=== PATIENT | female | born 1955 | race Caucasian/White ===

== ENCOUNTER → 2023-09-18 14:40 | Outpatient (REF) | payer MEDICARE, OTHER, SELFPAY | LOC: HWWDC 14:40 | PROVIDERS: ATTENDING PHYSICIAN Family Medicine | DX: Z12.31 Encounter for screening mammogram for malignant neoplasm of breast (principal) | CPT/HCPCS: 77063; 77067 ==

== ENCOUNTER → 2023-09-26 09:30 | Outpatient (REF) | payer MEDICARE, OTHER, SELFPAY | LOC: WDC 09:30 | PROVIDERS: ATTENDING PHYSICIAN Family Medicine | DX: R92.8 Other abnormal and inconclusive findings on diagnostic imaging of breast (principal) | CPT/HCPCS: 76642 ==

== ENCOUNTER → 2023-10-01 12:14 | Outpatient (REF) | payer MEDICARE, OTHER, SELFPAY ==
--- NOTE | 2023-10-01 15:13 | OID.BR.INTR ---
SOLD Breast Navigator - Initial
- -
Date of Contact: 10/01/23
Met with patient. Patient given written information on navigator services and support services available at [facility]. Will follow up as needed per protocol.
== END ==
LOC: WDC 12:14
PROVIDERS: ATTENDING PHYSICIAN Family Medicine
DX: N63.22 Unspecified lump in the left breast, upper inner quadrant (principal)
CPT/HCPCS: 88305; 19083; 77065; 88341; 88342; 88360; A4648

== ENCOUNTER → 2023-10-06 07:50 | Outpatient (REF) | payer MEDICARE, OTHER, SELFPAY | LOC: DHSLP 07:50 | PROVIDERS: ATTENDING PHYSICIAN Internal Medicine Critical Care Medicine; FAMILY PHYSICIAN Family Medicine | DX: G47.30 Sleep apnea, unspecified (principal); R06.83 Snoring | CPT/HCPCS: 95800 ==

== ENCOUNTER → 2023-10-09 08:16 | Outpatient (REF) | payer MEDICARE, OTHER, SELFPAY ==
[2023-10-09 09:55] LABS: Hematocrit 40.2 % (37.0-47.0); Hemoglobin 13.2 g/dL (12.0-16.0); Mean Corp Hgb Conc. 32.8 g/dL (33.0-37.0); Mean Corpuscular Hgb 28.8 pg (27.0-31.0); Mean Corpuscular Volume 87.6 fL (81.0-99.0); Mean Platelet Volume 11.1 fL (7.4-10.4); Platelet Count 293 10^3/uL (130-400); Red Blood Cell Count 4.59 10^6/uL (4.20-5.40); Red Cell Dist. Width 13.3 % (11.5-14.5); White Blood Cell Count 8.4 10^3/uL (4.8-10.8)
[2023-10-09 10:39] LABS: ALT (SGPT) 16 U/L (0-35); AST (SGOT) 21 U/L (14-36); Albumin 3.7 g/dl (3.5-5.0); Alkaline Phosphatase 118 U/L (38-126); Blood Urea Nitrogen 35 mg/dl (7-17); Calcium 9.3 mg/dl (8.4-10.2); Carbon Dioxide 28 mmol/L (22-30); Chloride 100 mmol/L (98-107); Glucose 217 mg/dl (70-99); Potassium 4.2 mmol/L (3.5-5.1); Sodium 135 mmol/L (135-145); Total Bilirubin 0.5 mg/dl (0.2-1.3); Total Protein 6.2 g/dl (6.3-8.2); eGFR 37.49
[2023-10-09 11:12] LABS: Vitamin D, 25-OH*** 12.9 ng/mL (30-80)
== END ==
LOC: SDSPAT 08:16
PROVIDERS: ATTENDING PHYSICIAN Surgery; FAMILY PHYSICIAN Family Medicine
DX: C50.412 Malignant neoplasm of upper-outer quadrant of left female breast (principal); E55.9 Vitamin D deficiency, unspecified; Z01.818 Encounter for other preprocedural examination
CPT/HCPCS: 36415; 80053; 82306; 84134; 85027; 93005

== ENCOUNTER → 2023-10-22 09:02 | Outpatient (REF) | payer MEDICARE, OTHER, SELFPAY | LOC: WDC 09:02 | PROVIDERS: ATTENDING PHYSICIAN Surgery | DX: C50.412 Malignant neoplasm of upper-outer quadrant of left female breast (principal) | CPT/HCPCS: 19285; 38792; 76942; 77065; A4648; A9541 ==

== ENCOUNTER 2023-10-23 06:11 | Day surgery (SDC) | payer MEDICARE, OTHER, SELFPAY ==
[2023-10-09 12:45] VITALS: BMI 42.0
[2023-10-17 13:20] VITALS: BMI 40.3
[2023-10-17 14:20] LABS: Vitamin D, 25-OH*** < 12.8 ng/mL (30-80)
[2023-10-23] VITALS (9 sets, daily range): BP systolic 104–147; BP diastolic 60–77; BMI 40.3
[2023-10-23 14:39] LABS: Glucose - Point of Care 131 mg/dl (70-99)
[2023-10-23] MEDS: LOVENOX 40 MG SC (14:39)
[2023-10-23] MEDS: NORMOSOL-R 1000 IV (14:40)
[2023-10-23] MEDS: TYLENOL 1000 MG PO (14:40)
--- NOTE | 2023-10-23 16:51 | W.IMMPOSTOP ---
Surgical Immed Post Op Note
-
Primary Surgeon: Korina
Assisting Surgeon: None
Pre-op Diagnosis: Left breast ca
Post-op Diagnosis: Same
Procedure Performed: Left localized lumpectomy and sentinel lymph node mapping and biopsy
Anesthesia Type: General LMA
Specimen / Cultures: Left lumpectomy, margins, sentinel node
Estimated Blood Loss: 10cc
Complications: None
Operative Findings: Neg node
[place] Node Bx Breast Cancer
[place] Node Bx Breast Cancer
Operation performed with curative intent: Yes
Tracer(s) to ID [place] Nodes in Non-Neoadjuvant setting: Radioactive Tracer
Tracer(s) to ID [place] Nodes in the Neoadjuvant Setting: N/A
All nodes at end of dye-filled Lymphatic Channel removed: N/A
All Significantly Radioactive Nodes were removed: Yes
All Palpably Suspicious Nodes were Removed: Yes
Bx [place] Nodes Marked Prior to Chemo ID'd & Removed: N/A
[2023-10-23 17:06] LABS: Glucose - Point of Care 103 mg/dl (70-99)
== END 2023-10-23 18:46 | disposition home or self-care (01) ==
LOC: SDS 06:11
PROVIDERS: ATTENDING PHYSICIAN Surgery; FAMILY PHYSICIAN Family Medicine
DX: C50.912 Malignant neoplasm of unspecified site of left female breast (principal)
CPT/HCPCS: 38525; 19301; 38900; 88305; 88307; 88332; 36415; 76098; 82306; 82962; 88331; 88342; A4648; C1729

== ENCOUNTER → 2024-04-01 13:54 | Outpatient (REF) | payer MEDICARE, OTHER, SELFPAY | LOC: HWRAD 13:54 | PROVIDERS: ATTENDING PHYSICIAN Internal Medicine Hematology & Oncology; FAMILY PHYSICIAN Family Medicine | DX: C50.412 Malignant neoplasm of upper-outer quadrant of left female breast (principal); Z78.0 Asymptomatic menopausal state | CPT/HCPCS: 77080 ==

== ENCOUNTER 2024-06-25 16:08 | Inpatient (IN) | payer MEDICARE, OTHER, SELFPAY ==
[2024-06-25] VITALS (13 sets, daily range): BP systolic 102–130; BP diastolic 65–93; BMI 43.4
[2024-06-25 11:16] LABS: % Basophils 0.5 % (0-2); % Eosinophils 0.7 % (0-6); % Immature Granulocytes 0.6 % (0-0.5); % Monocytes 9.9 % (1.7-9.3); % Neutrophils 79.3 % (42.2-75.2); Absolute Basophils 0.1 10^3/uL (0-0.2); Absolute Eosinophils 0.1 10^3/uL (0-0.7); Absolute Immature Granulocytes 0.1 10^3/uL (0-0.05); Absolute Neutrophils 8.3 10^3/uL (1.4-6.5); Hematocrit 45.4 % (37.0-47.0); Hemoglobin 14.4 g/dL (12.0-16.0); Mean Corp Hgb Conc. 31.7 g/dL (33.0-37.0); Mean Corpuscular Hgb 28.9 pg (27.0-31.0); Mean Corpuscular Volume 91.2 fL (81.0-99.0); Mean Platelet Volume 10.6 fL (7.4-10.4); Nucleated Red Blood Cells % 0 %; Platelet Count 343 10^3/uL (130-400); Red Blood Cell Count 4.98 10^6/uL (4.20-5.40); Red Cell Dist. Width 13.1 % (11.5-14.5); White Blood Cell Count 10.5 10^3/uL (4.8-10.8)
--- NOTE | 2024-06-25 11:21 | ED.GENMED ---
Addendum entered and electronically signed by Carlos Mccracken MD 06/25/24 16:27:
I was asked to administer adenosine per cardiology. They reviewed the EKG which was suspicious for SVT. I reviewed her chart EKGs labs. Discussed with the patient. She is asymptomatic. She is anticoagulated. Patient was given 6 mg of
adenosine. She did slow up significantly possibly atrial flutter versus just severely bradycardic. However she rebounded quickly to a's tachycardic rhythm at 130. More suspicious of a flutter versus sinus tach. Cardiology updated.
Original Note:
History of Present Illness
General
Chief Complaint: Abdominal Symptoms
Source: patient and records
Exam Limitations: none
Time Seen by Provider: 06/25/24 10:44
Nursing documentation reviewed up to this point in time: agreed with
History of Present Illness
History of Present Illness:
68-year-old female with a past medical history of asthma, hypertension, hyperlipidemia, CHF, atrial fibrillation, diabetes, hypothyroidism, breast cancer who presents to the emergency department for evaluation of multiple complaints including
lethargy, GI symptoms. Patient reports that she has been dealing with diplopia, vertigo/dizziness, nausea/vomiting/diarrhea intermittently over the past few months (she says since November). She has been seen by specialist including ophthalmology and
thus far no clear etiology identified; she is scheduled for MRI brain in July as part of this workup. She had been on chemotherapy for breast cancer over the summer but this was discontinued and symptoms did not go away. Over the past 48 hours
patient has developed increased nausea, was up all night vomiting. She says she has had a 'splitting headache' consistently since yesterday. She has some paresthesias in the right temporal region. She says that she has generalized malaise. She
feels increased shortness of breath. Denies any cough or chest pain. Denies any abdominal pain. While she has had some vomiting she denies diarrhea. She has not had any urinary symptoms. She denies any fevers or chills. She denies any other
complaints.
Past History
Past History
ED Past Medical History: Arrthythmia (Atrial fibrillation), Asthma, HTN and IDDM
ED Past Surgical History: Cardiac (Ablation), Cholecystectomy and Orthopedic
Social History
Tobacco: Former smoker
Alcohol: Occasional
Drug: None
Personal: Single
Living: with family
Employment: Employed
Family History
Family History: Diabetes
Review of Systems
Review of Systems
All Other Systems: ROS reviewed and negative except as documented in HPI and ROS
Constitutional: Reports fatigue; Denies fever or chills
EENT: Denies sore throat or runny nose
Respiratory: Reports trouble breathing; Denies cough
Cardiac: Denies chest pain or palpitations
ABD/GI: Reports nausea and vomiting; Denies abdominal pain or diarrhea
: Denies dysuria, frequency or flank pain
Musculoskeletal: Denies edema, neck pain or back pain
Neurological: Reports dizzy, headache and other (Paresthesias); Denies weakness or numbness
Phy Exam
Physical Exam
Physical Exam:
General: Awake, alert, oriented x3; no acute distress
Head: Normocephalic, atraumatic
Eyes: Conjunctiva normal, EOMI
Throat: Airway intact, handling secretions
Neck: Trachea midline, no JVD noted
Lungs: Clear to auscultation bilaterally, no wheezing, rales, rhonchi; mild tachypnea
Heart: Tachycardia with regular rhythm, no murmurs, gallops, or rubs appreciated
Abd: Soft, non distended, nontender
Neuro: Cranial nerves intact, speech fluid, no motor or sensory deficits
Skin: no rash
Extremities: No edema in extremities, equal pulses in all extremities
Scores
Heart Failure Risk
Heart Failure Risk Score: Not Applicable
Heart Score for Chest Pain Patients
STEMI patient?: Not applicable
Withdrawal Assessment of Alcohol
Withdrawal Assessment Completed?: Not applicable
Course
Orders/Labs/Results
Orders:
Orders
11/22/24 10:42
Electrocardiogram (*1) Urgent
Reason for Study: Tachycardia
EKG- Treatment ONCE
06/25/24 10:46
Electrocardiogram (*1) Urgent
Reason for Study: Fatigue / Weakness
EKG- Treatment ONCE
06/25/24 10:55
CT Head W/o Iv Contrast Urgent
Comment:
Reason For Exam: headache, N/V, h/o breast ca
CR Chest - 2 Views Urgent
Comment:
Reason For Exam: sob, fatigue
06/25/24 11:06
COVID-19 Antigen Urgent
Source: Nasal Swab
Complete Blood Count/With Diff Urgent
Comprehensive Metabolic Panel Urgent
Lipase Urgent
Magnesium Urgent
TSH Reflex To Free T4 Urgent
Influenza A+B Rapid Molecular Urgent
KUSUM Source: Nasal Swab
Specimen Description:
06/25/24 11:21
0.9% Sodium Chloride 500 ml [Nss] 500 ml IV BOLUS
06/25/24 11:37
Electrocardiogram (*1) Urgent
Reason for Study: Tachycardia
EKG- Treatment ONCE
06/25/24 12:15
NT-proBNP Urgent
Troponin I Urgent
Urinalysis Reflex To Culture Urgent
Date Specimen was Collected: 06/25/24
Time Specimen was Collected: 12:11
Urine Microscopic Reflex Cult Urgent
Urine Culture Urgent
KUSUM Source: U
Specimen Description:
Date Specimen was Collected: 06/25/24
Time Specimen was Collected: 12:11
06/25/24 12:24
0.9% Sodium Chloride 250 ml [Nss] 250 ml IV BOLUS
06/25/24 12:53
CT Chest Pe Study Urgent
Comment:
Reason For Exam: sob, tachycardic; h/o breast ca
06/25/24 13:58
Metoprolol [Lopressor] 5 mg IV NOW STA
06/25/24 15:30
Troponin I Urgent
Abnormal Lab Results
06/25/24 06/25/24
11: 12:15
MCHC 31.7 L g/dL
(33.0-37.0)
MPV 10.6 H fL
(7.4-10.4)
Abs Immat Gran (auto) 0.1 H 10^3/uL
(0-0.05)
Absolute Neuts (auto) 8.3 H 10^3/uL
(1.4-6.5)
Absolute Lymphs (auto) 1.0 L 10^3/uL
(1.2-3.4)
Absolute Monos (auto) 1.0 H 10^3/uL
(0.1-0.6)
Immature Gran % 0.6 H %
(0-0.5)
Neutrophils % 79.3 H %
(42.2-75.2)
Lymphocytes % 9.0 L %
(20.5-51.1)
Monocytes % 9.9 H %
(1.7-9.3)
BUN 30 H mg/dl
(7-17)
Creatinine 1.8 H mg/dL
(0.6-1.0)
Glucose 327 H mg/dl
(70-99)
Urine Bilirubin 1+ A
(Negative)
Leukocyte Esterase Rfl 1+ A
(Negative)
Urine WBC (Reflex) 16-20 A /HPF
(0-5)
Urine Bacteria (Reflex) Moderate A
(Negative)
Urine Glucose Trace A
(Negative)
Urine Albumin (Reflex) 1+ A
(Neg - Trace)
06/25/24 11:06
06/25/24 11:06
Vital Signs
Initial and Last Documented VS:
Initial Vital Signs
Temp Pulse Resp BP Pulse Ox
36.7 C 140 19 113/74 99
06/25/24 10:39 06/25/24 10:39 06/25/24 10:39 06/25/24 10:39 06/25/24 10:39
Last Documented Vital Signs
Temp Pulse Resp BP Pulse Ox
36.7 C 133 13 122/92 95
06/25/24 10:39 06/25/24 13:30 06/25/24 13:30 06/25/24 13:29 06/25/24 12:45
MDM/Problems Addressed
Differential Diagnosis Includes:
Anginal equivalent/ACS, CHF, dysrhythmia, gastritis, pancreatitis, enteritis, brain mass/brain bleed
MDM/Problems Addressed:
68-year-old female presents for multiple complaints�has had intermittent dizziness since GI issues, diplopia for months but over the past 48 hours developing worsening nausea and vomiting, lethargy, headache. Tachycardic otherwise normal vitals.
Physical exam as above. Check labs including a CBC and a CMP, lipase. Will check COVID and flu swabs. Check EKG. Will check a chest x-ray. Check troponin and proBNP. Will send for CT head. Treat nausea. Monitor closely reassess after the
above.
Labs reviewed: CBC unremarkable, CMP shows chronic kidney disease stable. Hyperglycemia but no DKA. Troponin negative, proBNP slightly elevated but chest x-ray shows no edema. Thyroid studies normal. Urinalysis no infection. COVID and flu
negative. CT head negative. Clinical reassessment patient remains very tachycardic�EKG shows sinus tachycardia. IV fluids in progress. At this point without clear etiology to her dyspnea and continued tachycardia will check CTA to rule out PE
especially given malignancy history. Will continue fluids as tachycardia could be related to dehydration although with CHF history and present dyspnea with elevated proBNP will slow rate with frequent reassessments.
CTA negative for PE or any other acute pathology. Clinical reassessment after fluids patient still tachycardic heart rate 140. P waves are present could be sinus tachycardia but suspect more likely that this is an atrial tachycardia. Will treat
with some IV Lopressor to better control heart rate. Some of her symptoms may be primarily related to her tachycardia�certainly this could account for some lethargy and dyspnea. Would not necessarily account for her GI symptoms but it sounds like
this is an acute on chronic issue; could be related to chemotherapy drugs or perhaps viral illness. She still feels very poorly on reassessment remains markedly tachycardia we will plan to admit for monitoring of heart rate and heart rate control,
IV fluids and control of nausea/vomiting. Discussed with hospitalist.
Chronic conditions affecting care:
A-fib, CHF, breast cancer
*Radiology
Radiology exam reviewed: preliminary read by ED provider and radiology read reviewed
*Pulse Oximetry
Patient hypoxic: no
*EKG
Interpreted by ED Provider?: Yes
Heart Rate: 135
Rate: tachycardiac
Rhythm: sinus and sinus tachycardia
[place]: left axis deviation
Interval: normal interval
QRS Pattern: normal QRS
Ischemia: non-specific ST changes
*Critical Care Note
Total Time (30-74mins, 75-104mins- exclusive of procedures): Not Applicable
Data Reviewed
Review of Other/Old Records Reveals: Labs and Records
Source: patient and records
Patient Management
Discussion with other providers: Hospitalist (Discussed with hospitalist)
Escalation/DeEscalation of care consider admission/obs:
Admission indicated
ED Attending Note
-
Portions of this chart may have been created with voice recognition software.� Occasional wrong word or��sound alike� substitutions may have occurred due to the inherent limitations of voice recognition software.
Discharge Plan
Departure
Patient Disposition: Admit
Date of Disposition: 06/25/24
Time of Disposition: 14:02
Admit to doctor: Sal
Presentation/result/management discussed w/ accepting MD/DO: Hospitalist
Discharge Problem:
Nausea & vomiting, Dehydration, Atrial tachycardia, Dyspnea
Prescriptions:
No Action
multivitamin 1 EACH tablet
1 ea PO DAILY@1200
fluoxetine 40 MG capsule
40 mg PO HS
Patient Comments:
12/17/22- increase on 12/12/22
nitroglycerin 0.4 MG tablet, sublingual
0.4 mg sublingual [id number] PRN (Reason: chest pain)
vitamin B complex 1 TAB tablet
1 tab PO DAILY@1200
atorvastatin 20 MG tablet
20 mg PO HS
cyanocobalamin (vitamin B-12) 1,000 MCG tablet
1,000 mcg PO DAILY@1200
ferrous sulfate [iron] 325 MG tablet
325 mg PO DAILY@1200
aspirin 81 MG tablet,chewable
81 mg PO DAILY
albuterol sulfate 90 mcg/actuation Hfa Aerosol Inhaler
2 puff INHALATION R Q4HPRN PRN (Reason: sob)
insulin aspart U-100 [Novolog FlexPen U-100 Insulin] 100 unit/mL (3 mL) insulin pen
13 unit SC AC
diltiazem HCl 240 mg Capsule,Extended Release 24hr
240 mg PO DAILY Qty: 1 0RF
albuterol sulfate 2.5 mg /3 mL (0.083 %) Solution For Nebulization
2.5 mg INHALATION R Q4HPRN PRN (Reason: sob)
fluticasone propionate [Flovent HFA] 110 mcg/actuation HFA aerosol inhaler
2 puff INHALATION R BID
Eliquis 5 mg tablet
5 mg PO BID
levothyroxine 112 mcg Tablet
112 mcg PO DAILY
Vitamin D2 25,000 unit Capsule
50,000 unit PO DAILY
insulin glargine [Basaglar KwikPen U-100 Insulin] 100 unit/mL (3 mL) Insulin Pen
6 unit SC HS
Trulicity 1.5 mg/0.5 mL Pen Injector
1.5 mg SC QWEEK
furosemide [Lasix] 40 mg tablet
40 mg PO DAILY
Referrals:
Kailyn Petty MD [Family Provider] -
Interventions
Interventions:
ED- Fall Risk Assessment Last Done: 06/25/24 12:22
*ED COVID-19 Vaccine History Last Done: 06/25/24 10:51
JU-Ibrgco-Sgpsfqukaj Assessment Last Done: 06/25/24 12:23
Discharge Date and Time
Print Language: LATVIAN
[2024-06-25 11:28] LABS: ALT (SGPT) 17 U/L (0-35); AST (SGOT) 19 U/L (14-36); Albumin 3.9 g/dl (3.5-5.0); Alkaline Phosphatase 115 U/L (38-126); Blood Urea Nitrogen 30 mg/dl (7-17); Calcium 9.3 mg/dl (8.4-10.2); Carbon Dioxide 26 mmol/L (22-30); Chloride 98 mmol/L (98-107); Estimated Creatinine Clearance 35 ml/min; Glucose 327 mg/dl (70-99); Lipase 66 U/L (23-300); Magnesium 1.6 mg/dl (1.6-2.3); Potassium 4.7 mmol/L (3.5-5.1); Sodium 138 mmol/L (135-145); Total Bilirubin 0.6 mg/dl (0.2-1.3); Total Protein 6.3 g/dl (6.3-8.2); eGFR 30.12
[2024-06-25 11:35] LABS: COVID-19 Antigen Negative (Negative)
[2024-06-25 12:19] LABS: TSH Reflex To Free T4 0.88 uIU/ml (0.47-4.68)
[2024-06-25 12:31] LABS: Urine Albumin 1+ (Neg - Trace); Urine Bilirubin 1+ (Negative); Urine Character Clear (Clear); Urine Color Yellow; Urine Glucose Trace (Negative); Urine Ketone Negative (Negative); Urine Leukocyte 1+ (Negative); Urine Nitrite Negative (Negative); Urine Occult Blood Negative (Negative); Urine Specific Gravity 1.025 (<1.030); Urine Urobilinogen Negative (Neg - 1+)
[2024-06-25] MEDS: NSS 250 IV (12:31)
[2024-06-25 12:46] LABS: NT-proBNP 2960 pg/ml
[2024-06-25 12:55] LABS: Urine Hyaline Cast >15 /LPF (0-2); Urine Red Blood Cell 0-2 /HPF (0-2)
[2024-06-25 12:56] LABS: Urine Bacteria Moderate (Negative); Urine White Cell 16-20 /HPF (0-5)
[2024-06-25] MEDS: LOPRESSOR 5 MG IV (14:07)
[2024-06-25] MEDS: NSS 500 IV (14:11)
--- NOTE | 2024-06-25 14:18 | HPS.HSE ---
Family Physician
-
Family Physician: Kailyn Petty
Chief Complaint
-
General malaise with nausea and vomiting
History of Present Illness
Patient is a 68-year-old female with past medical history significant for breast cancer, atrial fibrillation, HTN, HLD, HFpEF, type 2 diabetes, depression, and ADHD. Patient presented to [place] ED for evaluation of general malaise associated
with diplopia, nausea and vomiting. Patient stated that in end of October 2023 she had lumpectomy, completed radiation and started oral hormone medication for breast cancer. Shortly after start of treatment she began having episodes of dizziness
(where room spins), general malaise, intermittent shortness of breath, with headaches, diplopia, nausea and vomiting. She claims that some days are worse than others but this has been chronically going on since approximately November 2023. Her roommate
brought her for evaluation after waking this morning as she has had no relief in symptoms recently and today she had complaint of severe headache, nausea, vomiting and episode of diarrhea overnight. Patient states she has been seeing multiple
doctors for symptoms with all negative workup to this point, she is scheduled to have MRI of brain July 22. Patient denies any fever, chills, cough, chest pain, constipation, or urinary symptoms. Adenosine 6mg given in ED and ineffective.
Medical History
Past Medical History
Past Medical History: Reports Other
Additional Past Medical History:
Invasive Ductal Carcinoma of Left Breast
Atrial fibrillation
HTN
HLD
HFpEF
Type 2 Diabetes
Depression
ADHD
Past Surgical History: Reports Other
Additional Past Surgical History:
Bilateral knee replacements
cholecystectomy
Social History
Tobacco: Former Smoker
Alcohol: Occasional
Personal: Single
Living: With Roomate
Family History
Family History: Not pertinent
Allergies / Home Medications
Allergies reflects when Allergies were last updated in [facility].
Home Medications with original date entered in [facility]
Allergy/Medication List:
Allergies
Allergy/AdvReac Type Severity Reaction Status Date / Time
theophylline Allergy tongue Verified 06/25/24 10:41
swelling,
rash
Home Medications
fluoxetine 40 mg capsule 80 mg PO DAILY Gastrointestinal issue 04/05/20
multivitamin 1 ea PO NOON Supplement 04/05/20
nitroglycerin 0.4 mg sublingual tablet 0.4 mg sublingual [id number] PRN chest pain 04/05/20
atorvastatin 20 mg tablet 20 mg PO HS High cholesterol 09/19/21
cyanocobalamin (vitamin B-12) 1,000 mcg tablet 1,000 mcg PO NOON Supplement 09/19/21
ferrous sulfate 325 mg (65 mg iron) tablet (iron) 325 mg PO NOON Supplement 09/19/21
vitamin B complex 1 tab PO NOON Supplement 09/19/21
albuterol sulfate 90 mcg/actuation aerosol inhaler 2 puff inhalation R Q4HPRN PRN sob 06/16/22
insulin aspart U-100 100 unit/mL (3 mL) subcutaneous pen (Novolog FlexPen U-100 Insulin aspart) 13 unit SC AC Diabetes 08/13/22
albuterol sulfate 2.5 mg/3 mL (0.083 %) solution for nebulization 2.5 mg inhalation R Q4HPRN PRN sob 12/17/22
apixaban 5 mg tablet (Eliquis) 5 mg PO BID Blood clot prevention/tx 12/17/22
fluticasone propionate 110 mcg/actuation HFA aerosol inhaler (Flovent HFA) 2 puff inhalation R BID Allergies 12/17/22
furosemide 40 mg tablet (Lasix) 80 mg PO DAILY Fluid retention/Swelling 10/21/23
insulin glargine 100 unit/mL (3 mL) subcutaneous pen (Basaglar KwikPen U-100 Insulin) 6 unit SC HS 10/21/23
dextroamphetamine-amphetamine 10 mg tablet (Adderall) 10 mg PO TID 06/25/24
diltiazem HCl 240 mg capsule,extended release 24 hr 240 mg PO BID 06/25/24
dulaglutide 4.5 mg/0.5 mL subcutaneous pen injector (Trulicity) 4.5 mg SC HUTCHISON 06/25/24
ergocalciferol (vitamin D2) 1,250 mcg (50,000 unit) capsule 1,250 mcg PO HUTCHISON 06/25/24
letrozole 2.5 mg tablet 2.5 mg PO DAILY 06/25/24
levothyroxine 150 mcg tablet (Synthroid) 150 mcg PO DAILY 06/25/24
ondansetron HCl 8 mg tablet 8 mg PO Q8HPRN PRN nausea 06/25/24
turmeric 400 mg capsule 400 mg PO DAILY 06/25/24
Review of Systems
-
History Source: Patient
Constitutional: Reports Fatigue and Sleep Disturbance
EENT: Reports No Symptoms
Respiratory: Reports Other (intermittent shortness of breath, comes with exertion and rest)
Cardiac: Reports No Symptoms
Abdomen/GI: Reports Nausea, Vomiting and Diarrhea
: Reports No Symptoms
Musculoskeletal: Reports No Symptoms
Skin: Reports No Symptoms
Neurological: Reports Dizzy, Headache and Weakness
Endocrine: Reports No Symptoms
Hematologic/Lymphatic: Reports No Symptoms
Psych: Reports No Symptoms
Physical Exam
Vital Signs
Vital Signs
Temp Pulse Resp BP Pulse Ox
98.0 F 132 13 129/87 95
06/25/24 10:39 06/25/24 14:07 06/25/24 13:30 06/25/24 14:07 06/25/24 12:45
Physical Exam
General: Well Developed, Well Nourished, No Apparent Distress, Comfortable and Conversant
HEENT: NormoCephalic, Moist mucous membranes, Atraumatic, PERRLA, [place] Conjunctivae, Nose Appears Normal and Ears Appear Normal
Respiratory: Clear and Non Labored Respirations
Cardiac: S1/S2 and Tachycardia; No Murmur, Rub, Gallop or Peripheral Edema
Breast: Deferred by me
GI: Soft, Non Tender, Non Distended and Normal Bowel Sounds; No Organomegaly
Rectal: Deferred by Provider
Genito-urinary: Deferred by me
Musculoskeletal: No Clubbing, No Cyanosis, No Edema and Normal Gait & Station
Skin: Warm, Dry and IV/Catheter Site; No Rash
Neuro: Awake, Alert, AO x 3, Nonfocal/grossly intact and Cranial Nerves Intact
Hematologic/Lymphatic: No Lymphadenopathy
Psych: Calm and Intact Judgment/Insight
Laboratory Results
-
06/25/24 11:06
06/25/24 11:06
Laboratory Results
Total Bilirubin 0.6 mg/dl (0.2-1.3) 06/25/24 11:06
AST 19 U/L (14-36) 06/25/24 11:06
ALT 17 U/L (0-35) 06/25/24 11:06
Alkaline Phosphatase 115 U/L (38-126) 06/25/24 11:06
Troponin I 0.030 ng/ml 06/25/24 12:15
Lipase 66 U/L (23-300) 06/25/24 11:06
Data Reviewed
-
Diagnostic Radiology: Report Reviewed by me (CXR: There is mild cardiomegaly but no evidence of decompensation. Hyperaeration suggests a component of COPD.)
CT Scan: Report Reviewed by me (Head: There are mild changes of cortical atrophy and chronic ischemic disease; Chest: There is no CT evidence of pulmonary embolism Patchy airspace disease in the right upper lobe is unchanged over two-year interval.
There are no new pulmonary masses)
Medical Tests (Nuc Med, Echo, EKG etc): Report Reviewed by me (EKG: SINUS TACHYCARDIA LEFT AXIS DEVIATION)
Lab Data: Labs Reviewed by me (BUN 30, Creat 1.8, BNP 2960, )
Impression/Plan
-
IMPRESSION/PLAN:
#Atrial fibrillation vs SVT vs Atrial Flutter
- EKG: SUPRAVENTRICULAR TACHYCARDIA
POSSIBLE ATRIAL FLUTTER WITH 2:1 A-V CONDUCTION
- HR 130-140s
- Metoprol 5mg IV ineffective in rate control
- continue diltiazem
- continue Eliquis
- Consult Cardiology
#Acute on Chronic Kidney disease
#Viral infection vs cancer treatment side effects
- nausea, vomiting, dizziness, and double vision for months
- BUN 30, Creat 1.8
- Admit to tele for observation
- Antiemetics
- IVF for hydration
- Consult Neurology
#HTN
- controlled without medication
- monitor
#HLD
- continue atorvastatin
#HFpEF
- BNP 2960
- continue furosemide
- continue ferrous sulfate
#Invasive Ductal Carcinoma of Left Breast
- continue letrozole
#Type 2 Diabetes
- continue Trulicity
- continue insulin regimen
- Accuchecks AC & HS
- SSI
#Depression
- continue fluoxetine
#ADHD
- hold adderall
Full Code
DVT Px: Eliquis
[2024-06-25] MEDS: TYLENOL 650 MG PO (14:45)
[2024-06-25] MEDS: ADENOCARD 6 MG IV (16:03)
--- NOTE | 2024-06-25 19:43 | W.PN.UPDATE ---
Update Note
Progress Note Update
This note serves as an addendum to the H&P by family medicine physician assistant REUBEN Maryanne Gupta
HPI
68F HX breast cancer, atrial fibrillation, HTN, HLD, HFpEF, type 2 diabetes, depression, and ADHD pw general malaise nausea and vomiting. HX s/p lumpectomy in October 2023 completed XRT and started oral hormone medication Shortly after start of
treatment she began having episodes of dizziness (where room spins), general malaise, intermittent shortness of breath, with headaches, diplopia, nausea and vomiting.
PHX as above
Vital Signs
Temp Pulse Resp BP Pulse Ox
98.0 F 132 19 129/87 95
06/25/24 10:39 06/25/24 15:15 06/25/24 15:15 06/25/24 14:07 06/25/24 12:45
PE :
Class III Obesity with BMI 43
Gen: NAD, not toxic
HEENT:anicteric
Neck: supple
Lungs:CTA
Cor:tachy arrhythmias
Abdomen: obese , benign
BEHAVIORAL ANALYST: AAO3, NFND
MS: No edema
Psych: normal afeect and mood
Laboratory Tests
Abnormal Lab Results
06/25/24 06/25/24
11:06 12:15
MCHC 31.7 L
MPV 10.6 H
Abs Immat Gran (auto) 0.1 H
Absolute Neuts (auto) 8.3 H
Absolute Lymphs (auto) 1.0 L
Absolute Monos (auto) 1.0 H
Immature Gran % 0.6 H
Neutrophils % 79.3 H
Lymphocytes % 9.0 L
Monocytes % 9.9 H
BUN 30 H
Creatinine 1.8 H
Glucose 327 H
Urine Bilirubin 1+ A
Leukocyte Esterase Rfl 1+ A
Urine WBC (Reflex) 16-20 A
Urine Bacteria (Reflex) Moderate A
Urine Glucose Trace A
Urine Albumin (Reflex) 1+ A
06/25/24 & 1046 EKG
SUPRAVENTRICULAR TACHYCARDIA
POSSIBLE ATRIAL FLUTTER WITH 2:1 A-V CONDUCTION
Sinus tach seems less likely
LEFT AXIS DEVIATION
ANTERIOR INFARCT (CITED ON OR BEFORE 30-JUL-2023)
ABNORMAL ECG
WHEN COMPARED WITH ECG OF 25-JUN-2024 10:48,
NO SIGNIFICANT CHANGE WAS FOUND
Hospitalist notified by [facility] message
Confirmed by MD BROWN, МАРИЯ Garza ([id number]) on 06/25/2024 3:18:54 PM
CTA of the chest with intravenous contrast.
- There is no CT evidence of pulmonary embolism
- Patchy airspace disease in the right upper lobe is unchanged over two-year interval.
- There are no new pulmonary masses Last hospitalist admission:
ASSESSMENT & PLAN
SVT per Card/ Dr Uribe per reading EKG report and suggest IV Adenosine
Symptomatic SVT per report on EKG
SVT vs Atrial Flutter
S/P IV Adenosine 6mg - remain tachy arrthmia and drifting into A Fluitter per strip
HX A Fib on chr Eliquis
- continue diltiazem CD 240 BID
- ECHO in AM
- DCA Card consult
FRANCISCO: Current Cr 1.8
HX CKD3b - baseline Cr in mid 1s
- gentle IVF
Chr intermitrtent Dizziness
acute on chronic N & V
DDx : ADES of oral Letrozole
- Antiemetics PRN
- IVF for hydration
- Neurology consult
DVT Px: chr Eliquis
Full code
[facility]
[2024-06-25] MEDS: FLOVENT 110 MCG INHALER 2 PUFF INH (19:59)
[2024-06-25] MEDS: NOVOLOG FLEXPEN 13 UNITS SC (20:00)
[2024-06-25] MEDS: NOVOLOG FLEXPEN-LOW RESISTANCE 1 UNITS SC (20:03)
[2024-06-25 20:09] LABS: Glucose - Point of Care 197 mg/dl (70-99)
[2024-06-25] MEDS: CARDIZEM CD 240 MG PO (21:00)
[2024-06-25] MEDS: ELIQUIS 5 MG PO (21:00)
[2024-06-25 22:43] LABS: Glucose - Point of Care 107 mg/dl (70-99)
[2024-06-26] VITALS (13 sets, daily range): BP systolic 97–140; BP diastolic 51–102; BMI 42.6
[2024-06-26] MEDS: LANTUS 0.06 UNITS SC ×2 (00:48→22:29)
[2024-06-26] MEDS: LIPITOR 20 MG PO ×2 (00:48→22:29)
[2024-06-26 01:02] LABS: Glucose - Point of Care 101 mg/dl (70-99)
[2024-06-26] MEDS: SYNTHROID 150 MCG PO (05:54)
[2024-06-26 06:09] LABS: Hemoglobin 13.6 g/dL (12.0-16.0); Mean Corpuscular Hgb 29.9 pg (27.0-31.0); Mean Corpuscular Volume 87.9 fL (81.0-99.0); Mean Platelet Volume 10.6 fL (7.4-10.4); Platelet Count 300 10^3/uL (130-400); Red Blood Cell Count 4.55 10^6/uL (4.20-5.40); Red Cell Dist. Width 13.2 % (11.5-14.5); White Blood Cell Count 9.8 10^3/uL (4.8-10.8)
[2024-06-26 06:23] LABS: Blood Urea Nitrogen 26 mg/dl (7-17); Calcium 9.1 mg/dl (8.4-10.2); Carbon Dioxide 24 mmol/L (22-30); Chloride 104 mmol/L (98-107); Estimated Creatinine Clearance 45 ml/min; Glucose 141 mg/dl (70-99); Magnesium 1.8 mg/dl (1.6-2.3); Potassium 4.8 mmol/L (3.5-5.1); Sodium 140 mmol/L (135-145); eGFR 40.73
[2024-06-26] MEDS: FLOVENT 110 MCG INHALER 2 PUFF INH ×2 (07:21→18:28)
--- NOTE | 2024-06-26 07:45 | W.PN.HOSP.TC ---
Addendum entered and electronically signed by Christy Garcia MD 06/26/24 08:18:
will cancel neuro consult for now--don't believe we need at this time
Original Note:
Today's Communication/Plan
-
apprec cards
appears cardizem drip to start
cont eliquis
transfer to IVU
Assessment / Plan
Assessment / Plan
pt is a 68 year old female
Symptomatic SVT per report on EKG --now sinus tach on monitor (pt states she cannot feel her heart racing)--HR 130s--cont oral cardizem 240 mg BID--consider adding beta estefany--no improvement with IV adenosine--await cards input--ECHO--CT chest neg
for PE--downgrade from IMU to IVU--may want to stop Adderall
persistent Atrial Fib on chronic Eliquis--- continue diltiazem CD 240 BID--ECHO in AM- [facility] Card consult--considering ablation per pt
chronic diastolic congestive heart failure (HFpEF) with preserved EF--no exacerbation
FRANCISCO-- admission Cr 1.8 (baseline mid 1s)--now down to 1.4--cont IVF
Chronic intermittent Dizziness with acute on chronic N/V --await neuro input--antiemetics--cont IVF--head CT neg for acute findings
h/o breast cancer--on letrozole
HLD--cont atorvastatin
type 2 DM--accucchecks, SSI, check HGB T0S--zutp trulicity, lantus, insulin with meals
hypothyroid--cont synthroid--TSH WNL
DVT Proph-- Eliquis
code status --Full code
Anticipated Discharge: > 48 hours
Subjective/Interval History
-
Date of Service: June 26, 2024
pt without c/o--cannot feel heart racing
Objective Data
-
Labs:
Laboratory Results
06/26/24
05:58
WBC 9.8
Hgb 13.6
Hct 40.0
Plt Count 300
Sodium 140
Potassium 4.8
Chloride 104
Carbon Dioxide 24
BUN 26 H
Creatinine 1.4 H
Glucose 141 H
Calcium 9.1
Vital Signs:
max temp for 24 hours
06/26/24
03:37
Temp 98.2 F
Vital Signs
Temp Pulse Resp BP Pulse Ox
97.9 F 136 22 104/68 97
06/26/24 06:00 06/26/24 07:26 06/26/24 07:26 06/26/24 06:00 06/26/24 07:26
Review of Systems
-
All other systems: Reviewed and negative
Cardiac: Denies Palpitations
Physical Exam
-
General: Well Developed, Well Nourished and No Apparent Distress
HEENT: Normocephalic and Atraumatic; Negative Oxygen
Respiratory: Clear to Auscultation; Negative Wheezes or Rhonchi
Cardiac: Regular Rhythm, S1/S2 and Tachycardic; Negative Murmur
GI: Soft, Nontender, Nondistended and Normal Bowel Sounds
Musculoskeletal: No Clubbing, No Cyanosis and No Edema
Neuro: Awake and Alert
Psych: Calm
[2024-06-26 07:49] LABS: Glucose - Point of Care 147 mg/dl (70-99)
[2024-06-26] MEDS: LASIX 80 MG PO (07:50)
--- NOTE | 2024-06-26 07:50 | CON.CAR ---
Consultation
Consultation Request
Date/Time Consultation Requested: 06/25/24 6:00pm
Date/Time Consultation Performed: 06/26/24 7:30AM
Requesting Provider: Dr Huang
Performing Provider: Dr Fraga
Reason for Consultation: SVT
Medical History
-
Chief Complaint: fatigue, dizziness, nausea and vomiting.
History of Present Illness:
68-year-old female with past medical history of paroxysmal atrial fibrillation status post ablation in 2022, diabetes, chronic heart failure with preserved ejection fraction, hypertension, ADHD, hyperlipidemia presents with fatigue, nausea,
vomiting,. She also has intermittent episodes of blurry vision. She denies any focal deficits. She denies any palpitations, or chest pains. She does have some mild shortness of breath. She denies any orthopnea, PND, or edema. Upon arrival in
the emergency room she was found to be in supraventricular tachycardia with elevated ventricular rates in the 140s. She was given adenosine which suggest that she was in atypical atrial flutter. She states she has had a slight cough but no fevers
or chills. She denies any falls. She denies any bleeding. She has been compliant with her anticoagulation.
Past Medical History
Past Medical History: Arrhythmias (Paroxysmal atrial fibrillation status post ablation 2022), CAD (History of breast cancer), CHF (Chronic heart failure with preserved ejection fraction), HTN, Hypercholesterolemia, IDDM, Renal Failure (CKD 3) and
Psychiatric (ADHD)
Past Surgical History: Other (Left breast lumpectomy 2023)
Social History
Tobacco: Non-Smoker
Alcohol: None
Drug: None
Living: With Roomate
Employment: Retired
Family History
Family History: Hypertension
Allergies / Home Medications
Allergy/AdvReac Type Severity Reaction Status Date / Time
theophylline Allergy tongue Verified 06/25/24 10:41
swelling,
rash
�Medication �Instructions �Recorded �Confirmed �Type
fluoxetine 40 mg capsule 80 mg PO DAILY depression/anxiety 04/05/20 06/25/24 History
multivitamin 1 ea PO NOON Supplement 04/05/20 06/25/24 History
nitroglycerin 0.4 mg sublingual 0.4 mg sublingual [id number] PRN 04/05/20 06/25/24 History
tablet chest pain
atorvastatin 20 mg tablet 20 mg PO HS High cholesterol 09/19/21 06/25/24 History
cyanocobalamin (vitamin B-12) 1,000 mcg PO NOON Supplement 09/19/21 06/25/24 History
1,000 mcg tablet
ferrous sulfate 325 mg (65 mg 325 mg PO NOON Supplement 09/19/21 06/25/24 History
iron) tablet (iron)
vitamin B complex 1 tab PO NOON Supplement 09/19/21 06/25/24 History
albuterol sulfate 90 mcg/actuation 2 puff inhalation R Q4HPRN PRN sob 06/16/22 06/25/24 History
aerosol inhaler
insulin aspart U-100 100 unit/mL 13 unit SC AC Diabetes 08/13/22 06/25/24 History
(3 mL) subcutaneous pen (Novolog
FlexPen U-100 Insulin aspart)
albuterol sulfate 2.5 mg/3 mL 2.5 mg inhalation R Q4HPRN PRN sob 12/17/22 06/25/24 History
(0.083 %) solution for nebulization
apixaban 5 mg tablet (Eliquis) 5 mg PO BID Blood clot 12/17/22 06/25/24 History
prevention/tx
fluticasone propionate 110 2 puff inhalation R BID Allergies 12/17/22 06/25/24 History
mcg/actuation HFA aerosol inhaler
(Flovent HFA)
furosemide 40 mg tablet (Lasix) 80 mg PO DAILY Fluid 10/21/23 06/25/24 History
retention/Swelling
insulin glargine 100 unit/mL (3 6 unit SC HS Diabetes 10/21/23 06/25/24 History
mL) subcutaneous pen (Basaglar
KwikPen U-100 Insulin)
dextroamphetamine-amphetamine 10 10 mg PO TID Neurological Condition 06/25/24 06/25/24 History
mg tablet (Adderall)
diltiazem HCl 240 mg 240 mg PO BID Blood Pressure 06/25/24 06/25/24 History
capsule,extended release 24 hr
dulaglutide 4.5 mg/0.5 mL 4.5 mg SC HUTCHISON Diabetes 06/25/24 06/25/24 History
subcutaneous pen injector
(Trulicity)
ergocalciferol (vitamin D2) 1,250 1,250 mcg PO HUTCHISON Supplement 06/25/24 06/25/24 History
mcg (50,000 unit) capsule
letrozole 2.5 mg tablet 2.5 mg PO DAILY Cancer 06/25/24 06/25/24 History
levothyroxine 150 mcg tablet 150 mcg PO DAILY Thyroid 06/25/24 06/25/24 History
(Synthroid)
ondansetron HCl 8 mg tablet 8 mg PO Q8HPRN PRN nausea 06/25/24 06/25/24 History
turmeric 400 mg capsule 400 mg PO DAILY Supplement 06/25/24 06/25/24 History
Review of Systems
-
History Source: Patient
Constitutional: Fatigue
EENT: No Symptoms
Respiratory: No Symptoms
Cardiac: Diaphoresis
Abdomen/GI: Nausea and Vomiting
: No Symptoms
Musculoskeletal: No Symptoms
Skin: No Symptoms
Neurological: Other (Blurry vision)
Endocrine: No Symptoms
Hematologic/Lymphatic: No Symptoms
Physical Exam
Vital Signs
Temp Pulse Resp BP Pulse Ox
97.9 F 136 22 104/68 97
06/26/24 06:00 06/26/24 07:26 06/26/24 07:26 06/26/24 06:00 06/26/24 07:26
Lab Results
06/26/24 05:58
06/26/24 05:58
Troponin I 0.030 ng/ml 06/25/24 15:29
Rzx-S-Jpvclyzzjct Pept 2960 pg/ml 06/25/24 12:15
Physical Exam
General: Well Developed and Well Nourished
HEENT: Normocephalic and Anicteric
Respiratory: Clear and Non Labored Respirations
Cardiac: S1/S2, Regular Rhythm and Murmur (Tachycardic,08/09 syst LSB)
GI: Soft and Non Tender
Musculoskeletal: No Edema
Skin: Warm and Dry
Neuro: AO x 3
Psych: Calm
Impression / Plan
-
Primary sheep clipper: Joey Bo MD
Impression:
Atypical atrial flutter/SVT
Paroxysmal atrial fibrillation post PVI 01/01/23
Blurry vision
CKD3b
Chronic HFpEF 50-55%
Hypothyroidism
HTN
HLD
DM2
EVA/CPAP
Fall with L hand fracture 12/02/22
History of breast cancer
Cardiac cath September 2021, no significant CAD.
Echo December 18, 2022, EF 55 6%, mild MR, aortic root 3.[address] of the head 06/25/24: Chronic ischemic disease
CT scan of the chest 06/25/24; no pulmonary embolism
Plan:
She has a known history of atrial fibrillation with an ablation in 2022. She was weaned off amiodarone over the past year. She presents with supraventricular tachycardia/atypical a flutter.
Start IV Cardizem drip and titrate. Would continue p.o. Cardizem as well. Hopefully she converts back into sinus rhythm on her own.
Continue Eliquis. She has been compliant with the medication. If she remains in sinus rhythm over the next 48 hours will need to proceed with cardioversion on Friday.
Her chronic heart failure appears to be stable. Continue Lasix 80 mg daily.
Check TSH. Continue Synthroid.
She has chronic blurry vision. The etiology remains unclear. Head CT overall unremarkable. Could consider neurology evaluation.
Data Reviewed
-
EKG: Report Reviewed by me
CT Scan: Report Reviewed by me
Medical Tests (Nuc Med, Echo etc): Report Reviewed by me
Labs: Labs Reviewed by me
Old Records: Reviewed
[2024-06-26] MEDS: FEMARA 2.5 MG PO (07:52)
[2024-06-26] MEDS: CARDIZEM CD 240 MG PO ×2 (07:52→19:20)
[2024-06-26] MEDS: ELIQUIS 5 MG PO ×2 (07:53→19:20)
[2024-06-26] MEDS: PROZAC 80 MG PO (07:53)
[2024-06-26] MEDS: NOVOLOG FLEXPEN-LOW RESISTANCE SC ×2 (07:58→12:42)
[2024-06-26] MEDS: NOVOLOG FLEXPEN 13 UNITS SC ×3 (09:20→16:27)
--- NOTE | 2024-06-26 09:32 | PTCARENOTE ---
Received patient from the ED with AF, placed on telemetry and remains in AF with rate in the 130's, will start IV cardizem as ordered. Oriented to the room and plan of care, eating breakfast now.
[2024-06-26] MEDS: CARDIZEM 125 IV (10:09)
[2024-06-26 11:07] LABS: Glycohemoglobin (HgbA1c) 7.3 % (4.0-5.6)
[2024-06-26 12:39] LABS: Glucose - Point of Care 137 mg/dl (70-99)
[2024-06-26] MEDS: FEOSOL 325 MG PO (13:40)
[2024-06-26] MEDS: VITAMIN B-12 1000 MCG PO (13:40)
[2024-06-26] MEDS: B COMPLEX w/VITAMIN C 1 CAPLET PO (13:40)
[2024-06-26] MEDS: NOVOLOG FLEXPEN-LOW RESISTANCE 1 UNITS SC (16:27)
[2024-06-26 16:28] LABS: Glucose - Point of Care 160 mg/dl (70-99)
--- NOTE | 2024-06-26 16:36 | PTCARENOTE ---
VSS, heart rates improved 70-80's with stable BP, A flutter on the monitor. IV cardizem infusing at 5mg/hr, call newby in reach, patient eating dinner.
[2024-06-26 21:08] LABS: Glucose - Point of Care 159 mg/dl (70-99)
--- NOTE | 2024-06-26 22:30 | PTCARENOTE ---
Pt received at change of shift. Afib/flutter on tele with HR 70s-80s. Cardizem gtt infusing at 5mg/hr. No complaints of CP at this time. Ambulating independently in room without difficulty. Can make needs known. Call newby within reach.
[2024-06-27] VITALS (8 sets, daily range): BP systolic 110–149; BP diastolic 56–75; BMI 42.6
--- NOTE | 2024-06-27 03:59 | PTCARENOTE ---
Pt noted to be flipping between Afib and SR throughout night. HRs 70s-80s however pt gets tachy with ambulation into the 140s. After ambulating to bathroom, pt reports having trouble catching her breath, denies CP. POX 95% on RA. Recovers within
a minute while seated on side of bed to HR in the 80s with no more SOB reported. Cardizem gtt remains at 5mg/hr. Pt encouraged to ring for assistance as needed for ambulation in case symptoms reoccur. Call newby within reach.
[2024-06-27 04:19] LABS: Hematocrit 37.9 % (37.0-47.0); Hemoglobin 12.8 g/dL (12.0-16.0); Mean Corp Hgb Conc. 33.8 g/dL (33.0-37.0); Mean Corpuscular Hgb 29.4 pg (27.0-31.0); Mean Corpuscular Volume 87.1 fL (81.0-99.0); Mean Platelet Volume 10.6 fL (7.4-10.4); Platelet Count 277 10^3/uL (130-400); Red Blood Cell Count 4.35 10^6/uL (4.20-5.40); White Blood Cell Count 9.3 10^3/uL (4.8-10.8)
[2024-06-27 04:43] LABS: Blood Urea Nitrogen 32 mg/dl (7-17); Carbon Dioxide 24 mmol/L (22-30); Chloride 104 mmol/L (98-107); Estimated Creatinine Clearance 37 ml/min; Glucose 181 mg/dl (70-99); Magnesium 1.9 mg/dl (1.6-2.3); Potassium 4.3 mmol/L (3.5-5.1); Sodium 139 mmol/L (135-145); eGFR 32.26
[2024-06-27] MEDS: SYNTHROID 150 MCG PO (06:09)
[2024-06-27] MEDS: CARDIZEM 125 IV (06:16)
[2024-06-27] MEDS: FLOVENT 110 MCG INHALER 2 PUFF INH ×2 (07:03→19:21)
[2024-06-27 07:29] LABS: Glucose - Point of Care 205 mg/dl (70-99)
[2024-06-27] MEDS: NOVOLOG FLEXPEN 13 UNITS SC ×3 (09:35→16:57)
[2024-06-27] MEDS: NOVOLOG FLEXPEN-LOW RESISTANCE 2 UNITS SC ×3 (09:35→16:56)
[2024-06-27] MEDS: LASIX 80 MG PO (09:37)
[2024-06-27] MEDS: ELIQUIS 5 MG PO ×2 (09:37→20:16)
[2024-06-27] MEDS: CARDIZEM CD 240 MG PO ×2 (09:37→20:16)
[2024-06-27] MEDS: PROZAC 80 MG PO (09:37)
--- NOTE | 2024-06-27 09:57 | PTCARENOTE ---
Received patient this morning resting in bed with IV cardizem infusing at 5mg/hr, HR remains in AF with rate in the 80's. While sleeping HR started to increase up to the 140's, patient awoke to use the bathroom and eat breakfast. HR remained in the
140's, IV cardizem titrated up to 15mg/hr. Patient is now sitting oob in the chair and HR now in the 80's, cardizem tapered down to 10mg/hr, VSS.
--- NOTE | 2024-06-27 10:07 | W.PN.CARDCBS ---
Today's Communication / Plan
-
Continue IV Cardizem drip. Will add amiodarone 20 mg p.o. 3 times daily.
Continue Eliquis. Plan for cardioversion in a.m.
Impression / Plan
-
Primary hotel staff member: Joey Bo MD
Impression:
Atypical atrial flutter/SVT
Paroxysmal atrial fibrillation post PVI 01/01/23
Blurry vision
CKD3b
Chronic HFpEF 50-55%
Hypothyroidism
HTN
HLD
DM2
EVA/CPAP
Fall with L hand fracture 12/02/22
History of breast cancer
Cardiac cath September 2021, no significant CAD.
Echo December 18, 2022, EF 55 6%, mild MR, aortic root 3.[address] of the head 06/25/24: Chronic ischemic disease
CT scan of the chest 06/25/24; no pulmonary embolism
Plan:
She has a known history of atrial fibrillation with an ablation in 2022. She was weaned off amiodarone over the past year. She presents with supraventricular tachycardia/atypical a flutter.
Continue IV Cardizem. Ventricular rates are improved but she remains in a flutter. Will add back amiodarone 200 mg p.o. 3 times daily. Plan will be for cardioversion in a.m.
Continue Eliquis. She has been compliant with the medication.
Her chronic heart failure appears to be stable. Weight is stable. Continue Lasix 80 mg daily.
TSH is normal. continue Synthroid.
She has chronic blurry vision. The etiology remains unclear. Head CT overall unremarkable.
Progress Note - Beach Expert
Subjective
Date of Service: June 27, 2024
Still has some fatigue. Remains in atrial flutter. Ventricular rates are improved on IV Cardizem.
Objective
Labs:
06/27/24 03:45
06/27/24 03:45
Labs
Hgb 12.8 g/dL (12.0-16.0) 06/27/24 03:45
Hct 37.9 % (37.0-47.0) 06/27/24 03:45
Plt Count 277 10^3/uL (130-400) 06/27/24 03:45
Sodium 139 mmol/L (135-145) 06/27/24 03:45
Potassium 4.3 mmol/L (3.5-5.1) 06/27/24 03:45
BUN 32 mg/dl (7-17) H 06/27/24 03:45
Creatinine 1.7 mg/dL (0.6-1.0) H 06/27/24 03:45
Glucose 181 mg/dl (70-99) H 06/27/24 03:45
Troponins
06/25/24 06/25/24
12:15 15:29
Troponin I 0.030 0.030
Vital Signs and I&O:
Vital Signs
Temp Pulse Resp BP Pulse Ox
97.8 F 96 20 122/75 95
06/27/24 07:23 06/27/24 07:25 06/27/24 07:23 06/27/24 07:25 06/27/24 07:25
Vital Signs
Temp Pulse Resp BP Pulse Ox
97.8 F 96 20 122/75 95
06/27/24 07:23 06/27/24 07:25 06/27/24 07:23 06/27/24 07:25 06/27/24 07:25
Intake & Output
06/25/24 06/26/24 06/27/24 06/28/24
06:59 06:59 06:59 06:59
Intake Total 765 / 765
Balance 765 / 765
Physical Exam
Physical Exam
GEN: No distress, awake, Ox3
HEENT: supple, anicteric, mmm
LUNGS: CTA, no wheezes/rales
CV: Reg, tachy, S1/S2, 1/6 syst LSB, no gallop
ABD: soft, BS+, NT/ND
EXT: No edema
NEURO: Gross non-focal
SKIN: No rash
--- NOTE | 2024-06-27 10:44 | W.PN.HOSP.TC ---
Today's Communication/Plan
-
renew all drips
for cardioversion in AM
Assessment / Plan
Assessment / Plan
pt is a 68 year old female
Symptomatic SVT per report on EKG --now sinus tach on monitor (pt states she cannot feel her heart racing)--HR 130s--cont oral cardizem 240 mg BID, on cardizem drip and amiodarone oral--apprec cards--ECHO pending--CT chest neg for PE--may want to
stop Adderall--cardioversion in AM
persistent Atrial Fib on chronic Eliquis--- continue diltiazem CD 240 BID--ECHO in AM- [facility] Card consult--cardioversion in AM
chronic diastolic congestive heart failure (HFpEF) with preserved EF--no exacerbation
FRANCISCO-- admission Cr 1.8 (baseline mid 1s)--now down to 1.4--stop IVF
Chronic intermittent Dizziness with acute on chronic N/V --await neuro input--antiemetics--cont IVF--head CT neg for acute findings
h/o breast cancer--on letrozole
HLD--cont atorvastatin
type 2 DM--accucchecks, SSI, check HGB U4T--kcsa trulicity, lantus, insulin with meals
hypothyroid--cont synthroid--TSH WNL
DVT Proph-- Eliquis
code status --Full code
Anticipated Discharge: 24 - 48 hours
Subjective/Interval History
-
Date of Service: June 27, 2024
pt without c/o--for CV in AM
Objective Data
-
Labs:
Laboratory Results
06/27/24
03:45
WBC 9.3
Hgb 12.8
Hct 37.9
Plt Count 277
Sodium 139
Potassium 4.3
Chloride 104
Carbon Dioxide 24
BUN 32 H
Creatinine 1.7 H
Glucose 181 H
Calcium 9.0
Vital Signs:
max temp for 24 hours
06/27/24
03:47
Temp 98.2 F
Vital Signs
Temp Pulse Resp BP Pulse Ox
97.8 F 96 20 122/75 95
06/27/24 07:23 06/27/24 07:25 06/27/24 07:23 06/27/24 07:25 06/27/24 07:25
I&O
06/26/24 06/27/24 06/28/24
06:59 06:59 06:59
Intake Total 765 / 765
Balance 765 / 765
Review of Systems
-
All other systems: Reviewed and negative
Physical Exam
-
General: Well Developed, Well Nourished and No Apparent Distress
HEENT: Normocephalic and Atraumatic
Respiratory: Clear to Auscultation; Negative Wheezes or Rhonchi
Cardiac: Irregular Rhythm
GI: Soft, Nontender, Nondistended and Normal Bowel Sounds
Musculoskeletal: No Clubbing, No Cyanosis and No Edema
Neuro: Awake and Alert
Psych: Calm
[2024-06-27] MEDS: FEMARA 2.5 MG PO (10:51)
[2024-06-27] MEDS: PACERONE 200 MG PO ×3 (10:52→22:53)
--- NOTE | 2024-06-27 12:14 | PTCARENOTE ---
Patient seen by cardiology, remains in A flutter but rates now in the 70's. IV cardizem tapered down to 5mg/hr, give PO amiodarone as ordered. Patient is aware she will be NPO after midnight for CV in the AM.
[2024-06-27 12:18] LABS: Glucose - Point of Care 213 mg/dl (70-99)
[2024-06-27] MEDS: B COMPLEX w/VITAMIN C 1 CAPLET PO (13:18)
[2024-06-27] MEDS: FEOSOL 325 MG PO (13:18)
[2024-06-27] MEDS: VITAMIN B-12 1000 MCG PO (13:18)
[2024-06-27 16:57] LABS: Glucose - Point of Care 202 mg/dl (70-99)
[2024-06-27 22:31] LABS: Glucose - Point of Care 122 mg/dl (70-99)
[2024-06-27] MEDS: LIPITOR 20 MG PO (22:53)
[2024-06-27] MEDS: LANTUS 0.06 UNITS SC (22:54)
[2024-06-28] VITALS (7 sets, daily range): BP systolic 121–136; BP diastolic 53–63; BMI 42.5
--- NOTE | 2024-06-28 04:14 | PTCARENOTE ---
Pt AFib on monitor HR 70-90. C/o dyspnea on exertion. NPO for CV. Safety measures in place
[2024-06-28 04:22] LABS: Hematocrit 38.2 % (37.0-47.0); Mean Corpuscular Hgb 29.8 pg (27.0-31.0); Mean Corpuscular Volume 87.6 fL (81.0-99.0); Mean Platelet Volume 10.7 fL (7.4-10.4); Platelet Count 271 10^3/uL (130-400); Red Blood Cell Count 4.36 10^6/uL (4.20-5.40); Red Cell Dist. Width 13.1 % (11.5-14.5); White Blood Cell Count 9.2 10^3/uL (4.8-10.8)
[2024-06-28 04:50] LABS: Blood Urea Nitrogen 37 mg/dl (7-17); Carbon Dioxide 24 mmol/L (22-30); Chloride 103 mmol/L (98-107); Estimated Creatinine Clearance 33 ml/min; Glucose 198 mg/dl (70-99); Magnesium 1.8 mg/dl (1.6-2.3); Potassium 3.9 mmol/L (3.5-5.1); Sodium 139 mmol/L (135-145); eGFR 28.23
[2024-06-28] MEDS: SYNTHROID 150 MCG PO (05:44)
[2024-06-28] MEDS: CARDIZEM 125 IV (06:34)
[2024-06-28] MEDS: FLOVENT 110 MCG INHALER 2 PUFF INH (07:22)
[2024-06-28] MEDS: NOVOLOG FLEXPEN SC (08:39)
[2024-06-28] MEDS: NOVOLOG FLEXPEN-LOW RESISTANCE 2 UNITS SC ×2 (08:44→13:43)
[2024-06-28 08:45] LABS: Glucose - Point of Care 222 mg/dl (70-99)
[2024-06-28] MEDS: FEMARA 2.5 MG PO (08:46)
[2024-06-28] MEDS: CARDIZEM CD 240 MG PO (08:46)
[2024-06-28] MEDS: PROZAC 80 MG PO (08:48)
[2024-06-28] MEDS: ELIQUIS 5 MG PO (08:48)
[2024-06-28] MEDS: PACERONE 200 MG PO ×2 (08:48→15:28)
--- NOTE | 2024-06-28 09:20 | PTCARENOTE ---
Patient received at change of shift this morning; Patient denies pain, nausea, and/or vomiting at this time; Patient remains in atrial fibrillation with heart rate in the 70s-100s; Diltiazem gtt remains at 5mg/hr; Patient on room air; Afebrile; Call
newby within reach; Plan of care ongoing
[2024-06-28] MEDS: VITAMIN B-12 1000 MCG PO (11:56)
[2024-06-28] MEDS: FEOSOL 325 MG PO (11:57)
[2024-06-28] MEDS: B COMPLEX w/VITAMIN C 1 CAPLET PO (11:57)
[2024-06-28] MEDS: LASIX 80 MG PO (11:57)
--- NOTE | 2024-06-28 12:05 | PTCARENOTE ---
Patient left for cardioversion at 1037 and returned at 1145; Patient on room air, oxygen saturation 93-94%, HR in the 60s to 70s, BP 124/53; Patient denies pain, nausea, and/or vomiting at this time; Diltiazem gtt remains at 5mg/hr; Telemetry strip
shows normal sinus rhythm; Patient out of bed to chair; Patient alert to self, place and time; Call newby within reach; Plan of care ongoing
--- NOTE | 2024-06-28 12:26 | W.PN.HOSP.TC ---
Today's Communication/Plan
-
Discharge
Assessment / Plan
Assessment / Plan
Pt is a 68 year old female presented with generalized malaise, nausea vomiting. Patient was found to be in A-fib.
CVS: S1-S2 normal
Chest: CTA B/L
Abdomen: Soft, NT / Bowel sounds present
Extremities: Trace edema, normal pulses
SKIP MINER BLASTING: Non focal exam
# Symptomatic SVT /atrial flutter
CT negative for PE
Post cardioversion today 06/28/2024 continue
Off Cardizem drip
Amiodarone 200 mg twice daily started
Normal TSH
# Paroxysmal Atrial Fib history of PVI 01/01/2023 on chronic Eliquis and diltiazem CD 240 BID as outpatient
# Chronic diastolic congestive heart failure (HFpEF) with preserved EF--no exacerbation. Continue usual dose of Lasix 80 mg
# CKD Stage 3
# Chronic intermittent Dizziness with acute on chronic N/V
# H/O breast cancer-left lumpectomy October 2023-on letrozole
# HLD--cont atorvastatin
# Sleep apnea
# Type 2 DM-hemoglobin A1c 7.3-continue accucchecks, SSI,
Normally on Basaglar 6 units at night, NovoLog 13 AC, Trulicity on Sundays
# Hypothyroid--cont Synthroid--TSH WNL
# Anxiety and depression-continue fluoxetine
# Obesity with a BMI of 42- weight loss discussed
# Ex-smoker
# DVT Proph-- Eliquis
# Code status --Full code
Discussed with nursing
Discussed with cardiology. Okay for discharge. Will give a prescription for blood work in 2 to 3 days for BMP
OP lab slip given. NO NSAIDS discussed
More than 30 minutes spent in discharge including
Final examination of the patient
Summarizing hospital stay
Instructions for continuing care to all relevant caregivers
Preparation of discharge records, prescriptions, and referral forms
Total time spent (in minutes):34 min
Anticipated Discharge: Today
Subjective/Interval History
-
Date of Service: June 28, 2024
Objective Data
-
Labs:
Laboratory Results
06/28/24
04:09
WBC 9.2
Hgb 13.0
Hct 38.2
Plt Count 271
Sodium 139
Potassium 3.9
Chloride 103
Carbon Dioxide 24
BUN 37 H
Creatinine 1.9 H
Glucose 198 H
Calcium 9.0
Vital Signs:
Vital Signs
Temp Pulse Resp BP Pulse Ox
97.9 F 70 16 124/53 94
06/28/24 10:35 06/28/24 11:47 06/28/24 12:25 06/28/24 11:47 06/28/24 12:25
I&O
06/27/24 06/28/24 06/29/24
06:59 06:59 06:59
Intake Total 765 / 765 840 / 840
Balance 765 / 765 840 / 840
[2024-06-28 12:50] LABS: Glucose - Point of Care 240 mg/dl (70-99)
--- NOTE | 2024-06-28 13:15 | W.DS.TRANS ---
Addendum entered and electronically signed by Aaliyah Moreno MD 06/28/24 16:17:
Dictation- [id number]
Original Note:
DC Summary - Investment Sales Assistant
-
Discharge Instructions:
Discharge Diagnosis/Procedures Symptomatic SVT/atrial tachycardia
Atrial fibrillation
Chronic CHF
Chronic kidney disease
High cholesterol
Hypothyroidism
Depression
Diabetes
Hypothyroidism
History of breast cancer
Diet 2 Gram Sodium,Restrict fluids to 64 oz
Activity As tolerated
Driving Restrictions As prior to admission
Blood Work BMP 3 days. Thyroid function tests 6 weeks.
LFTs 6 weeks.
Others Tests Chest x-ray 6 months-on amiodarone
Other Services VN
Specialty Instructions Weigh Daily
Instructions:
Stand-Alone Forms:
Changes to Home Medications: Yes
Discharge Medications:
DC Medications w/original date entered in [facility]
fluoxetine 40 mg capsule 80 mg PO DAILY depression/anxiety 04/05/20
multivitamin 1 ea PO NOON Supplement 04/05/20
nitroglycerin 0.4 mg sublingual tablet 0.4 mg sublingual [id number] PRN chest pain 04/05/20
atorvastatin 20 mg tablet 20 mg PO HS High cholesterol 09/19/21
cyanocobalamin (vitamin B-12) 1,000 mcg tablet 1,000 mcg PO NOON Supplement 09/19/21
ferrous sulfate 325 mg (65 mg iron) tablet (iron) 325 mg PO NOON Supplement 09/19/21
vitamin B complex 1 tab PO NOON Supplement 09/19/21
albuterol sulfate 90 mcg/actuation aerosol inhaler 2 puff inhalation R Q4HPRN PRN sob 06/16/22
insulin aspart U-100 100 unit/mL (3 mL) subcutaneous pen (Novolog FlexPen U-100 Insulin aspart) 13 unit SC AC Diabetes 08/13/22
albuterol sulfate 2.5 mg/3 mL (0.083 %) solution for nebulization 2.5 mg inhalation R Q4HPRN PRN sob 12/17/22
apixaban 5 mg tablet (Eliquis) 5 mg PO BID Blood clot prevention/tx 12/17/22
fluticasone propionate 110 mcg/actuation HFA aerosol inhaler (Flovent HFA) 2 puff inhalation R BID Allergies 12/17/22
furosemide 40 mg tablet (Lasix) 80 mg PO DAILY Fluid retention/Swelling 10/21/23
insulin glargine 100 unit/mL (3 mL) subcutaneous pen (Basaglar KwikPen U-100 Insulin) 6 unit SC HS Diabetes 10/21/23
dextroamphetamine-amphetamine 10 mg tablet (Adderall) 10 mg PO TID Neurological Condition 06/25/24
diltiazem HCl 240 mg capsule,extended release 24 hr 240 mg PO BID Blood Pressure 06/25/24
dulaglutide 4.5 mg/0.5 mL subcutaneous pen injector (Trulicity) 4.5 mg SC HUTCHISON Diabetes 06/25/24
ergocalciferol (vitamin D2) 1,250 mcg (50,000 unit) capsule 1,250 mcg PO HUTCHISON Supplement 06/25/24
letrozole 2.5 mg tablet 2.5 mg PO DAILY Cancer 06/25/24
levothyroxine 150 mcg tablet (Synthroid) 150 mcg PO DAILY Thyroid 06/25/24
amiodarone 200 mg tablet 200 mg PO TID Arrhythmia #60 tabs 06/28/24
Home Medication Changes
new
amiodarone 200 mg tablet 200 mg PO TID Arrhythmia #60 tabs 06/28/24
Pending Results: No
--- NOTE | 2024-06-28 13:19 | CM ---
spoke to pt in room, she is prev indep, lvies with her friend in a 1 story home with no steps to enter. she has a rollator to use when needed. plan is for dc to home when medically stable.
[2024-06-28] MEDS: NOVOLOG FLEXPEN 13 UNITS SC (13:43)
--- NOTE | 2024-06-28 14:53 | W.PN.CARDCBS ---
Today's Communication / Plan
-
Amiodarone 200 mg twice a day for 1 month then 200 mg daily.
Stable for DC status post cardioversion
Impression / Plan
-
Primary oracle solutions architect: Joey Bo MD
Impression:
Atypical atrial flutter/SVT
Status post successful cardioversion June 28, 2024
Paroxysmal atrial fibrillation post PVI 01/01/23
Blurry vision
CKD3b
Chronic HFpEF 50-55%
Hypothyroidism
HTN
HLD
DM2
EVA/CPAP
Fall with L hand fracture 12/02/22
History of breast cancer
Cardiac cath September 2021, no significant CAD.
Echo December 18, 2022, EF 55 6%, mild MR, aortic root 3.[address] of the head 06/25/24: Chronic ischemic disease
CT scan of the chest 06/25/24; no pulmonary embolism
Plan:
HPI: She has a known history of atrial fibrillation with an ablation in 2022. She was weaned off amiodarone over the past year. She presents with supraventricular tachycardia/atypical a flutter.
s/p cardioversion today.
Remains sinus rhythm.
Continue same Cardizem dosing as outpatient.
Continue Eliquis.
Reduce amiodarone to 200 mg twice a day for 1 month then 200 mg daily.
Appears euvolemic continue oral Lasix.
She has chronic blurry vision. The etiology remains unclear. Head CT overall unremarkable.
Stable for DC from cardiac standpoint.
Outpatient follow-up
Progress Note - Coding Coordinator
Subjective
Date of Service: June 28, 2024
Pt seen and examined. No complaints. No chest pain or shortness of breath.
Objective
Labs:
06/28/24 04:09
06/28/24 04:09
Labs
Hgb 13.0 g/dL (12.0-16.0) 06/28/24 04:09
Hct 38.2 % (37.0-47.0) 06/28/24 04:09
Plt Count 271 10^3/uL (130-400) 06/28/24 04:09
Sodium 139 mmol/L (135-145) 06/28/24 04:09
Potassium 3.9 mmol/L (3.5-5.1) 06/28/24 04:09
BUN 37 mg/dl (7-17) H 06/28/24 04:09
Creatinine 1.9 mg/dL (0.6-1.0) H 06/28/24 04:09
Glucose 198 mg/dl (70-99) H 06/28/24 04:09
Troponins
06/25/24
15:29
Troponin I 0.030
Vital Signs and I&O:
Vital Signs
Temp Pulse Resp BP Pulse Ox
97.9 F 70 16 123/56 94
06/28/24 10:35 06/28/24 12:26 06/28/24 12:25 06/28/24 12:26 06/28/24 12:25
Vital Signs
Temp Pulse Resp BP Pulse Ox
97.9 F 70 16 123/56 94
06/28/24 10:35 06/28/24 12:26 06/28/24 12:25 06/28/24 12:26 06/28/24 12:25
Intake & Output
06/26/24 06/27/24 06/28/24 06/29/24
06:59 06:59 06:59 06:59
Intake Total 765 / 765 840 / 840
Balance 765 / 765 840 / 840 30
Physical Exam
Physical Exam
General: No acute distress, AAOX3
Neck: Negative JVD
Heart: Regular, Negative S3 positive S1/S2, Negative S4, No murmur
Lungs: CTA b/l, negative wheezes/rales/rhonchi
Abd: Positive BS, NT/ND, neg rebound/rigidity/guarding
Ext: Negative cyanosis/clubbing/edema
Neuro: nonfocal
--- NOTE | 2024-06-28 16:15 | W.DS.TRANS ---
DC Summary - Bicycle Messenger
-
Discharge Instructions:
Discharge Diagnosis/Procedures Symptomatic SVT/atrial tachycardia
Atrial fibrillation
Chronic CHF
Chronic kidney disease
High cholesterol
Hypothyroidism
Depression
Diabetes
Hypothyroidism
History of breast cancer
Diet 2 Gram Sodium,Restrict fluids to 64 oz
Activity As tolerated
Driving Restrictions As prior to admission
Blood Work BMP 3 days. Thyroid function tests 6 weeks.
LFTs 6 weeks.
Others Tests Chest x-ray 6 months-on amiodarone
Other Services VN
Specialty Instructions Weigh Daily
Instructions:
Stand-Alone Forms:
Changes to Home Medications: Yes
Discharge Medications:
DC Medications w/original date entered in [facility]
fluoxetine 40 mg capsule 80 mg PO DAILY depression/anxiety 04/05/20
multivitamin 1 ea PO NOON Supplement 04/05/20
nitroglycerin 0.4 mg sublingual tablet 0.4 mg sublingual [id number] PRN chest pain 04/05/20
atorvastatin 20 mg tablet 20 mg PO HS High cholesterol 09/19/21
cyanocobalamin (vitamin B-12) 1,000 mcg tablet 1,000 mcg PO NOON Supplement 09/19/21
ferrous sulfate 325 mg (65 mg iron) tablet (iron) 325 mg PO NOON Supplement 09/19/21
vitamin B complex 1 tab PO NOON Supplement 09/19/21
albuterol sulfate 90 mcg/actuation aerosol inhaler 2 puff inhalation R Q4HPRN PRN sob 06/16/22
insulin aspart U-100 100 unit/mL (3 mL) subcutaneous pen (Novolog FlexPen U-100 Insulin aspart) 13 unit SC AC Diabetes 08/13/22
albuterol sulfate 2.5 mg/3 mL (0.083 %) solution for nebulization 2.5 mg inhalation R Q4HPRN PRN sob 12/17/22
apixaban 5 mg tablet (Eliquis) 5 mg PO BID Blood clot prevention/tx 12/17/22
fluticasone propionate 110 mcg/actuation HFA aerosol inhaler (Flovent HFA) 2 puff inhalation R BID Allergies 12/17/22
furosemide 40 mg tablet (Lasix) 80 mg PO DAILY Fluid retention/Swelling 10/21/23
insulin glargine 100 unit/mL (3 mL) subcutaneous pen (Basaglar KwikPen U-100 Insulin) 6 unit SC HS Diabetes 10/21/23
dextroamphetamine-amphetamine 10 mg tablet (Adderall) 10 mg PO TID Neurological Condition 06/25/24
diltiazem HCl 240 mg capsule,extended release 24 hr 240 mg PO BID Blood Pressure 06/25/24
dulaglutide 4.5 mg/0.5 mL subcutaneous pen injector (Trulicity) 4.5 mg SC HUTCHISON Diabetes 06/25/24
ergocalciferol (vitamin D2) 1,250 mcg (50,000 unit) capsule 1,250 mcg PO HUTCHISON Supplement 06/25/24
letrozole 2.5 mg tablet 2.5 mg PO DAILY Cancer 06/25/24
levothyroxine 150 mcg tablet (Synthroid) 150 mcg PO DAILY Thyroid 06/25/24
amiodarone 200 mg tablet 200 mg PO BID Arrhythmia #60 tabs 06/28/24
Home Medication Changes
new
amiodarone 200 mg tablet 200 mg PO BID Arrhythmia #60 tabs 06/28/24
Pending Results: No
== END 2024-06-28 17:12 | disposition home or self-care (01) | DRG 309 ==
LOC: IVU 16:08
PROVIDERS: Internal Medicine; Nurse Practitioner Family; ADMITTING PHYSICIAN Internal Medicine; ATTENDING PHYSICIAN Hospitalist; CONSULT PHYSICIAN Internal Medicine Cardiovascular Disease; EMERGENCY PHYSICIAN Emergency Medicine; FAMILY PHYSICIAN Family Medicine
PROC: 5A2204Z Restoration of Cardiac Rhythm, Single (ICD-10-PCS; 2024-06-28)
DX: I47.19 Other supraventricular tachycardia (principal); I13.0 Hypertensive heart and chronic kidney disease with heart failure and stage 1 through stage 4 chronic kidney disease, or unspecified chronic kidney disease; I50.32 Chronic diastolic (congestive) heart failure; N17.9 Acute kidney failure, unspecified; I48.0 Paroxysmal atrial fibrillation; N18.32 Chronic kidney disease, stage 3b; E78.00 Pure hypercholesterolemia, unspecified; E03.9 Hypothyroidism, unspecified; F32.A Depression, unspecified; E11.22 Type 2 diabetes mellitus with diabetic chronic kidney disease; Z85.3 Personal history of malignant neoplasm of breast; F90.9 Attention-deficit hyperactivity disorder, unspecified type; Z96.653 Presence of artificial knee joint, bilateral; Z90.49 Acquired absence of other specified parts of digestive tract; Z87.891 Personal history of nicotine dependence; Z79.890 Hormone replacement therapy; Z79.4 Long term (current) use of insulin; Z79.01 Long term (current) use of anticoagulants; I25.10 Atherosclerotic heart disease of native coronary artery without angina pectoris; Z90.12 Acquired absence of left breast and nipple; F41.9 Anxiety disorder, unspecified; Z79.899 Other long term (current) drug therapy; H53.2 Diplopia; Z11.52 Encounter for screening for COVID-19; Z92.3 Personal history of irradiation; E86.0 Dehydration; G47.33 Obstructive sleep apnea (adult) (pediatric); J45.909 Unspecified asthma, uncomplicated; I48.4 Atypical atrial flutter; R19.7 Diarrhea, unspecified
CPT/HCPCS: 70450; 71046; 71275; 80048; 80053; 81003; 81015; 82962; 83036; 83690; 83735; 83880; 84443; 84484; 85025; 85027; 87086; 87502; 87811; 92960; 93005; 93306; 94640; 96361; 96374; 96375; 99285; J0153; Q9967

== ENCOUNTER → 2024-07-22 07:50 | Outpatient (REF) | payer MEDICARE, OTHER, SELFPAY | LOC: PAVMRI 07:50 | PROVIDERS: ATTENDING PHYSICIAN Otolaryngology; FAMILY PHYSICIAN Family Medicine | DX: H53.8 Other visual disturbances (principal); H90.3 Sensorineural hearing loss, bilateral | CPT/HCPCS: 70553; A9575; A9585 ==

== ENCOUNTER 2024-07-23 14:49 | Emergency (ER) | payer MEDICARE, OTHER, SELFPAY ==
[2024-07-23 14:52] VITALS: BP 119/73
[2024-07-23 15:17] LABS: % Basophils 0.3 % (0-2); % Eosinophils 0.6 % (0-6); % Immature Granulocytes 0.2 % (0-0.5); % Lymphocytes 16.2 % (20.5-51.1); % Monocytes 9.5 % (1.7-9.3); % Neutrophils 73.2 % (42.2-75.2); Absolute Eosinophils 0.1 10^3/uL (0-0.7); Absolute Lymphocytes 1.5 10^3/uL (1.2-3.4); Absolute Monocytes 0.9 10^3/uL (0.1-0.6); Absolute Neutrophils 6.9 10^3/uL (1.4-6.5); Hematocrit 41.5 % (37.0-47.0); Hemoglobin 13.7 g/dL (12.0-16.0); Mean Corpuscular Volume 87.7 fL (81.0-99.0); Mean Platelet Volume 10.6 fL (7.4-10.4); Nucleated Red Blood Cells % 0 %; Platelet Count 315 10^3/uL (130-400); Red Blood Cell Count 4.73 10^6/uL (4.20-5.40); Red Cell Dist. Width 12.9 % (11.5-14.5); White Blood Cell Count 9.5 10^3/uL (4.8-10.8)
[2024-07-23 15:31] LABS: ALT (SGPT) 16 U/L (0-35); AST (SGOT) 18 U/L (14-36); Albumin 3.9 g/dl (3.5-5.0); Alkaline Phosphatase 102 U/L (38-126); Blood Urea Nitrogen 24 mg/dl (7-17); Calcium 9.7 mg/dl (8.4-10.2); Carbon Dioxide 28 mmol/L (22-30); Chloride 99 mmol/L (98-107); Glucose 174 mg/dl (70-99); Lipase 60 U/L (23-300); Potassium 4.2 mmol/L (3.5-5.1); Sodium 134 mmol/L (135-145); Total Bilirubin 0.5 mg/dl (0.2-1.3); Total Protein 6.4 g/dl (6.3-8.2)
[2024-07-23 15:37] LABS: Urine Albumin Trace (Neg - Trace); Urine Bilirubin Negative (Negative); Urine Character Clear (Clear); Urine Color Yellow; Urine Glucose Negative (Negative); Urine Ketone Negative (Negative); Urine Leukocyte 1+ (Negative); Urine Nitrite Negative (Negative); Urine Occult Blood Negative (Negative); Urine Urobilinogen Negative (Neg - 1+)
[2024-07-23 16:08] LABS: Urine Hyaline Cast 0-2 /LPF (0-2); Urine Squamous Cell >30 /LPF (Few)
[2024-07-23] MEDS: NSS 1000 IV (17:59)
[2024-07-23] MEDS: NORCO 5/325 1 TABLET PO (18:00)
[2024-07-23] MEDS: ZOFRAN 4 MG IV (18:00)
[2024-07-23 19:39] VITALS: BP 140/65
--- NOTE | 2024-07-23 23:17 | ED.GENMED ---
History of Present Illness
General
Chief Complaint: Abdominal Symptoms
Source: patient
Exam Limitations: none
Time Seen by Provider: 07/23/24 17:26
Nursing documentation reviewed up to this point in time: agreed with
History of Present Illness
History of Present Illness:
Patient to ED wt complaint of right lower back pain. States she developed n/v/d on Friday. THose symptoms have improved but today notes right lower back pain. Pain is worse with movement. No fever/chills. Denies any urinary symptoms. Brought
self to ED for eval.
Past History
Past History
ED Past Medical History: Arrthythmia (Atrial fibrillation), Asthma, HTN and IDDM
ED Past Surgical History: Cardiac (Ablation), Cholecystectomy and Orthopedic
Social History
Tobacco: Former smoker
Alcohol: Occasional
Drug: None
Personal: Single
Living: with family
Employment: Employed
Family History
Family History: Diabetes
Review of Systems
Review of Systems
Allergies reviewed?: Yes
All Other Systems: ROS reviewed and negative except as documented in HPI and ROS
Constitutional: Reports no symptoms
EENT: Reports no symptoms
Respiratory: Reports no symptoms
Cardiac: Reports no symptoms
ABD/GI: Reports other (N/V/D starting friday. No n/v x 24 hours. Last episode of diarrhea was early this AM)
: Reports no symptoms
Musculoskeletal: Reports joint pain (right lower back pain)
Skin: Reports no symptoms
Neurological: Reports no symptoms
Psychiatric: Reports no symptoms
Phy Exam
General Physical Exam
General Presentation: well appearing and no apparent distress
General age: appears stated age
General Skin: warm and dry
General Habitus: normal
General Mental: alert
General Hydration: appears well hydrated
Cardiovascular Exam
Cardiovascular Exam: regular rate/rhythm and no edema
Pulmonary Exam
Pulmonary Exam: lungs clear, no respiratory distress and chest non tender
Gastrointestinal Exam
Gastrointestinal Exam: normal bowel sounds, non tender, soft, no organomegaly, no pulsatile mass, non distended and no cva tenderness
Musculoskeletal Exam
Musculoskeletal Exam: neuro vasc intact
Skin Exam
Skin Exam: normal color, warm/dry and no rash
Psychiatric Exam
Psychiatric Exam: normal mood/affect
Course
Orders/Labs/Results
Orders:
Orders
07/23/24 15:05
Complete Blood Count/With Diff Urgent
Comprehensive Metabolic Panel Urgent
Lipase Urgent
Urinalysis Reflex To Culture Urgent
Date Specimen was Collected: 07/23/24
Time Specimen was Collected: 14:58
Urine Microscopic Reflex Cult Urgent
Urine Culture Urgent
KUSUM Source: U
Specimen Description:
Date Specimen was Collected: 07/23/24
Time Specimen was Collected: 14:58
07/23/24 17:39
0.9% Sodium Chloride 1000 ml [Nss] 1,000 ml IV BOLUS
Ondansetron Injectable [Zofran] 4 mg IV NOW STA
07/23/24 17:41
Hydrocodone 5/APAP 325 [[place] 5/325] 1 tablet PO NOW STA
Abnormal Lab Results
07/23/24
15:05
MPV 10.6 H fL
(7.4-10.4)
Absolute Neuts (auto) 6.9 H 10^3/uL
(1.4-6.5)
Absolute Monos (auto) 0.9 H 10^3/uL
(0.1-0.6)
Lymphocytes % 16.2 L %
(20.5-51.1)
Monocytes % 9.5 H %
(1.7-9.3)
Sodium 134 L mmol/L
(135-145)
BUN 24 H mg/dl
(7-17)
Creatinine 1.6 H mg/dL
(0.6-1.0)
Glucose 174 H mg/dl
(70-99)
Leukocyte Esterase Rfl 1+ A
(Negative)
Urine RBC 7-10 A /HPF
(0-2)
07/23/24 15:05
07/23/24 15:05
Vital Signs
Initial and Last Documented VS:
Initial Vital Signs
Temp Pulse Resp BP Pulse Ox
98.6 F 91 20 119/73 97
07/23/24 14:52 07/23/24 14:52 07/23/24 14:52 07/23/24 14:52 07/23/24 14:52
Last Documented Vital Signs
Temp Pulse Resp BP Pulse Ox
98.6 F 82 18 140/65 96
07/23/24 14:52 07/23/24 19:39 07/23/24 19:39 07/23/24 19:39 07/23/24 19:39
*Radiology
Radiology exam reviewed: radiology read reviewed
*Pulse Oximetry
Patient hypoxic: no
*Critical Care Note
Total Time (30-74mins, 75-104mins- exclusive of procedures): Not Applicable
ED Attending Note
-
Portions of this chart may have been created with voice recognition software.� Occasional wrong word or��sound alike� substitutions may have occurred due to the inherent limitations of voice recognition software.
Discharge Plan
Departure
Patient Disposition: Home (Routine Discharge)
Date of Disposition: 07/23/24
Time of Disposition: 19:39
Patient with high blood pressure during this ER visit?: No
Condition: Good
Covid-19: Not Applicable
Discharge Problem:
Low back pain
Instructions: Using Cold for Pain, Low back pain - Discharge instructions, Musculoskeletal Pain
Prescriptions:
New
oxycodone 5 mg capsule
5 mg PO Q4H PRN (Reason: Pain) Qty: 10 0RF
No Action
multivitamin 1 EACH tablet
1 ea PO NOON
fluoxetine 40 MG capsule
80 mg PO DAILY
nitroglycerin 0.4 MG tablet, sublingual
0.4 mg sublingual [id number] PRN (Reason: chest pain)
vitamin B complex 1 TAB tablet
1 tab PO NOON
atorvastatin 20 MG tablet
20 mg PO HS
cyanocobalamin (vitamin B-12) 1,000 MCG tablet
1,000 mcg PO NOON
ferrous sulfate [iron] 325 MG tablet
325 mg PO NOON
albuterol sulfate 90 mcg/actuation Hfa Aerosol Inhaler
2 puff INHALATION R Q4HPRN PRN (Reason: sob)
insulin aspart U-100 [Novolog FlexPen U-100 Insulin] 100 unit/mL (3 mL) insulin pen
13 unit SC AC
albuterol sulfate 2.5 mg /3 mL (0.083 %) Solution For Nebulization
2.5 mg INHALATION R Q4HPRN PRN (Reason: sob)
fluticasone propionate [Flovent HFA] 110 mcg/actuation HFA aerosol inhaler
2 puff INHALATION R BID
Eliquis 5 mg tablet
5 mg PO BID
insulin glargine [Basaglar KwikPen U-100 Insulin] 100 unit/mL (3 mL) Insulin Pen
6 unit SC HS
furosemide [Lasix] 40 mg tablet
80 mg PO DAILY
dextroamphetamine-amphetamine [Adderall] 10 mg Tablet
10 mg PO TID
levothyroxine [Synthroid] 150 mcg Tablet
150 mcg PO DAILY
ergocalciferol (vitamin D2) 1,250 mcg (50,000 unit) Capsule
1,250 mcg PO HUTCHISON
letrozole 2.5 mg Tablet
2.5 mg PO DAILY
Trulicity 4.5 mg/0.5 mL Pen Injector
4.5 mg SC HUTCHISON
diltiazem HCl 240 mg capsule,extended release 24hr
240 mg PO BID
amiodarone 200 mg tablet
200 mg PO BID Qty: 60 0RF
Referrals:
Kailyn Petty MD [Family Provider] - Follow up in 2-3 days
Interventions
Interventions:
*Risk Screen - Suicide Last Done: 07/23/24 14:52
*General Assessment Last Done: 07/23/24 19:43
*Neglect/Abuse Screening Last Done: 07/23/24 14:52
ED- Fall Risk Assessment Last Done: 07/23/24 18:50
*ED COVID-19 Vaccine History Last Done: 07/23/24 19:43
*Nursing Disposition Last Done: 07/23/24 19:53
SH-Edfdcs-Anqkkqpbvd Assessment Last Done: 07/23/24 18:50
Discharge Date and Time
Discharge Date/Time: 07/23/24 19:53
Print Language: ARMENIAN
Musculoskeletal Injury Exam
Musculoskeletal Injury Exam
Lower Back:
Pain with Movement?: Moderate
Tender to palpation?: None
Soft tissue swelling?: None
External deformity and angulation?: None
Joint effusion?: None
Contusion?: None
Hematoma-local bleeding into tissue?: None
Strain- Sprain- Tear (Connective tissue injury)?: Moderate
Crepitus with movement?: No
Joint instability?: No
Malalignment/deformity?: No
Range of motion: Limited
Distal skin color and temperature: normal-warm & good color
Capillary Refill: normal
Normal distal neurovascular exam?: Yes
== END 2024-07-23 19:53 | disposition home or self-care (01) ==
LOC: EMR 14:49
PROVIDERS: Student in an Organized Health Care Education/Training Program; EMERGENCY PHYSICIAN Emergency Medicine; FAMILY PHYSICIAN Family Medicine
DX: M54.50 Low back pain, unspecified (principal); Z87.891 Personal history of nicotine dependence
CPT/HCPCS: 99284; 96374; 96361; 80053; 81003; 81015; 83690; 85025; 87086

== ENCOUNTER 2024-08-25 19:10 | Emergency (ER) | payer MEDICARE, OTHER, SELFPAY ==
[2024-08-25 19:13] VITALS: BP 166/66
[2024-08-25 19:40] LABS: % Basophils 0.5 % (0-2); % Eosinophils 1.9 % (0-6); % Immature Granulocytes 0.3 % (0-0.5); % Lymphocytes 16.5 % (20.5-51.1); % Monocytes 12.3 % (1.7-9.3); % Neutrophils 68.5 % (42.2-75.2); Absolute Basophils 0.1 10^3/uL (0-0.2); Absolute Eosinophils 0.2 10^3/uL (0-0.7); Absolute Lymphocytes 1.6 10^3/uL (1.2-3.4); Absolute Monocytes 1.2 10^3/uL (0.1-0.6); Absolute Neutrophils 6.6 10^3/uL (1.4-6.5); Hematocrit 44.5 % (37.0-47.0); Hemoglobin 14.5 g/dL (12.0-16.0); Mean Corp Hgb Conc. 32.6 g/dL (33.0-37.0); Mean Corpuscular Hgb 28.5 pg (27.0-31.0); Mean Corpuscular Volume 87.4 fL (81.0-99.0); Mean Platelet Volume 10.7 fL (7.4-10.4); Nucleated Red Blood Cells % 0 %; Platelet Count 356 10^3/uL (130-400); Red Blood Cell Count 5.09 10^6/uL (4.20-5.40); Red Cell Dist. Width 13.4 % (11.5-14.5); White Blood Cell Count 9.7 10^3/uL (4.8-10.8)
[2024-08-25 19:53] LABS: COVID-19 Antigen Negative (Negative)
[2024-08-25 20:05] LABS: ALT (SGPT) 19 U/L (0-35); AST (SGOT) 21 U/L (14-36); Albumin 4.3 g/dl (3.5-5.0); Alkaline Phosphatase 102 U/L (38-126); Blood Urea Nitrogen 42 mg/dl (7-17); Calcium 9.8 mg/dl (8.4-10.2); Carbon Dioxide 27 mmol/L (22-30); Chloride 97 mmol/L (98-107); Glucose 144 mg/dl (70-99); Potassium 4.2 mmol/L (3.5-5.1); Sodium 137 mmol/L (135-145); Total Bilirubin 0.4 mg/dl (0.2-1.3); Total Protein 6.9 g/dl (6.3-8.2); eGFR 28.23
[2024-08-25 22:20] VITALS: BP 135/107
[2024-08-25] MEDS: NSS 1000 IV (22:45)
[2024-08-25 23:00] VITALS: BP 151/105
--- NOTE | 2024-08-25 23:11 | ED.GENMED ---
History of Present Illness
General
Chief Complaint: Weakness
Time Seen by Provider: 08/25/24 22:17
History of Present Illness
History of Present Illness:
68-year-old female history of asthma, atrial fibrillation, CHF, hypertension, hyperlipidemia presenting with nausea, nonbloody vomiting and diarrhea starting yesterday. Patient states that she slept most the day today but is continue to have
diarrhea. Patient denies any episodes of vomiting today. Patient states that she is concerned for dehydration. Patient denies fever, abdominal pain, or known sick contacts.
Past History
Past History
ED Past Medical History: Arrthythmia (Atrial fibrillation), Asthma, HTN and IDDM
ED Past Surgical History: Cardiac (Ablation), Cholecystectomy and Orthopedic
Social History
Tobacco: Former smoker
Alcohol: Occasional
Drug: None
Personal: Single
Living: with family
Employment: Employed
Family History
Family History: Diabetes
Phy Exam
Physical Exam
Physical Exam:
General: Alert, no acute distress
Head: NCAT
Eyes: clear conjunctiva
Neck: supple
Cardiac: regular rate and rhythm, no murmur
Lungs: clear to auscultation bilaterally. No wheezes, rales, or rhonchi. Speaking full unlabored sentences. No respiratory distress.
Abdomen: soft, nondistended nontender. No rebound or guarding.
MSK: no lower extremity edema bilaterally. No deformity
Skin: warm, dry
Neuro: Alert and oriented x3. no focal deficits
Course
Orders/Labs/Results
Orders:
Orders
08/25/24 19:29
COVID-19 Antigen Urgent
Source: Nasal Swab
Complete Blood Count/With Diff Urgent
Comprehensive Metabolic Panel Urgent
Influenza A+B Rapid Molecular Urgent
KUSUM Source: Nasal Swab
Specimen Description:
08/25/24 22:44
0.9% Sodium Chloride 1000 ml [Nss] 1,000 ml IV BOLUS
08/25/24 22:50
0.9% Sodium Chloride 1000 ml [Nss] 1,000 ml IV BOLUS
Abnormal Lab Results
08/25/24
19:29
MCHC 32.6 L g/dL
(33.0-37.0)
MPV 10.7 H fL
(7.4-10.4)
Absolute Neuts (auto) 6.6 H 10^3/uL
(1.4-6.5)
Absolute Monos (auto) 1.2 H 10^3/uL
(0.1-0.6)
Lymphocytes % 16.5 L %
(20.5-51.1)
Monocytes % 12.3 H %
(1.7-9.3)
Chloride 97 L mmol/L
(98-107)
BUN 42 H mg/dl
(7-17)
Creatinine 1.9 H mg/dL
(0.6-1.0)
Glucose 144 H mg/dl
(70-99)
08/25/24 19:29
08/25/24 19:29
Vital Signs
Initial and Last Documented VS:
Initial Vital Signs
Temp Pulse Resp BP Pulse Ox
98.1 F 57 20 166/66 98
08/25/24 19:13 08/25/24 19:13 08/25/24 19:13 08/25/24 19:13 08/25/24 19:13
Last Documented Vital Signs
Temp Pulse Resp BP Pulse Ox
98.1 F 74 19 151/105 96
08/25/24 19:13 08/25/24 23:27 08/25/24 23:27 08/25/24 23:00 08/25/24 23:27
MDM/Problems Addressed
Differential Diagnosis Includes:
FRANCISCO, electrolyte abnormality, viral infection
MDM/Problems Addressed:
68-year-old female presenting with nausea vomiting diarrhea starting yesterday. Abdomen soft nondistended nontender. Labs reviewed. Baseline CKD. WBC 9.7. Electrolytes within normal limits. COVID/flu negative. Discussed results patient at
bedside. Hemodynamically stable. Suspect viral gastroenteritis. Stable for discharge with PCP follow-up.
*Critical Care Note
Total Time (30-74mins, 75-104mins- exclusive of procedures): Not Applicable
ED Attending Note
-
Portions of this chart may have been created with voice recognition software.� Occasional wrong word or��sound alike� substitutions may have occurred due to the inherent limitations of voice recognition software.
Discharge Plan
Departure
Patient Disposition: Home (Routine Discharge)
Date of Disposition: 08/25/24
Time of Disposition: 23:13
Patient with high blood pressure during this ER visit?: Yes
Discharge Problem:
Gastroenteritis
Instructions: Viral gastroenteritis in adults, BLOOD PRESSURE
Prescriptions:
New
ondansetron 4 mg tablet,disintegrating
4 mg PO Q8H PRN (Reason: nausea and vomiting) 5 Days Qty: 14 0RF
No Action
multivitamin 1 EACH tablet
1 ea PO NOON
fluoxetine 40 MG capsule
80 mg PO DAILY
nitroglycerin 0.4 MG tablet, sublingual
0.4 mg sublingual [id number] PRN (Reason: chest pain)
vitamin B complex 1 TAB tablet
1 tab PO NOON
atorvastatin 20 MG tablet
20 mg PO HS
cyanocobalamin (vitamin B-12) 1,000 MCG tablet
1,000 mcg PO NOON
ferrous sulfate [iron] 325 MG tablet
325 mg PO NOON
albuterol sulfate 90 mcg/actuation Hfa Aerosol Inhaler
2 puff INHALATION R Q4HPRN PRN (Reason: sob)
insulin aspart U-100 [Novolog FlexPen U-100 Insulin] 100 unit/mL (3 mL) insulin pen
13 unit SC AC
albuterol sulfate 2.5 mg /3 mL (0.083 %) Solution For Nebulization
2.5 mg INHALATION R Q4HPRN PRN (Reason: sob)
fluticasone propionate [Flovent HFA] 110 mcg/actuation HFA aerosol inhaler
2 puff INHALATION R BID
Eliquis 5 mg tablet
5 mg PO BID
insulin glargine [Basaglar KwikPen U-100 Insulin] 100 unit/mL (3 mL) Insulin Pen
6 unit SC HS
furosemide [Lasix] 40 mg tablet
80 mg PO DAILY
dextroamphetamine-amphetamine [Adderall] 10 mg Tablet
10 mg PO TID
levothyroxine [Synthroid] 150 mcg Tablet
150 mcg PO DAILY
ergocalciferol (vitamin D2) 1,250 mcg (50,000 unit) Capsule
1,250 mcg PO HUTCHISON
letrozole 2.5 mg Tablet
2.5 mg PO DAILY
Trulicity 4.5 mg/0.5 mL Pen Injector
4.5 mg SC HUTCHISON
diltiazem HCl 240 mg capsule,extended release 24hr
240 mg PO BID
amiodarone 200 mg tablet
200 mg PO BID Qty: 60 0RF
oxycodone 5 mg capsule
5 mg PO Q4H PRN (Reason: Pain) Qty: 10 0RF
Activity Restrictions/Additional Instructions:
Follow-up with primary care doctor in 1 to 2 days
Take Zofran as needed for nausea/vomiting
Drink water, stay hydrated
Return to the emergency department for fever, inability to tolerate liquids or new/worsening symptoms
Interventions
Interventions:
*Risk Screen - Suicide Last Done: 08/25/24 22:29
*General Assessment Last Done: 08/25/24 19:13
*Neglect/Abuse Screening Last Done: 08/25/24 22:29
ED- Fall Risk Assessment Last Done: 08/25/24 22:29
*ED COVID-19 Vaccine History Last Done: 08/25/24 22:29
*Nursing Disposition Last Done: 08/25/24 23:27
ED- Cardiac Assessment Last Done: 08/25/24 22:29
ED- Neurological Assessment Last Done: 08/25/24 22:29
ED- Pulmonary Assessment Last Done: 08/25/24 22:29
Discharge Date and Time
Discharge Date/Time: 08/25/24 23:29
Print Language: [email or web address]
== END 2024-08-25 23:29 | disposition home or self-care (01) ==
LOC: EMR 19:10
PROVIDERS: Student in an Organized Health Care Education/Training Program; EMERGENCY PHYSICIAN Emergency Medicine; FAMILY PHYSICIAN Family Medicine
DX: K52.9 Noninfective gastroenteritis and colitis, unspecified (principal); J45.909 Unspecified asthma, uncomplicated; I48.91 Unspecified atrial fibrillation; I11.0 Hypertensive heart disease with heart failure; I50.9 Heart failure, unspecified; E11.9 Type 2 diabetes mellitus without complications; Z87.891 Personal history of nicotine dependence; E78.5 Hyperlipidemia, unspecified; Z79.4 Long term (current) use of insulin; Z90.49 Acquired absence of other specified parts of digestive tract
CPT/HCPCS: 99284; 96360; 80053; 85025; 87502; 87811

== ENCOUNTER → 2024-11-05 13:53 | Outpatient (REF) | payer MEDICARE, OTHER, SELFPAY | LOC: WDC 13:53 | PROVIDERS: ATTENDING PHYSICIAN Family Medicine Geriatric Medicine; FAMILY PHYSICIAN Family Medicine | DX: Z12.31 Encounter for screening mammogram for malignant neoplasm of breast (principal) | CPT/HCPCS: 77063; 77067 ==

== ENCOUNTER 2024-12-02 13:53 | Emergency (ER) | payer MEDICARE, OTHER, SELFPAY ==
[2024-12-02 13:55] VITALS: BP 132/81
[2024-12-02 14:12] VITALS: BP 133/78
[2024-12-02 14:44] LABS: % Basophils 0.6 % (0-2); % Eosinophils 1.8 % (0-6); % Immature Granulocytes 0.3 % (0-0.5); % Monocytes 10.1 % (1.7-9.3); % Neutrophils 70.2 % (42.2-75.2); Absolute Eosinophils 0.1 10^3/uL (0-0.7); Absolute Lymphocytes 1.2 10^3/uL (1.2-3.4); Absolute Monocytes 0.7 10^3/uL (0.1-0.6); Hematocrit 43.2 % (37.0-47.0); Hemoglobin 14.2 g/dL (12.0-16.0); Mean Corp Hgb Conc. 32.9 g/dL (33.0-37.0); Mean Corpuscular Hgb 28.7 pg (27.0-31.0); Mean Corpuscular Volume 87.4 fL (81.0-99.0); Mean Platelet Volume 11.1 fL (7.4-10.4); Nucleated Red Blood Cells % 0 %; Platelet Count 296 10^3/uL (130-400); Red Blood Cell Count 4.94 10^6/uL (4.20-5.40); Red Cell Dist. Width 13.5 % (11.5-14.5); White Blood Cell Count 7.1 10^3/uL (4.8-10.8)
[2024-12-02 15:00] VITALS: BP 114/68
[2024-12-02 15:01] LABS: ALT (SGPT) 16 U/L (0-35); AST (SGOT) 25 U/L (14-36); Albumin 3.9 g/dl (3.5-5.0); Alkaline Phosphatase 82 U/L (38-126); Blood Urea Nitrogen 31 mg/dl (7-17); Calcium 10.1 mg/dl (8.4-10.2); Carbon Dioxide 25 mmol/L (22-30); Chloride 103 mmol/L (98-107); Glucose 148 mg/dl (70-99); Potassium 4.5 mmol/L (3.5-5.1); Sodium 138 mmol/L (135-145); Total Bilirubin 1.1 mg/dl (0.2-1.3); Total Protein 6.2 g/dl (6.3-8.2); eGFR 44.24
[2024-12-02 15:14] LABS: Troponin I 0.017 ng/ml
[2024-12-02 15:16] VITALS: BMI 41.0
--- NOTE | 2024-12-02 15:50 | ED.GENMED ---
History of Present Illness
General
Chief Complaint: Abdominal Symptoms
Source: patient
Exam Limitations: none
Time Seen by Provider: 12/02/24 15:07
Nursing documentation reviewed up to this point in time: agreed with
History of Present Illness
History of Present Illness:
69 year old female with hx afib on eliquis, CHF, HTN, HLD, DM presenting to the emergency department with one week of intermittent vomiting now with mild chest pain. Patient reports hx of intermittent vomiting currently being worked up by GI
specialist although symptoms seemed worse this week. Patient last vomited this morning around 6AM. She then noticed pain in her lower chest. No exertional or pleuritic component to chest pain. She has no associated shortness of breath. She denies
nay fevers, abdominal pain, diarrhea, or urinary symptoms. No hemoptysis.
Patient has been able to stay hydrated with fluids over the past week.
She has a rx for zofran at home which she takes with some relief in nausea.
Hx cholecystectomy many years ago
Past History
Past History
ED Past Medical History: Arrthythmia (Atrial fibrillation), Asthma, HTN and IDDM
ED Past Surgical History: Cardiac (Ablation), Cholecystectomy and Orthopedic
Social History
Tobacco: Former smoker
Alcohol: Occasional
Drug: None
Personal: Single
Living: with family
Employment: Employed
Family History
Family History: Diabetes
Review of Systems
Review of Systems
Allergies reviewed?: Yes
All Other Systems: ROS reviewed and negative except as documented in HPI and ROS
Phy Exam
Physical Exam
Physical Exam:
Vitals: Patient's vital signs are stable. Afebrile
General: Patient is very well appearing, no acute distress
Skin: Warm and dry, no rashes or lesions
Head: Normocephalic, atraumatic
Eyes: Sclera nonicteric. EOMs intact. No nystagmus.
Throat: Protecting airway
Neck: Normal ROM, no cervical spine tenderness, no meningismus
Cardiac: Regular rate and rhythm, no murmurs. Mild reproducible chest wall tenderness.
Pulm: Normal respiratory effort, no wheezes, rales, rhonchi heard on exam.
Abdomen: Abdomen soft. Mild RUQ tenderness without rebound tenderness or guarding.
Extremities: No evidence of cyanosis or edema. Palpable DP pulses.
Neuro: AAOx3.Grossly intact.
Psychiatric: Normal affect.
Course
Orders/Labs/Results
Orders:
Orders
12/02/24 13:57
Electrocardiogram (*1) Urgent
Reason for Study: Chest Pain
12/02/24 13:58
EKG- Treatment ONCE
12/02/24 14:33
Complete Blood Count/With Diff Urgent
Comprehensive Metabolic Panel Urgent
Lipase Urgent
NT-proBNP Urgent
Comment: ADD ON
Troponin I Urgent
12/02/24 15:40
0.9% Sodium Chloride 500 ml [Nss] 500 ml IV BOLUS
Famotidine [Pepcid] 20 mg IV NOW STA
Ondansetron Injectable [Zofran] 4 mg IV NOW STA
12/02/24 15:41
Add On- LAB Urgent
Tests Added?: pro BNP
CR Chest - 2 Views Urgent
Comment:
Reason For Exam: chest pain, vomiting
12/02/24 17:27
Electrocardiogram (*1) Urgent
Reason for Study: Chest Pain
EKG- Treatment ONCE
12/02/24 18:14
Troponin I Urgent
Abnormal Lab Results
12/02/24
14:33
MCHC 32.9 L g/dL
(33.0-37.0)
MPV 11.1 H fL
(7.4-10.4)
Absolute Monos (auto) 0.7 H 10^3/uL
(0.1-0.6)
Lymphocytes % 17.0 L %
(20.5-51.1)
Monocytes % 10.1 H %
(1.7-9.3)
BUN 31 H mg/dl
(7-17)
Creatinine 1.3 H mg/dL
(0.6-1.0)
Glucose 148 H mg/dl
(70-99)
Total Protein 6.2 L g/dl
(6.3-8.2)
12/02/24 14:33
12/02/24 14:33
Vital Signs
Initial and Last Documented VS:
Initial Vital Signs
Temp Pulse Resp BP Pulse Ox
98.2 F 93 18 132/81 98
12/02/24 13:55 12/02/24 13:55 12/02/24 13:55 12/02/24 13:55 12/02/24 13:55
Last Documented Vital Signs
Temp Pulse Resp BP Pulse Ox
98.2 F 83 18 109/67 93
12/02/24 13:55 12/02/24 19:00 12/02/24 19:00 12/02/24 19:00 12/02/24 19:00
MDM/Problems Addressed
Differential Diagnosis Includes:
Not limited to: chest wall strain, GERD, pancreatitis, viral gastroenteritis, medication side effect, electrolyte abnormality, etc
MDM/Problems Addressed:
69-year-old female presenting with chest pain after intermittent vomiting for the past week. No exertional or pleuritic component to symptoms. No associated shortness of breath, lightheadedness, diaphoresis. Patient has been experiencing
intermittent vomiting for many months now and is being followed with GI specialist. She has no abdominal pain. Her vital signs are stable. Physical exam as above. Will check screening labs, troponin, proBNP. Will check chest x-ray. Will give
Zofran, IV fluids, IV famotidine for possible acid reflux component. Will closely monitor and assess.
Update: Labs reviewed. No clinically significant abnormalities on CBC. Chemistry shows mild renal insufficiency which appears baseline. Chest x-ray without acute findings. Troponin negative x 2. Symptoms have completely resolved after IV
Pepcid. Suspect likely underlying component of GERD. Low suspicion for acute coronary syndrome at this time. Considered abdominal ultrasound given mild tenderness although patient has no LFT elevation and history of cholecystectomy. Do not
suspect acute intra-abdominal infection with benign abdominal exam and normal laboratory analysis. Ultimately�workup in ED negative. Patient did have a brief drop in O2 saturation while sleeping although had no additional hypoxia and maintain
normal O2 saturation with walking pulse ox. Ultimately�feel stable for discharge home. Will send PPI and advised close follow-up with GI. Strict return precautions discussed. Case was discussed with attending physician.
Chronic conditions affecting care:
Atrial fibrillation on eliquis, CHF,
Acute Exacerbation and/or Progression of Chronic Illness:
N/A
*Radiology
Radiology exam reviewed: preliminary read by ED provider (CXR reviewed by me - no acute abnormalities) and radiology read reviewed
*Pulse Oximetry
Patient hypoxic: yes (Kandis briefly became hypoxic while sleeping and was placed on supplemental O2 temporarily. Patient was taken off supplemental O2 and maintained O2 saturations in upper 90s on RA with normal walking pulse ox.)
*EKG
Interpreted by ED Provider?: Yes
EKG Intrepretation Date: 12/02/24
Interpretation: abnormal
Comparison EKG: changes noted
Heart Rate: 83
Rate: normal
Rhythm: sinus and PAC's
[place]: left axis deviation
Interval: normal QT interval
QRS Pattern: normal QRS
Ischemia: non-specific ST changes
*Rn Pediatric Icu Interpretation
Rate: normal
Interpretation: normal
Heart Rate: 80
Rhythm: sinus
*Critical Care Note
Total Time (30-74mins, 75-104mins- exclusive of procedures): Not Applicable
ED Attending Note
-
Portions of this chart may have been created with voice recognition software.� Occasional wrong word or��sound alike� substitutions may have occurred due to the inherent limitations of voice recognition software.
Discharge Plan
Departure
Patient Disposition: Home (Routine Discharge)
Date of Disposition: 12/02/24
Time of Disposition: 19:01
Patient with high blood pressure during this ER visit?: No
Condition: Good
Covid-19: Not Applicable
Discharge Problem:
Vomiting, Chest pain
Instructions: Chest pain in adults - ED discharge instructions, Nausea and vomiting in adults - ED discharge instructions
Prescriptions:
New
pantoprazole 40 mg tablet,delayed release (DR/EC)
40 mg PO DAILY Qty: 14 0RF
No Action
multivitamin 1 EACH tablet
1 ea PO NOON
fluoxetine 40 MG capsule
80 mg PO DAILY
nitroglycerin 0.4 MG tablet, sublingual
0.4 mg sublingual [id number] PRN (Reason: chest pain)
vitamin B complex 1 TAB tablet
1 tab PO NOON
atorvastatin 20 MG tablet
20 mg PO HS
cyanocobalamin (vitamin B-12) 1,000 MCG tablet
1,000 mcg PO NOON
ferrous sulfate [iron] 325 MG tablet
325 mg PO NOON
albuterol sulfate 90 mcg/actuation Hfa Aerosol Inhaler
2 puff INHALATION R Q4HPRN PRN (Reason: sob)
insulin aspart U-100 [Novolog FlexPen U-100 Insulin] 100 unit/mL (3 mL) insulin pen
13 unit SC AC
albuterol sulfate 2.5 mg /3 mL (0.083 %) Solution For Nebulization
2.5 mg INHALATION R Q4HPRN PRN (Reason: sob)
fluticasone propionate [Flovent HFA] 110 mcg/actuation HFA aerosol inhaler
2 puff INHALATION R BID
Eliquis 5 mg tablet
5 mg PO BID
insulin glargine [Basaglar KwikPen U-100 Insulin] 100 unit/mL (3 mL) Insulin Pen
6 unit SC HS
furosemide [Lasix] 40 mg tablet
80 mg PO DAILY
dextroamphetamine-amphetamine [Adderall] 10 mg Tablet
10 mg PO TID
levothyroxine [Synthroid] 150 mcg Tablet
150 mcg PO DAILY
ergocalciferol (vitamin D2) 1,250 mcg (50,000 unit) Capsule
1,250 mcg PO HUTCHISON
letrozole 2.5 mg Tablet
2.5 mg PO DAILY
Trulicity 4.5 mg/0.5 mL Pen Injector
4.5 mg SC HUTCHISON
diltiazem HCl 240 mg capsule,extended release 24hr
240 mg PO BID
amiodarone 200 mg tablet
200 mg PO BID Qty: 60 0RF
oxycodone 5 mg capsule
5 mg PO Q4H PRN (Reason: Pain) Qty: 10 0RF
ondansetron 4 mg tablet,disintegrating
4 mg PO Q8H PRN (Reason: nausea and vomiting) 5 Days Qty: 14 0RF
Referrals:
Kailyn Petty MD [Family Provider] - Follow up in 5-7 days
Activity Restrictions/Additional Instructions:
RETURN TO THE EMERGENCY DEPARTMENT WITH ANY FEVER, CHILLS, CHEST PAIN, SHORTNESS OF BREATH, INTRACTABLE NAUSEA/VOMITING, SIGNS OF SEVERE DEHYDRATION, OR ANY OTHER CONCERNS
-Your lab work and chest x-ray showed no acute abnormalities in the emergency department. You were given IV fluids, IV Zofran, and IV famotidine.
-The exact etiology your symptoms today are unknown. You may have a component of acid reflux. A prescription for Protonix has been sent to your pharmacy. You can take this once a day for the next few weeks.
- Continue to take Zofran as needed for intractable vomiting. Stay well-hydrated. Follow closely with GI for further evaluation/management
Monitor your symptoms closely and return to the emergency department with any acute worsening/new symptoms or any other concerns
Interventions
Interventions:
*Risk Screen - Suicide Last Done: 12/02/24 13:55
*General Assessment Last Done: 12/02/24 13:55
*Neglect/Abuse Screening Last Done: 12/02/24 13:55
*ED- Fall Risk Assessment Last Done: 12/02/24 13:55
*ED COVID-19 Vaccine History Last Done: 12/02/24 13:55
*Nursing Disposition Last Done: 12/02/24 19:12
XB-[place]-Gdedcvdvht Assessment Last Done: 12/02/24 15:16
Discharge Date and Time
Discharge Date/Time: 12/02/24 19:14
Print Language: CYPRIOT
[2024-12-02] MEDS: ZOFRAN 4 MG IV (16:01)
[2024-12-02] MEDS: PEPCID 20 MG IV (16:01)
[2024-12-02] MEDS: NSS 500 IV (16:01)
[2024-12-02 16:22] LABS: NT-proBNP 460 pg/ml
[2024-12-02 16:33] LABS: Lipase 37 U/L (23-300)
[2024-12-02 17:00] VITALS: BP 127/72
[2024-12-02 18:00] VITALS: BP 107/60
[2024-12-02 18:55] LABS: Troponin I 0.015 ng/ml
[2024-12-02 19:00] VITALS: BP 109/67
== END 2024-12-02 19:14 | disposition home or self-care (01) ==
LOC: EMR 13:53
PROVIDERS: Emergency Medicine; Physician Assistant; EMERGENCY PHYSICIAN Emergency Medicine; FAMILY PHYSICIAN Family Medicine
DX: R11.2 Nausea with vomiting, unspecified (principal); R07.9 Chest pain, unspecified; N28.9 Disorder of kidney and ureter, unspecified; E11.9 Type 2 diabetes mellitus without complications; E78.5 Hyperlipidemia, unspecified; I11.0 Hypertensive heart disease with heart failure; I50.9 Heart failure, unspecified; I48.91 Unspecified atrial fibrillation; J45.909 Unspecified asthma, uncomplicated; Z87.891 Personal history of nicotine dependence; Z79.01 Long term (current) use of anticoagulants; Z79.4 Long term (current) use of insulin; Z90.49 Acquired absence of other specified parts of digestive tract
CPT/HCPCS: 99285; 96374; 96375; 96361; 71046; 80053; 83690; 83880; 84484; 85025; 93005

== ENCOUNTER 2025-01-19 15:18 | Emergency (ER) | payer MEDICARE, OTHER, SELFPAY ==
[2025-01-19] VITALS (7 sets, daily range): BP systolic 113–136; BP diastolic 66–98
[2025-01-19 15:30] LABS: Glucose - Point of Care 159 mg/dl (70-99)
[2025-01-19 15:33] LABS: % Basophils 0.5 % (0-2); % Eosinophils 3.1 % (0-6); % Immature Granulocytes 1.3 % (0-0.5); % Lymphocytes 17.7 % (20.5-51.1); % Monocytes 12.9 % (1.7-9.3); % Neutrophils 64.5 % (42.2-75.2); Absolute Eosinophils 0.2 10^3/uL (0-0.7); Absolute Immature Granulocytes 0.1 10^3/uL (0-0.05); Absolute Lymphocytes 1.3 10^3/uL (1.2-3.4); Absolute Neutrophils 4.9 10^3/uL (1.4-6.5); Hematocrit 45.8 % (37.0-47.0); Hemoglobin 15.1 g/dL (12.0-16.0); Mean Corpuscular Hgb 28.5 pg (27.0-31.0); Mean Corpuscular Volume 86.6 fL (81.0-99.0); Mean Platelet Volume 10.5 fL (7.4-10.4); Nucleated Red Blood Cells % 0 %; Platelet Count 319 10^3/uL (130-400); Red Blood Cell Count 5.29 10^6/uL (4.20-5.40); Red Cell Dist. Width 13.2 % (11.5-14.5); White Blood Cell Count 7.5 10^3/uL (4.8-10.8)
[2025-01-19 15:48] LABS: ALT (SGPT) 15 U/L (0-35); AST (SGOT) 18 U/L (14-36); Albumin 3.6 g/dl (3.5-5.0); Alkaline Phosphatase 83 U/L (38-126); Blood Urea Nitrogen 26 mg/dl (7-17); Calcium 9.7 mg/dl (8.4-10.2); Carbon Dioxide 24 mmol/L (22-30); Chloride 107 mmol/L (98-107); Glucose 179 mg/dl (70-99); Potassium 4.6 mmol/L (3.5-5.1); Sodium 137 mmol/L (135-145); Total Bilirubin 0.7 mg/dl (0.2-1.3); Total Protein 6.1 g/dl (6.3-8.2); eGFR 40.47
[2025-01-19 15:59] LABS: Troponin I 0.015 ng/ml
[2025-01-19] MEDS: PROTONIX IV 40 MG IV (17:57)
[2025-01-19] MEDS: NSS 1000 IV (17:58)
--- NOTE | 2025-01-19 18:02 | ED.GENMED ---
History of Present Illness
General
Chief Complaint: Chest Pain
Time Seen by Provider: 01/19/25 17:09
History of Present Illness
History of Present Illness:
69-year-old female with history of atrial fibrillation on Eliquis, diabetes on Trulicity, hypertension, hyperlipidemia, CHF presenting to the emergency department for chest pain. Patient reports symptoms started around noon today. Reports that she
took her Trulicity a few days ago and has since been having some nausea and vomiting which is typical for her after she takes medication. However, prior to arrival started to have chest discomfort. Denies any difficulty breathing. Denies any
lower extremity swelling. Denies fever or cough. Symptoms have since resolved. Notes history of CHF, denies any known history of coronary artery disease. Denies additional acute medical complaints
Past History
Past History
ED Past Medical History: Arrthythmia (Atrial fibrillation), Asthma, HTN and IDDM
ED Past Surgical History: Cardiac (Ablation), Cholecystectomy and Orthopedic
Social History
Tobacco: Former smoker
Alcohol: Occasional
Drug: None
Personal: Single
Living: with family
Employment: Employed
Family History
Family History: Diabetes
Phy Exam
Physical Exam
Physical Exam:
General: Well-appearing, no clinical signs of dehydration, nontoxic and in no acute distress
HEENT: protecting airway
Neck: appears supple
CV: Normal heart rate, regular rhythm, no evidence of cyanosis
Resp: No accessory muscle use, no increased work of breathing, lungs clear to auscultation bilaterally
Abd: Soft and non-distended, no tenderness to palpation
Extremities: No deformities, no swelling, no erythema
Neuro: alert, no focal neurologic deficit
: deferred
Rectal: deferred
Psych: Normal affect
Skin: Intact
Scores
Heart Score for Chest Pain Patients
STEMI patient?: No
History: Slightly or Non-Suspicious
ECG: Normal
Age: >/= 65 years
Risk Factors: 1 or 2 Risk Factors
Troponin: </= Normal Limit
Heart Score for Chest Pain Patients: 3
Heart Score Risk: 2.5% MACE over next 6 weeks
Course
Orders/Labs/Results
Orders:
Orders
01/19/25 15:19
EKG [Electrocardiogram (*1)] Urgent
Reason for Study: Chest Pain
01/19/25 15:20
EKG- Treatment ONCE
01/19/25 15:24
Complete Blood Count/With Diff Urgent
Comprehensive Metabolic Panel Urgent
Troponin I Urgent
01/19/25 17:40
0.9% Sodium Chloride 1000 ml [Nss] 1,000 ml IV BOLUS
Pantoprazole [Protonix IV] 40 mg IV NOW STA
01/19/25 17:41
EKG- Treatment ONCE
01/19/25 18:20
Electrocardiogram (*1) Urgent
Reason for Study: Chest Pain
01/19/25 18:26
Troponin I Urgent
Abnormal Lab Results
01/19/25 01/19/25
15:24 15:28
MPV 10.5 H fL
(7.4-10.4)
Abs Immat Gran (auto) 0.1 H 10^3/uL
(0-0.05)
Absolute Monos (auto) 1.0 H 10^3/uL
(0.1-0.6)
Immature Gran % 1.3 H %
(0-0.5)
Lymphocytes % 17.7 L %
(20.5-51.1)
Monocytes % 12.9 H %
(1.7-9.3)
BUN 26 H mg/dl
(7-17)
Creatinine 1.4 H mg/dL
(0.6-1.0)
Glucose 179 H mg/dl
(70-99)
Total Protein 6.1 L g/dl
(6.3-8.2)
POC Glucose 159 H mg/dl
(70-99)
01/19/25 15:24
01/19/25 15:24
Vital Signs
Initial and Last Documented VS:
Initial Vital Signs
BP
114/71
01/19/25 15:19
Last Documented Vital Signs
Pulse Resp BP Pulse Ox
80 18 136/88 99
01/19/25 20:03 01/19/25 20:03 01/19/25 20:03 01/19/25 20:03
MDM/Problems Addressed
MDM/Problems Addressed:
69-year-old female with history of A-fib on Eliquis as well as CHF, hypertension, diabetes presenting for chest pain. Vital signs on arrival are normal.
On exam patient is resting comfortably, no acute distress. She is currently chest pain-free. EKG obtained, nonischemic. Ultimately suspect possible gastric component to symptoms, notes preceded by nausea and vomiting from taking her medication.
Regardless, patient does have cardiac risk factors, so labs obtained including troponin, normal. Plan for second troponin. Will treat with IV fluids in the setting of vomiting and dehydration, as well as pantoprazole. Will continue to monitor.
19:40 - Repeat troponin is normal and EKG unchanged. Patient remains chest pain-free. Feel stable for discharge with close interval follow-up with physician. Return precautions discussed and patient verbalized understanding
*Pulse Oximetry
SaO2: 93
Oxygen Mode of Delivery: Room air
*EKG
Interpreted by ED Provider?: Yes
EKG Intrepretation Date: 01/19/25
EKG Intrepretation Time: 18:09
Interpretation: normal
Comparison EKG: no changes
Heart Rate: 92
Rate: normal
Rhythm: sinus
[place]: normal axis
Interval: normal interval
QRS Pattern: normal QRS
Ischemia: no ischemia
*Critical Care Note
Total Time (30-74mins, 75-104mins- exclusive of procedures): Not Applicable
ED Attending Note
-
Portions of this chart may have been created with voice recognition software.� Occasional wrong word or��sound alike� substitutions may have occurred due to the inherent limitations of voice recognition software.
Discharge Plan
Departure
Patient Disposition: Home (Routine Discharge)
Date of Disposition: 01/19/25
Time of Disposition: 19:47
Patient with high blood pressure during this ER visit?: No
Condition: Good
Discharge Problem:
Chest pain
Instructions: Chest pain - Discharge instructions
Prescriptions:
No Action
multivitamin 1 EACH tablet
1 ea PO NOON
fluoxetine 40 MG capsule
80 mg PO DAILY
nitroglycerin 0.4 MG tablet, sublingual
0.4 mg sublingual [id number] PRN (Reason: chest pain)
vitamin B complex 1 TAB tablet
1 tab PO NOON
atorvastatin 20 MG tablet
20 mg PO HS
cyanocobalamin (vitamin B-12) 1,000 MCG tablet
1,000 mcg PO NOON
ferrous sulfate [iron] 325 MG tablet
325 mg PO NOON
albuterol sulfate 90 mcg/actuation Hfa Aerosol Inhaler
2 puff INHALATION R Q4HPRN PRN (Reason: sob)
insulin aspart U-100 [Novolog FlexPen U-100 Insulin] 100 unit/mL (3 mL) insulin pen
13 unit SC AC
albuterol sulfate 2.5 mg /3 mL (0.083 %) Solution For Nebulization
2.5 mg INHALATION R Q4HPRN PRN (Reason: sob)
fluticasone propionate [Flovent HFA] 110 mcg/actuation HFA aerosol inhaler
2 puff INHALATION R BID
Eliquis 5 mg tablet
5 mg PO BID
insulin glargine [Basaglar KwikPen U-100 Insulin] 100 unit/mL (3 mL) Insulin Pen
6 unit SC HS
furosemide [Lasix] 40 mg tablet
80 mg PO DAILY
dextroamphetamine-amphetamine [Adderall] 10 mg Tablet
10 mg PO TID
levothyroxine [Synthroid] 150 mcg Tablet
150 mcg PO DAILY
ergocalciferol (vitamin D2) 1,250 mcg (50,000 unit) Capsule
1,250 mcg PO HUTCHISON
letrozole 2.5 mg Tablet
2.5 mg PO DAILY
Trulicity 4.5 mg/0.5 mL Pen Injector
4.5 mg SC HUTCHISON
diltiazem HCl 240 mg capsule,extended release 24hr
240 mg PO BID
amiodarone 200 mg tablet
200 mg PO BID Qty: 60 0RF
oxycodone 5 mg capsule
5 mg PO Q4H PRN (Reason: Pain) Qty: 10 0RF
ondansetron 4 mg tablet,disintegrating
4 mg PO Q8H PRN (Reason: nausea and vomiting) 5 Days Qty: 14 0RF
pantoprazole 40 mg tablet,delayed release (DR/EC)
40 mg PO DAILY Qty: 14 0RF
Referrals:
Kailyn Petty MD [Family Provider, Family Practice]
Activity Restrictions/Additional Instructions:
You were seen in the emergency department for chest pain
You were found to have reassuring blood work, EKG. please follow-up closely with your family partner
Please follow-up closely with your primary care physician.
Return to the emergency department for any worsening of your symptoms, or any development of chest pain, difficulty breathing, abdominal pain with persistent vomiting and inability to tolerate food or liquid by mouth (concern for dehydration),
weakness, headache or confusion, fever greater than 100.4, or any additional symptoms that are concerning to you.
Thank you for choosing [facility].
Interventions
Interventions:
*Risk Screen - Suicide Last Done: 01/19/25 15:22
*General Assessment Last Done: 01/19/25 15:22
*Neglect/Abuse Screening Last Done: 01/19/25 15:22
*ED- Fall Risk Assessment Last Done: 01/19/25 15:22
*ED COVID-19 Vaccine History Last Done: 01/19/25 15:22
*Nursing Disposition Last Done: 01/19/25 20:08
ED- Cardiac Assessment Last Done: 01/19/25 15:25
Discharge Date and Time
Discharge Date/Time: 01/19/25 20:08
Print Language: ROMANSH
[2025-01-19 18:58] LABS: Troponin I 0.014 ng/ml
== END 2025-01-19 20:08 | disposition home or self-care (01) ==
LOC: EMR 15:18
PROVIDERS: EMERGENCY PHYSICIAN Student in an Organized Health Care Education/Training Program; FAMILY PHYSICIAN Family Medicine
DX: R07.9 Chest pain, unspecified (principal); I48.91 Unspecified atrial fibrillation; E86.0 Dehydration; E78.5 Hyperlipidemia, unspecified; E11.9 Type 2 diabetes mellitus without complications; I11.0 Hypertensive heart disease with heart failure; I50.9 Heart failure, unspecified; J45.909 Unspecified asthma, uncomplicated; Z79.01 Long term (current) use of anticoagulants; Z79.4 Long term (current) use of insulin; Z87.891 Personal history of nicotine dependence; Z90.49 Acquired absence of other specified parts of digestive tract
CPT/HCPCS: 96374; 96361; 99284; 80053; 82962; 84484; 85025; 93005

== ENCOUNTER 2025-01-26 16:18 | Inpatient (IN) | payer MEDICARE, OTHER, SELFPAY ==
[2025-01-26] VITALS (10 sets, daily range): BP systolic 104–141; BP diastolic 64–86; BMI 39.4; BMI 39.7
[2025-01-26 11:31] LABS: % Basophils 0.4 % (0-2); % Eosinophils 0.6 % (0-6); % Immature Granulocytes 0.5 % (0-0.5); % Lymphocytes 10.9 % (20.5-51.1); % Neutrophils 78.6 % (42.2-75.2); Absolute Eosinophils 0.1 10^3/uL (0-0.7); Absolute Immature Granulocytes 0.1 10^3/uL (0-0.05); Absolute Lymphocytes 1.1 10^3/uL (1.2-3.4); Absolute Monocytes 0.9 10^3/uL (0.1-0.6); Absolute Neutrophils 7.7 10^3/uL (1.4-6.5); Hematocrit 46.9 % (37.0-47.0); Hemoglobin 15.1 g/dL (12.0-16.0); Mean Corp Hgb Conc. 32.2 g/dL (33.0-37.0); Mean Corpuscular Hgb 28.2 pg (27.0-31.0); Mean Corpuscular Volume 87.7 fL (81.0-99.0); Mean Platelet Volume 10.6 fL (7.4-10.4); Nucleated Red Blood Cells % 0 %; Platelet Count 368 10^3/uL (130-400); Red Blood Cell Count 5.35 10^6/uL (4.20-5.40); Red Cell Dist. Width 13.3 % (11.5-14.5); White Blood Cell Count 9.8 10^3/uL (4.8-10.8)
[2025-01-26 12:04] LABS: ALT (SGPT) 13 U/L (0-35); AST (SGOT) 17 U/L (14-36); Alkaline Phosphatase 83 U/L (38-126); Blood Urea Nitrogen 32 mg/dl (7-17); Calcium 10.2 mg/dl (8.4-10.2); Carbon Dioxide 28 mmol/L (22-30); Chloride 104 mmol/L (98-107); Glucose 193 mg/dl (70-99); Potassium 5.4 mmol/L (3.5-5.1); Sodium 139 mmol/L (135-145); Total Bilirubin 0.7 mg/dl (0.2-1.3); Total Protein 6.6 g/dl (6.3-8.2); eGFR 32.06
[2025-01-26 12:30] LABS: NT-proBNP 4800 pg/ml; Troponin I 0.036 ng/ml
[2025-01-26] MEDS: LASIX 40 MG IV (13:51)
--- NOTE | 2025-01-26 14:11 | ED.GENMED ---
History of Present Illness
<Jeff Cantu PA-C - Last Filed: 01/26/25 16:05>
General
Chief Complaint: Cardiac Symptoms
Source: patient and physician
Time Seen by Provider: 01/26/25 13:16
History of Present Illness
History of Present Illness:
69-year-old female with past medical history of atrial fibrillation status post previous cardioversion, CHF, hypertension, hyperlipidemia, insulin-dependent diabetes, mild CKD presenting to the ER from her director of solutions architecture, Dr. Bo, for evaluation
after she was there for routine office visit and found to be in A-fib/a flutter incidentally. Patient states for the most part she is asymptomatic but does note maybe some slight exertional dyspnea over the last couple of days. She states that she
is pentecostalism taking her medications as prescribed. Denies any fevers or recent illnesses. She states to me that if she was not at the cardiology office today she would not have assumed anything was wrong. She does note a previous cardioversion in
the past, believes her last echocardiogram was within the last year but states she is overall unsure as to when this was.
Past History
<Jeff Cantu PA-C - Last Filed: 01/26/25 16:05>
Past History
ED Past Medical History: Arrthythmia (Atrial fibrillation), Asthma, CHF, HTN, IDDM and Renal failure
ED Past Surgical History: Cardiac (Ablation), Cholecystectomy and Orthopedic
Social History
Tobacco: Former smoker
Alcohol: Occasional
Drug: None
Personal: Single
Living: with family
Employment: Employed
Family History
Family History: Diabetes
Review of Systems
<Jeff Cantu PA-C - Last Filed: 01/26/25 16:05>
Review of Systems
All Other Systems: ROS reviewed and negative except as documented in HPI and ROS
Phy Exam
<Jeff Cantu PA-C - Last Filed: 01/26/25 16:05>
Physical Exam
Physical Exam:
GENERAL: Alert , in no apparent distress, smiling and pleasant
EYE: pupils equal and reactive
NECK: Supple
ENT: o/p clr, mmm.
CARDIAC: Irregularly irregular, tachycardic
LUNGS: Diminished bilateral bases posterior lung so, no wheezing or rhonchi
ABDOMEN: Soft, without focal tenderness, no r/g, no cvat
NEUROLOGICAL: Alert and oriented
SKIN: Warm and dry, skin intact.
MUSCULOSKELETAL: Trace bilateral nonpitting ankle edema, well perfused.
PSYCH: Normal and appropriate interaction.
Scores
<Jeff Cantu PA-C - Last Filed: 01/26/25 16:05>
Heart Failure Risk
Heart Failure Risk Score: Yes
History of Stroke or TIA: No
History of intubation for respiratory distress: No
Heart rate on ED arrival >/= 110: Yes
SaO2 <90% on arrival on room air: No
HR >/=110 during 3min walk test (or too ill to perform test): Yes
ECG has acute ischemic changes: No
Urea >/=12mmol/L (BUN 33.6mg/dL): No
Serum CO2>/=35mmol/L: No
Troponin I or T elevated to VT Level (0.4mg/dL): No
NT-proBNP >/=5,000ng/L (5,000pg/ml): No
HF Risk Score: 2
Admission Status: MEDIUM RISK 9.2% Consider observation or discharge to home with homecare & f/u visit to PCP/[facility] [employer], or SNF for treatment
Heart Score for Chest Pain Patients
STEMI patient?: Not applicable
Withdrawal Assessment of Alcohol
Withdrawal Assessment Completed?: Not applicable
<Wes Becker MD - Last Filed: 01/26/25 15:14>
Heart Failure Risk
HF Risk Score: 2
Admission Status: MEDIUM RISK 9.2% Consider observation or discharge to home with homecare & f/u visit to PCP/[facility] [employer], or SNF for treatment
Course
<Jeff Cantu PA-C - Last Filed: 01/26/25 16:05>
Orders/Labs/Results
Orders:
Orders
01/26/25 11:17
Electrocardiogram (*1) Urgent
Reason for Study: Other
Other Reason for Exam: Respiratory Distress
EKG- Treatment ONCE
CR Chest - 2 Views Urgent
Comment:
Reason For Exam: respiratory distress
01/26/25 11:26
Complete Blood Count/With Diff Urgent
Comprehensive Metabolic Panel Urgent
Magnesium Urgent
NT-proBNP Urgent
TSH Reflex To Free T4 Urgent
Comment: ADD ON
Troponin I Urgent
01/26/25 13:38
Furosemide [Lasix] 40 mg IV NOW STA
01/26/25 14:30
ASA Classification Routine
Propofol [Diprivan] 100 mg IV NOW STA
01/26/25 14:45
EKG [Electrocardiogram (*1)] Stat
Reason for Study: Chest Pain
01/26/25 14:46
EKG- Treatment ONCE
01/26/25 15:16
Add On- LAB Urgent
Tests Added?: TSH with free T4 reflex, mag
01/26/25 15:48
Admit/Transfer Patient As Directed
Co-Sign Provider:
Level of Care: Inpatient admission
Assign to:: Telemetry
Physician / Group: ken nunez
Diagnosis: Rapid A-flutter, non-VT troponin elevation, hyper-K, CHF exac
Reason for Telemetry: Arrhythmia
Date to Stop Telemetry: 01/29/25
Time to Stop Telemetry: 11:00
Reason for Hospitalization: Rapid A-flutter, non-VT troponin elevation, hyper-K, CHF exac
Expected length of stay greater than two midnights?: Yes
ELOS- Estimated Length of Stay in days: 3
I certify the patient meets the requirements for IP care: Yes
CARDIOLOGY CONSULT Routine
Consulting Provider: Nicholas Fraga
Was physician already notified: Yes
Reason for consult: Rapid A-flutter
01/26/25 15:49
Code Status As Directed
Resuscitation Status: Full Code
01/26/25 15:53
PRN Pain Medication Management As Directed
May give lesser potent ordered pain med per pt: Yes
preference::
Protocol:: Medication orders for pain may be administered in a
manner that supports deferring to patient preference
when the pt is:
- Requesting an ordered lesser potent pain medication.
Least to most potent pain medications are defined
as: acetaminophen < NSAID < tramadol < opioids
(morphine, oxycodone, hydromorphone).
- Requesting a lesser dose of the same medication IF
ORDERED.
- Requesting a less intrusive route of administration
if both routes are prescribed by the provider (PO <
IV).
01/26/25 17:00
Troponin I Q6H
01/26/25 23:00
Troponin I Q6H
01/29/25 11:00
DC Protocol for Telemetry ONCE
Abnormal Lab Results
01/26/25
11:26
MCHC 32.2 L g/dL
(33.0-37.0)
MPV 10.6 H fL
(7.4-10.4)
Abs Immat Gran (auto) 0.1 H 10^3/uL
(0-0.05)
Absolute Neuts (auto) 7.7 H 10^3/uL
(1.4-6.5)
Absolute Lymphs (auto) 1.1 L 10^3/uL
(1.2-3.4)
Absolute Monos (auto) 0.9 H 10^3/uL
(0.1-0.6)
Neutrophils % 78.6 H %
(42.2-75.2)
Lymphocytes % 10.9 L %
(20.5-51.1)
Potassium 5.4 H mmol/L
(3.5-5.1)
BUN 32 H mg/dl
(7-17)
Creatinine 1.7 H mg/dL
(0.6-1.0)
Glucose 193 H mg/dl
(70-99)
Troponin I 0.036 H* ng/ml
01/26/25 11:26
01/26/25 11:26
Vital Signs
Initial and Last Documented VS:
Initial Vital Signs
Temp Pulse Resp BP Pulse Ox
98.8 F 149 20 126/84 98
01/26/25 11:17 01/26/25 11:17 01/26/25 11:17 01/26/25 11:17 01/26/25 11:17
Last Documented Vital Signs
Temp Pulse Resp BP Pulse Ox
98.3 F 93 18 122/69 92
01/26/25 14:50 01/26/25 16:00 01/26/25 16:00 01/26/25 16:00 01/26/25 16:00
<Wes Becker MD - Last Filed: 01/26/25 15:14>
Orders/Labs/Results
Orders:
Orders
01/26/25 11:17
Electrocardiogram (*1) Urgent
Reason for Study: Other
Other Reason for Exam: Respiratory Distress
EKG- Treatment ONCE
CR Chest - 2 Views Urgent
Comment:
Reason For Exam: respiratory distress
01/26/25 11:26
Complete Blood Count/With Diff Urgent
Comprehensive Metabolic Panel Urgent
Magnesium Urgent
NT-proBNP Urgent
TSH Reflex To Free T4 Urgent
Comment: ADD ON
Troponin I Urgent
01/26/25 13:38
Furosemide [Lasix] 40 mg IV NOW STA
01/26/25 14:30
ASA Classification Routine
Propofol [Diprivan] 100 mg IV NOW STA
01/26/25 14:45
EKG [Electrocardiogram (*1)] Stat
Reason for Study: Chest Pain
01/26/25 14:46
EKG- Treatment ONCE
01/26/25 15:16
Add On- LAB Urgent
Tests Added?: TSH with free T4 reflex, mag
01/26/25 15:48
Admit/Transfer Patient As Directed
Co-Sign Provider:
Level of Care: Inpatient admission
Assign to:: Telemetry
Physician / Group: ken nunez
Diagnosis: Rapid A-flutter, non-VT troponin elevation, hyper-K, CHF exac
Reason for Telemetry: Arrhythmia
Date to Stop Telemetry: 01/29/25
Time to Stop Telemetry: 11:00
Reason for Hospitalization: Rapid A-flutter, non-VT troponin elevation, hyper-K, CHF exac
Expected length of stay greater than two midnights?: Yes
ELOS- Estimated Length of Stay in days: 3
I certify the patient meets the requirements for IP care: Yes
CARDIOLOGY CONSULT Routine
Consulting Provider: Nicholas Fraga
Was physician already notified: Yes
Reason for consult: Rapid A-flutter
01/26/25 15:49
Code Status As Directed
Resuscitation Status: Full Code
01/26/25 15:53
PRN Pain Medication Management As Directed
May give lesser potent ordered pain med per pt: Yes
preference::
Protocol:: Medication orders for pain may be administered in a
manner that supports deferring to patient preference
when the pt is:
- Requesting an ordered lesser potent pain medication.
Least to most potent pain medications are defined
as: acetaminophen < NSAID < tramadol < opioids
(morphine, oxycodone, hydromorphone).
- Requesting a lesser dose of the same medication IF
ORDERED.
- Requesting a less intrusive route of administration
if both routes are prescribed by the provider (PO <
IV).
01/26/25 17:00
Troponin I Q6H
01/26/25 23:00
Troponin I Q6H
01/29/25 11:00
DC Protocol for Telemetry ONCE
Abnormal Lab Results
01/26/25
11:26
MCHC 32.2 L g/dL
(33.0-37.0)
MPV 10.6 H fL
(7.4-10.4)
Abs Immat Gran (auto) 0.1 H 10^3/uL
(0-0.05)
Absolute Neuts (auto) 7.7 H 10^3/uL
(1.4-6.5)
Absolute Lymphs (auto) 1.1 L 10^3/uL
(1.2-3.4)
Absolute Monos (auto) 0.9 H 10^3/uL
(0.1-0.6)
Neutrophils % 78.6 H %
(42.2-75.2)
Lymphocytes % 10.9 L %
(20.5-51.1)
Potassium 5.4 H mmol/L
(3.5-5.1)
BUN 32 H mg/dl
(7-17)
Creatinine 1.7 H mg/dL
(0.6-1.0)
Glucose 193 H mg/dl
(70-99)
Troponin I 0.036 H* ng/ml
01/26/25 11:26
01/26/25 11:26
Vital Signs
Initial and Last Documented VS:
Initial Vital Signs
Temp Pulse Resp BP Pulse Ox
98.8 F 149 20 126/84 98
01/26/25 11:17 01/26/25 11:17 01/26/25 11:17 01/26/25 11:17 01/26/25 11:17
Last Documented Vital Signs
Temp Pulse Resp BP Pulse Ox
98.3 F 93 18 122/69 92
01/26/25 14:50 01/26/25 16:00 01/26/25 16:00 01/26/25 16:00 01/26/25 16:00
Procedures
<Jeff Cantu PA-C - Last Filed: 01/26/25 16:05>
Cardioversion
Indication:: Afib
Performed by:: Dr. Becker/Brandyn Cantu
Synchronized?: Yes
Energy Used: 200 joules
Number of attempts: 1
Successful?: Yes
Complications: none
ASA Risk Score: Class II
Any reaction or bad outcome to prior sedation/anesthesia?: No history of a reaction
Sedation level to be attained: moderate
Chart and allergies reviewed: Yes
Patient reassessed prior to sedation: Yes
Time out completed at (validating right patient & procedure): 14:40
History of difficult intubation: No
Airway free of obstruction: Yes
Patient has a gag reflex: Yes
Patient is able to open mouth: Yes
Patient has no dentures: Yes
Patient has no loose teeth: Yes
Medication administered by Provider during Moderate Sedation: IV Propofol (mg)
Total dose administered: 40
Time drug administered: 14:41
Start Time: 14:41
Stop Time: 14:50
<Jeff Cantu PA-C - Last Filed: 01/26/25 16:05>
MDM/Problems Addressed
Differential Diagnosis Includes:
- Atrial fibrillation
-Atrial flutter
- Electrolyte imbalance
- Renal dysfunction
- Cardiomyopathy
- Valvular dysfunction
-Less concern for an infectious etiology
MDM/Problems Addressed:
69-year-old female presenting to the ER for evaluation at the request of director of solutions architecture after she was found to be in rapid A-fib/a flutter. There were talks about patient being cardioverted by cardiology at the visit. She is otherwise
hemodynamically stable and in no acute distress at this time. I reviewed the risk versus benefit of cardioverting with the patient and she would be amenable to this procedure. Will discuss with cardiology prior to cardioverting. Labs were
initiated on arrival which do show stable chronic kidney disease although she does have a slightly elevated troponin which I suspect is more rate related as well as related to her renal function as well as an elevated BNP and patient would likely
benefit from further diuresis given her exertional dyspnea
Chronic conditions affecting care: Arrhythmia and Kidney disease
Acute Exacerbation and/or Progression of Chronic Illness: Arrhythmia and Kidney disease
<Jeff Cantu PA-C - Last Filed: 01/26/25 16:05>
*Pulse Oximetry
SaO2: 94
Oxygen Mode of Delivery: Room air
Patient hypoxic: no
*EKG
Interpreted by ED Provider?: Yes
Heart Rate: 144
Rhythm: atrial flutter
[place]: left axis deviation
*[employer] Interpretation
Rate: tachycardiac
Rhythm: atrial flutter
*Critical Care Note
Total Time (30-74mins, 75-104mins- exclusive of procedures): Not Applicable
Data Reviewed
Review of Other/Old Records Reveals: Labs, Records and Testing
Source: patient and records
<Jeff Cantu PA-C - Last Filed: 01/26/25 16:05>
Patient Management
Discussion with other providers: Hospitalist and Compliance Investigator
Escalation/DeEscalation of care consider admission/obs:
The patient tolerated the cardioversion without complication. She returned to a normal sinus rhythm with premature atrial contractions. Patient remained hemodynamically stable, no respiratory distress. Given her CHF exacerbation still plan to
admit to hospitalist for diuresis and cardiology consultation. Hospitalist team notified and accepts for continued evaluation and treatment.
ED Attending Note
<Jeff Cantu PA-C - Last Filed: 01/26/25 16:05>
-
Portions of this chart may have been created with voice recognition software.� Occasional wrong word or��sound alike� substitutions may have occurred due to the inherent limitations of voice recognition software.
<Wes Becker MD - Last Filed: 01/26/25 15:14>
ED Attending Note
Patient seen and examined by attending physician: Yes
ED Attending Note:
I have seen and evaluated the patient with a [id number] encounter. I have spoken to the advance practicer provider and involved in the medical history, the physical exam, medical decision making.
Evaluation and management service: agree unless noted differently below.
Results interpretation: agree unless noted differently below.
Focused HPI: 69-year-old female with history as noted presents to the ER sent by her director of solutions architecture for rapid atrial fibrillation, shortness of breath with exertion.
Physical exam: Awake and alert no distress. Tachycardic heart rate 140s. No hypoxia. Mild tachypnea. She does have some slight edema in the legs. Breath sounds diminished at the lung bases.
Medical Decision Makin-year-old female presents in 2-1 atrial flutter heart rate ~150. She appears to have mild CHF likely triggered by rapid A-fib/flutter. PA discussed with cardiology plan for ED cardioversion. Will admit for diuresis.
Patient was cardioverted under my supervision as documented in procedure note. PA discussed with hospitalist for admission.
Discharge Plan
Departure
Patient Disposition: Admit
Date of Disposition: 01/26/25
Time of Disposition: 14:52
Presentation/result/management discussed w/ accepting MD/DO: Hospitalist
Discharge Problem:
Atrial flutter, Acute exacerbation of CHF (congestive heart failure), CKD (chronic kidney disease)
Prescriptions:
No Action
multivitamin 1 EACH tablet
1 ea PO NOON
fluoxetine 40 MG capsule
40 mg PO BID
nitroglycerin 0.4 MG tablet, sublingual
0.4 mg sublingual [id number] PRN (Reason: chest pain)
vitamin B complex 1 TAB tablet
1 tab PO NOON
atorvastatin 20 MG tablet
20 mg PO HS
cyanocobalamin (vitamin B-12) 1,000 MCG tablet
1,000 mcg PO NOON
ferrous sulfate [iron] 325 MG tablet
325 mg PO NOON
albuterol sulfate 90 mcg/actuation Hfa Aerosol Inhaler
2 puff INHALATION R Q4HPRN PRN (Reason: sob)
insulin aspart U-100 [Novolog FlexPen U-100 Insulin] 100 unit/mL (3 mL) insulin pen
13 unit SC AC
albuterol sulfate 2.5 mg /3 mL (0.083 %) Solution For Nebulization
2.5 mg INHALATION R Q4HPRN PRN (Reason: sob)
fluticasone propionate [Flovent HFA] 110 mcg/actuation HFA aerosol inhaler
2 puff INHALATION R BID
Eliquis 5 mg tablet
5 mg PO BID
insulin glargine [Basaglar KwikPen U-100 Insulin] 100 unit/mL (3 mL) Insulin Pen
6 unit SC HS
furosemide [Lasix] 40 mg tablet
80 mg PO DAILY
levothyroxine [Synthroid] 150 mcg Tablet
150 mcg PO DAILY
letrozole 2.5 mg Tablet
2.5 mg PO DAILY
diltiazem HCl 240 mg capsule,extended release 24hr
240 mg PO BID
pantoprazole 40 mg tablet,delayed release (DR/EC)
40 mg PO DAILY Qty: 14 0RF
dextroamphetamine-amphetamine [Adderall] 20 mg Tablet
10 mg PO TID
Trulicity 1.5 mg/0.5 mL Pen Injector
1.5 mg SC HUTCHISON
ondansetron 4 mg tablet,disintegrating
4 mg PO Q8HPRN PRN (Reason: nausea and vomiting)
Referrals:
Kailyn Petty MD [Family Provider, Family Practice]
Interventions
Interventions:
*Risk Screen - Suicide Last Done: 01/26/25 11:17
*General Assessment Last Done: 01/26/25 13:18
*Neglect/Abuse Screening Last Done: 01/26/25 11:17
*ED- Fall Risk Assessment Last Done: 01/26/25 11:17
*ED COVID-19 Vaccine History Last Done: 01/26/25 13:18
ED- Pulmonary Assessment Last Done: 01/26/25 13:18
ED- Cardiac Assessment Last Done: 01/26/25 13:18
Discharge Date and Time
Print Language: PORTUGUESE
[2025-01-26] MEDS: DIPRIVAN 100 MG IV (14:40)
--- NOTE | 2025-01-26 15:07 | HPS.HSE ---
Family Physician
-
Family Physician: Kailyn Petty
Chief Complaint
-
Exertional dyspnea found to be in A-fib/a flutter in office, indigestion midsternal this a.m.
History of Present Illness
69-year-old female sent from her oracle specialist Dr. Bo during routine office visit today was found to be in A-fib/a flutter with some slight exertional dyspnea over the past week. Patient does report indigestion this a.m. midsternal with burning
pain that she took Pepto-Bismol for and states it went away. She did have slight troponin elevation on arrival however needed cardioversion which will likely alter repeat levels. Her last cardiac cath was in September 2021, no significant CAD she
was cardioverted in ER is currently in A-fib with heart rate controlled at 88 to 93 bpm. She has history of A-fib status post previous prior cardioversion. She was also noted to have exacerbation of CHF. She has been having episodes of vomiting
and pudding-like stool for 10 days thought to be due to her increased dose of Trulicity she has had no symptoms over the past 24 hours. And no recent antibiotics she denies headache, fever, chills, sore throat, chest pain, palpitations, cough,
abdominal pain, nausea, vomiting, diarrhea, urinary symptoms. She is compliant with her medication. She has past medical history of A-fib status post cardioversion, SVT/atrial tachycardia chronic CHF preserved EF, asthma, HTN, HLD, hypothyroidism,
DM2, CKD 3B�4A, GERD, former smoker, depression, breast cancer�invasive ductal carcinoma left breast, iron deficiency, B12 deficiency
Medical History
Past Medical History
Past Medical History: Reports Other
Additional Past Medical History:
Invasive Ductal Carcinoma of Left Breast
Atrial fibrillation
SVT
Atrial tachycardia
HTN
HLD
HFpEF
Asthma
Type 2 Diabetes
Depression
ADHD
GERD
Iron deficiency
B12 deficiency
Past Surgical History: Reports Other
Additional Past Surgical History:
Bilateral knee replacements
cholecystectomy
PVI ablation for A-fib 06/28/2024 to normal sinus rhythm, PVI 01/01/2023
Social History
Tobacco: Former Smoker
Alcohol: Occasional
Personal: Single
Living: With Roomate
Employment: Retired
Family History
Family History: Not pertinent
Allergies / Home Medications
Allergies reflects when Allergies were last updated in [facility].
Home Medications with original date entered in [facility]
Allergy/Medication List:
Allergies
Allergy/AdvReac Type Severity Reaction Status Date / Time
theophylline Allergy tongue Verified 01/26/25 11:16
swelling,
rash
Home Medications
fluoxetine 40 mg capsule 40 mg PO BID depression/anxiety 04/05/20
multivitamin 1 ea PO NOON Supplement 04/05/20
nitroglycerin 0.4 mg sublingual tablet 0.4 mg sublingual [id number] PRN chest pain 04/05/20
atorvastatin 20 mg tablet 20 mg PO HS High cholesterol 09/19/21
cyanocobalamin (vitamin B-12) 1,000 mcg tablet 1,000 mcg PO NOON Supplement 09/19/21
ferrous sulfate 325 mg (65 mg iron) tablet (iron) 325 mg PO NOON Supplement 09/19/21
vitamin B complex 1 tab PO NOON Supplement 09/19/21
albuterol sulfate 90 mcg/actuation aerosol inhaler 2 puff inhalation R Q4HPRN PRN sob 06/16/22
insulin aspart U-100 100 unit/mL (3 mL) subcutaneous pen (Novolog FlexPen U-100 Insulin aspart) 13 unit SC AC Diabetes 08/13/22
albuterol sulfate 2.5 mg/3 mL (0.083 %) solution for nebulization 2.5 mg inhalation R Q4HPRN PRN sob 12/17/22
apixaban 5 mg tablet (Eliquis) 5 mg PO BID Blood clot prevention/tx 12/17/22
fluticasone propionate 110 mcg/actuation HFA aerosol inhaler (Flovent HFA) 2 puff inhalation R BID Allergies 12/17/22
furosemide 40 mg tablet (Lasix) 80 mg PO DAILY Fluid retention/Swelling 10/21/23
insulin glargine 100 unit/mL (3 mL) subcutaneous pen (Basaglar KwikPen U-100 Insulin) 6 unit SC HS Diabetes 10/21/23
diltiazem HCl 240 mg capsule,extended release 24 hr 240 mg PO BID Blood Pressure 06/25/24
letrozole 2.5 mg tablet 2.5 mg PO DAILY Cancer 06/25/24
levothyroxine 150 mcg tablet (Synthroid) 150 mcg PO DAILY Thyroid 06/25/24
pantoprazole 40 mg tablet,delayed release 40 mg PO DAILY #14 tabs 12/02/24
dextroamphetamine-amphetamine 20 mg tablet (Adderall) 10 mg PO TID 01/26/25
dulaglutide 1.5 mg/0.5 mL subcutaneous pen injector (Trulicity) 1.5 mg SC HUTCHISON 01/26/25
ondansetron 4 mg disintegrating tablet 4 mg PO Q8HPRN PRN nausea and vomiting 01/26/25
Review of Systems
-
History Source: Patient
A 12 point ROS was completed and negative except as noted: Yes
Constitutional: Denies Fever, Fatigue or Chills
EENT: Denies Sore Throat or Runny Nose
Respiratory: Reports Trouble Breathing ([place] x 1 week); Denies Cough
Cardiac: Reports Chest Pain (Midsternal with indigestion/burning this a.m. relieved with Pepto-Bismol)
Abdomen/GI: Reports Vomiting and Diarrhea (Pudding-like stools); Denies Abdominal Pain
: Denies Dysuria, Frequency, Flank Pain, Incontinence, Difficulty Voiding, Urgency or Bleeding
Musculoskeletal: Denies Joint Pain or Edema
Skin: Denies Itching or Rash
Neurological: Denies Dizzy, Headache or Weakness
Endocrine: Reports No Symptoms
Hematologic/Lymphatic: Reports No Symptoms
Psych: Reports Calm
Physical Exam
Vital Signs
Vital Signs
Temp Pulse Resp BP Pulse Ox
98.3 F 95 23 125/83 98
01/26/25 14:50 01/26/25 14:50 01/26/25 14:50 01/26/25 14:50 01/26/25 14:50
Physical Exam
General: Comfortable and Conversant; No Pain, Fever, Chills or Sweats
HEENT: NormoCephalic, Anicteric, Moist mucous membranes, PERRLA, [place] Conjunctivae and No Ptosis; No Thyromegaly
Respiratory: Clear; No Wheezes, Rales or Rhonchi
Cardiac: S1/S2 and Irregular Rhythm (A-fib controlled rate post cardioversion 88 to 92 bpm on monitor); No Murmur, Rub, Gallop or Peripheral Edema
Breast: Deferred by me
GI: Soft, Non Tender, Non Distended, Normal Bowel Sounds and No Hepatosplenomegaly
Rectal: Deferred by Provider
Genito-urinary: Deferred by me
Musculoskeletal: No Clubbing, No Cyanosis and No Edema
Skin: Warm and Dry; No Rash
Neuro: AO x 3, No Motor Deficits, Nonfocal/grossly intact, Cranial Nerves Intact and No Sensory Deficits; No Slurred Speech, Facial Droop, Tremors or Sedated
Psych: Calm
Laboratory Results
-
01/26/25 11:26
01/26/25 11:26
Laboratory Results
Total Bilirubin 0.7 mg/dl (0.2-1.3) 01/26/25 11:
AST 17 U/L (14-36) 01/26/25 11:26
ALT 13 U/L (0-35) 01/26/25 11:26
Alkaline Phosphatase 83 U/L (38-126) 01/26/25 11:
Troponin I 0.036 ng/ml H* 01/26/25 11:26
Data Reviewed
-
Diagnostic Radiology: Report Reviewed by me
Lab Data: Labs Reviewed by me
Impression/Plan
-
Impression/plan:
Admit to telemetry
#Acute on chronic a flutter/A-fib
#S/p atrial flutter cardioversion 06/28/2024 to normal sinus rhythm, PVI 01/01/2023
#History of SVT/atrial tachycardia June 2024 with 2-1 AV conduction
-Cardioversion in ER today 01/26/2025
-Continue Eliquis 5 mg twice daily
- Continue diltiazem to 40 mg p.o. twice daily
- Consult cardiology
- Repeat 2D echo
- Check TSH with free T4 reflex
- Cholesterol-lowering, 1800 ADA fluid restrict 48 ounce diet
2D echo 06/28/2024: EF 55 to 60%, normal LV S LVSF, no wall abnormalities, mild LVH, mild MR/AR�mild AR is new from December 2022
#Nonischemic myocardial injury likely due to rapid A-fib also component of cardioversion
Episode of midsternal chest pain with indigestion this a.m. relieved with Pepto-Bismol
Troponin was ordered before cardioversion
Troponin 0.036 will trend do suspect elevation due to cardioversion
History cardiac cath September 2021 no significant CAD
#Acute on chronic CHF preserved EF
BNP 4800, weight 104.1 kg<104.8kg on 01/19/2025
I/O, daily weights
-IV Lasix 40 mg given in ER
-Continue oral Lasix 80 mg p.o. daily
#Acute hyperkalemia
K5.4
Will be receiving IV Lasix
- Follow BMP, check magnesium level
#Hypothyroidism
Check TSH with free T4 reflex
-Continue Synthroid 150 mcg p.o. daily
#Vomiting/pudding-like stools due x 10 days to increase of Trulicity
None over the past 24 hours
- Will monitor for any diarrhea
#CKD stage IIIb-Genevieve
Creatinine 1.7 baseline appears to be 1. 3�1.9
- Follow BMP
#Type 2 Diabetes
193 BS
Accu-Cheks with SSI, check HgbA1c
- continue Trulicity
- Continue NovoLog 13 units with meals, insulin glargine 6 units at bedtime
#HTN�benign
BP 125/83
-Continue diltiazem to 40 mg p.o. twice daily
#HLD
- continue atorvastatin
#GERD
Continue Protonix 40 mg daily
#Asthma�no acute exacerbation
Continue albuterol every 4 hours as needed
#Invasive Ductal Carcinoma of Left Breast
- continue letrozole
#Depression
- continue fluoxetine 40 mg twice daily
#Iron deficiency anemia
Continue ferrous sulfate 325 mg at noon
#B12 deficiency
-Continue vitamin B12 1000 mcg p.o. at noon
#ADHD
- hold adderall
#Class II obesity�BMI 39.4
Affects all aspects of care
Weight loss recommended
Patient on Trulicity for diabetic control and weight loss
DVT prophylaxis continue STOVE CLEANER Eliquis
Full Code
--- NOTE | 2025-01-26 15:21 | W.PN.UPDATE ---
Addendum entered and electronically signed by Marlin Marrero MD 01/26/25 20:48:
per discussion with Dr. Garcia, Amio 400mg PO TID started for now, with decrease in Diltiazem dosing to 120 daily
Original Note:
Update Note
Progress Note Update
This is an addendum to H&P written by REPORTING PROCESS CONSULTANT Angie Schmidt
I saw and examined the patient.
The REPORTING PROCESS CONSULTANT's note was reviewed and I agree with the note.
Comment:
Ms. Christy De Dios is a 69 yo woman with hx atrial fibrillation s/p cardioversion, HFpEF, HTN, HLD, DM II, CKD III, breast cancer who was sent from Cardiology clinic where found to be in afib/aflutter in setting of exertional dyspnea over past
couple of days. She is s/p cardioversion in the ER.
Triage VS: T 98.3, P 95, RR 23, BP 125/83, SpO2 98%
On exam patient is awake, alert, in no distress. CV: irregular rhythm, no JVP; Chest clear without wheezing, no LE swelling
LABS: WBC 9.8, Hg 15.1, PLT 368, Na 139, K+ 5.4, Cl 104, Cr 1.7 (baseline), Glucose 193, liver enzymes WNL, Trop 0.036, BNP 4800
EKG: aflutter @ 144 with repeat EKG post cardioversion showing sinus with PAC
CXR
IMPRESSION:
No acute cardiopulmonary abnormality.
MAR: Lasix 40mg IV x 1
Aflutter with RVR
-s/p cardioversion in the ER
-PST SUPERVISOR Cardizem and Eliquis
-Cardiology consulted
HFpEF Acute Exacerbation
Shortness of Breath
-patient is on Lasix 80mg PO QD at home
-s/p IV Lasix 40mg in ER
-patient looks euvolemic on exam, tamika continue home lasix
Chest pain this AM s/p pepto with relief of pain - likely gastritis
Elevated Troponin suspect non ischemic myocardial injury in setting of RVR and cardioversion
-trend Troponin
-follow up further cardiology recommendations
IDDM
-home regimen: lantus 6 units qhs; Aspart 13 units AC
Essential HTN - PST SUPERVISOR Diltiazem
HLD - PST SUPERVISOR Statin
Depression - PST SUPERVISOR Prozac
Hypothyroidism - PST SUPERVISOR Synthroid
GERD - PPI
Hx Breast Cancer - PST SUPERVISOR Letrozole 2.5mg PO QD
DVT PPx PST SUPERVISOR Eliquis
[2025-01-26 15:47] LABS: Magnesium 1.9 mg/dl (1.6-2.3)
--- NOTE | 2025-01-26 16:51 | W.PN.CARDCBS ---
Today's Communication / Plan
-
back in SR s/p CV
trend trop
amio 200mg TID
continue eliquis
consider repeat echo
Impression / Plan
-
Primary Superintendent General: Dr. Zavala
Primary EP: Dr. Garcia
Assessment:
Paroxysmal atypical atrial flutter
History of PVI 2022
Chronic OAC with eliquis
s/p CV in ER 01/26/25
Chest discomfort
Mild troponin elevation
Nausea/vomiting
Chronic heart failure with preserved EF
Hypertension
Hyperlipidemia
Type 2 diabetes
Stage IIIa CKD
ECHO 06/28/2024: EF 55 to 60%, mild concentric LVH, no regional wall motion abnormalities noted, mild MR, mild AR
Plan:
- Patient presented to cardiology office today for routine follow-up and found to be in rapid atrial flutter. Was referred to ER for cardioversion. Cardioversion was successful, however patient reported some chest discomfort earlier this AM prior
to cardiology appt which she has been getting intermittently and has subsequently resolved. She reports the pain is mostly central and feels like a burning sensation. No radiation. Time normally improves her symptoms. No specific correlation
with exertion or eating. She states sitting up normally does help, but belching does not necessarily help. She also reports some intermittent nausea and vomiting and feels this is from her Trulicity medication. Troponin was checked and was mildly
elevated at 0.036 resulting in cardiology consultation and admission
- Trend troponin to peak. Suspect will trend up in the setting of cardioversion
- Consider repeat echo, last from 2023 as above
- symptoms do not seem typical for cardiac etiology
- Last ischemic evaluation was In 2021 with near normal coronary arteries
- continue Eliquis given CV in ER
- start amiodarone 200mg TID. follow QTc by EKG
- proBNP somewhat elevated at 4800. Patient denies shortness of breath, abdominal bloating, lower extremity edema. She reports recent weight loss. She has been compliant with p.o. Lasix 80 mg daily. Would be hesitant to aggressively diurese
patient. Creatinine 1.7 which is up slightly from baseline. Chest x-ray without evidence of acute abnormalities
- will plan for OP EP eval to discuss repeat ablation
Progress Note - Superintendent General
Subjective
Date of Service: January 26, 2025
no complaints
Objective
Labs:
01/26/25 11:26
01/26/25 11:26
Labs
Hgb 15.1 g/dL (12.0-16.0) 01/26/25 11:26
Hct 46.9 % (37.0-47.0) 01/26/25 11:26
Plt Count 368 10^3/uL (130-400) 01/26/25 11:26
Sodium 139 mmol/L (135-145) 01/26/25 11:26
Potassium 5.4 mmol/L (3.5-5.1) H 01/26/25 11:26
BUN 32 mg/dl (7-17) H 01/26/25 11:26
Creatinine 1.7 mg/dL (0.6-1.0) H 01/26/25 11:26
Glucose 193 mg/dl (70-99) H 01/26/25 11:26
Troponins
01/26/25
11:26
Troponin I 0.036 H*
Vital Signs and I&O:
Vital Signs
Temp Pulse Resp BP Pulse Ox
98.3 F 93 18 122/69 92
01/26/25 14:50 01/26/25 16:00 01/26/25 16:00 01/26/25 16:00 01/26/25 16:00
Vital Signs
Temp Pulse Resp BP Pulse Ox
98.3 F 93 18 122/69 92
01/26/25 14:50 01/26/25 16:00 01/26/25 16:00 01/26/25 16:00 01/26/25 16:00
Physical Exam
Physical Exam
GEN: No distress, awake, alert, oriented x3
HEENT: supple, anicteric, mmm, eomi
LUNGS: CTA B/L, no wheezes/rales
CV: Reg, S1/S2, no murmur
ABD: soft, BS+, NT/ND
EXT: No cyanosis, clubbing. trace edema of B/L LE
NEURO: Gross non-focal
SKIN: Warm, pink, dry. No rash
[2025-01-26 18:05] LABS: Troponin I 0.033 ng/ml
--- NOTE | 2025-01-26 18:33 | PTCARENOTE ---
Pt. arrived from ED via stretcher, ambulated to bed with standby assistance. Pt. VSS, no c/o pain at this time, cardiac monitor technician on. Pt. oriented to room and placing dinner order. Will pass on to oncoming shift RN.
[2025-01-26 18:40] LABS: Glucose - Point of Care 114 mg/dl (70-99)
[2025-01-26] MEDS: NOVOLOG FLEXPEN 13 UNITS SC (19:21)
[2025-01-26] MEDS: CARDIZEM CD 240 MG PO (20:02)
[2025-01-26] MEDS: ELIQUIS 5 MG PO (20:02)
[2025-01-26] MEDS: PROZAC 40 MG PO (20:02)
[2025-01-26] MEDS: FLOVENT 110 MCG INHALER 2 PUFF INH (20:21)
[2025-01-26 21:17] LABS: Glucose - Point of Care 109 mg/dl (70-99)
[2025-01-26] MEDS: LANTUS 0.06 UNITS SC (21:43)
[2025-01-26] MEDS: LIPITOR 20 MG PO (21:43)
[2025-01-26] MEDS: PACERONE 400 MG PO (21:46)
[2025-01-26] MEDS: NITROSTAT (SUBLINGUAL) 0.4 MG SL (23:08)
[2025-01-26 23:35] LABS: Troponin I 0.043 ng/ml
--- NOTE | 2025-01-27 00:06 | PTCARENOTE ---
Addendum entered by Millicent Ugalde 01/27/25 01:11:
pt tele alarming afib on monitor. BP 128/68, HR 94. pt with no complaints. MOTOR ASSEMBLER made aware. BMP and Mag drawn.
Original Note:
pt c/o 3/10 chest pain at 2300. MOTOR ASSEMBLER notified, SL nitro administered. pt placed on 2L oxygen for comfort, post first nitro administration pt chest pain went down to 0/10. VSS- temp 99.4, HR 98, BP 104/64, RR, 93% on 2L. pt tele showing NSR with
PACs. Mag level added to AM labs, will check EKG and another trop in AM per MOTOR ASSEMBLER. plan of care ongoing.
[2025-01-27 01:09] VITALS: BP 128/68
[2025-01-27 01:40] LABS: Blood Urea Nitrogen 34 mg/dl (7-17); Calcium 9.2 mg/dl (8.4-10.2); Carbon Dioxide 29 mmol/L (22-30); Chloride 105 mmol/L (98-107); Estimated Creatinine Clearance 35 ml/min; Glucose 79 mg/dl (70-99); Magnesium 1.9 mg/dl (1.6-2.3); Potassium 4.1 mmol/L (3.5-5.1); Sodium 138 mmol/L (135-145); eGFR 32.06
[2025-01-27 03:25] LABS: Glucose - Point of Care 80 mg/dl (70-99)
[2025-01-27 03:30] VITALS: BP 124/65
[2025-01-27] MEDS: SYNTHROID 150 MCG PO (05:05)
[2025-01-27 05:17] VITALS: BMI 39.4
[2025-01-27 05:31] LABS: % Basophils 0.4 % (0-2); % Immature Granulocytes 0.4 % (0-0.5); % Lymphocytes 17.7 % (20.5-51.1); % Monocytes 11.1 % (1.7-9.3); % Neutrophils 68.4 % (42.2-75.2); Absolute Eosinophils 0.2 10^3/uL (0-0.7); Absolute Lymphocytes 1.4 10^3/uL (1.2-3.4); Absolute Monocytes 0.9 10^3/uL (0.1-0.6); Absolute Neutrophils 5.5 10^3/uL (1.4-6.5); Hematocrit 41.5 % (37.0-47.0); Hemoglobin 13.7 g/dL (12.0-16.0); Mean Corpuscular Hgb 28.8 pg (27.0-31.0); Mean Corpuscular Volume 87.4 fL (81.0-99.0); Mean Platelet Volume 10.6 fL (7.4-10.4); Nucleated Red Blood Cells % 0 %; Platelet Count 309 10^3/uL (130-400); Red Blood Cell Count 4.75 10^6/uL (4.20-5.40); Red Cell Dist. Width 13.2 % (11.5-14.5)
[2025-01-27 05:58] LABS: ALT (SGPT) 12 U/L (0-35); AST (SGOT) 16 U/L (14-36); Albumin 3.4 g/dl (3.5-5.0); Alkaline Phosphatase 66 U/L (38-126); Blood Urea Nitrogen 32 mg/dl (7-17); Carbon Dioxide 27 mmol/L (22-30); Chloride 105 mmol/L (98-107); Estimated Creatinine Clearance 35 ml/min; Glucose 116 mg/dl (70-99); HDL Cholesterol 41 mg/dl; LDL Cholesterol, Calculated 86 mg/dl; Magnesium 1.9 mg/dl (1.6-2.3); Potassium 4.3 mmol/L (3.5-5.1); Sodium 138 mmol/L (135-145); Total Bilirubin 0.5 mg/dl (0.2-1.3); Total Cholesterol 155 mg/dl (50-199); Total Protein 5.7 g/dl (6.3-8.2); Triglyceride 141 mg/dl (10-149); Very Low Density Lipoprotein 28 mg/dl (0-30); eGFR 32.06
[2025-01-27 06:12] LABS: Troponin I 0.045 ng/ml
[2025-01-27 07:00] VITALS: BP 113/59
[2025-01-27 07:18] LABS: Glucose - Point of Care 119 mg/dl (70-99)
[2025-01-27] MEDS: FLOVENT 110 MCG INHALER 2 PUFF INH (07:53)
--- NOTE | 2025-01-27 08:22 | W.PN.HOSP.TC ---
Addendum entered and electronically signed by Kev Medeiros MD, Resident 01/28/25 08:58:
Elevated BNP, likely due to acute on chronic HFpEF.
Addendum entered and electronically signed by Bc Miner DO 01/27/25 14:20:
CDI: Acute on chronic HFpEF resolved
Original Note:
Today's Communication/Plan
-
Continue amiodarone
Continue diltiazem
Continue Lasix
Assessment / Plan
Assessment / Plan
Assessment
69-year-old female with past medical history of A-fib s/p cardioversion, HFpEF, hypertension, hyperlipidemia, DM 2, CKD stage III and breast cancer presenting to the ER in atrial flutter after being referred by her cardiology office.
Plan
#Atrial flutter with RVR
S/p cardioversion in ER
Back to normal sinus rhythm with PVCs
S/p cardioversion in 06/28/2024, PVI 01/01/2023
Cardiology on board
Diltiazem increased to 120 mg twice daily, continued arrhythmia of on telemetry overnight
Started on amiodarone 400 mg 3 times daily, continue
TSH normal, LFTs normal
Continue Eliquis
Monitor telemetry
Patient to follow-up with cardiology office after discharge, considering ablation for recurrent flutter
#HFpEF
Patient is euvolemic on exam
Continue Lasix 80 mg daily
proBNP�4800
last echo in 2023 with ejection fraction 55-60%
#Troponin elevation
Likely nonischemic/due to RVR or cardioversion
Will trend troponin
#IDDM
Continue ISS
Continue NovoLog 13, glargine 6
Continue Trulicity
#CKD stage IIIb
Monitor BMP
#Hyperkalemia
5. 3 >>4.3
Monitor BMP
#Essential hypertension
Continue diltiazem 120 daily
#Hyperlipidemia
Continue atorvastatin
#GERD
Continue Protonix
#Asthma
Not in acute exacerbation
Continue albuterol as needed
#History of carcinoma of left breast
Continue letrozole
#Depression
- continue fluoxetine 40 mg twice daily
#Iron deficiency anemia
Continue ferrous sulfate 325 mg
#B12 deficiency
-Continue vitamin B12 1000 mcg
#ADHD
- hold adderall
DVT prophylaxis�Eliquis
Full code
Anticipated Discharge: Within 24 hours
Subjective/Interval History
-
Date of Service: January 27, 2025
Patient reports that she feels better now after the cardioversion. Had some mild chest pain in the evening yesterday which resolved with nitroglycerin.
Objective Data
-
Labs:
Laboratory Results
01/27/25 01/27/25 01/27/25
01:05 05:12 05:13
WBC 8.0
Hgb 13.7
Hct 41.5
Plt Count 309
Sodium 138 138
Potassium 4.1 4.3
Chloride 105 105
Carbon Dioxide 29 27
BUN 34 H 32 H
Creatinine 1.7 H 1.7 H
Glucose 79 116 H
Calcium 9.2 9.0
Total Bilirubin 0.5
AST 16
ALT 12
Alkaline Phosphatase 66
Vital Signs:
Vital Signs
Temp Pulse Resp BP Pulse Ox
97.9 F 86 16 113/59 96
01/27/25 07:00 01/27/25 07:56 01/27/25 07:56 01/27/25 07:00 01/27/25 07:56
I&O
01/26/25 01/27/25 01/28/25
06:59 06:59 06:59
Intake Total 240 / 240
Output Total 950 / 950
Balance -710 / -710
Review of Systems
-
All other systems: Reviewed and negative (Except as mentioned above)
Physical Exam
-
General: Well Developed, Well Nourished and No Apparent Distress
HEENT: Normocephalic and Atraumatic
Respiratory: Clear to Auscultation
Cardiac: S1/S2, Irregular Rhythm and Other (No pedal edema); Negative Murmur
GI: Soft, Nontender, Nondistended and Normal Bowel Sounds
Skin: Warm and Dry
Neuro: Awake, Alert, Oriented and AO x 3
Psych: Calm
[2025-01-27 08:58] LABS: Glycohemoglobin (HgbA1c) 7.2 % (4.0-5.6)
[2025-01-27] MEDS: NOVOLOG FLEXPEN 13 UNITS SC (09:20)
[2025-01-27] MEDS: PACERONE 400 MG PO ×2 (09:23→15:41)
[2025-01-27] MEDS: CARDIZEM CD 120 MG PO (09:23)
[2025-01-27] MEDS: LASIX 80 MG PO (09:23)
[2025-01-27] MEDS: PROTONIX 40 MG PO (09:23)
[2025-01-27] MEDS: PROZAC 40 MG PO (09:23)
[2025-01-27] MEDS: ELIQUIS 5 MG PO (09:24)
[2025-01-27] MEDS: FEMARA 2.5 MG PO (09:24)
[2025-01-27] MEDS: DESENEX/MITRAZOL/ZEASORB 1 APPLIC TOPICAL (09:27)
[2025-01-27 11:00] VITALS: BP 116/54
--- NOTE | 2025-01-27 11:11 | W.PN.CARDCBS ---
Addendum entered and electronically signed by Doc Garcia MD 01/27/25 12:38:
Patient seen and examined
Agree with ADRIANO Mann note assessment
Agree with ADRIANO Mann plan
Sinus rhythm on telemetry overnight with frequent couplets and triplets
Initiated amiodarone therapy she overall feels well and better after cardioversion although was dyspneic when in atrial flutter
Review of her tracings demonstrates periods of likely atypical atrial flutter and probably left atrial mechanism. One of her ECGs would suggest potential CTI flutter as a second mechanism.
Exam:
HEENT normocephalic atraumatic
JVP 6
Cor regular no murmurs
Lungs clear to auscultation bilaterally
Abdomen soft nontender positive bowel sounds
No extremity edema
Alert and x 3
Assessment:
Paroxysmal atypical atrial flutter
History of PVI 2022
Chronic OAC with eliquis
s/p CV in ER 01/26/25
Chest discomfort
Mild troponin elevation
Nausea/vomiting
Chronic heart failure with preserved EF
Hypertension
Hyperlipidemia
Type 2 diabetes
Stage IIIa CKD
ECHO 06/28/2024: EF 55 to 60%, mild concentric LVH, no regional wall motion abnormalities noted, mild MR, mild AR
Plan:
- Feels much better today, I have no objection to 2 doses of 400 mg of amiodarone and discharge. At discharge would give her 200 mg twice daily x 2 weeks and then 200 mg daily. We we will leave her Cardizem at 240 mg daily at discharge.
- She was initiated on amiodarone 400 mg 3 times daily. In sinus rhythm with some brief run/bursts of A-fib, as well as frequent PACs. Would attempt to give 2 additional doses of amio 400 mg prior to discharge later today. Plan to discharge on
200 mg twice daily for 2 weeks then decrease to 200 mg daily
-Continue outpatient Cardizem, currently on 120 mg daily with addition of amiodarone, however appears to have been on 240 mg twice daily prior to admission. will increase dose to 120mg BID due to continued arrhythmia on tele overnight
- Repeat echo pending
- Continue Eliquis
- Prior PVI/LAPW isolation with cryoballoon. Chest x-ray without acute abnormalities. Continue p.o. Lasix 80 mg daily. Creatinine stable at 1.7
- If echo okay, plan for discharge home later this evening
- With regards to mechanism of her arrhythmia appears to have both atypical and likely left atrial flutter as well as some ECG's suggesting CTI flutter as a second mechanism. I met with the patient at the bedside and we discussed an ablation
procedure for her atypical and typical atrial flutter and she is amenable. I described a 1 of thousand risk of and a 1 to 2% risk of significant complication including vascular cardiac injury. I described mechanisms of arrhythmia and we will
schedule her for a [employer] procedure in 1 to 2 months after she has recovered from the recent arrhythmia and will utilize amiodarone in the short-term. I took time to answer all questions and she will not require any other follow-up
testing prior to discharge. I also offered to meet with her in the office if she would like and she told me that she is fine proceeding directly to ablation. I discussed with my office to reach out to the patient to schedule her procedure date and
I will make myself available if she needs to discuss further in the office.
Original Note:
Today's Communication / Plan
-
give 2 more doses of amio 400mg prior to DC later today. plan for DC on amio 200mg BID for 2 weeks then decrease to 200mg daily
diltiazem 120mg BID, decreased due to addition of amiodarone
continue eliquis
OP repeat ablation
echo pending
Impression / Plan
-
Primary Fibre Optic Cable Splicer: Dr. Zavala
Primary EP: Dr. Garcia
Assessment:
Paroxysmal atypical atrial flutter
History of PVI 2022
Chronic OAC with eliquis
s/p CV in ER 01/26/25
Chest discomfort
Mild troponin elevation
Nausea/vomiting
Chronic heart failure with preserved EF
Hypertension
Hyperlipidemia
Type 2 diabetes
Stage IIIa CKD
ECHO 06/28/2024: EF 55 to 60%, mild concentric LVH, no regional wall motion abnormalities noted, mild MR, mild AR
Plan:
- Patient was found to be in rapid atrial flutter at office visit yesterday and was referred to ER for cardioversion. She underwent successful cardioversion in ER, however patient reported some chest discomfort which had occurred earlier in the
morning prior to her cardiology appointment without recurrence. Her troponin was mildly elevated at 0.036 resulting in admission with cardiology consult
- Troponins remain relatively flat overnight and trending down this AM, suspect nonischemic myocardial injury secondary to rapid aflutter as well as cardioversion. She has not had any recurrence of chest discomfort. Last ischemic evaluation with
cath in 2021 with near normal coronary arteries
- She was initiated on amiodarone 400 mg 3 times daily. In sinus rhythm with some brief run/bursts of A-fib, as well as frequent PACs. Would attempt to give 2 additional doses of amio 400 mg prior to discharge later today. Plan to discharge on
200 mg twice daily for 2 weeks then decrease to 200 mg daily
-Continue outpatient Cardizem, currently on 120 mg daily with addition of amiodarone, however appears to have been on 240 mg twice daily prior to admission. will increase dose to 120mg BID due to continued arrhythmia on tele overnight
- Repeat echo pending
- Continue Eliquis
- Given recurrence of atrial flutter, patient being considered for repeat flutter ablation. EP to see patient today. If agreeable to procedure, will arrange date with procedure scheduling to [facility] office
- There was concern for element of acute heart failure with proBNP of 4800, however patient denies shortness of breath, abdominal bloating, lower extremity edema, or weight gain. Chest x-ray without acute abnormalities. Continue p.o. Lasix 80 mg
daily. Creatinine stable at 1.7
- If echo okay, plan for discharge home later this evening
Progress Note - Fib[employer] Optic Cable Splicer
Subjective
Date of Service: January 27, 2025
Denies chest pain, shortness of breath. Reports some palpitations overnight
Objective
Labs:
01/27/25 05:13
01/27/25 05:12
Labs
Hgb 13.7 g/dL (12.0-16.0) 01/27/25 05:13
Hct 41.5 % (37.0-47.0) 01/27/25 05:13
Plt Count 309 10^3/uL (130-400) 01/27/25 05:13
Sodium 138 mmol/L (135-145) 01/27/25 05:12
Potassium 4.3 mmol/L (3.5-5.1) 01/27/25 05:12
BUN 32 mg/dl (7-17) H 01/27/25 05:12
Creatinine 1.7 mg/dL (0.6-1.0) H 01/27/25 05:12
Glucose 116 mg/dl (70-99) H 01/27/25 05:12
Troponins
01/26/25 01/26/25 01/26/25
11:26 17:27 23:00
Troponin I 0.036 H* 0.033 0.043 H* D
01/27/25
05:13
Troponin I 0.045 H*
Vital Signs and I&O:
Vital Signs
Temp Pulse Resp BP Pulse Ox
97.9 F 86 16 113/59 96
01/27/25 07:00 01/27/25 07:56 01/27/25 07:56 01/27/25 07:00 01/27/25 07:56
Vital Signs
Temp Pulse Resp BP Pulse Ox
97.9 F 86 16 113/59 96
01/27/25 07:00 01/27/25 07:56 01/27/25 07:56 01/27/25 07:00 01/27/25 07:56
Intake & Output
01/25/25 01/26/25 01/27/25 01/28/25
07:59 07:59 07:59 07:59
Intake Total 240 / 240 180 / 180
Output Total 950 / 950
Balance -710 / -710 180 / 180
Physical Exam
Physical Exam
GEN: No distress, awake, alert, oriented x3
HEENT: supple, anicteric, mmm, eomi
LUNGS: CTA B/L, no wheezes/rales
CV: Reg, S1/S2, no murmur
ABD: soft, BS+, NT/ND
EXT: No cyanosis, clubbing. trace edema of B/L LE
NEURO: Gross non-focal
SKIN: Warm, pink, dry. No rash
[2025-01-27 11:14] LABS: Troponin I 0.028 ng/ml
[2025-01-27 11:20] VITALS: BMI 39.4
[2025-01-27 12:20] LABS: Glucose - Point of Care 88 mg/dl (70-99)
[2025-01-27] MEDS: FEOSOL 325 MG PO (12:48)
[2025-01-27] MEDS: B COMPLEX w/VITAMIN C 1 CAPLET PO (12:48)
[2025-01-27] MEDS: THERAGRAN 1 TABLET PO (12:48)
[2025-01-27] MEDS: VITAMIN B-12 1000 MCG PO (12:48)
[2025-01-27] MEDS: NOVOLOG FLEXPEN SC (12:53)
--- NOTE | 2025-01-27 13:45 | PN.CDI ---
CDI
- -
CDI:
Physician Documentation Request
Admit Date: 01/26/25 16:18
Dear Doctor Kristofer/Resident,
Please review the following and provide your response in the progress notes.
Clinical Indicators:
Pt admitted with rapid atrial flutter
Documented per ED, ' ... elevated BNP and patient would likely benefit from further diuresis given her exertional dyspnea ...She appears to have mild CHF likely triggered by rapid A-fib/flutter. PA discussed with cardiology plan for ED
cardioversion. Will admit for diuresis....Acute exacerbation of CHF...'
Documented per H&P,' Acute on chronic CHF preserved EF BNP 4800, weight 104.1 kg<104.8kg on 01/19/2025...-IV Lasix 40 mg given in ER....'
Cardiology note 01/26, ' Chronic heart failure with preserved EF- proBNP somewhat elevated at 4800. Patient denies shortness of breath, abdominal bloating, lower extremity edema. She reports recent weight loss. She has been compliant with p.o.
Lasix 80 mg daily. Would be hesitant to aggressively diurese patient. ...'
Please provide further specificity regarding the most likely type and acuity of CHF you are evaluating, treating or monitoring.
Acute on Chronic HFpEF -resolved
Chronic HFpEF only
Other ( please specify)
Use of terms such as suspected, likely, concern for, or probable (associated with a specific diagnosis that is being evaluated, monitored, or treated as if it exists) are acceptable and can be coded in the inpatient setting, when documented at the
time of discharge.
Thank you,
Delia Martin RN
CDI Specialist
[place] [facility]
Please use your independent medical judgment in providing your response.
--- NOTE | 2025-01-27 13:48 | CM ---
Alert awake oriented patient who lives with her friend Katie in a 1 story home with 0 step to enter. She is independent in driving and all ADLs. Rollator as needed.
[facility] hx No SNf hx
Pharmacy [facility]
PCP Dr Petty
PLAN Home no needs
[2025-01-27 14:33] VITALS: BP 108/47
--- NOTE | 2025-01-28 10:02 | W.HF.CON ---
Heart Failure
- LV Function
Left ventricular function study result: LV Ejection fraction >/= 50%
Ejection Fraction Percentage: 50
- ARNI
Patient already on ARNI: No
Heart Failure ARNI Not Indicated: LV Ejection Fraction >/= 40%
- ACEI/ARB
Patient already on ACEI/ARB: No
Heart Failure ACEI/ARB Not Indicated: LV Ejection Fraction > 40%
- Beta Thalia
Patient already on Evidence Based Beta Thalia: No
Heart Failure Evidence Based Beta Thalia Not Indicated: LV Ejection Fraction > 40%
- Mineralocorticord Receptor Antagonist
Patient already on MRA: No
Heart Failure MRA Not Indicated: LV Ejection Fraction > 40%
- SGLT-2 Inhibitor
Patient already on SGLT-2 Inhibitor: No
Heart Failure SGLT-2 Inhibitor Not Indicated: LV Ejection Fraction >40%
- Afib Anticoagulation
Patient already on Anticoagulation for Afib: Yes
- NYHA CHF Classification
NYHA CHF Classification Level: Class III - Symptoms w/ min exertion, interferes w/ nml daily activity
- ACC/AHA Stage
ACC/AHA Stage: Stage C: Symptomatic Heart Failure
== END 2025-01-27 16:25 | disposition home or self-care (01) | DRG 308 ==
LOC: 4 EAST ACU 16:18
PROVIDERS: Clinical Nurse Specialist Family Health; Emergency Medicine; Nurse Practitioner Family; Student in an Organized Health Care Education/Training Program; ADMITTING PHYSICIAN Student in an Organized Health Care Education/Training Program; ATTENDING PHYSICIAN Internal Medicine; CONSULT PHYSICIAN Internal Medicine Cardiovascular Disease; EMERGENCY PHYSICIAN Emergency Medicine; FAMILY PHYSICIAN Family Medicine
DX: I48.4 Atypical atrial flutter (principal); I50.33 Acute on chronic diastolic (congestive) heart failure; I13.0 Hypertensive heart and chronic kidney disease with heart failure and stage 1 through stage 4 chronic kidney disease, or unspecified chronic kidney disease; N18.31 Chronic kidney disease, stage 3a; E11.22 Type 2 diabetes mellitus with diabetic chronic kidney disease; E78.5 Hyperlipidemia, unspecified; I48.91 Unspecified atrial fibrillation; Z85.3 Personal history of malignant neoplasm of breast; E87.5 Hyperkalemia; K21.9 Gastro-esophageal reflux disease without esophagitis; J45.909 Unspecified asthma, uncomplicated; F32.A Depression, unspecified; D50.9 Iron deficiency anemia, unspecified; E53.8 Deficiency of other specified B group vitamins; F90.9 Attention-deficit hyperactivity disorder, unspecified type; Z96.653 Presence of artificial knee joint, bilateral; Z87.891 Personal history of nicotine dependence; Z79.4 Long term (current) use of insulin; Z79.01 Long term (current) use of anticoagulants; E66.812 Obesity, class 2; Z68.39 Body mass index [BMI] 39.0-39.9, adult; E03.9 Hypothyroidism, unspecified; Z79.811 Long term (current) use of aromatase inhibitors; Z79.899 Other long term (current) drug therapy
CPT/HCPCS: 71046; 80048; 80053; 80061; 82962; 83036; 83735; 83880; 84443; 84484; 85025; 92960; 93005; 93306; 94640; 96374; 96375; 97161; 99285

== ENCOUNTER 2025-02-16 13:20 | Emergency (ER) | payer MEDICARE, OTHER, SELFPAY ==
[2025-02-16 13:32] VITALS: BP 149/79
[2025-02-16 13:54] VITALS: BP 149/66
[2025-02-16 13:55] VITALS: BMI 40.8
[2025-02-16 14:00] VITALS: BP 138/71
[2025-02-16 14:10] LABS: Hematocrit 46.3 % (37.0-47.0); Hemoglobin 15.1 g/dL (12.0-16.0); Mean Corp Hgb Conc. 32.6 g/dL (33.0-37.0); Mean Corpuscular Volume 87.9 fL (81.0-99.0); Nucleated Red Blood Cells % 0 %; Platelet Count 287 10^3/uL (130-400); Red Cell Dist. Width 13.1 % (11.5-14.5)
--- NOTE | 2025-02-16 14:27 | ED.GENMED ---
History of Present Illness
General
Chief Complaint: Chest Pain
Source: patient
Exam Limitations: none
Time Seen by Provider: 02/16/25 14:23
Nursing documentation reviewed up to this point in time: agreed with
History of Present Illness
History of Present Illness:
69 yo female w h/o Afib on Eliquis, CHF, HTN, HLD, IDDM, Hypothyroid presents who presents with worsening fatigue and dyspnea over the past three days. The patient reports sleeping approximately 17 hours per day during this period and experiencing
difficulty breathing, particularly when on steps. She denies experiencing chest pain, nausea, vomiting, diarrhea, constipation, or changes in appetite. The patient notes that she has no history of seasonal allergies but mentions that breathing has
been challenging despite a pulse oximetry reading of 96%. The patient called her environmental studies program director, Dr. Bo, and sent here.
Past History
Past History
ED Past Medical History: Arrthythmia (Atrial fibrillation), Asthma, CHF, HTN, IDDM and Renal failure
ED Past Surgical History: Cardiac (Ablation), Cholecystectomy and Orthopedic
Social History
Tobacco: Former smoker
Alcohol: Occasional
Drug: None
Personal: Single
Living: with family
Employment: Retired
Family History
Family History: Diabetes
Review of Systems
Review of Systems
Allergies reviewed?: Yes
All Other Systems: ROS reviewed and negative except as documented in HPI and ROS
Constitutional: Reports fatigue; Denies fever
Respiratory: Reports trouble breathing
Cardiac: Denies chest pain
ABD/GI: Denies abdominal pain, nausea, vomiting, diarrhea, constipated or anorexia
: Denies dysuria, frequency or difficulty voiding
Musculoskeletal: Denies edema
Skin: Reports no symptoms
Neurological: Reports no symptoms
Phy Exam
Physical Exam
Physical Exam:
GENERAL: No acute distress. A&Ox3.
CONSTITUTIONAL: Afebrile.
EYES: clear, conjunctivae normal
ENMT: moist mucus membranes, Pharynx nl
RESPIRATORY: Regular respirations, nonlabored, lungs clear.
CARDIOVASCULAR: Regular rate and rhythm, no murmurs, no rubs.
GI: Soft, nontender, normal BS
MUSCULOSKELETAL: Moves with ease. Well perfused. No edema
SKIN: Warm, dry, pink
PSYCH: Normal mood and affect. Well kept, interactive and appropriate
NEUROLOGIC: Awake, alert and oriented. No focal neurological deficits
Scores
Heart Score for Chest Pain Patients
STEMI patient?: Not applicable
Course
Orders/Labs/Results
Orders:
Orders
02/16/25 13:30
EKG [Electrocardiogram (*1)] Urgent
Reason for Study: Chest Pain
EKG- Treatment ONCE
02/16/25 14:04
BNP [NT-proBNP] Urgent
Complete Blood Count/With Diff Urgent
Comprehensive Metabolic Panel Urgent
TSH Reflex To Free T4 Urgent
Troponin I Urgent
02/16/25 14:36
CR Chest - 2 Views Urgent
Comment:
Reason For Exam: SOB
Abnormal Lab Results
02/16/25
14:04
MCHC 32.6 L g/dL
(33.0-37.0)
MPV 10.7 H fL
(7.4-10.4)
Absolute Lymphs (auto) 1.0 L 10^3/uL
(1.2-3.4)
Absolute Monos (auto) 0.7 H 10^3/uL
(0.1-0.6)
Neutrophils % 75.5 H %
(42.2-75.2)
Lymphocytes % 13.2 L %
(20.5-51.1)
Potassium 5.3 H mmol/L
(3.5-5.1)
BUN 27 H mg/dl
(7-17)
Creatinine 1.3 H mg/dL
(0.6-1.0)
Glucose 262 H mg/dl
(70-99)
02/16/25 14:04
02/16/25 14:04
Vital Signs
Initial and Last Documented VS:
Initial Vital Signs
Temp Pulse Resp BP Pulse Ox
98.0 F 93 16 149/79 95
02/16/25 13:32 02/16/25 13:32 02/16/25 13:32 02/16/25 13:32 02/16/25 13:32
Last Documented Vital Signs
Temp Pulse Resp BP Pulse Ox
98.0 F 80 18 149/112 95
02/16/25 13:32 02/16/25 16:15 02/16/25 16:15 02/16/25 16:05 02/16/25 16:15
MDM/Problems Addressed
Differential Diagnosis Includes:
The Differential Diagnosis includes, in no particular order and is not limited to:
1. Exacerbation of congestive heart failure
2. Acute coronary syndrome
3. Pneumonia
4. Chronic obstructive pulmonary disease exacerbation
5. Anemia
6.Thyroid dysfunction
7. Electrolyte imbance (on Lasix)
MDM/Problems Addressed:
69 yo female w h/o Afib on Eliquis, CHF, HTN, HLD, IDDM, Hypothyroid presents who presents with worsening fatigue and dyspnea over the past three days. The patient reports sleeping approximately 17 hours per day during this period and experiencing
difficulty breathing, particularly when on steps. She denies experiencing chest pain, nausea, vomiting, diarrhea, constipation, or changes in appetite. The patient notes that she has no history of seasonal allergies but mentions that breathing has
been challenging despite a pulse oximetry reading of 96%. The patient called her environmental studies program director, Dr. Bo, and sent here.
Afebrile, NAD
Lungs CTA
Low suspicion for PE,on Eliquis
EKG NSR
TSH normal
CBC, CMP with no clinically significant abnormality, is consistent with her chronic CKD and diabetes.
Troponin within normal limits
proBNP 1110 basically normal for her
Chest x-ray NAD
Pt stable for discharge
*Pulse Oximetry
SaO2: 96
Oxygen Mode of Delivery: Room air
Patient hypoxic: no
*EKG
EKG Intrepretation Date: 02/16/25
Interpretation: normal
Heart Rate: 79
Rate: normal
Rhythm: sinus
Gustavus: normal axis
Interval: normal interval
QRS Pattern: normal QRS
Ischemia: no ischemia
*Critical Care Note
Total Time (30-74mins, 75-104mins- exclusive of procedures): Not Applicable
ED Attending Note
-
Portions of this chart may have been created with voice recognition software.� Occasional wrong word or��sound alike� substitutions may have occurred due to the inherent limitations of voice recognition software.
Discharge Plan
Departure
Patient Disposition: Home (Routine Discharge)
Date of Disposition: 02/16/25
Time of Disposition: 15:46
Patient with high blood pressure during this ER visit?: No
Condition: Good
Discharge Problem:
Fatigue
Instructions: Fatigue - ED discharge instructions, Chest Pain [facility] Follow Up
Prescriptions:
No Action
multivitamin 1 EACH tablet
1 ea PO NOON
fluoxetine 40 MG capsule
40 mg PO BID
nitroglycerin 0.4 MG tablet, sublingual
0.4 mg sublingual [id number] PRN (Reason: chest pain)
vitamin B complex 1 TAB tablet
1 tab PO NOON
atorvastatin 20 MG tablet
20 mg PO HS
cyanocobalamin (vitamin B-12) 1,000 MCG tablet
1,000 mcg PO NOON
ferrous sulfate [iron] 325 MG tablet
325 mg PO NOON
albuterol sulfate 90 mcg/actuation Hfa Aerosol Inhaler
2 puff INHALATION R Q4HPRN PRN (Reason: sob)
insulin aspart U-100 [Novolog FlexPen U-100 Insulin] 100 unit/mL (3 mL) insulin pen
13 unit SC AC
albuterol sulfate 2.5 mg /3 mL (0.083 %) Solution For Nebulization
2.5 mg INHALATION R Q4HPRN PRN (Reason: sob)
Eliquis 5 mg tablet
5 mg PO BID
insulin glargine [Basaglar KwikPen U-100 Insulin] 100 unit/mL (3 mL) Insulin Pen
6 unit SC HS
furosemide [Lasix] 40 mg tablet
80 mg PO DAILY
levothyroxine [Synthroid] 150 mcg Tablet
150 mcg PO DAILY
letrozole 2.5 mg Tablet
2.5 mg PO DAILY
ondansetron 4 mg tablet,disintegrating
4 mg PO Q8HPRN PRN (Reason: nausea and vomiting)
pantoprazole 40 mg tablet,delayed release (DR/EC)
40 mg PO DAILY
diltiazem HCl 120 mg Capsule,Extended Release 24hr
120 mg PO BID Qty: 60 0RF
dextroamphetamine-amphetamine [Adderall] 20 mg Tablet
10 mg PO TID
Arnuity Ellipta 200 mcg/actuation Blister With Device
1 inh INHALATION R DAILY
turmeric 400 mg Capsule
400 mg PO DAILY@1200
amiodarone 200 mg tablet
200 mg PO HS
Referrals:
Kailyn Petty MD [Family Provider, Family Practice] - As needed
Joey Zavaal MD [Active, Cardiology] - Next open appointment
Activity Restrictions/Additional Instructions:
As we discussed, your workup here today shows nothing worrisome.
In case your symptoms may be related to seasonal allergies, try [id number] allergy medicine such as Claritin or Zyrtec to see if that helps.
I sent information to the cardiology group. Someone should be contacting you within the next day or 2 to set up an appointment.
Interventions
Interventions:
*Risk Screen - Suicide Last Done: 02/16/25 13:32
*General Assessment Last Done: 02/16/25 13:56
*Neglect/Abuse Screening Last Done: 02/16/25 13:32
*ED- Fall Risk Assessment Last Done: 02/16/25 13:56
*ED COVID-19 Vaccine History Last Done: 02/16/25 13:56
*Nursing Disposition Last Done: 02/16/25 16:48
ED- Cardiac Assessment Last Done: 02/16/25 13:57
Discharge Date and Time
Discharge Date/Time: 02/16/25 16:49
Print Language: SURINAMESE
[2025-02-16 14:31] LABS: ALT (SGPT) 15 U/L (0-35); AST (SGOT) 17 U/L (14-36); Albumin 4.1 g/dl (3.5-5.0); Alkaline Phosphatase 93 U/L (38-126); Blood Urea Nitrogen 27 mg/dl (7-17); Calcium 10.0 mg/dl (8.4-10.2); Carbon Dioxide 28 mmol/L (22-30); Chloride 105 mmol/L (98-107); Estimated Creatinine Clearance 47 ml/min; Glucose 262 mg/dl (70-99); Potassium 5.3 mmol/L (3.5-5.1); Sodium 137 mmol/L (135-145); Total Protein 6.7 g/dl (6.3-8.2); eGFR 44.24
[2025-02-16 14:35] LABS: Troponin I < 0.012 ng/ml
[2025-02-16 15:28] VITALS: BP 137/107
[2025-02-16 15:45] VITALS: BP 138/111
[2025-02-16 16:05] VITALS: BP 149/112
== END 2025-02-16 16:49 | disposition home or self-care (01) ==
LOC: EMR 13:20
PROVIDERS: Emergency Medicine; Registered Nurse; EMERGENCY PHYSICIAN Emergency Medicine; FAMILY PHYSICIAN Family Medicine
DX: R06.00 Dyspnea, unspecified (principal); R53.83 Other fatigue; I48.91 Unspecified atrial fibrillation; I11.0 Hypertensive heart disease with heart failure; I50.9 Heart failure, unspecified; E03.9 Hypothyroidism, unspecified; E11.9 Type 2 diabetes mellitus without complications; E78.00 Pure hypercholesterolemia, unspecified; J45.909 Unspecified asthma, uncomplicated; Z79.01 Long term (current) use of anticoagulants; Z79.4 Long term (current) use of insulin; Z83.3 Family history of diabetes mellitus; Z87.891 Personal history of nicotine dependence; Z90.49 Acquired absence of other specified parts of digestive tract
CPT/HCPCS: 99283; 71046; 80053; 83880; 84443; 84484; 85025; 93005

== ENCOUNTER 2025-02-21 10:02 | Emergency (ER) | payer MEDICARE, OTHER, SELFPAY ==
[2025-02-21] VITALS (8 sets, daily range): BP systolic 87–125; BP diastolic 57–85; BMI 40.3
--- NOTE | 2025-02-21 11:01 | ED.GENMED ---
History of Present Illness
General
Chief Complaint: Heart Rate Problem
Source: patient
Exam Limitations: none
Time Seen by Provider: 02/21/25 10:38
History of Present Illness
History of Present Illness:
Patient called her cardiology group this morning for rapid heartbeat. Noted by her watch. She was essentially asymptomatic. They recommended ER evaluation. In hindsight she stated the last 2 to 3 days she has also had a rapid heartbeat in the
120s. Started 2-1/2 days ago. She is absolutely faithful with her Eliquis although did not take the dose this morning. She denies chest pain shortness of breath lightheadedness syncope or other complaints. She has a history of similar episodes.
She is on amiodarone at night and has an ablation scheduled.
Past History
Past History
ED Past Medical History: Arrthythmia (Atrial fibrillation), Asthma, CHF, HTN, IDDM and Renal failure
ED Past Surgical History: Cardiac (Ablation), Cholecystectomy and Orthopedic
Social History
Tobacco: Former smoker
Alcohol: Occasional
Drug: None
Personal: Single
Living: with family
Employment: Retired
Family History
Family History: Diabetes
Review of Systems
Review of Systems
All Other Systems: Not applicable
Constitutional: Denies fever
Respiratory: Denies trouble breathing
Cardiac: Denies chest pain, palpitations or syncope
Phy Exam
Physical Exam
Physical Exam:
GENERAL: Alert and oriented in no apparent distress
EYE: Orbits normal.
NECK: Supple, no significant adenopathy.
ENT: Pharynx without erythema. A dentulous
CARDIAC: Rapid and regular no murmur
LUNGS: Clear breath sounds,normal
ABDOMEN: Soft, without focal tenderness or distention
NEUROLOGICAL: Alert and oriented , grossly non-focal
SKIN: Warm and dry, no rash or lesion, no discoloration, skin intact.
MUSCULOSKELETAL: No edema,no deformity.Good color
PSYCH: Normal and appropriate interaction.
Course
Orders/Labs/Results
Orders:
Orders
02/21/25 10:11
EKG [Electrocardiogram (*1)] Urgent
Reason for Study: Tachycardia
EKG- Treatment ONCE
02/21/25 10:52
Cardiac Monitoring- Treatment ONCE
IV Insert/Care/Rem.- Treatment PRN
02/21/25 11:01
Apixaban [Eliquis] 5 mg PO NOW STA
02/21/25 11:03
Basic Metabolic Panel Urgent
Complete Blood Count/With Diff Urgent
TSH Reflex To Free T4 Urgent
02/21/25 11:18
Propofol [Diprivan] 20 ml .ROUTE .STK-MED
02/21/25 11:34
ECG [Electrocardiogram (*1)] Urgent
Reason for Study: Abnormal EKG
Other Reason for Exam: post cardioversion
EKG- Treatment ONCE
Abnormal Lab Results
02/21/25
11:03
WBC 11.4 H 10^3/uL
(4.8-10.8)
RBC 5.55 H 10^6/uL
(4.20-5.40)
Hct 47.7 H %
(37.0-47.0)
MCHC 32.9 L g/dL
(33.0-37.0)
MPV 11.3 H fL
(7.4-10.4)
Absolute Neuts (auto) 8.5 H 10^3/uL
(1.4-6.5)
Absolute Monos (auto) 1.1 H 10^3/uL
(0.1-0.6)
Lymphocytes % 13.7 L %
(20.5-51.1)
BUN 48 H mg/dl
(7-17)
Creatinine 2.0 H mg/dL
(0.6-1.0)
Glucose 265 H mg/dl
(70-99)
02/21/25 11:03
02/21/25 11:03
Vital Signs
Initial and Last Documented VS:
Initial Vital Signs
Temp Pulse Resp BP Pulse Ox
98.3 F 148 20 122/85 98
02/21/25 10:31 02/21/25 10:31 02/21/25 10:31 02/21/25 10:31 02/21/25 10:31
Last Documented Vital Signs
Temp Pulse Resp BP Pulse Ox
97.8 F 97 16 111/73 95
02/21/25 13:00 02/21/25 14:00 02/21/25 14:00 02/21/25 14:00 02/21/25 14:00
Procedures
Cardioversion
Indication:: Other (Atrial flutter)
Performed by:: Myself
Synchronized?: Yes
Energy Used: 200 joules
Number of attempts: 1
Successful?: Yes
ASA Risk Score: Class II
Any reaction or bad outcome to prior sedation/anesthesia?: No history of a reaction
Sedation level to be attained: moderate
Chart and allergies reviewed: Yes
Patient reassessed prior to sedation: Yes
Time out completed at (validating right patient & procedure): 11:30
History of difficult intubation: No
Airway free of obstruction: Yes
Patient has a gag reflex: Yes
Patient is able to open mouth: Yes
Patient has no dentures: Yes
Patient has no loose teeth: Yes
Medication administered by Provider during Moderate Sedation: IV Propofol (mg)
Total dose administered: 40
Time drug administered: 11:30
Start Time: 11:30
Stop Time: 11:45
MDM/Problems Addressed
Differential Diagnosis Includes:
Atrial flutter 2-1. Has been in this for 2+ days. Faithful with her Eliquis. Reasonable cardioversion candidate. Rate control would be unlikely to benefit. Discussed with cardiology. They agree with cardioversion. Risk-benefit explained to
patient. She had a cardioversion in January of this year
*Pulse Oximetry
SaO2: 98
Oxygen Mode of Delivery: Room air
Patient hypoxic: no
*EKG
Interpreted by ED Provider?: Yes
Interpretation: abnormal
Comparison EKG: changes noted
Heart Rate: 144
Rate: tachycardiac
Rhythm: atrial flutter
[place]: left axis deviation
Interval: normal interval
QRS Pattern: normal QRS
Ischemia: non-specific ST changes
*Phone Engineer Interpretation
Rate: tachycardiac
Interpretation: abnormal
Heart Rate: 145
Rhythm: atrial flutter
*Critical Care Note
Total Time (30-74mins, 75-104mins- exclusive of procedures): 15
Update Note
Update Note:
1147...Patient tolerated procedure well. Repeat EKG normal sinus rhythm with PACs. Slightly hypotensive. Borderline oxygen levels although her oxygen was mildly low prior to the procedure. Clinically not in heart failure. Will observe. She
does seem to have the tendency on the monitor to go into some very brief runs of atrial fibrillation but has for the most part stayed in a sinus rhythm
1430... Patient is remained stable. Pulse ox 95%. Blood pressure stable. Feels well. Discharged to follow-up
ED Attending Note
-
Portions of this chart may have been created with voice recognition software.� Occasional wrong word or��sound alike� substitutions may have occurred due to the inherent limitations of voice recognition software.
Discharge Plan
Departure
Patient Disposition: Home (Routine Discharge)
Date of Disposition: 02/21/25
Time of Disposition: 14:28
Patient with high blood pressure during this ER visit?: No
Discharge Problem:
Paroxysmal atrial flutter
Instructions: Atrial flutter - Discharge instructions, MODERATE SEDATION ADULT
Prescriptions:
No Action
multivitamin 1 EACH tablet
1 ea PO NOON
fluoxetine 40 MG capsule
40 mg PO BID
nitroglycerin 0.4 MG tablet, sublingual
0.4 mg sublingual [id number] PRN (Reason: chest pain)
vitamin B complex 1 TAB tablet
1 tab PO NOON
atorvastatin 20 MG tablet
20 mg PO HS
cyanocobalamin (vitamin B-12) 1,000 MCG tablet
1,000 mcg PO NOON
ferrous sulfate [iron] 325 MG tablet
325 mg PO NOON
albuterol sulfate 90 mcg/actuation Hfa Aerosol Inhaler
2 puff INHALATION R Q4HPRN PRN (Reason: sob)
insulin aspart U-100 [Novolog FlexPen U-100 Insulin] 100 unit/mL (3 mL) insulin pen
13 unit SC AC
albuterol sulfate 2.5 mg /3 mL (0.083 %) Solution For Nebulization
2.5 mg INHALATION R Q4HPRN PRN (Reason: sob)
Eliquis 5 mg tablet
5 mg PO BID
insulin glargine [Basaglar KwikPen U-100 Insulin] 100 unit/mL (3 mL) Insulin Pen
6 unit SC HS
furosemide [Lasix] 40 mg tablet
80 mg PO DAILY
levothyroxine [Synthroid] 150 mcg Tablet
150 mcg PO DAILY
letrozole 2.5 mg Tablet
2.5 mg PO DAILY
ondansetron 4 mg tablet,disintegrating
4 mg PO Q8HPRN PRN (Reason: nausea and vomiting)
pantoprazole 40 mg tablet,delayed release (DR/EC)
40 mg PO DAILY
diltiazem HCl 120 mg Capsule,Extended Release 24hr
120 mg PO BID Qty: 60 0RF
dextroamphetamine-amphetamine [Adderall] 20 mg Tablet
10 mg PO TID
Arnuity Ellipta 200 mcg/actuation Blister With Device
1 inh INHALATION R DAILY
turmeric 400 mg Capsule
400 mg PO DAILY@1200
amiodarone 200 mg tablet
200 mg PO HS
Referrals:
Kailyn Petty MD [Family Provider, [facility]]
Activity Restrictions/Additional Instructions:
Follow-up closely with cardiology
Your creatinine is 2.0. This is slightly higher than your baseline. This should be followed up with your primary physician
Interventions
Interventions:
*Risk Screen - Suicide Last Done: 02/21/25 10:31
*General Assessment Last Done: 02/21/25 10:31
*Neglect/Abuse Screening Last Done: 02/21/25 10:31
ED- Cardiac Assessment Last Done: 02/21/25 11:00
ED- Pulmonary Assessment Last Done: 02/21/25 11:00
Discharge Date and Time
Print Language: MAURITIAN
[2025-02-21 11:08] LABS: Hematocrit 47.7 % (37.0-47.0); Hemoglobin 15.7 g/dL (12.0-16.0); Mean Corp Hgb Conc. 32.9 g/dL (33.0-37.0); Mean Corpuscular Volume 85.9 fL (81.0-99.0); Nucleated Red Blood Cells % 0 %; Platelet Count 359 10^3/uL (130-400); Red Cell Dist. Width 13.2 % (11.5-14.5)
[2025-02-21] MEDS: ELIQUIS 5 MG PO (11:13)
[2025-02-21 11:22] LABS: Blood Urea Nitrogen 48 mg/dl (7-17); Calcium 9.6 mg/dl (8.4-10.2); Carbon Dioxide 24 mmol/L (22-30); Chloride 102 mmol/L (98-107); Glucose 265 mg/dl (70-99); Potassium 4.6 mmol/L (3.5-5.1); Sodium 136 mmol/L (135-145); eGFR 26.38
== END 2025-02-21 15:38 | disposition home or self-care (01) ==
LOC: EMR 10:02
PROVIDERS: EMERGENCY PHYSICIAN Emergency Medicine; FAMILY PHYSICIAN Family Medicine
DX: I48.92 Unspecified atrial flutter (principal); I11.0 Hypertensive heart disease with heart failure; I50.9 Heart failure, unspecified; E11.22 Type 2 diabetes mellitus with diabetic chronic kidney disease; N18.9 Chronic kidney disease, unspecified; J45.909 Unspecified asthma, uncomplicated; I48.91 Unspecified atrial fibrillation; Z87.891 Personal history of nicotine dependence; Z79.01 Long term (current) use of anticoagulants; Z79.899 Other long term (current) drug therapy; Z79.4 Long term (current) use of insulin; Z90.49 Acquired absence of other specified parts of digestive tract; Z88.8 Allergy status to other drugs, medicaments and biological substances
CPT/HCPCS: 92960; 99285; 99152; 80048; 84443; 85025; 93005

== ENCOUNTER → 2025-03-04 09:45 | Outpatient (REF) | payer MEDICARE, OTHER, SELFPAY ==
[2025-03-04 11:16] LABS: Hematocrit 43.8 % (37.0-47.0); Hemoglobin 14.1 g/dL (12.0-16.0); Mean Corp Hgb Conc. 32.2 g/dL (33.0-37.0); Mean Corpuscular Volume 88.0 fL (81.0-99.0); Nucleated Red Blood Cells % 0 %; Platelet Count 299 10^3/uL (130-400); Red Cell Dist. Width 13.7 % (11.5-14.5)
[2025-03-04 11:23] LABS: INR 1.00; PT 13.5 Sec (11.4-14.6)
[2025-03-04 11:40] LABS: ALT (SGPT) 12 U/L (0-35); AST (SGOT) 17 U/L (14-36); Albumin 4.1 g/dl (3.5-5.0); Alkaline Phosphatase 94 U/L (38-126); Blood Urea Nitrogen 42 mg/dl (7-17); Calcium 9.4 mg/dl (8.4-10.2); Carbon Dioxide 26 mmol/L (22-30); Chloride 103 mmol/L (98-107); Glucose 224 mg/dl (70-99); Magnesium 1.9 mg/dl (1.6-2.3); Potassium 4.5 mmol/L (3.5-5.1); Sodium 139 mmol/L (135-145); Total Protein 6.6 g/dl (6.3-8.2); eGFR 32.06
== END ==
LOC: SDSPAT 09:45
PROVIDERS: ATTENDING PHYSICIAN Internal Medicine Cardiovascular Disease; FAMILY PHYSICIAN Family Medicine; OTHER PHYSICIAN Internal Medicine Cardiovascular Disease
DX: I48.92 Unspecified atrial flutter (principal)
CPT/HCPCS: 36415; 80053; 83735; 85025; 85610; 86850; 86900; 86901; 93005

== ENCOUNTER 2025-03-16 06:03 | Day surgery (SDC) | payer MEDICARE, OTHER, SELFPAY ==
[2025-03-04 10:21] VITALS: BMI 39.3
[2025-03-16] VITALS (12 sets, daily range): BP systolic 81–133; BP diastolic 56–86; BMI 39.0
[2025-03-16 06:54] LABS: Glucose - Point of Care 265 mg/dl (70-99)
[2025-03-16] MEDS: NOVOLOG vial 6 UNITS SC (07:22)
[2025-03-16 08:44] LABS: ACT-LR - POC 224 Seconds (116-155)
[2025-03-16 08:53] LABS: Glucose - Point of Care 142 mg/dl (70-99)
[2025-03-16 09:04] LABS: ACT-LR - POC 223 Seconds (116-155)
--- NOTE | 2025-03-16 09:45 | ITS.CL.ABL ---
Senior Patient Account Representative - Ablation
Ablation
Procedure Report:
ELECTROPHYSIOLOGY ABLATION STUDY
DATE:: March 17, 2025 REFERRING: Dr. Doc Bo
INDICATION: Paroxysmal supraventricular tachycardia in the form of atypical atrial flutter
HISTORY: See H and P. As above
ANTIARRHYTHMIC DRUG: Amiodarone
PRE-PROCEDURE CARMELO: No intracardiac thrombus
PRESENTING RHYTHM: Sinus rhythm
'TIME-OUT': called and confirmed.
SEDATION/ANESTHESIA: provided via the anesthesia department using general anesthesia (LMA).
INTRAVENOUS/ARTERIAL ACCESS:
Right femoral venous - 10 Fr, 8Fr
Left femoral venous - 8 Fr, 6 Fr
[id number] suture
Ultrasound guidance for bilateral femoral vein access was utilized by me to obtain access with demonstration of normal anatomy
CHADS-VASC Score:
HAS-Bled Score
PROCEDURE:
1. A decapolar CS catheter was placed within the CS for mapping and pacing. This was also used as the reference catheter for the 3-D map. Pulmonary veins were isolated at baseline except for the anterior ligament of Shyam and the left superior
pulmonary vein. This was readdressed as below with the 9 mm lattice catheter. The posterior wall remained isolated except for the roof outside the right superior pulmonary vein and the dome of the left atrium. We confirmed entrance and exit block
in the pulmonary veins and then performed EPS with stimulation. The patient was at baseline noninducible for any tachyarrhythmia under anesthesia. As such we then performed repeat isolation of the left superior pulmonary vein, posterior wall box
lesion set, mitral isthmus line from left inferior pulmonary vein down to the mitral isthmus at 3:00 on the mitral annulus and CTI flutter ablation. Ablation near the AV groove was at the mitral isthmus�annulus and the tricuspid annulus were
performed with radiofrequency energy to minimize risk for coronary vasospasm and pulsed field ablation for the remainder of the mitral and CTI lines plus the posterior wall box lesion set and the left superior pulmonary vein isolation. There is no
change in ST segment changes or wall motion abnormality end of procedure there was no pericardial fusion. Postablation.
2. The intracardiac ultrasound catheter was positioned in the RA to identify the FO for targeting of transseptal puncture, assist in identification of the pulmonary vein ostia, monitoring pre and post ablation pulmonary vein flow velocities,
monitoring for 'bubble' formation during RF application as a sign of thermal injury, and to monitor for pericardial effusion during mapping and ablation procedure. Left atrial size, LV ejection fraction, and pulmonary vein flows were monitored
pre and post ablation procedure. The other valves were inspected and found to be free of significant regurgitation or stenosis.
3. Half of the calculated heparin bolus was administered prior to the first transeptal puncture. Transseptal puncture was performed to diagnose RA and LA pressure so that safety of LA mapping and ablation could be further assessed, and to access
the left atrium and pulmonary veins for mapping and ablation. This entailed advancing an 10 [place] Agilis sheath with dilator into the superior vena cava and withdrawing both (monitoring intracardiac ultrasound, fluoroscopy and tip pressure) with
the tip oriented toward the atrial septum. The fossa ovalis was engaged (indicated by sudden displacement of the sheath tip as well as tenting of the fossa seen on intracardiac ultrasound). Left atrial access required a pass with the [place]
needle extended. Left atrial catheter position was confirmed by pressure monitoring (RA mean pressure [ ] mm Hg and LA mean presure [ ] mm Hg), LA saturation ( [ ] %), as well as fluoroscopy. The sheath was advanced over the dilator and
positioned in the left atrium. This procedure was repeated for the Agilis sheath. The remainder of the calculated heparin bolus was administered and heparin was
infused to maintain ACT at 300 -350 seconds throughout the case.
4. RA pacing was performed via the proximal decapolar poles and LA pacing was performed via the distal decapolr poles.
5. A quadrapolar catheter was first positioned at the His position for His Bundle recording which was tagged via the 3-D Navex sytem, and then passed to the RVA for RV pacing and recording.
6. The ablation catheter was positioned through one of the transeptal seaths and a 20 pole ring mapping catheter was positioned through the second seath into the LA and then the ostia of the LIPV, LSPV, RSPV and the RIPV.
7. Next, a 3-D map was created using Navex. A 3-D reconstructed CT image was compared to the 3-D Navex map to assist in anatomic interpretation, mapping and ablation. The CT image and the NavX image were fused.
8. See #1 as above with reisolation of left superior pulmonary vein anteriorly and then posterior wall box lesion set with roof and floor lines as well as substrate ablation of the posterior wall and then separate mitral isthmus flutter ablation
from left inferior pulmonary vein to 3:00 of the mitral annulus with intra isthmus conduction time of approximately 140 ms bidirectionally and CTI ablation from the tricuspid annulus back towards the IVC with intra isthmus conduction time of 170 ms
bidirectionally.
9. An RF line was also placed at the IVC-TVA isthmus to interupt the potential typical atrial flutter circuit. At the end of RF at this site, pacing from the lateral side of the line and the medial side of the line was performed to evaluate for
bidirectinal block.
TOTAL FLOURO TIME: 14.1 minutes
TOTAL RF DURATION: 1 minute
REVERSAL OF HEPARIN: 35 mg of protamine, slow IV administration
COMPLICATIONS:
None
Intracardiac US shows no pericardial effusion post ablation.
SUMMARY:
Complex left atrial mapping and ablation.
PVI with reisolation of left superior pulmonary vein, A-fib after PVI with substrate based ablation of the posterior wall plus roof and floor lines for a posterior box lesion set. Mitral flutter and atrial flutter ablation as above.
RECOMMENDATIONS:
1. Ambulate in 4 hours
2. Resume anticoagulation
3. Continue amiodarone for 3 months
4. Consider same-day discharge
Copy to: Dr. Doc Zavala
[2025-03-16 10:42] LABS: Glucose - Point of Care 107 mg/dl (70-99)
--- NOTE | 2025-03-16 13:45 | W.PN.UPDATE ---
Update Note
Progress Note Update
Pt seen post PFA. Bilat groin sites without ht/bleeding, non tender. OOB ambulating. Post EKG NST w/1st deg AVB, 70s, no acute changes. Resume eliquis tonight, continue amiodarone at this time. Followup at [facility] as scheduled. Home today if groin
sites/tele remain stable.
== END 2025-03-16 14:35 | disposition home or self-care (01) ==
LOC: CATH 06:03
PROVIDERS: ATTENDING PHYSICIAN Internal Medicine Cardiovascular Disease; FAMILY PHYSICIAN Family Medicine; OTHER PHYSICIAN Internal Medicine Cardiovascular Disease
DX: I48.0 Paroxysmal atrial fibrillation (principal); I48.4 Atypical atrial flutter; I47.10 Supraventricular tachycardia, unspecified; E11.9 Type 2 diabetes mellitus without complications; E03.9 Hypothyroidism, unspecified; E66.01 Morbid (severe) obesity due to excess calories; F32.A Depression, unspecified; F41.9 Anxiety disorder, unspecified; I50.32 Chronic diastolic (congestive) heart failure; I11.0 Hypertensive heart disease with heart failure; Z85.3 Personal history of malignant neoplasm of breast; M85.80 Other specified disorders of bone density and structure, unspecified site; F90.9 Attention-deficit hyperactivity disorder, unspecified type; Z87.891 Personal history of nicotine dependence; J44.9 Chronic obstructive pulmonary disease, unspecified; E55.9 Vitamin D deficiency, unspecified; J45.30 Mild persistent asthma, uncomplicated; Z87.01 Personal history of pneumonia (recurrent); Z87.898 Personal history of other specified conditions; Z79.899 Other long term (current) drug therapy; Z79.4 Long term (current) use of insulin; Z79.01 Long term (current) use of anticoagulants; Z79.890 Hormone replacement therapy; Z90.49 Acquired absence of other specified parts of digestive tract; Z96.653 Presence of artificial knee joint, bilateral
CPT/HCPCS: C1730; C1733; C1766; C1894; C1892; C1759; 82962; 85347; 93005; 93655; 93656; 93657

== ENCOUNTER 2025-03-21 13:56 | Emergency (ER) | payer MEDICARE, OTHER, SELFPAY ==
[2025-03-21 14:14] VITALS: BP 135/81
[2025-03-21 14:33] LABS: Hematocrit 43.2 % (37.0-47.0); Hemoglobin 13.8 g/dL (12.0-16.0); Mean Corp Hgb Conc. 31.9 g/dL (33.0-37.0); Mean Corpuscular Volume 87.4 fL (81.0-99.0); Nucleated Red Blood Cells % 0 %; Platelet Count 329 10^3/uL (130-400); Red Cell Dist. Width 13.7 % (11.5-14.5)
[2025-03-21 14:53] LABS: ALT (SGPT) 15 U/L (0-35); AST (SGOT) 26 U/L (14-36); Albumin 3.9 g/dl (3.5-5.0); Alkaline Phosphatase 107 U/L (38-126); Blood Urea Nitrogen 37 mg/dl (7-17); Calcium 8.8 mg/dl (8.4-10.2); Carbon Dioxide 32 mmol/L (22-30); Chloride 96 mmol/L (98-107); Glucose 203 mg/dl (70-99); Lipase 36 U/L (23-300); Potassium 4.7 mmol/L (3.5-5.1); Sodium 134 mmol/L (135-145); Total Protein 6.3 g/dl (6.3-8.2); eGFR 29.94
[2025-03-21 16:00] VITALS: BP 133/81
[2025-03-21 19:11] VITALS: BP 147/85
--- NOTE | 2025-03-21 19:22 | ED.GENMED ---
History of Present Illness
General
Chief Complaint: Abdominal Pain
Time Seen by Provider: 03/21/25 18:57
Nursing documentation reviewed up to this point in time: agreed with
History of Present Illness
History of Present Illness:
69-year-old female presents to the ER for evaluation of upper abdominal discomfort and pressure which has been present over the past few days. She reports that she has not had a bowel movement since her ablation on Friday. She had been eating
and drinking normally until Friday. Friday she tried taking milk of magnesia and MiraLAX without any bowel movement. She had subsequent emesis which she describes to have the appearance of cottage cheese. No blood. She has been passing gas
but no stool. Pain is constant and nonradiating. She denies any fevers or chills. No chest pain. No shortness of breath. Patient reports that she took Zofran last night with improvement in her symptoms, no further emesis. Patient reports the
pain is still present but not severe at current
Past History
Past History
ED Past Medical History: Arrthythmia (Atrial fibrillation), Asthma, CHF, HTN, IDDM and Renal failure
ED Past Surgical History: Cardiac (Ablation), Cholecystectomy and Orthopedic
Social History
Tobacco: Former smoker
Alcohol: Occasional
Drug: None
Personal: Single
Living: with family
Employment: Retired
Family History
Family History: Diabetes
Review of Systems
Review of Systems
Allergies reviewed?: Yes
Phy Exam
Physical Exam
Physical Exam:
Patient is awake, alert, appears no acute distress, head is normocephalic atraumatic, sclera anicteric, conjunctiva pink, mucous membranes moist, heart regular rate and rhythm without murmurs or ectopy, lungs are clear to auscultation without
wheezes rales or rhonchi, abdomen is soft, obese, no focal tenderness on palpation, no palpable hernia, bilateral groins without swelling, minimal ecchymosis surrounding puncture wound present left groin, bilateral lower extremities without edema,
2+ DP pulses present symmetric bilateral, GCS is 15
Course
Orders/Labs/Results
Orders:
Orders
03/21/25 14:01
Electrocardiogram (*1) Urgent
Reason for Study: Abdominal Pain
03/21/25 14:02
EKG- Treatment ONCE
03/21/25 14:27
Complete Blood Count/With Diff Urgent
Comprehensive Metabolic Panel Urgent
Lipase Urgent
03/21/25 19:18
CT Abd/pel Without Iv Or Oral Urgent
Comment: Elevated cr and inability to artemoi po
Reason For Exam: n/v rule out obstruction
03/21/25 19:19
0.9% Sodium Chloride 1000 ml [Nss] 1,000 ml IV BOLUS
03/21/25 19:29
Acetaminophen [Tylenol] 1,000 mg PO NOW STA
Abnormal Lab Results
03/21/25
14:27
MCHC 31.9 L g/dL
(33.0-37.0)
MPV 10.6 H fL
(7.4-10.4)
Absolute Neuts (auto) 7.1 H 10^3/uL
(1.4-6.5)
Absolute Monos (auto) 0.8 H 10^3/uL
(0.1-0.6)
Lymphocytes % 14.7 L %
(20.5-51.1)
Sodium 134 L mmol/L
(135-145)
Chloride 96 L mmol/L
(98-107)
Carbon Dioxide 32 H mmol/L
(22-30)
BUN 37 H mg/dl
(7-17)
Creatinine 1.8 H mg/dL
(0.6-1.0)
Glucose 203 H mg/dl
(70-99)
03/21/25 14:27
03/21/25 14:27
White blood count very reassuring at 9.5. Chemistries show mild elevation in creatinine, similar to prior labs from 03/04/2025. Mild hyponatremia, mild hyperglycemia, LFTs within normal limits, lipase normal
Vital Signs
Initial and Last Documented VS:
Initial Vital Signs
Temp Pulse Resp BP Pulse Ox
98.6 F 98 16 135/81 94
03/21/25 14:14 03/21/25 14:14 03/21/25 14:14 03/21/25 14:14 03/21/25 14:14
Last Documented Vital Signs
Temp Pulse Resp BP Pulse Ox
98.6 F 92 16 133/81 96
03/21/25 14:14 03/21/25 16:00 03/21/25 14:14 03/21/25 16:00 03/21/25 19:29
MDM/Problems Addressed
Differential Diagnosis Includes:
Differential diagnosis considered but not limited to bowel obstruction, gastritis, gastroenteritis, ileus, constipation along with other etiologies considered
Chronic conditions affecting care:
Diabetes, chronic kidney disease,Atrial fibrillation, Ejection fraction 50% based on echo 01/26, adhd, copd
*Radiology
Radiology exam reviewed: radiology read reviewed (IMPRESSION: Mild relative small kidneys bilaterally suggesting the possibility of chronic medical renal disease. No findings to suggest obstructive uropathy bilaterally. Small splenic
calcifications again seen compatible with old granulomatous disease. Prior cholecystectomy. Mild colonic diverti)
*Pulse Oximetry
SaO2: 96
Oxygen Mode of Delivery: Room air
Patient hypoxic: no
*EKG
Interpreted by ED Provider?: Yes (I independently viewed and interpreted twelve-lead EKG showing sinus rhythm with sinus arrhythmia, rate 87, leftward axis, no ST elevation, nonspecific abnormal tracing without evidence for acute STEMI, no
significant change compared to prior from 03/16/2020)
*Bindery Machine Setter Interpretation
Rate: normal (I independently viewed and interpreted rhythm strip showing normal sinus rhythm with sinus arrhythmia)
*Critical Care Note
Total Time (30-74mins, 75-104mins- exclusive of procedures): Not Applicable
Update Note
Update Note:
Patient resting comfortably throughout time in the ER. No recurrent emesis. She is feeling well. I reviewed all test results with patient occluding no acute findings seen on CT of the abdomen and pelvis. She agrees with plan for discharge. Will
provide small prescription Zofran to use if needed at home. Patient given trial of p.o. prior to discharge
ED Attending Note
-
Portions of this chart may have been created with voice recognition software.� Occasional wrong word or��sound alike� substitutions may have occurred due to the inherent limitations of voice recognition software.
Discharge Plan
Departure
Patient Disposition: Home (Routine Discharge)
Date of Disposition: 03/21/25
Time of Disposition: 21:37
Patient with high blood pressure during this ER visit?: No
Discharge Problem:
Vomiting, Abdominal pain
Instructions: Nausea and Vomiting, Adult (DC), Abdominal Pain
Prescriptions:
New
ondansetron 4 mg tablet,disintegrating
4 mg PO TIDPRN PRN (Reason: nausea/vomiting) Qty: 10 0RF
No Action
multivitamin 1 EACH tablet
1 ea PO NOON
fluoxetine 40 MG capsule
40 mg PO BID
nitroglycerin 0.4 MG tablet, sublingual
0.4 mg sublingual [id number] PRN (Reason: chest pain)
vitamin B complex 1 TAB tablet
1 tab PO NOON
cyanocobalamin (vitamin B-12) 1,000 MCG tablet
1,000 mcg PO NOON
ferrous sulfate [iron] 325 MG tablet
325 mg PO NOON
albuterol sulfate 90 mcg/actuation Hfa Aerosol Inhaler
2 puff INHALATION R Q4HPRN PRN (Reason: sob)
insulin aspart U-100 [Novolog FlexPen U-100 Insulin] 100 unit/mL (3 mL) insulin pen
13 unit SC MEALS
albuterol sulfate 2.5 mg /3 mL (0.083 %) Solution For Nebulization
2.5 mg INHALATION R Q4HPRN PRN (Reason: sob)
Eliquis 5 mg tablet
5 mg PO BID
insulin glargine [Basaglar KwikPen U-100 Insulin] 100 unit/mL (3 mL) Insulin Pen
6 unit SC HS
levothyroxine [Synthroid] 150 mcg Tablet
150 mcg PO DAILY
letrozole 2.5 mg Tablet
2.5 mg PO DAILY
ondansetron 4 mg tablet,disintegrating
4 mg PO Q8HPRN PRN (Reason: nausea and vomiting)
pantoprazole 40 mg tablet,delayed release (DR/EC)
40 mg PO DAILY PRN (Reason: Gastrointestinal Issue)
diltiazem HCl 120 mg Capsule,Extended Release 24hr
120 mg PO BID Qty: 60 0RF
naproxen sodium [Aleve] 220 mg Tablet
440 mg PO PRN PRN (Reason: PAIN)
fluticasone furoate [Arnuity Ellipta] 200 mcg/actuation Blister With Device
1 inh INHALATION HS
dextroamphetamine-amphetamine 20 mg Capsule,Extended Release 24hr
10 mg PO TID
Rx Instructions:
0.5TAB TID
insulin aspart U-100 [Novolog FlexPen U-100 Insulin] 100 unit/mL (3 mL) Insulin Pen
1 sliding scale dose SC DIRECTED
cholecalciferol (vitamin D3) [Vitamin D3] 50 mcg (2,000 unit) Capsule
50 mcg PO DAILY
atorvastatin 20 mg Tablet
20 mg PO HS
furosemide 80 mg Tablet
80 mg PO DAILY
turmeric 400 mg Capsule
400 mg PO DAILY@1200
amiodarone 200 mg tablet
200 mg PO HS
Referrals:
Kailyn Petty MD [Family Provider, Family Practice]
Activity Restrictions/Additional Instructions:
Continue your current medications. Please follow-up with your doctor this week for reevaluation and further care. Return to the ER for any concerns
Discharge Date and Time
Print Language: MOZAMBICAN
[2025-03-21] MEDS: TYLENOL 1000 MG PO (19:39)
[2025-03-21] MEDS: NSS 1000 IV (19:40)
[2025-03-21 21:47] VITALS: BP 115/64
== END 2025-03-21 22:04 | disposition home or self-care (01) ==
LOC: EMR 13:56
PROVIDERS: Emergency Medicine; EMERGENCY PHYSICIAN Emergency Medicine; FAMILY PHYSICIAN Family Medicine
DX: R11.10 Vomiting, unspecified (principal); R10.10 Upper abdominal pain, unspecified; I48.91 Unspecified atrial fibrillation; E87.1 Hypo-osmolality and hyponatremia; J45.909 Unspecified asthma, uncomplicated; E11.22 Type 2 diabetes mellitus with diabetic chronic kidney disease; I13.0 Hypertensive heart and chronic kidney disease with heart failure and stage 1 through stage 4 chronic kidney disease, or unspecified chronic kidney disease; N18.9 Chronic kidney disease, unspecified; I50.9 Heart failure, unspecified; Z87.891 Personal history of nicotine dependence; Z90.49 Acquired absence of other specified parts of digestive tract
CPT/HCPCS: 96360; 99284; 74176; 80053; 83690; 85025; 93005

== ENCOUNTER 2025-06-05 22:04 | Inpatient (IN) | payer MEDICARE, OTHER, SELFPAY ==
[2025-06-05 17:14] VITALS: BMI 40.8
--- NOTE | 2025-06-05 17:15 | ED.GENMED ---
History of Present Illness
General
Chief Complaint: Breathing Problem
Source: patient
Exam Limitations: none
Time Seen by Provider: 06/05/25 17:13
History of Present Illness
History of Present Illness:
See MDM
Past History
Past History
ED Past Medical History: Arrthythmia (Atrial fibrillation), Asthma, CHF, HTN, IDDM and Renal failure
ED Past Surgical History: Cardiac (Ablation), Cholecystectomy and Orthopedic
Social History
Tobacco: Former smoker
Alcohol: Occasional
Drug: None
Personal: Single
Living: with family
Employment: Retired
Family History
Family History: Diabetes
Phy Exam
Physical Exam
Physical Exam:
See MDM
Scores
Heart Failure Risk
Heart Failure Risk Score: Not Applicable
Sepsis
Sepsis Screening
Sepsis Assessment: Sepsis Ruled Out
Sepsis Screen
Sepsis Screen: Sepsis Ruled Out
Date: 06/05/25
Time: 18:00
Course
Orders/Labs/Results
Orders:
Orders
06/05/25 17:12
Electrocardiogram (*1) Urgent
Reason for Study: Shortness of Breath
EKG- Treatment ONCE
06/05/25 17:14
CT Chest PE Study Urgent
Comment:
Reason For Exam: SOB
06/05/25 17:18
Diltiazem HCl [Cardizem] 20 mg IV NOW STA
06/05/25 17:21
Comprehensive Metabolic Panel Urgent
PTT Urgent
Prothrombin Time Urgent
06/05/25 17:22
Complete Blood Count/With Diff Urgent
NT-proBNP Urgent
Troponin I Urgent
06/05/25 19:07
Acetaminophen [Tylenol] 650 mg PO NOW STA
06/05/25 20:16
Azithromycin 500 mg/250 ml [Zithromax Infusion] 500 mg in 250 ml IV NOW
CefTRIAXone [Rocephin] 1,000 mg IV NOW STA
Diltiazem 125 mg/125 ml Nss [Cardizem] 125 mg in 125 ml IV NOW
Initial dose in mg/hr, then titrate:: 5
Titrate to keep:: Heart rate 80-100 bpm
Titrate by mg/hr:: 5 mg/hr
Frequency of titrations (minutes):: 15
Maximum dose in mg/hr:: 15
Diltiazem HCl [Cardizem] 20 mg IV NOW STA
Abnormal Lab Results
06/05/25 06/05/25 06/05/25
17:21 17:22 19:22
WBC 12.2 H 10^3/uL
(4.8-10.8)
MCHC 32.5 L g/dL
(33.0-37.0)
MPV 10.7 H fL
(7.4-10.4)
Absolute Neuts (auto) 9.8 H 10^3/uL
(1.4-6.5)
Absolute Lymphs (auto) 0.8 L 10^3/uL
(1.2-3.4)
Absolute Monos (auto) 1.3 H 10^3/uL
(0.1-0.6)
Neutrophils % 80.4 H %
(42.2-75.2)
Lymphocytes % 6.8 L %
(20.5-51.1)
Monocytes % 10.9 H %
(1.7-9.3)
Sodium 133 L mmol/L
(135-145)
BUN 19 H mg/dl
(7-17)
Creatinine 1.2 H mg/dL
(0.6-1.0)
Glucose 198 H mg/dl
(70-99)
POC Glucose 178 H mg/dl 144 H mg/dl
(70-99) (70-99)
06/05/25 17:22
06/05/25 17:21
Vital Signs
Initial and Last Documented VS:
Initial Vital Signs
Temp Pulse Resp BP Pulse Ox
98.7 F 157 36 128/86 93
06/05/25 17:16 06/05/25 17:16 06/05/25 17:16 06/05/25 17:16 06/05/25 17:16
Last Documented Vital Signs
Temp Pulse Resp BP Pulse Ox
98.7 F 152 27 117/85 98
06/05/25 17:16 06/05/25 20:00 06/05/25 20:00 06/05/25 18:15 06/05/25 20:00
MDM/Problems Addressed
Differential Diagnosis Includes:
Note:
CHIEF COMPLAINT(S)
Respiratory distress and shortness of breath.
HISTORY OF PRESENT ILLNESS
The patient is a 69-year-old female who presents from home with respiratory distress that began around midnight last night. She called her warehouse insulation worker, who advised that if symptoms did not improve, to call emergency services. The patient reports
her oxygen saturation has been fine throughout the day, but she experienced episodes of extreme shortness of breath. She also mentioned slight right-sided chest pain, which improves with sitting up. The symptoms initiated while she was lying flat
during sleep. Upon EMS arrival, the patient was in severe respiratory distress, but she began to feel better after being placed on bilevel positive airway pressure (BiPAP). However, blood pressures recorded consecutively in the 90s were noted,
previously being 120.
PLAN
The patient will undergo a workup for possible pulmonary embolism (PE).
PHYSICAL EXAM
General: Alert, no acute distress.
Skin: Warm, dry.
Head: Normocephalic, atraumatic
Neck: Appears supple, trachea midline.
Eyes, Ears, Nose, Mouth, and Throat: Moist mucous membranes
Cardiovascular: No signs of cyanosis. Tachycardic
Respiratory: Respirations are non-labored.. No wheezing noted
Abdomen: Non-distended
Musculoskeletal: No deformities. No lower extremity pitting edema
Neurological: No focal neurological deficit observed.
Psychiatric: Cooperative, appropriate mood and affect.
DIFFERENTIAL DIAGNOSIS
The Differential Diagnosis includes, in no particular order and is not limited to:
- Pulmonary embolism
- Heart failure exacerbation
- Pneumonia
- Chronic obstructive pulmonary disease (COPD) exacerbation
- Acute coronary syndrome
- Pneumothorax
- Pulmonary hypertension
- Asthma exacerbation
- Cardiac arrhythmia
- Pleural effusion
SUMMARY OF ENCOUNTER
The patient presented to the emergency department with respiratory distress starting around midnight. Initial management included the application of BiPAP, which slightly improved her condition. The evaluation is being directed towards investigating
a pulmonary embolism given her symptoms of shortness of breath, pleuritic chest pain, and her medical history.
MEDICATION RECONCILIATION
The patient is currently on a blood thinner, but the specific medication was not identified in the conversation.
MEDICAL DECISION MAKING
- Complexity of Data Reviewed: Chronic conditions affecting care include a history of cardiac disease.
- Data:
Category 1: Tests and documents (a PE workup is planned).
- Risk:
Consideration of Admission/Observation: Escalation of care including admission/observation was considered given the complexity and risk of the patients presenting complaint, exam findings, and her underlying comorbidities. However, ultimately, I
feel the patient is safe for outpatient management with close follow-up. Reasoning: Work-up reassuring, does not reveal any acute life/organ-threatening processes, patients symptoms well controlled upon reevaluation, reexamination is reassuring,
vitals are stable, patient agreeable with discharge, reliable for follow-up.
My independent EKG interpretation is:
- Rhythm: Atrial Fibrillation with Rapid Ventricular Response
- Heart Rate: 152 beats per minute
- Adams: Normal
- ST Segment: No ST elevation noted
SUMMARY OF ENCOUNTER
The patient, a 69-year-old female, was seen in the emergency department with respiratory distress and shortness of breath that began during the night. Upon presentation, she was in severe respiratory distress which slightly improved with BiPAP
application. Oxygen saturation was reportedly stable, but she experienced episodes of extreme shortness of breath. Notably, she had diminished breath sounds at the bases possibly due to adipose tissue. A possible pulmonary embolism was considered,
along with a differential including heart failure exacerbation, pneumonia, and other cardiac causes. A CT scan indicated pneumonia. Additionally, the patient was found to be in atrial fibrillation with rapid ventricular response, requiring
management with a diltiazem (Cardizem) drip. Given her hypoxia and CT findings, antibiotic treatment was initiated, and the patient was admitted for further management on supplemental oxygen.
DISPOSITION
Admit
ASSESSMENT
The patient exhibited signs of pneumonia and atrial fibrillation with rapid ventricular response, warranting hospitalization for further management.
EMERGENCY TREATMENTS ADMINISTERED
Diltiazem drip was administrated to manage atrial fibrillation with rapid ventricular response.
PLAN
The patient will be admitted to the hospitalist service for further management. Antibiotic therapy has been initiated to treat pneumonia, and supplemental oxygen will be provided. Close monitoring of the patients cardiac status and oxygenation will
continue during hospitalization.
INDEPENDENT REVIEW OF LABS AND INTERPRETATION OF TESTS
My independent CT interpretation indicates findings concerning for pneumonia.
MEDICAL DECISION MAKING
- Complexity of Data Reviewed: Chronic conditions affecting care include a history of cardiac disease. Differential Diagnosis includes pulmonary embolism, heart failure exacerbation, pneumonia, COPD exacerbation, acute coronary syndrome,
pneumothorax, pulmonary hypertension, asthma exacerbation, cardiac arrhythmia, and pleural effusion.
- Data:
- Category 1: My independent interpretation of the CT scan indicates concerning findings for pneumonia.
- Risk: Prescription medication management and admission due to potential complications from pneumonia and atrial fibrillation with rapid ventricular response.
DIAGNOSIS
- Pneumonia (J18.9)
- Atrial Fibrillation with Rapid Ventricular Response (I48.0)
*Pulse Oximetry
Patient hypoxic: yes
*Critical Care Note
Total Time (30-74mins, 75-104mins- exclusive of procedures): 33 min
comment:
The high probability of a clinically significant, sudden or life threatening deterioration of the cardiopulmonary system(s) required my full and direct attention, intervention and personal management. The aggregate critical care time was 33 minutes.
This time is in addition to time spent performing reported procedures but includes the following:
[x] Data Review and interpretation
[x] Patient assessment and monitoring of vital signs
[x] Documentation
[x] Medication orders and management
ED Attending Note
-
Portions of this chart may have been created with voice recognition software.� Occasional wrong word or��sound alike� substitutions may have occurred due to the inherent limitations of voice recognition software.
Discharge Plan
Departure
Patient Disposition: Admit
Date of Disposition: 06/05/25
Time of Disposition: 20:20
Admit to: Med/Surg
Presentation/result/management discussed w/ accepting MD/DO: Hospitalist
Discharge Problem:
Pneumonia, Hypoxia, Atrial fibrillation with rapid ventricular response
Prescriptions:
No Action
fluoxetine 40 MG capsule
40 mg PO BID
nitroglycerin 0.4 MG tablet, sublingual
0.4 mg sublingual [id number] PRN (Reason: chest pain)
vitamin B complex 1 TAB tablet
1 tab PO NOON
cyanocobalamin (vitamin B-12) 1,000 MCG tablet
1,000 mcg PO NOON
ferrous sulfate [iron] 325 MG tablet
325 mg PO NOON
albuterol sulfate 90 mcg/actuation Hfa Aerosol Inhaler
2 puff INHALATION R Q4HPRN PRN (Reason: sob)
insulin aspart U-100 [Novolog FlexPen U-100 Insulin] 100 unit/mL (3 mL) insulin pen
13 unit SC MEALS
albuterol sulfate 2.5 mg /3 mL (0.083 %) Solution For Nebulization
2.5 mg INHALATION R Q4HPRN PRN (Reason: sob)
Eliquis 5 mg tablet
5 mg PO BID
insulin glargine [Basaglar KwikPen U-100 Insulin] 100 unit/mL (3 mL) Insulin Pen
6 unit SC HS
levothyroxine [Synthroid] 150 mcg Tablet
150 mcg PO DAILY
letrozole 2.5 mg Tablet
2.5 mg PO DAILY
ondansetron 4 mg tablet,disintegrating
4 mg PO Q8HPRN PRN (Reason: nausea and vomiting)
pantoprazole 40 mg tablet,delayed release (DR/EC)
40 mg PO DAILY PRN (Reason: Gastrointestinal Issue)
diltiazem HCl 120 mg Capsule,Extended Release 24hr
120 mg PO BID Qty: 60 0RF
naproxen sodium [Aleve] 220 mg Tablet
440 mg PO DAILYPRN PRN (Reason: mild pain)
fluticasone furoate [Arnuity Ellipta] 200 mcg/actuation Blister With Device
1 inh INHALATION HS
dextroamphetamine-amphetamine 20 mg Capsule,Extended Release 24hr
10 mg PO TID
Patient Comments:
last fill 05/12/25 #45
insulin aspart U-100 [Novolog FlexPen U-100 Insulin] 100 unit/mL (3 mL) Insulin Pen
1 sliding scale dose SC DIRECTED
atorvastatin 20 mg Tablet
20 mg PO HS
furosemide 80 mg Tablet
80 mg PO DAILY
turmeric 400 mg Capsule
400 mg PO NOON
amiodarone 200 mg tablet
200 mg PO HS
Theragen Tablet
1 tab PO DAILY
cholecalciferol (vitamin D3) 25 mcg (1,000 unit) Tablet
25 mcg PO NOON
Mounjaro 2.5 mg/0.5 mL pen injector
2.5 mg SC HUTCHISON
Referrals:
Kailyn Petty MD [Family Provider, Family Practice]
Interventions
Interventions:
*Risk Screen - Suicide Last Done: 06/05/25 17:16
*General Assessment Last Done: 06/05/25 17:16
*Neglect/Abuse Screening Last Done: 06/05/25 17:16
*ED- Fall Risk Assessment Last Done: 06/05/25 17:21
*ED COVID-19 Vaccine History Last Done: 06/05/25 17:21
*ED Influenza Vaccine History Last Done: 06/05/25 17:21
ED- Cardiac Assessment Last Done: 06/05/25 17:20
ED- Pulmonary Assessment Last Done: 06/05/25 17:20
Discharge Date and Time
Print Language: ROMANIAN
[2025-06-05 17:16] VITALS: BP 128/86
[2025-06-05 17:22] LABS: Glucose - Point of Care 178 mg/dl (70-99)
[2025-06-05] MEDS: CARDIZEM 20 MG IV ×2 (17:26→20:41)
[2025-06-05 17:35] LABS: Hematocrit 42.5 % (37.0-47.0); Hemoglobin 13.8 g/dL (12.0-16.0); Mean Corp Hgb Conc. 32.5 g/dL (33.0-37.0); Mean Corpuscular Volume 88.4 fL (81.0-99.0); Nucleated Red Blood Cells % 0 %; Platelet Count 348 10^3/uL (130-400); Red Cell Dist. Width 13.0 % (11.5-14.5)
[2025-06-05 17:41] LABS: INR 1.02; PT 13.7 Sec (11.4-14.6)
[2025-06-05 17:42] LABS: APTT 26.3 Sec (23.4-35.0)
[2025-06-05 17:50] LABS: ALT (SGPT) 16 U/L (0-35); AST (SGOT) 17 U/L (14-36); Albumin 3.9 g/dl (3.5-5.0); Alkaline Phosphatase 106 U/L (38-126); Blood Urea Nitrogen 19 mg/dl (7-17); Calcium 9.5 mg/dl (8.4-10.2); Carbon Dioxide 26 mmol/L (22-30); Chloride 101 mmol/L (98-107); Estimated Creatinine Clearance 52 ml/min; Glucose 198 mg/dl (70-99); Potassium 4.8 mmol/L (3.5-5.1); Sodium 133 mmol/L (135-145); Total Protein 6.8 g/dl (6.3-8.2); eGFR 48.70
[2025-06-05 18:03] LABS: Troponin I 0.033 ng/ml
[2025-06-05 18:15] VITALS: BP 117/85
[2025-06-05] MEDS: TYLENOL 650 MG PO (19:16)
[2025-06-05 19:24] LABS: Glucose - Point of Care 144 mg/dl (70-99)
[2025-06-05 20:39] VITALS: BP 113/64
[2025-06-05] MEDS: ROCEPHIN 1000 MG IV (20:41)
[2025-06-05] MEDS: ZITHROMAX INFUSION 250 IV (20:47)
[2025-06-05] MEDS: CARDIZEM 125 IV (20:47)
[2025-06-05 21:05] VITALS: BP 121/61
[2025-06-05] MEDS: BENADRYL 25 MG IV (21:07)
--- NOTE | 2025-06-05 21:09 | HPS.HSE ---
Family Physician
-
Family Physician: Kailyn Petty
Chief Complaint
-
SOB
History of Present Illness
Patient is a 69y F with PMH significant for A-Fib / Flutter s/p multiple prior cardioversions and ablations (most recent 03/16/25) who presents to ED complaining of SOB. Patient states that she woke around midnight last night with SOB and some
mild R-sided chest discomfort. Her symptoms persisted into this AM. She checked her pulse at home and noted that it was elevated around 140-150 bpm. When she walked to the bathroom, etc her pulse elevated into the 170s. She has persistent /
worsening dyspnea and this evening called 911.
EMS crew was apparently unable to get accurate measurements of BP, SpO2, etc. Given patient's appearance she was started on BiPAP and brought to the ED.
Here in the ED, patient was placed on 2 lpm of NC O2 with adequate saturations.
Patient has intermittent symptoms here in the ED - she notes that she feels better shortly following Cardizem bolus with heart rate decreasing to around 100bpm.
Patient notes that she felt well last PM prior to going to bed. She has had no recent symptoms of cough, sore throat, runny nose, fevers / chills, etc.
No known sick contacts.
Medical History
Past Medical History
Past Medical History: Reports Other
Additional Past Medical History:
Atrial Fibrillation / Flutter
HFpEF
DM-II
Breast Cancer s/p Surgery, Chemo, XRT
Hypothyroidism
Asthma
Morbid Obesity
ADHD
Anxiety / Depression
Past Surgical History: Reports Other
Additional Past Surgical History:
Ablation x 3 (or 4?) - Last was PFA on 03/16/25.
Left Lumpectomy / Axillary Lymph Node Dissection
Bilateral TKA
Cholecystectomy
Cataracts
Social History
Tobacco: Former Smoker (Quit smoking 40 years ago.)
Alcohol: Occasional
Family History
Family History: Not pertinent
Allergies / Home Medications
Allergies reflects when Allergies were last updated in [facility].
Home Medications with original date entered in [facility]
Allergy/Medication List:
Allergies
Allergy/AdvReac Type Severity Reaction Status Date / Time
azithromycin Allergy Nausea / Verified 06/05/25 21:13
Vomiting
theophylline Allergy tongue Verified 06/05/25 21:13
swelling,
rash
Home Medications
fluoxetine 40 mg capsule 40 mg PO BID depression/anxiety 04/05/20
nitroglycerin 0.4 mg sublingual tablet 0.4 mg sublingual [id number] PRN chest pain 04/05/20
cyanocobalamin (vitamin B-12) 1,000 mcg tablet 1,000 mcg PO NOON Supplement 09/19/21
ferrous sulfate 325 mg (65 mg iron) tablet (iron) 325 mg PO NOON Supplement 09/19/21
vitamin B complex 1 tab PO NOON Supplement 09/19/21
albuterol sulfate 90 mcg/actuation aerosol inhaler 2 puff inhalation R Q4HPRN PRN sob 06/16/22
insulin aspart U-100 100 unit/mL (3 mL) subcutaneous pen (Novolog FlexPen U-100 Insulin aspart) 13 unit SC MEALS Diabetes 08/13/22
albuterol sulfate 2.5 mg/3 mL (0.083 %) solution for nebulization 2.5 mg inhalation R Q4HPRN PRN sob 12/17/22
apixaban 5 mg tablet (Eliquis) 5 mg PO BID Blood clot prevention/tx 12/17/22
insulin glargine 100 unit/mL (3 mL) subcutaneous pen (Basaglar KwikPen U-100 Insulin) 6 unit SC HS Diabetes 10/21/23
letrozole 2.5 mg tablet 2.5 mg PO DAILY Cancer 06/25/24
levothyroxine 150 mcg tablet (Synthroid) 150 mcg PO DAILY Thyroid 06/25/24
ondansetron 4 mg disintegrating tablet 4 mg PO Q8HPRN PRN nausea and vomiting 01/26/25
pantoprazole 40 mg tablet,delayed release 40 mg PO DAILY PRN Gastrointestinal Issue 01/26/25
diltiazem HCl 120 mg capsule,extended release 24 hr 120 mg PO BID #60 caps 01/27/25
amiodarone 200 mg tablet 200 mg PO HS 02/16/25
turmeric 400 mg capsule 400 mg PO NOON 02/16/25
dextroamphetamine-amphetamine ER 20 mg 24hr capsule,extend release 10 mg PO TID 03/01/25
fluticasone furoate 200 mcg/actuation blister powder for inhalation (Arnuity Ellipta) 1 inh inhalation HS 03/01/25
insulin aspart U-100 100 unit/mL (3 mL) subcutaneous pen (Novolog FlexPen U-100 Insulin aspart) 1 sliding scale dose SC DIRECTED 03/01/25
naproxen sodium 220 mg tablet (Aleve) 440 mg PO DAILYPRN PRN mild pain 03/01/25
atorvastatin 20 mg tablet 20 mg PO HS 03/16/25
furosemide 80 mg tablet 80 mg PO DAILY 03/16/25
cholecalciferol (vitamin D3) 25 mcg (1,000 unit) tablet 25 mcg PO NOON 06/05/25
therapeutic multivitamin 1 tab PO DAILY 06/05/25
tirzepatide 2.5 mg/0.5 mL subcutaneous pen injector (Mounjaro) 2.5 mg SC HUTCHISON 06/05/25
Review of Systems
-
History Source: Patient
A 12 point ROS was completed and negative except as noted: Yes
Constitutional: Reports Fatigue; Denies Fever or Chills
EENT: Denies Sore Throat
Respiratory: Reports Trouble Breathing; Denies Cough or Hemoptysis
Cardiac: Reports Chest Pain; Denies Diaphoresis, Palpitations or Syncope
Abdomen/GI: Denies Abdominal Pain, Nausea, Vomiting or Diarrhea
: Denies Dysuria, Frequency or Flank Pain
Musculoskeletal: Denies Joint Pain or Edema
Neurological: Denies Dizzy or Headache
Psych: Denies Depression or Anxiety
Physical Exam
Vital Signs
Vital Signs
Temp Pulse Resp BP Pulse Ox
98.7 F 153 27 113/64 98
06/05/25 17:16 06/05/25 20:41 06/05/25 20:00 06/05/25 20:41 06/05/25 20:00
Physical Exam
General: Other (69y F in no acute distress.)
HEENT: Moist mucous membranes, PERRLA and Other (Thick neck, no appreciable JVD.)
Respiratory: Clear; No Wheezes, Rales or Rhonchi
Cardiac: S1/S2, Irregular Rhythm and Tachycardia; No Murmur
GI: Soft, Non Tender, Non Distended and Normal Bowel Sounds
Musculoskeletal: No Clubbing, No Cyanosis and No Edema
Neuro: AO x 3
Laboratory Results
-
06/05/25 17:22
06/05/25 17:21
Laboratory Results
PT 13.7 Sec (11.4-14.6) 06/05/25 17:21
INR 1.02 06/05/25 17:21
APTT 26.3 Sec (23.4-35.0) 06/05/25 17:21
Total Bilirubin 0.8 mg/dl (0.2-1.3) 06/05/25 17:21
AST 17 U/L (14-36) 06/05/25 17:21
ALT 16 U/L (0-35) 06/05/25 17:21
Alkaline Phosphatase 106 U/L (38-126) 06/05/25 17:21
Troponin I 0.033 ng/ml 06/05/25 17:22
Impression/Plan
-
A/P: Patient is a 69y F with PMH significant for A-Fib / Flutter who presents to ED complaining of shortness of breath, R-sided chest discomfort and elevated HR throughout the day today.
Atrial Fibrillation / Flutter with Rapid Ventricular Response
- Admit to IVU for further evaluation and treatment.
- Suspect that recurrent A-Fib / Flutter is patient's primary issue here.
- Continue IV diltiazem and titrate as needed for improved rate control.
- Continue Eliquis for stroke risk reduction (missed dose this AM).
- Continue current med regimen for now including amiodarone.
- Update Echo (last done in January was normal).
- Cardiology evaluation for additional recommendations.
Possible RLL Pneumonia
- Patient has no symptoms suggestive of pneumonia. Afebrile, no cough, etc.
- There was no documented hypoxemia - was placed on BiPAP due to dyspnea and inability to accurately measure SpO2 in the field.
- Follow temperature curve / monitor for any new symptoms.
- Continue abx for now - with low threshold to discontinue.
Chronic HFpEF
- Stable. Does not appear grossly volume overloaded.
- Continue current Lasix regimen.
- Follow I/Os, daily weights, etc.
DM-II
- Stable. Continue basal insulin and cover with SSI as needed.
- Update A1C.
Anxiety / Depression
ADHD
- Stable. Continue fluoxetine.
- Would hold amphetamines acutely - ? other results technician options for ADHD management given issues with A-Fib / Flutter.
Hypothyroidism
- Stable. Continue T4 replacement.
Morbid Obesity due to excess calories
- Affects all aspects of care.
- Encourage healthy diet and increased activity with goal of weight reduction.
- Just started on Mounjaro (1 dose so far) - hold acutely.
DVT Prophylaxis: On Eliquis.
Code Status: Full
[2025-06-05] MEDS: ELIQUIS 5 MG PO (21:15)
[2025-06-05 21:38] LABS: COVID-19 Antigen Negative (Negative)
[2025-06-05 22:36] VITALS: BP 107/70
[2025-06-05 22:37] VITALS: BMI 39.9
[2025-06-05 22:41] VITALS: BMI 39.9
--- NOTE | 2025-06-05 22:41 | PTCARENOTE ---
received the patient from the ED. AAOx3. patient states feeling much better. denies any palpitations. Heart rate 140s. rhythm appears to be SVT vs. Aflutter. bp 107/70. 98% 2L. mild dyspnea on exertion. LE edema noted. patient states Left appears
more swollen than Right. + pulses. reviewed plan of care with patient and verbalized understanding. call newby within reach.
[2025-06-05 22:58] LABS: Glucose - Point of Care 179 mg/dl (70-99)
[2025-06-05 23:03] VITALS: BP 113/75
[2025-06-05 23:39] LABS: Troponin I 0.048 ng/ml
[2025-06-05] MEDS: PACERONE 200 MG PO (23:42)
[2025-06-05] MEDS: LIPITOR 20 MG PO (23:42)
--- NOTE | 2025-06-05 23:44 | PTCARENOTE ---
troponin 0.048. notified Zamzam Myers [place] SPECIAL INVESTIGATION UNIT INVESTIGATOR. patient denies any cp.
heart rate continues to be elevated-140s. cardizem gtt at 15 ml/hr. patient denies any palps. bp 113/75. Zamzam Myers SPECIAL INVESTIGATION UNIT INVESTIGATOR updated. will give oral dose of Amiodarone and monitor HR, see mar.
[2025-06-05] MEDS: LANTUS 0.06 UNITS SC (23:51)
[2025-06-06] VITALS (18 sets, daily range): BP systolic 94–133; BP diastolic 59–88
--- NOTE | 2025-06-06 02:05 | PTCARENOTE ---
Addendum entered by Vaibhav Armijo RN 06/06/25 04:04:
lopressor IV 5 mg given, see mar.
Addendum entered by Vaibhav Armijo RN 06/06/25 02:56:
cardizem gtt off and placed on hold. HR 147. bp 95/78
Original Note:
HR continues to be elevated- 140ss. bp 98/69. discussed plan with Zamzam Myers FLUME RIDE OPERATOR. will wean cardizem gtt in the hopes of bringing blood pressure up in order to give medication for HR control.
[2025-06-06] MEDS: LOPRESSOR 5 MG IV (03:51)
[2025-06-06 05:00] LABS: Glucose - Point of Care 166 mg/dl (70-99)
[2025-06-06 05:12] LABS: Hematocrit 41.2 % (37.0-47.0); Hemoglobin 12.8 g/dL (12.0-16.0); Mean Corp Hgb Conc. 31.1 g/dL (33.0-37.0); Mean Corpuscular Volume 90.2 fL (81.0-99.0); Platelet Count 306 10^3/uL (130-400); Red Cell Dist. Width 13.2 % (11.5-14.5)
[2025-06-06] MEDS: CORDARONE 259 MG IV (05:30)
--- NOTE | 2025-06-06 05:35 | W.PN.UPDATE ---
Update Note
Progress Note Update
Rapid afib/flutter. Multiple cardioversions/ablations in her history. Cardizem gtt stopped due to hypotension and no effect on HR (140s) Lopressor IV x1. Almost broke it for a moment (ST 110). Amiodorone infusion without bolus (soft bp) started.
She feels mildly sob and notes she never feels her HR when the rate is high.
[2025-06-06 05:36] LABS: Blood Urea Nitrogen 18 mg/dl (7-17); Calcium 9.0 mg/dl (8.4-10.2); Carbon Dioxide 25 mmol/L (22-30); Chloride 106 mmol/L (98-107); Estimated Creatinine Clearance 48 ml/min; Glucose 181 mg/dl (70-99); HDL Cholesterol 55 mg/dl; LDL Cholesterol, Calculated 84 mg/dl; Magnesium 1.9 mg/dl (1.6-2.3); Potassium 4.8 mmol/L (3.5-5.1); Sodium 138 mmol/L (135-145); Very Low Density Lipoprotein 23 mg/dl (0-30); eGFR 44.24
--- NOTE | 2025-06-06 05:37 | PTCARENOTE ---
no improvement in HR after IV Lopressor. AM EKG completed. HR 140s; appears to be afib RVR. bp 112/66.
patient also states feeling 'crappy' this morning. increased work of breathing per patient. dyspnea on exertion increased. 96% in 4L- no change. appears flushed- temp 99.3. blood sugar checked- 166. updated Zamzam Myers SHOP FIRER/FIREMAN and at the bedside. Shantelle
gtt ordered. new IV placed. gtt started, see oct.
[2025-06-06 05:48] LABS: Troponin I 0.044 ng/ml
--- NOTE | 2025-06-06 07:33 | CON.CAR ---
Addendum entered and electronically signed by Llia Rosales DO 06/06/25 09:54:
I saw and examined the patient.
The [employer] Repairer's note was reviewed and I agree with the note.
Comment: Patient was seen and examined. She is well-known to [facility] and follows with my colleagues, Dr. Bo and Dr. Garcia. Christy is a 69-year-old female with past medical history of paroxysmal atrial fibrillation status post PVI in 2022 and
03/16/2025 and multiple past cardioversions, diabetes, chronic heart failure with preserved ejection fraction, hypertension, ADHD, hyperlipidemia presents with shortness of breath. She denies any palpitations,chest pain, lightheadedness, edema,
PND, orthopnea. EKG in ED showed atrial fibrillation 152 bpm. She was started on a Cardizem drip with no improvement of her heart rates and development of hypotension. She received Lopressor IV x 1 with brief improvement in heart rate to 110s and
then was started on an amiodarone gtt at 0530 today. Heart rates remain in the 140s. EKG: Narrow complex regular rhythm: Atrial tachycardia versus a flutter with 2-1 block. No palpitations. She has been compliant with her anticoagulation
besides missing one dose of Eliquis 06/05/2025 a.m. dose as she was feeling nauseous and did not take it. She started Mounjaro one week ago; first and only dose May 29
General: No acute distress, AAOX3, lying supine on 4 L nasal cannula, comfortable.
Neck: Negative JVD
Heart: Irregularly irregular. Positive S1-S2. No murmur.
Lungs: CTA b/l, negative wheezes/rales/rhonchi
Abd: Positive BS, NT/ND, neg rebound/rigidity/guarding
Ext: Negative cyanosis/clubbing/edema
Neuro: nonfocal
Plan:
Presented with shortness of breath found to be in rapid atrial fibrillation/flutter with acute decompensation of chronic heart failure with preserved ejection fraction
Rapid atrial flutter with history of rapid atrial fibrillation/atrial tachycardia. Patient has had PVI in 2022 and more recently redo PVI 03/16/2025 as well as multiple cardioversions.
-Plan for CARMELO/cardioversion today given 1 missed dose of Eliquis. Discussed with Dr. Calix
-Continue uninterrupted Eliquis
-Continue amiodarone and transition IV back to oral Cardizem following cardioversion
-Will discuss additional arrhythmia recommendations with her box chipper, Dr. Garcia
-TSH within normal limits
-Suspect sleep apnea and recommend outpatient sleep apnea evaluation
Acute on chronic heart failure with preserved ejection fraction
-Chest CT: No evidence of PE. Mosaic attenuation with new tree-in-bud opacities in posterior right lower lobe may be infectious/inflammatory
-proBNP 4200
-TSH 1.53
-Will transition her to IV Lasix for the next 24 hours. Start IV Lasix 40 mg IV twice daily with initial dose tonight following cardioversion. Patient received Lasix 80 mg orally this morning.
-Plan for rhythm control strategy with CARMELO/cardioversion today
-Will have case management evaluate cost of SGLT2 inhibitor to start this admission
-Suspect sleep apnea, recommend outpatient sleep apnea evaluation
Abnormal cardiac troponin in the setting of rapid atrial fibrillation/flutter
-No chest pain
- Her troponin was mildly elevated peak at 0.048 and trending down.
-suspect nonischemic myocardial injury secondary to rapid aflutter.
-Last ischemic evaluation with cath in 2021 with near normal coronary arteries.
-Lipid profile suboptimal: Total cholesterol 162, LDL 84, HDL 55, triglycerides 119�given risk factors we will try to aim for LDL less than 70. Increase atorvastatin to 40 mg nightly.
-Consider outpatient Lexiscan nuclear stress test given risk factors
Type 2 diabetes mellitus on insulin utilizing DexAPROOFED G7 CGM
-Hemoglobin A1c 7.4%
- Continue insulin regimen according to prehospitalization management. Resume Mounjaro following this hospitalization.
- Case management consulted to look into SGLT2 inhibitor given heart failure
Hypothyroidism�TSH normal on therapy
Invasive ductal carcinoma left breast ER +, NC negative, HER2 negative, 2023-on letrozole
Original Note:
Consultation
Consultation Request
Date/Time Consultation Requested: 06/03/2025
Date/Time Consultation Performed: 06/03/2025
Requesting Provider: Dr Adam
Performing Provider: CLAIR Mcmullen for Dr Garcia
Reason for Consultation: afib
Medical History
-
Chief Complaint: SOB
History of Present Illness:
69-year-old female with past medical history of paroxysmal atrial fibrillation status post PVI in 2022 and 03/16/2025 and multiple past cardioversions, diabetes, chronic heart failure with preserved ejection fraction, hypertension, ADHD,
hyperlipidemia presents with shortness of breath. She denies any palpitations,chest pain, lightheadedness, edema, PND, orthopnea. EKG in ED showed atrial fibrillation 152 bpm. She was started on a Cardizem drip with no improvement of her heart
rates and development of hypotension. She received Lopressor IV x 1 with brief improvement in heart rate to 110s and then was started on an amiodarone gtt at 0530 today. Heart rates remain in the 140s. EKG: Narrow complex regular rhythm: Atrial
tachycardia versus a flutter with 2-1 block. No palpitations. She has been compliant with her anticoagulation besides missing one dose of Eliquis 06/05/2025 a.m. dose as she was feeling nauseous and did not take it.
No recent illnesses
Started Mounjaro one week ago, has had one dose
Outpatient regimen for A-fib: Diltiazem 120 mg twice daily, amiodarone 200 mg daily, Eliquis 5 mg twice daily.
Echo 01/2025:Normal LV size, LV EF 50%, normal RV size and function, mild MR/PI
ER w/u:
Labs: Troponin 0.033�0 0.048�0.044.
proBNP 4200
TSH 1.53
BUN/creatinine 18/1.3, NA 138, K4.8, mag 1.9, hemoglobin 12.[address]: No evidence of PE. Mosaic attenuation with new tree-in-bud opacities in posterior right lower lobe may be infectious/inflammatory
PMH:
Paroxysmal atrial fibrillation
Atypical atrial flutter
s/p PVI 12/2022�isolation of all 4 pulmonary veins and left atrial posterior wall
s/p PVI 03/16/2025�reisolation of left superior pulmonary vein, A-fib after PVI with substrate based ablation of posterior wall plus roof and floor lines for posterior box lesion set. Also had mitral flutter and atrial flutter ablation
Chronic heart failure preserved EF
Hypertension
Hyperlipidemia
Diabetes mellitus
Invasive ductal carcinoma left breast ER +, NC negative, HER2 negative, 2023
Hypothyroidism
Past Medical History
Past Medical History: Arrhythmias (Paroxysmal atrial fibrillation status post ablation 2022), CAD (History of breast cancer), CHF (Chronic heart failure with preserved ejection fraction), HTN, Hypercholesterolemia, IDDM, Renal Failure (CKD 3) and
Psychiatric (ADHD)
Past Surgical History: Other (Left breast lumpectomy 2023, bilateral knee replacement, cholecystectomy, cataracts)
Social History
Tobacco: Non-Smoker
Alcohol: None
Drug: None
Living: With Roomate
Employment: Retired
Family History
Family History: Hypertension
Allergies / Home Medications
Allergy/AdvReac Type Severity Reaction Status Date / Time
azithromycin Allergy Nausea / Verified 06/05/25 21:13
Vomiting
theophylline Allergy tongue Verified 06/05/25 21:13
swelling,
rash
�Medication �Instructions �Recorded �Confirmed �Type
fluoxetine 40 mg capsule 40 mg PO BID depression/anxiety 04/05/20 06/05/25 History
nitroglycerin 0.4 mg sublingual 0.4 mg sublingual [id number] PRN 04/05/20 06/05/25 History
tablet chest pain
cyanocobalamin (vitamin B-12) 1,000 mcg PO NOON Supplement 09/19/21 06/05/25 History
1,000 mcg tablet
ferrous sulfate 325 mg (65 mg 325 mg PO NOON Supplement 09/19/21 06/05/25 History
iron) tablet (iron)
vitamin B complex 1 tab PO NOON Supplement 09/19/21 06/05/25 History
albuterol sulfate 90 mcg/actuation 2 puff inhalation R Q4HPRN PRN sob 06/16/22 06/05/25 History
aerosol inhaler
insulin aspart U-100 100 unit/mL 13 unit SC MEALS Diabetes 08/13/22 06/05/25 History
(3 mL) subcutaneous pen (Novolog
FlexPen U-100 Insulin aspart)
albuterol sulfate 2.5 mg/3 mL 2.5 mg inhalation R Q4HPRN PRN sob 12/17/22 06/05/25 History
(0.083 %) solution for nebulization
apixaban 5 mg tablet (Eliquis) 5 mg PO BID Blood clot 12/17/22 06/05/25 History
prevention/tx
insulin glargine 100 unit/mL (3 6 unit SC HS Diabetes 10/21/23 06/05/25 History
mL) subcutaneous pen (Basaglar
KwikPen U-100 Insulin)
letrozole 2.5 mg tablet 2.5 mg PO DAILY Cancer 06/25/24 06/05/25 History
levothyroxine 150 mcg tablet 150 mcg PO DAILY Thyroid 06/25/24 06/05/25 History
(Synthroid)
ondansetron 4 mg disintegrating 4 mg PO Q8HPRN PRN nausea and 01/26/25 06/05/25 History
tablet vomiting
pantoprazole 40 mg tablet,delayed 40 mg PO DAILY PRN 01/26/25 06/05/25 History
release Gastrointestinal Issue
diltiazem HCl 120 mg 120 mg PO BID #60 caps 01/27/25 06/05/25 Rx
capsule,extended release 24 hr
amiodarone 200 mg tablet 200 mg PO HS 02/16/25 06/05/25 History
turmeric 400 mg capsule 400 mg PO NOON 02/16/25 06/05/25 History
dextroamphetamine-amphetamine ER 10 mg PO TID 03/01/25 06/05/25 History
20 mg 24hr capsule,extend release
fluticasone furoate 200 1 inh inhalation HS 03/01/25 06/05/25 History
mcg/actuation blister powder for
inhalation (Arnuity Ellipta)
insulin aspart U-100 100 unit/mL 1 sliding scale dose SC DIRECTED 03/01/25 06/05/25 History
(3 mL) subcutaneous pen (Novolog
FlexPen U-100 Insulin aspart)
naproxen sodium 220 mg tablet 440 mg PO DAILYPRN PRN mild pain 03/01/25 06/05/25 History
(Aleve)
atorvastatin 20 mg tablet 20 mg PO HS 03/16/25 06/05/25 History
furosemide 80 mg tablet 80 mg PO DAILY 03/16/25 06/05/25 History
cholecalciferol (vitamin D3) 25 25 mcg PO NOON 06/05/25 06/05/25 History
mcg (1,000 unit) tablet
therapeutic multivitamin 1 tab PO DAILY 06/05/25 06/05/25 History
tirzepatide 2.5 mg/0.5 mL 2.5 mg SC HUTCHISON 06/05/25 06/05/25 History
subcutaneous pen injector
(Grover)
Review of Systems
-
History Source: Patient
All other systems: Negative unless noted
Physical Exam
Vital Signs
Temp Pulse Resp BP Pulse Ox
99.3 F 134 24 109/79 96
06/06/25 05:06 06/06/25 05:00 06/06/25 05:06 06/06/25 04:53 06/06/25 05:06
Lab Results
06/06/25 05:00
06/06/25 05:01
Troponin I 0.044 ng/ml H* 06/06/25 05:00
Gzr-B-Pylkpelkxfj Pept 4200 pg/ml 06/05/25 17:22
GEN: No distress, awake, Ox3
HEENT: supple, anicteric, mmm
LUNGS: CTA, no wheezes/rales
CV: Tachy, regular reg, S1/S2, no murmur
ABD: soft, BS+, NT/ND
EXT: No edema
NEURO: Gross non-focal
SKIN: No rash
Impression / Plan
-
Primary Creative Arts Music Therapist: Dr. Zavala
Primary EP: Dr. Garcia
Impression:
Paroxysmal atypical atrial flutter with rapid heart rate
History of PVI 2022, 03/16/2025
s/p CV in ER 01/26/25
Chronic OAC with eliquis, missed 1 dose 06/05/2025
On amiodarone 200 mg daily, diltiazem 120 mg twice daily in outpatient setting
Mild troponin elevation
Shortness of breath
Chronic heart failure with preserved EF
Hypertension
Hyperlipidemia
Type 2 diabetes
Stage IIIa CKD
ECHO 06/28/2024: EF 55 to 60%, mild concentric LVH, no regional wall motion abnormalities noted, mild MR, mild AR
Echo 01/2025:Normal LV size, LV EF 50%, normal RV size and function, mild MR/PI
Cardiac cath 09/19/2021: No significant CAD, PCWP (A-V-M) , PA 44
Plan:
-Patient presented to ED with shortness of breath and was found to be in rapid atrial fibrillation. Started on Cardizem drip with no improvement in heart rates and development of hypotension. Cardizem drip stopped and received 1 dose of metoprolol
with brief improvement in heart rates. Subsequently started on amiodarone gtt, HRs remain elevated in 140s, EKG atrial flutter with 2-1 block versus atrial tachycardia. Missed one dose eliquis a.m. 06/05/2025
-telem reviewed: probable AT, also with afib.
-keep NPO for poss CARMELO/CV today
- Her troponin was mildly elevated peak at 0.048 and trending down.
-suspect nonischemic myocardial injury secondary to rapid aflutter. She has no chest discomfort. Last ischemic evaluation with cath in 2021 with near normal coronary arteries.
-she is on Amio 200 mg daily in outpt setting. Previous admission 01/2025 for atypical atrial flutter was loaded with Amiodarone, then had ablation 03/2025 w/ repeat PVI as well as ablation of posterior wall plus roof and floor lines for posterior
box lesion set. Also ablation of mitral flutter and atrial flutter
- Repeat echo pending
- Continue Eliquis
-proBNP 4200, Chest x-ray without pulm edema. Continue p.o. Lasix 80 mg daily.
-Creatinine stable at 1.3
-started Mounjaro 1 week ago and took 1 dose so far, hold for now
Data Reviewed
-
EKG: Tracing Personally Visualized and interpreted
Medical Tests (Nuc Med, Echo etc): Image Personally Visualized and interpreted
Labs: Labs Reviewed by me
Old Records: Reviewed
[2025-06-06] MEDS: SYNTHROID 150 MCG PO (07:37)
[2025-06-06] MEDS: ELIQUIS 5 MG PO ×2 (07:45→19:59)
[2025-06-06] MEDS: LASIX 80 MG PO (07:45)
[2025-06-06] MEDS: VIBRAMYCIN 100 MG PO ×2 (07:45→19:59)
[2025-06-06] MEDS: PROZAC 40 MG PO ×2 (07:49→19:59)
[2025-06-06 08:40] LABS: Glycohemoglobin (HgbA1c) 7.4 % (4.0-5.9)
[2025-06-06 09:06] LABS: Glucose - Point of Care 170 mg/dl (70-99)
[2025-06-06] MEDS: NOVOLOG FLEXPEN-LOW RESISTANCE 1 UNITS SC ×3 (09:34→17:53)
[2025-06-06 11:38] LABS: Glucose - Point of Care 178 mg/dl (70-99)
[2025-06-06] MEDS: FEMARA 2.5 MG PO (11:52)
--- NOTE | 2025-06-06 11:56 | CM ---
Reviewed chart. Met with Mrs. De Dios to review discharge plans. She states prior to admission she resides with a house mate in a one story home without any steps to enter. She states prior to admission she was independent with ambulation and
adls. She states she does use a rollator when ambulating long distances in the community. She states she has a prescription plan with [facility] and uses [facility]. Telephone call to [facility] to check on coverage for Farxiga and Jardiance.
Her Farxiga 10 mg po for one month is $114.95 and Jardiance for one month is $120.64. The one month free coupon have in May since Farxiga is going generic in November. Reviewed the co-pay with her and she is agreeable. Updated P.A.
Medical work-up in progress. The discharge plan is to return home with her house partner when medically stable.
--- NOTE | 2025-06-06 12:10 | W.PN.HOSP.TC ---
Today's Communication/Plan
-
Patient for CARMELO/cardioversion
Increase atorvastatin
Transition to oral Cardizem
IV diuresis
Continue ABX
Assessment / Plan
Assessment / Plan
Patient is a 69y F with PMH significant for A-Fib / Flutter s/p multiple prior cardioversions and ablations (most recent 03/16/25) who presents to ED complaining of SOB. Patient states that she woke around midnight last night with SOB and some
mild R-sided chest discomfort. Her symptoms persisted until presentation to the ED on 06/05. She checked her pulse at home and noted that it was elevated around 140-150 bpm. EMS crew, given patient's appearance, started BiPAP and brought to the
ED. Here in the ED EKG showed atrial tachycardia versus flutter with 2-1 block, patient was placed on 2 lpm of NC O2 with adequate saturations. She was given Cardizem bolus and drip with but Cardizem drip had to be stopped due to low blood pressure.
Patient was given IV Lopressor x 1 and amiodarone infusion was started and she was transferred to the IVU. Her heart rate limited and elevated to the low 140s and cardiology was consulted.
#Atrial Fibrillation / Flutter with Rapid Ventricular Response
#Elevated troponin, downtrending
On anticoagulation
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
S/p Cardizem drip stopped due to hypotension
S/p amiodarone drip
Elevated troponin likely due to A-fib, suspect nonischemic
Elevated lipid profile with LDL 84 goal less than 70
-Increase statin to 40 mg
- Continue current med regimen for now including amiodarone.
- Update Echo (last done in January was normal).
- Cardiology consult, appreciate recs
- CARMELO/cardioversion today
- Continue Eliquis
- Continue amiodarone and transition to oral Cardizem following cardioversion
- TSH 1.5
- Patient may need outpatient sleep apnea evaluation
- Consider outpatient Lexiscan
#RLL Pneumonia
CT chest with mosaic attenuation of lungs possible for infectious/ inflammatory
Patient has no symptoms suggestive of pneumonia. Afebrile, no cough, etc.
Influenza negative
COVID-negative
- Follow temperature curve / monitor for any new symptoms.
- Continue abx for now ceftriaxone/doxycycline- with low threshold to discontinue
- If shortness of breath improves tomorrow DC antibiotics
#Chronic HFpEF
Echo with LVEF 50%, no valvular disease, no thrombus in LAP
Stable. Does not appear grossly volume overloaded.
proBNP 4200
-Start SGLTi2, case management evaluation of cough
-IV Lasix for the next 24 hours per cardiology
- Follow I/Os, daily weights, etc.
#CKD 3B�4A
History of persistently elevated creatinine baseline around 1.3�1.9
CR 1.3
Continue to monitor
#DM-II
Patient started Mounjaro last week
On CGM Dexcom G7
- Continue basal insulin 6 units and cover with SSI as needed.
- A1c 7.4%
#Anxiety / Depression
#ADHD
-Continue fluoxetine.
- hold amphetamines acutely
#Hyperlipidemia
total cholesterol 162, LDL 84, HDL 55, triglycerides 119
Increase atorvastatin to 40 mg daily
#Hypothyroidism
-TSH 1.53
- Continue T4 replacement.
#History of breast cancer
Invasive ductal carcinoma left breast [place] +, [place] negative, HER2 negative, 2023
Continue letrozole
#Morbid Obesity due to excess calories
- Affects all aspects of care.
- Encourage healthy diet and increased activity with goal of weight reduction.
- Just started on Mounjaro (1 dose so far) - hold acutely
DVT Prophylaxis: On Eliquis.
Code Status: Full
Anticipated Discharge: 24 - 48 hours
Subjective/Interval History
-
Patient was seen at bedside this morning. She reports feeling well with no palpitations or chest pain no shortness at rest, no fevers chills no nausea vomiting. She reports that she was in her usual state of health prior to the start of the
palpitations midnight of her presentation. She reports no illnesses recently and does not know what triggers her A-fib. Date of Service: June 06, 2025
Objective Data
-
Labs:
Laboratory Results
06/06/25 06/06/25
05:00 05:01
WBC 11.4 H
Hgb 12.8
Hct 41.2
Plt Count 306
Sodium 138
Potassium 4.8
Chloride 106
Carbon Dioxide 25
BUN 18 H
Creatinine 1.3 H
Glucose 181 H
Calcium 9.0
Vital Signs:
Vital Signs
Temp Pulse Resp BP Pulse Ox
97.9 F 86 16 118/70 93
06/06/25 11:34 06/06/25 11:34 06/06/25 11:34 06/06/25 07:25 06/06/25 11:34
I&O
06/05/25 06/06/25 06/07/25
05:59 06:59 06:59
Output Total 650 / 650
Balance -650 / -650
Review of Systems
-
History Source: Patient
Constitutional: Reports No Symptoms; Denies Fever or Chills
EENT: Denies Sore Throat or Runny Nose
Respiratory: Denies Cough, Trouble Breathing or Wheezing
Cardiac: Denies Chest Pain or Palpitations
Abdomen/GI: Denies Abdominal Pain, Nausea, Vomiting or Diarrhea
Genitourinary: Denies Dysuria
Skin: Denies Itching
Neuro: Denies Dizzy, Headache or Weakness
Physical Exam
-
General: Well Developed, Well Nourished, No Apparent Distress, Comfortable and Morbidly Obese; Negative Fever or Chills
HEENT: Normocephalic and Atraumatic
Respiratory: Clear to Auscultation and Non Labored Respirations; Negative Wheezes or Crackles
Cardiac: S1/S2 and Irregular Rhythm; Negative Murmur
GI: Soft, Nontender, Nondistended and Normal Bowel Sounds
Musculoskeletal: No Clubbing and No Edema
Skin: Warm and Dry
Neuro: Awake and Alert
[2025-06-06] MEDS: FARXIGA 10 MG PO (12:21)
--- NOTE | 2025-06-06 14:59 | PTCARENOTE ---
Pt received this am in a rapid afib/flutter, rate in the 140's to 150's. Pt denies feeling heart rate and has no c/o. Pt returned from the CARMELO/CV in SR, rate 70's to 80's. IV amiodarone discontinued as ordered at 1445. Pt with no c/o at this time.
[2025-06-06] MEDS: LASIX 40 MG IV (15:51)
[2025-06-06 17:47] LABS: Glucose - Point of Care 157 mg/dl (70-99)
[2025-06-06] MEDS: STERILE WATER FOR INJECTION 10 ML IV (19:59)
[2025-06-06] MEDS: ROCEPHIN 1000 MG IV (20:00)
[2025-06-06 22:13] LABS: Glucose - Point of Care 153 mg/dl (70-99)
[2025-06-06] MEDS: LANTUS 0.06 UNITS SC (22:31)
[2025-06-06] MEDS: PACERONE 200 MG PO (22:32)
[2025-06-06] MEDS: LIPITOR 40 MG PO (22:32)
[2025-06-07] VITALS (7 sets, daily range): BP systolic 85–130; BP diastolic 57–68; BMI 38.7
--- NOTE | 2025-06-07 00:14 | PTCARENOTE ---
Received patient at change of shift. SR with PACs on the monitor, HR in the 80s. Ambulating in room. No complaints from pt at this time, call newby within reach.
[2025-06-07 04:28] LABS: Blood Urea Nitrogen 20 mg/dl (7-17); Calcium 9.2 mg/dl (8.4-10.2); Carbon Dioxide 27 mmol/L (22-30); Chloride 98 mmol/L (98-107); Estimated Creatinine Clearance 36 ml/min; Glucose 155 mg/dl (70-99); Magnesium 1.7 mg/dl (1.6-2.3); Potassium 3.8 mmol/L (3.5-5.1); Sodium 134 mmol/L (135-145); eGFR 32.06
[2025-06-07] MEDS: SYNTHROID 150 MCG PO (07:26)
[2025-06-07 08:30] LABS: Glucose - Point of Care 151 mg/dl (70-99)
[2025-06-07] MEDS: PACERONE 200 MG PO ×2 (08:49→19:44)
[2025-06-07] MEDS: PROZAC 40 MG PO ×2 (08:49→19:44)
[2025-06-07] MEDS: ELIQUIS 5 MG PO ×2 (08:49→19:44)
[2025-06-07] MEDS: VIBRAMYCIN 100 MG PO (08:49)
[2025-06-07] MEDS: LASIX 40 MG IV ×2 (08:49→15:48)
[2025-06-07] MEDS: FEMARA 2.5 MG PO (08:49)
[2025-06-07] MEDS: FARXIGA 10 MG PO (08:49)
[2025-06-07] MEDS: NOVOLOG FLEXPEN-LOW RESISTANCE 1 UNITS SC ×2 (08:51→16:51)
[2025-06-07 10:29] LABS: Hematocrit 40.9 % (37.0-47.0); Hemoglobin 13.4 g/dL (12.0-16.0); Mean Corp Hgb Conc. 32.8 g/dL (33.0-37.0); Mean Corpuscular Volume 86.5 fL (81.0-99.0); Platelet Count 280 10^3/uL (130-400); Red Cell Dist. Width 13.1 % (11.5-14.5)
[2025-06-07] MEDS: NOVOLOG FLEXPEN-LOW RESISTANCE SC (11:38)
[2025-06-07 11:39] LABS: Glucose - Point of Care 146 mg/dl (70-99)
--- NOTE | 2025-06-07 12:15 | W.PN.HOSP.TC ---
Today's Communication/Plan
-
DC antibiotics
Assessment / Plan
Assessment / Plan
Patient is a 69y F with PMH significant for A-Fib / Flutter s/p multiple prior cardioversions and ablations (most recent 03/16/25) who presents to ED complaining of SOB. Patient states that she woke around midnight last night with SOB and some
mild R-sided chest discomfort. Her symptoms persisted until presentation to the ED on 06/05. She checked her pulse at home and noted that it was elevated around 140-150 bpm. EMS crew, given patient's appearance, started BiPAP and brought to the
ED. Here in the ED EKG showed atrial tachycardia versus flutter with 2-1 block, patient was placed on 2 lpm of NC O2 with adequate saturations. She was given Cardizem bolus and drip with but Cardizem drip had to be stopped due to low blood pressure.
Patient was given IV Lopressor x 1 and amiodarone infusion was started and she was transferred to the IVU. Her heart rate limited and elevated to the low 140s and cardiology was consulted.
#Atrial Fibrillation / Flutter with Rapid Ventricular Response, resolving
#Elevated troponin, downtrending
On anticoagulation
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
S/p Cardizem drip stopped due to hypotension
S/p amiodarone drip
Elevated troponin likely due to A-fib, suspect nonischemic
Elevated lipid profile with LDL 84 goal less than 70
Patient still in A-fib, HR high 90s low 100s
- statin to 40 mg
- Continue current med regimen for now including amiodarone.
- Update Echo (last done in January was normal).
- Cardiology consult, appreciate recs
- S/p CARMELO/cardioversion
- Continue Eliquis
- Continue amiodarone and transition to oral Cardizem following cardioversion
- TSH 1.5
- Patient may need outpatient sleep apnea evaluation
- Consider outpatient Lexiscan
- Echo pending?
#RLL Pneumonia, resolved
CT chest with mosaic attenuation of lungs possible for infectious/ inflammatory
Patient has no symptoms suggestive of pneumonia. Afebrile, no cough, etc.
Influenza negative
COVID-negative
- Follow temperature curve / monitor for any new symptoms.
- Continue abx for now ceftriaxone/doxycycline- with low threshold to discontinue
- Improved shortness of breath DC antibiotics
#Chronic HFpEF
Echo with LVEF 50%, no valvular disease, no thrombus in LAP
Stable. Does not appear grossly volume overloaded.
proBNP 4200
-Start SGLTi2, case management evaluation of cough
-IV Lasix for the next 24 hours per cardiology
- Follow I/Os, daily weights, etc.
#CKD 3B�4A
History of persistently elevated creatinine baseline around 1.3�1.9
CR 1.7
Continue to monitor
#DM-II
Patient started Mounjaro last week
On CGM Dexcom G7
- Continue basal insulin 6 units and cover with SSI as needed.
- A1c 7.4%
#Anxiety / Depression
#ADHD
-Continue fluoxetine.
- hold amphetamines acutely
#Hyperlipidemia
total cholesterol 162, LDL 84, HDL 55, triglycerides 119
Increase atorvastatin to 40 mg daily
#Hypothyroidism
-TSH 1.53
- Continue T4 replacement.
#History of breast cancer
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
Continue letrozole
#Morbid Obesity due to excess calories
- Affects all aspects of care.
- Encourage healthy diet and increased activity with goal of weight reduction.
- Just started on Mounjaro (1 dose so far) - hold acutely
DVT Prophylaxis: On Eliquis.
Code Status: Full
Anticipated Discharge: 24 - 48 hours
Subjective/Interval History
-
Patient was seen at bedside, she reports doing well with no palpitations or chest pain. She does report mild shortness of breath when she goes to the bathroom but this is much improved from her previous symptoms. She reported no dizziness nausea
or vomiting. Date of Service: June 07, 2025
Objective Data
-
Labs:
Laboratory Results
06/07/25 06/07/25
03:40 09:59
WBC 12.1 H
Hgb 13.4
Hct 40.9
Plt Count 280
Sodium 134 L
Potassium 3.8
Chloride 98
Carbon Dioxide 27
BUN 20 H
Creatinine 1.7 H
Glucose 155 H
Calcium 9.2
Vital Signs:
Vital Signs
Temp Pulse Resp BP Pulse Ox
98.8 F 106 20 124/70 91
06/07/25 11:36 06/07/25 00:15 06/07/25 11:36 06/06/25 22:32 06/07/25 11:36
I&O
06/06/25 06/07/25 06/08/25
06:59 06:59 06:59
Output Total 650 / 650
Balance -650 / -650
Review of Systems
-
History Source: Patient
Constitutional: Denies Fever or Chills
EENT: Denies Runny Nose
Respiratory: Denies Cough or Trouble Breathing
Cardiac: Denies Chest Pain or Palpitations
Abdomen/GI: Denies Abdominal Pain, Nausea, Vomiting, Diarrhea or Constipated
Genitourinary: Denies Dysuria
Skin: Denies Itching
Neuro: Denies Dizzy, Headache or Weakness
Physical Exam
-
General: Well Developed, Well Nourished, No Apparent Distress and Comfortable
HEENT: Normocephalic and Atraumatic
Respiratory: Clear to Auscultation and Non Labored Respirations; Negative Wheezes or Crackles
Cardiac: S1/S2 and Irregular Rhythm; Negative Murmur
GI: Soft, Nontender, Nondistended and Normal Bowel Sounds
Skin: Warm and Dry
Neuro: Awake and Alert
--- NOTE | 2025-06-07 13:20 | CM ---
Reviewed chart. Met with Miss De Dios to review discharge plans. She states she is feeling better and maybe able to go home. Prior to admission she resides with a house mate in a one story home without any steps to enter. Prior to admission she
was independent with ambulation and adls. She does use a rollator when ambulating long distances in the community. She has a prescription plan with [facility] and uses [facility]. Telephone call to [facility] health system to check on coverage for Farxiga and
Jardiance. Her Farxiga 10 mg po for one month is $114.95 and Jardiance for one month is $120.64. The one month free coupon have in May since Farxiga is going generic in November. Reviewed the co-pay with her and she is agreeable.
Updated P.A. Medical work-up in progress. The discharge plan is to return home with her house partner when medically stable.
--- NOTE | 2025-06-07 13:25 | W.PN.CARDCBS ---
Today's Communication / Plan
-
Adding p.o. diltiazem
Amiodarone 200 mg twice daily x 2 weeks then daily thereafter
Pulmonary treatment as per primary team
Anticipate discharge June 08, 2025
Impression / Plan
-
Primary Bung Driver: Dr. Zavala
Primary EP: Dr. Garcia
Impression:
Paroxysmal atypical atrial flutter with rapid heart rate
History of PVI 2022, 03/16/2025
s/p CV in ER 01/26/25
Chronic OAC with eliquis, missed 1 dose 06/05/2025
On amiodarone 200 mg daily, diltiazem 120 mg twice daily in outpatient setting
Mild troponin elevation
Shortness of breath
Chronic heart failure with preserved EF
Hypertension
Hyperlipidemia
Type 2 diabetes
Stage IIIa CKD
ECHO 06/28/2024: EF 55 to 60%, mild concentric LVH, no regional wall motion abnormalities noted, mild MR, mild AR
Echo 01/2025:Normal LV size, LV EF 50%, normal RV size and function, mild MR/PI
Cardiac cath 09/19/2021: No significant CAD, PCWP (A-V-M) 27/28/22, PA 44/25
Plan:
-Patient presented to ED with shortness of breath and was found to be in rapid atrial fibrillation. Started on Cardizem drip with no improvement in heart rates and development of hypotension. Cardizem drip stopped and received 1 dose of metoprolol
with brief improvement in heart rates. Subsequently started on amiodarone gtt, HRs remain elevated in 140s, EKG atrial flutter with 2-1 block versus atrial tachycardia. Missed one dose eliquis a.m. 06/05/2025
- Now status post cardioversion and now in sinus rhythm with multifocal PACs and short runs of PAT. We have her on amiodarone 200 mg twice daily for 2 weeks then daily. I added Cardizem CD1 20 mg twice daily and communicated with nursing to start
this.
-I suspect some of her arrhythmias are related to the inflammatory process on her CT scan of the lungs. I suspect with time that her arrhythmias should come under control and aim to have her on amiodarone and Cardizem and see her back in the office
in 1 to 2 months.
-she is on Amio 200 mg daily in outpt setting. Previous admission 01/2025 for atypical atrial flutter was loaded with Amiodarone, then had ablation 03/2025 w/ repeat PVI as well as ablation of posterior wall plus roof and floor lines for posterior
box lesion set. Also ablation of mitral flutter and atrial flutter
- Continue Eliquis
-proBNP 4200, Chest x-ray without pulm edema. Continue p.o. Lasix 80 mg daily.
-Creatinine stable at 1.3
-started Mounjaro 1 week ago and took 1 dose so far, hold for now
-Appears to be nearing discharge I would favor discharge on June 08, 2025. I would want to see her in 4 to 6 weeks in the office
Progress Note - Bung Driver
Subjective
Date of Service: June 07, 2025
Feeling well
Objective
Labs:
06/07/25 09:59
06/07/25 03:40
Labs
Hgb 13.4 g/dL (12.0-16.0) 06/07/25 09:59
Hct 40.9 % (37.0-47.0) 06/07/25 09:59
Plt Count 280 10^3/uL (130-400) 06/07/25 09:59
PT 13.7 Sec (11.4-14.6) 06/05/25 17:21
INR 1.02 06/05/25 17:21
APTT 26.3 Sec (23.4-35.0) 06/05/25 17:21
Sodium 134 mmol/L (135-145) L 06/07/25 03:40
Potassium 3.8 mmol/L (3.5-5.1) 06/07/25 03:40
BUN 20 mg/dl (7-17) H 06/07/25 03:40
Creatinine 1.7 mg/dL (0.6-1.0) H 06/07/25 03:40
Glucose 155 mg/dl (70-99) H 06/07/25 03:40
Troponins
06/05/25 06/05/25 06/06/25
17:22 22:52 05:00
Troponin I 0.033 0.048 H* D 0.044 H*
06/06/25
10:36
Troponin I Cancelled
Vital Signs and I&O:
Vital Signs
Temp Pulse Resp BP Pulse Ox
98.8 F 106 20 124/70 91
06/07/25 11:36 06/07/25 00:15 06/07/25 11:36 06/06/25 22:32 06/07/25 11:36
Vital Signs
Temp Pulse Resp BP Pulse Ox
98.8 F 106 20 124/70 91
06/07/25 11:36 06/07/25 00:15 06/07/25 11:36 06/06/25 22:32 06/07/25 11:36
Intake & Output
06/05/25 06/06/25 06/07/25 06/08/25
05:59 06:59 06:59 06:59
Output Total 650 / 650
Balance -650 / -650
Physical Exam
Physical Exam
����Physical Exam
���������������������General:��no apparent distress, not acutely ill
���������������������������Neck:��supple. no meningeal signs. normal psoterior pharynx
������������������������
���������������������������Heart:��s1/s2 regular rate and rhythm, no murmur. equal radial pulses.
��������������������������Lungs: ��no acute respiratory distress. clear bilaterally
����������������������Abdomen:�normal bowel sounds. not tender. no CVAT
��������������������������Neuro:��alert and oriented. no focal neurological deficits
������������������������������Skin: ��no rash
�����������������������Psychiatric:�well kept. interactive and cooperative
�����������������������Extremities:��no edema. no calf tenderness. negative homans. good distal pulses
��
�
[2025-06-07 16:51] LABS: Glucose - Point of Care 159 mg/dl (70-99)
[2025-06-07] MEDS: CARDIZEM CD 120 MG PO (19:44)
[2025-06-07] MEDS: TYLENOL 650 MG PO (21:13)
--- NOTE | 2025-06-07 21:27 | PTCARENOTE ---
Addendum entered by April Briggs RN 06/08/25 06:13:
Cardizem gtt restarted per Dr. Araya verbal order
Original Note:
Pt with HR 130-140 BPM. EKG confirmed A-flutter. Pt c/o SOB and PONCE. Tylenol PRN and 2L O2 applied for PlOx of 92% on RA. Dr Araya made aware
[2025-06-07] MEDS: CARDIZEM 125 IV (21:54)
[2025-06-07 21:57] LABS: Glucose - Point of Care 159 mg/dl (70-99)
[2025-06-07] MEDS: LIPITOR 40 MG PO (22:02)
[2025-06-07] MEDS: LANTUS 0.06 UNITS SC (22:03)
[2025-06-08] VITALS (17 sets, daily range): BP systolic 100–128; BP diastolic 58–86; BMI 37.8
[2025-06-08 04:26] LABS: Hematocrit 44.5 % (37.0-47.0); Hemoglobin 14.4 g/dL (12.0-16.0); Mean Corp Hgb Conc. 32.4 g/dL (33.0-37.0); Mean Corpuscular Volume 87.9 fL (81.0-99.0); Platelet Count 333 10^3/uL (130-400); Red Cell Dist. Width 13.0 % (11.5-14.5)
[2025-06-08 04:51] LABS: Blood Urea Nitrogen 31 mg/dl (7-17); Calcium 9.4 mg/dl (8.4-10.2); Carbon Dioxide 27 mmol/L (22-30); Chloride 95 mmol/L (98-107); Estimated Creatinine Clearance 32 ml/min; Glucose 174 mg/dl (70-99); Potassium 3.7 mmol/L (3.5-5.1); Sodium 134 mmol/L (135-145); eGFR 28.06
[2025-06-08] MEDS: SYNTHROID 150 MCG PO (07:47)
[2025-06-08] MEDS: TYLENOL 650 MG PO (07:50)
[2025-06-08 08:10] LABS: Glucose - Point of Care 155 mg/dl (70-99)
[2025-06-08] MEDS: NOVOLOG FLEXPEN-LOW RESISTANCE 1 UNITS SC ×2 (08:34→12:49)
[2025-06-08] MEDS: FARXIGA 10 MG PO (08:35)
[2025-06-08] MEDS: PACERONE 400 MG PO ×3 (08:35→22:16)
[2025-06-08] MEDS: FEMARA 2.5 MG PO (08:36)
[2025-06-08] MEDS: ELIQUIS 5 MG PO ×2 (08:36→20:27)
[2025-06-08] MEDS: PROZAC 40 MG PO ×2 (08:44→20:27)
[2025-06-08] MEDS: CARDIZEM CD PO (08:55)
[2025-06-08] MEDS: LASIX IV (08:57)
[2025-06-08] MEDS: PACERONE PO (09:04)
--- NOTE | 2025-06-08 09:09 | W.PN.CARDCBS ---
Addendum entered and electronically signed by Alessandro Marina DO 06/08/25 10:00:
I saw and examined the patient.
The Osd Clerk's note was reviewed and I agree with the note.
Comment:
Plan:
After discussion with EP, increase amiodarone to 400 mg TID
Cont IV Cardizem at 15 mg/hr and cont attempts at weaning, cont oral Cardizem
Cont Eliquis
Consider pulm eval for CT chest findings and has been on amiodarone.
If remains with refractory AFib as outpt, may need to consider an eventual AVJ ablation and pace strategy
Cr rising, hold current lasix and reassess volume status and cr
Original Note:
Today's Communication / Plan
-
increase amiodarone to 400mg TID
IV cardizem @15
holding AM lasix given bump in Cr. likely resume for PM as in rapid aflutter
would consider pulm evaluation of chest CT as on chronic amiodarone therapy
if remains refractory, ablate and pace strategy appears reasonable to consider
Impression / Plan
-
Primary Auto Service Instructor: Dr. Zavala
Primary EP: Dr. Garcia
Impression:
Paroxysmal atypical atrial flutter with rapid heart rate
History of PVI 2022, 03/16/2025
s/p CV in ER 01/26/25
Chronic OAC with eliquis, missed 1 dose 06/05/2025
On amiodarone 200 mg daily, diltiazem 120 mg twice daily in outpatient setting
Mild troponin elevation
Shortness of breath
Chronic heart failure with preserved EF
Hypertension
Hyperlipidemia
Type 2 diabetes
Stage IIIa CKD
ECHO 06/28/2024: EF 55 to 60%, mild concentric LVH, no regional wall motion abnormalities noted, mild MR, mild AR
Echo 01/2025:Normal LV size, LV EF 50%, normal RV size and function, mild MR/PI
Cardiac cath 09/19/2021: No significant CAD, PCWP (A-V-M) , PA 44/25
Plan:
-Patient presented to ED with shortness of breath and was found to be in rapid atrial fibrillation. Started on Cardizem drip with no improvement in heart rates and development of hypotension. Cardizem drip stopped and received 1 dose of metoprolol
with brief improvement in heart rates. Subsequently started on amiodarone gtt, HRs remain elevated in 140s, EKG atrial flutter with 2-1 block versus atrial tachycardia. s/p CV 06/06 however overnight went back into rapid aflutter.
-difficult case
-amiodarone dose increased today to 400mg TID, was on 200mg daily in OP setting. remains on IV cardizem gtt @15 in addition. follow QTc by EKG
-she has had 3 prior ablations - most recent 03/2025 w/ repeat PVI as well as ablation of posterior wall plus roof and floor lines for posterior box lesion set. Also ablation of mitral flutter and atrial flutter. will discuss with EP. consider for
ablate and pace strategy if remains refractory to medical therapy.
-Continue Eliquis
-she has diuresed this admission if weights accurate. Cr up from 1.3 to 1.7 to 1.9 on 06/08. will hold AM dose of lasix and reeval this afternoon. was on po lasix 80mg daily as OP
-she was treated for PNA with course of abx. suspect arrhythmia exacerbated by acute lung process. would consider pulm evaluation of chest CT as on chronic amiodarone therapy.
-started Mounjaro 1 week ago and took 1 dose so far, hold for now
-d/w nursing
Progress Note - Auto Service Instructor
Subjective
Date of Service: June 08, 2025
patient reports some breathlessness at times related to elevated HR
Objective
Labs:
06/08/25 03:39
06/08/25 03:39
Labs
Hgb 14.4 g/dL (12.0-16.0) 06/08/25 03:39
Hct 44.5 % (37.0-47.0) 06/08/25 03:39
Plt Count 333 10^3/uL (130-400) 06/08/25 03:39
PT 13.7 Sec (11.4-14.6) 06/05/25 17:21
INR 1.02 06/05/25 17:21
APTT 26.3 Sec (23.4-35.0) 06/05/25 17:21
Sodium 134 mmol/L (135-145) L 06/08/25 03:39
Potassium 3.7 mmol/L (3.5-5.1) 06/08/25 03:39
BUN 31 mg/dl (7-17) H 06/08/25 03:39
Creatinine 1.9 mg/dL (0.6-1.0) H 06/08/25 03:39
Glucose 174 mg/dl (70-99) H 06/08/25 03:39
Troponins
06/05/25 06/05/25 06/06/25
17:22 22:52 05:00
Troponin I 0.033 0.048 H* D 0.044 H*
06/06/25
10:36
Troponin I Cancelled
Vital Signs and I&O:
Vital Signs
Temp Pulse Resp BP Pulse Ox
98.6 F 135 18 100/64 94
06/08/25 07:35 06/08/25 08:15 06/08/25 07:35 06/08/25 08:00 06/08/25 07:35
Vital Signs
Temp Pulse Resp BP Pulse Ox
98.6 F 135 18 100/64 94
06/08/25 07:35 06/08/25 08:15 06/08/25 07:35 06/08/25 08:00 06/08/25 07:35
Intake & Output
06/06/25 06/07/25 06/08/25 06/09/25
07:59 07:59 07:59 07:59
Output Total 650 / 650 500 / 500
Balance -650 / -650 -500 / -500
Physical Exam
Physical Exam
GEN: No distress, awake, alert, oriented x3
HEENT: supple, anicteric, mmm, eomi
LUNGS: CTA B/L, no wheezes/rales
CV: Irreg irreg, S1/S2, no murmur
ABD: soft, BS+, NT/ND
EXT: No cyanosis, clubbing, edema
NEURO: Gross non-focal
SKIN: Warm, pink, dry. No rash
--- NOTE | 2025-06-08 11:27 | W.PN.HOSP.TC ---
Today's Communication/Plan
-
Restart ABX
Chest x-ray
Assessment / Plan
Assessment / Plan
Patient is a 69y F with PMH significant for A-Fib / Flutter s/p multiple prior cardioversions and ablations (most recent 03/16/25) who presents to ED complaining of SOB. Patient states that she woke around midnight last night with SOB and some
mild R-sided chest discomfort. Her symptoms persisted until presentation to the ED on 06/05. She checked her pulse at home and noted that it was elevated around 140-150 bpm. EMS crew, given patient's appearance, started BiPAP and brought to the
ED. Here in the ED EKG showed atrial tachycardia versus flutter with 2-1 block, patient was placed on 2 lpm of NC O2 with adequate saturations. She was given Cardizem bolus and drip with but Cardizem drip had to be stopped due to low blood pressure.
Patient was given IV Lopressor x 1 and amiodarone infusion was started and she was transferred to the IVU. Her heart rate limited and elevated to the low 140s and cardiology was consulted.
#Atrial Fibrillation / Flutter with Rapid Ventricular Response, resolving
#Elevated troponin, downtrending
On anticoagulation
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
S/p Cardizem drip stopped due to hypotension
S/p amiodarone drip
Elevated troponin likely due to A-fib, suspect nonischemic
Elevated lipid profile with LDL 84 goal less than 70
Patient still in A-fib, HR high 140s
Cardizem drip 15 mg/hr started on 06/07 PM
- statin to 40 mg
- Continue current med regimen for now including amiodarone.
- Update Echo (last done in January was normal).
- Cardiology consult, appreciate recs
- S/p CARMELO/cardioversion
- Continue Eliquis
- amiodarone increased to 400 3 times daily
- oral Cardizem
- TSH 1.5
- Patient may need outpatient sleep apnea evaluation
- Consider outpatient Lexiscan
#RLL Pneumonia
CT chest with mosaic attenuation of lungs possible for infectious/ inflammatory
Patient has no symptoms suggestive of pneumonia. Afebrile, no cough, etc.
Influenza negative
COVID-negative
- Follow temperature curve / monitor for any new symptoms.
-Patient heart rate elevated after DC antibiotics, possibly inflammatory pulmonary process contributing, restart antibiotics
- Chest x-ray
#Chronic HFpEF
Echo with LVEF 50%, no valvular disease, no thrombus in LAP
Stable. Does not appear grossly volume overloaded.
proBNP 4200
-Start SGLTi2 after case management evaluation of cost
- Hold Lasix
- Chest x-ray
#CKD 3B�4A
History of persistently elevated creatinine baseline around 1.3�1.9
Creatinine steadily rising
CR 1.9
-Continue to monitor
- Consider fluid bolus post chest x-ray
#DM-II
Patient started Mounjaro last week
On CGM Dexcom G7
- Continue basal insulin 6 units and cover with SSI as needed.
- A1c 7.4%
#Anxiety / Depression
#ADHD
-Continue fluoxetine.
- hold amphetamines acutely
#Hyperlipidemia
total cholesterol 162, LDL 84, HDL 55, triglycerides 119
Increase atorvastatin to 40 mg daily
#Hypothyroidism
-TSH 1.53
- Continue T4 replacement.
#History of breast cancer
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
Continue letrozole
#Morbid Obesity due to excess calories
- Affects all aspects of care.
- Encourage healthy diet and increased activity with goal of weight reduction.
- Just started on Mounjaro (1 dose so far) - hold acutely
DVT Prophylaxis: On Eliquis.
Code Status: Full
Anticipated Discharge: Within 24 hours
Subjective/Interval History
-
Patient was seen at bedside. Overnight patient had elevated irregular rhythm heart rates to the 140s requiring Cardizem drip which caused a drop in her blood pressure. She had some mild shortness of breath at that time requiring supplemental
oxygen, but this morning she is feeling better and we were able to titrate down her oxygen requirements. She reported no chest pain no nausea vomiting no fevers or chills. She denies cough or recent illness. Date of Service: June 08, 2025
Objective Data
-
Labs:
Laboratory Results
06/08/25
03:39
WBC 11.6 H
Hgb 14.4
Hct 44.5
Plt Count 333
Sodium 134 L
Potassium 3.7
Chloride 95 L
Carbon Dioxide 27
BUN 31 H
Creatinine 1.9 H
Glucose 174 H
Calcium 9.4
Vital Signs:
Vital Signs
Temp Pulse Resp BP Pulse Ox
98.6 F 135 20 100/64 92
06/08/25 10:56 06/08/25 08:15 06/08/25 10:56 06/08/25 08:00 06/08/25 10:56
I&O
06/07/25 06/08/25 06/09/25
06:59 06:59 06:59
Output Total 500 / 500
Balance -500 / -500
Review of Systems
-
History Source: Patient
Constitutional: Denies Fever or Chills
EENT: Denies Runny Nose
Respiratory: Denies Cough or Trouble Breathing
Cardiac: Denies Chest Pain, Diaphoresis, Palpitations or Syncope
Abdomen/GI: Denies Abdominal Pain, Nausea, Vomiting, Diarrhea or Constipated
Genitourinary: Denies Dysuria
Neuro: Denies Dizzy, Headache or Weakness
Physical Exam
-
General: Well Developed, Well Nourished, No Apparent Distress, Comfortable and Obese
HEENT: Normocephalic, Atraumatic and Oxygen (1 L)
Respiratory: Clear to Auscultation and Non Labored Respirations; Negative Wheezes or Crackles
Cardiac: S1/S2, Irregular Rhythm and Tachycardic; Negative Murmur
GI: Soft, Nontender, Nondistended and Normal Bowel Sounds
Musculoskeletal: No Clubbing and No Edema
Skin: Warm and Dry
Neuro: Awake and Alert
--- NOTE | 2025-06-08 12:11 | CM ---
Chart reviewed. Patient is independent of ADLS, lives with a friend in a [address], 0 [address], 0 DME. Plan is for the patient to return home. CM to follow
[2025-06-08 12:48] LABS: Glucose - Point of Care 194 mg/dl (70-99)
[2025-06-08] MEDS: VIBRAMYCIN 100 MG PO ×2 (14:36→20:27)
[2025-06-08] MEDS: CARDIZEM 125 IV (14:42)
[2025-06-08] MEDS: STERILE WATER FOR INJECTION 10 ML IV (15:10)
[2025-06-08] MEDS: ROCEPHIN 1000 MG IV (15:11)
[2025-06-08] MEDS: ROCEPHIN IV (15:20)
[2025-06-08] MEDS: STERILE WATER FOR INJECTION IV (15:21)
[2025-06-08 17:10] LABS: Glucose - Point of Care 206 mg/dl (70-99)
[2025-06-08] MEDS: NOVOLOG FLEXPEN-LOW RESISTANCE 2 UNITS SC (17:44)
[2025-06-08] MEDS: CARDIZEM CD 120 MG PO (20:26)
[2025-06-08] MEDS: LIPITOR 40 MG PO (20:27)
[2025-06-08 22:14] LABS: Glucose - Point of Care 183 mg/dl (70-99)
[2025-06-08] MEDS: COMPAZINE 5 MG IV (22:15)
[2025-06-08] MEDS: LANTUS 0.06 UNITS SC (22:16)
[2025-06-09] MEDS: CARDIZEM 125 IV ×2 (01:41→11:09)
[2025-06-09 03:51] VITALS: BP 113/60
[2025-06-09 04:28] LABS: Hematocrit 42.5 % (37.0-47.0); Hemoglobin 14.1 g/dL (12.0-16.0); Mean Corp Hgb Conc. 33.2 g/dL (33.0-37.0); Mean Corpuscular Volume 83.3 fL (81.0-99.0); Platelet Count 352 10^3/uL (130-400); Red Cell Dist. Width 12.9 % (11.5-14.5)
[2025-06-09 04:49] LABS: Blood Urea Nitrogen 40 mg/dl (7-17); Calcium 9.3 mg/dl (8.4-10.2); Carbon Dioxide 27 mmol/L (22-30); Chloride 97 mmol/L (98-107); Estimated Creatinine Clearance 33 ml/min; Glucose 189 mg/dl (70-99); Potassium 3.7 mmol/L (3.5-5.1); Sodium 132 mmol/L (135-145); eGFR 29.94
--- NOTE | 2025-06-09 05:56 | PTCARENOTE ---
Pt with AFib HT 90-120 BPM. VSS Pt on Cardizem gtt per order. Pt required 2L O2 for PlOx 89-90% on RA.
[2025-06-09 06:00] VITALS: BMI 37.9
[2025-06-09 07:51] VITALS: BP 114/74
[2025-06-09] MEDS: FEMARA 2.5 MG PO (08:30)
[2025-06-09] MEDS: SYNTHROID 150 MCG PO (08:30)
[2025-06-09] MEDS: ELIQUIS 5 MG PO ×2 (08:30→20:13)
[2025-06-09] MEDS: CARDIZEM CD 120 MG PO (08:30)
[2025-06-09] MEDS: PACERONE 400 MG PO ×3 (08:31→22:28)
[2025-06-09] MEDS: VIBRAMYCIN 100 MG PO ×2 (08:31→20:13)
[2025-06-09] MEDS: FARXIGA 10 MG PO (08:31)
[2025-06-09] MEDS: PROZAC 40 MG PO ×2 (08:31→20:13)
--- NOTE | 2025-06-09 09:46 | W.PN.HOSP.TC ---
Today's Communication/Plan
-
Negative chest x-ray
Dispo plan
Assessment / Plan
Assessment / Plan
Patient is a 69y F with PMH significant for A-Fib / Flutter s/p multiple prior cardioversions and ablations (most recent 03/16/25) who presents to ED complaining of SOB. Patient states that she woke around midnight last night with SOB and some
mild R-sided chest discomfort. Her symptoms persisted until presentation to the ED on 06/05. She checked her pulse at home and noted that it was elevated around 140-150 bpm. EMS crew, given patient's appearance, started BiPAP and brought to the
ED. Here in the ED EKG showed atrial tachycardia versus flutter with 2-1 block, patient was placed on 2 lpm of NC O2 with adequate saturations. She was given Cardizem bolus and drip with but Cardizem drip had to be stopped due to low blood pressure.
Patient was given IV Lopressor x 1 and amiodarone infusion was started and she was transferred to the IVU. Her heart rate limited and elevated to the low 140s and cardiology was consulted. In the ED patient got CT chest showing mosaic attenuation
of the lungs concerning for infectious/inflammatory process and patient was started on ceftriaxone and doxycycline. In the hospital cardiology took patient for CARMELO with cardioversion and patient was converted back to sinus. Given lack of systemic
symptoms cough antibiotics were stopped. The day following cardioversion patient's heart rate got elevated and went back into A-fib with RVR in the 140s, cardiology started Cardizem drip again and antibiotics were restarted.
#Atrial Fibrillation / Flutter with Rapid Ventricular Response, resolving
#Elevated troponin, downtrending
On anticoagulation
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
S/p Cardizem drip stopped due to hypotension
S/p amiodarone drip
Elevated troponin likely due to A-fib, suspect nonischemic
Elevated lipid profile with LDL 84 goal less than 70
Patient still in A-fib, HR improved to 120s
Cardizem drip 15 mg/hr started on 11 PM
- statin to 40 mg
- Continue current med regimen for now including amiodarone.
- Update Echo (last done in January was normal).
- Cardiology consult, appreciate recs
- S/p CARMELO/cardioversion
- Continue Eliquis
- amiodarone increased to 400 3 times daily
- oral Cardizem plus Cardizem drip
- TSH 1.5
- Patient may need outpatient sleep apnea evaluation
- Consider outpatient Lexiscan
#RLL Pneumonia
CT chest with mosaic attenuation of lungs possible for infectious/ inflammatory
Patient has no symptoms suggestive of pneumonia. Afebrile, no cough, etc.
Influenza negative
COVID-negative
- Follow temperature curve / monitor for any new symptoms.
-Patient heart rate elevated after DC antibiotics, possibly inflammatory pulmonary process contributing, restart antibiotics
- Chest x-ray with no acute cardiopulmonary process
#Chronic HFpEF
Echo with LVEF 50%, no valvular disease, no thrombus in LAP
Stable. Does not appear grossly volume overloaded.
proBNP 4200
-Start SGLTi2 after case management evaluation of cost
- Hold Lasix
- Chest x-ray with no acute cardiopulmonary process 06/08
#CKD 3B�4A
History of persistently elevated creatinine baseline around 1.3�1.9
Creatinine steadily rising
CR 1.8
-Continue to monitor
- Consider fluid bolus post chest x-ray
#DM-II
Patient started Mounjaro last week
On CGM Dexcom G7
- Continue basal insulin 6 units and cover with SSI as needed.
- A1c 7.4%
#Anxiety / Depression
#ADHD
-Continue fluoxetine.
- hold amphetamines acutely
#Hyperlipidemia
total cholesterol 162, LDL 84, HDL 55, triglycerides 119
Increase atorvastatin to 40 mg daily
#Hypothyroidism
-TSH 1.53
- Continue T4 replacement.
#History of breast cancer
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
Continue letrozole
#Morbid Obesity due to excess calories
- Affects all aspects of care.
- Encourage healthy diet and increased activity with goal of weight reduction.
- Just started on Mounjaro (1 dose so far) - hold acutely
DVT Prophylaxis: On Eliquis.
Code Status: Full
Anticipated Discharge: Within 24 hours
Subjective/Interval History
-
Patient was seen at bedside, she reports feeling much better than yesterday. Still endorses shortness of breath when walking to the bathroom. No dizziness no chest pain no nausea vomiting. Date of Service: June 09, 2025
Objective Data
-
Labs:
Laboratory Results
06/09/25
03:59
WBC 11.5 H
Hgb 14.1
Hct 42.5
Plt Count 352
Sodium 132 L
Potassium 3.7
Chloride 97 L
Carbon Dioxide 27
BUN 40 H
Creatinine 1.8 H
Glucose 189 H
Calcium 9.3
Vital Signs:
Vital Signs
Temp Pulse Resp BP Pulse Ox
97.5 F 117 20 114/74 95
06/09/25 07:51 06/09/25 08:15 06/09/25 07:51 06/09/25 07:51 06/09/25 07:51
I&O
06/08/25 06/09/25 06/10/25
06:59 06:59 06:59
Intake Total 430 / 430
Output Total 500 / 500 700 / 700
Balance -500 / -500 -270 / -270
Review of Systems
-
History Source: Patient
Constitutional: Denies Fever or Chills
EENT: Denies Runny Nose
Respiratory: Denies Cough or Trouble Breathing
Cardiac: Denies Chest Pain or Palpitations
Abdomen/GI: Denies Abdominal Pain, Nausea, Vomiting or Diarrhea
Genitourinary: Denies Dysuria
Neuro: Denies Dizzy or Headache
Physical Exam
-
General: Well Developed, Well Nourished, No Apparent Distress, Comfortable and Obese; Negative Fever
HEENT: Normocephalic and Atraumatic
Respiratory: Clear to Auscultation and Non Labored Respirations; Negative Wheezes or Crackles
Cardiac: S1/S2, Irregular Rhythm and Tachycardic; Negative Murmur
GI: Soft, Nontender, Nondistended and Normal Bowel Sounds
Musculoskeletal: No Clubbing and No Edema
Skin: Warm and Dry
Neuro: Awake and Alert
[2025-06-09 09:53] LABS: Glucose - Point of Care 188 mg/dl (70-99)
[2025-06-09] MEDS: NOVOLOG FLEXPEN-LOW RESISTANCE 1 UNITS SC (09:53)
--- NOTE | 2025-06-09 10:14 | W.PN.CARDCBS ---
Addendum entered and electronically signed by Alessandro Marina DO 06/09/25 17:37:
I saw and examined the patient.
The English Lecturer's note was reviewed and I agree with the note.
Comment:
General: No acute distress, AAOX3
Neck: Negative JVD
Heart: Irregular irregular,, Negative S3 positive S1/S2, Negative S4, No murmur
Lungs: CTA b/l, negative wheezes/rales/rhonchi
Abd: Positive BS, NT/ND, neg rebound/rigidity/guarding
Ext: Negative cyanosis/clubbing/edema
Neuro: nonfocal
Plan:
Heart rates improving, wean IV Cardizem
Increased oral Cardizem CD to 180 mg twice a day
Continue amiodarone load with 400 mg p.o. 3 times daily
Monitor EKG, QTc
Resume oral Lasix 80 mg daily in the a.m. if creatinine remains stable
Would strongly consider pulmonary evaluation/consultation given CT scan findings
Original Note:
Today's Communication / Plan
-
Wean IV Cardizem drip as able
Increase Cardizem p.o. to 180 twice daily
Continue Amio 400 mg 3 times daily
EKG in a.m. to reevaluate QTc
Resume p.o. Lasix 80 mg daily in a.m.
Impression / Plan
-
Primary Wort Extractor: Dr. Zavala
Primary EP: Dr. Garcia
Impression:
Paroxysmal atypical atrial flutter with rapid heart rate
History of PVI 2022, 03/16/2025
s/p CV in ER 01/26/25
Chronic OAC with eliquis, missed 1 dose 06/05/2025
On amiodarone 200 mg daily, diltiazem 120 mg twice daily in outpatient setting
Mild troponin elevation
Shortness of breath
Chronic heart failure with preserved EF
Hypertension
Hyperlipidemia
Type 2 diabetes
Stage IIIa CKD
ECHO 06/28/2024: EF 55 to 60%, mild concentric LVH, no regional wall motion abnormalities noted, mild MR, mild AR
Echo 01/2025:Normal LV size, LV EF 50%, normal RV size and function, mild MR/PI
Cardiac cath 09/19/2021: No significant CAD, PCWP (A-V-M) , PA 44/
Plan:
-Patient presented to ED with shortness of breath and was found to be in rapid atrial fibrillation. Started on Cardizem drip with no improvement in heart rates and development of hypotension. Cardizem drip stopped and received 1 dose of metoprolol
with brief improvement in heart rates. Subsequently started on amiodarone gtt, HRs remain elevated in 140s, EKG atrial flutter with 2-1 block versus atrial tachycardia. s/p CV 06/06 however overnight went back into rapid aflutter.
-Remains in atrial flutter, however heart rate trends are overall improving on review of telemetry.
-Currently remains on Amio 400 mg 3 times daily, was on 200 mg daily in outpatient setting. Plan will be for discharge on 200 mg 3 times daily when felt to be ready.
-Also currently remains on IV Cardizem gtt at 10. Will increase p.o. Cardizem to 180 mg twice daily and attempt to wean IV Cardizem drip as able today
-she has had 3 prior ablations - most recent 03/2025 w/ repeat PVI as well as ablation of posterior wall plus roof and floor lines for posterior box lesion set. Also ablation of mitral flutter and atrial flutter. will discuss with EP. consider for
ablate and pace strategy if remains refractory to medical therapy.
-Continue Eliquis
-she has diuresed this admission if weights accurate. Cr up from 1.3 to 1.7 to 1.9, now improving, 1.8 on 06/09. was on po lasix 80mg daily as OP, resume in AM
-she was treated for PNA with course of abx. suspect arrhythmia exacerbated by acute lung process. would consider pulm evaluation of chest CT as on chronic amiodarone therapy, d/w hospitalist 06/08
-started Mounjaro 1 week ago and took 1 dose so far, hold for now
Progress Note - Wort Extractor
Subjective
Date of Service: June 09, 2025
Reports feeling better. Does remain with some dyspnea on exertion
Objective
Labs:
06/09/25 03:59
06/09/25 03:59
Labs
Hgb 14.1 g/dL (12.0-16.0) 06/09/25 03:59
Hct 42.5 % (37.0-47.0) 06/09/25 03:59
Plt Count 352 10^3/uL (130-400) 06/09/25 03:59
PT 13.7 Sec (11.4-14.6) 06/05/25 17:21
INR 1.02 06/05/25 17:21
APTT 26.3 Sec (23.4-35.0) 06/05/25 17:21
Sodium 132 mmol/L (135-145) L 06/09/25 03:59
Potassium 3.7 mmol/L (3.5-5.1) 06/09/25 03:59
BUN 40 mg/dl (7-17) H 06/09/25 03:59
Creatinine 1.8 mg/dL (0.6-1.0) H 06/09/25 03:59
Glucose 189 mg/dl (70-99) H 06/09/25 03:59
Troponins
06/06/25
10:36
Troponin I Cancelled
Vital Signs and I&O:
Vital Signs
Temp Pulse Resp BP Pulse Ox
97.5 F 117 20 114/74 95
06/09/25 07:51 06/09/25 08:15 06/09/25 07:51 06/09/25 07:51 06/09/25 07:51
Vital Signs
Temp Pulse Resp BP Pulse Ox
97.5 F 117 20 114/74 95
06/09/25 07:51 06/09/25 08:15 06/09/25 07:51 06/09/25 07:51 06/09/25 07:51
Intake & Output
06/07/25 06/08/25 06/09/25 06/10/25
07:59 07:59 07:59 07:59
Intake Total 430 / 430
Output Total 500 / 500 700 / 700
Balance -500 / -500 -270 / -270
Physical Exam
Physical Exam
GEN: No distress, awake, alert, oriented x3
HEENT: supple, anicteric, mmm, eomi
LUNGS: CTA B/L, no wheezes/rales
CV: irreg, S1/S2, no murmur
ABD: soft, BS+, NT/ND
EXT: No cyanosis, clubbing, edema
NEURO: Gross non-focal
SKIN: Warm, pink, dry. No rash
[2025-06-09 11:17] VITALS: BP 118/102
--- NOTE | 2025-06-09 11:39 | CM ---
Chart reviewed. Patient is independent of ADLS, lives with a friend in a [address], [address], ambulates with a rollator. Offered patient VN but she declined saying her friend is there if she needs anything. Plan is for the patient to return home. CM
to follow
[2025-06-09 12:54] LABS: Glucose - Point of Care 261 mg/dl (70-99)
[2025-06-09] MEDS: NOVOLOG FLEXPEN-LOW RESISTANCE 3 UNITS SC (13:40)
--- NOTE | 2025-06-09 14:51 | PTCARENOTE ---
Assumed care of the pt @ 0700. Pt AAOx3 A fib on the monitor Cardizem gtt weaned off HR 80's. denies cp pt independent with ADLs in room. Call newby within reach.
[2025-06-09 14:57] VITALS: BP 131/53
[2025-06-09] MEDS: ROCEPHIN 1000 MG IV (15:41)
[2025-06-09] MEDS: STERILE WATER FOR INJECTION 10 ML IV (15:42)
[2025-06-09 18:04] LABS: Glucose - Point of Care 218 mg/dl (70-99)
[2025-06-09] MEDS: NOVOLOG FLEXPEN-LOW RESISTANCE 2 UNITS SC (18:13)
[2025-06-09] MEDS: CARDIZEM CD 180 MG PO (20:11)
[2025-06-09 20:12] VITALS: BP 142/81
[2025-06-09] MEDS: COMPAZINE 5 MG IV (20:54)
[2025-06-09 22:15] VITALS: BP 129/76
[2025-06-09 22:17] LABS: Glucose - Point of Care 218 mg/dl (70-99)
[2025-06-09] MEDS: LANTUS 0.06 UNITS SC (22:25)
[2025-06-09] MEDS: LIPITOR 40 MG PO (22:28)
--- NOTE | 2025-06-09 23:17 | PTCARENOTE ---
Received pt in controlled afib. Denies pain or shortness of breath. VSS. Pt nauseous after taking 180mg of cardizem po, given compazine.
[2025-06-10] VITALS (8 sets, daily range): BP systolic 95–141; BP diastolic 52–79; BMI 38.1
[2025-06-10 03:38] LABS: Hematocrit 41.7 % (37.0-47.0); Hemoglobin 13.8 g/dL (12.0-16.0); Mean Corp Hgb Conc. 33.1 g/dL (33.0-37.0); Mean Corpuscular Volume 87.2 fL (81.0-99.0); Platelet Count 384 10^3/uL (130-400); Red Cell Dist. Width 12.8 % (11.5-14.5)
[2025-06-10 04:01] LABS: Blood Urea Nitrogen 40 mg/dl (7-17); Calcium 9.3 mg/dl (8.4-10.2); Carbon Dioxide 28 mmol/L (22-30); Chloride 97 mmol/L (98-107); Estimated Creatinine Clearance 30 ml/min; Glucose 180 mg/dl (70-99); Potassium 3.5 mmol/L (3.5-5.1); Sodium 131 mmol/L (135-145); eGFR 26.38
[2025-06-10] MEDS: SYNTHROID 150 MCG PO (06:01)
[2025-06-10 08:43] LABS: Glucose - Point of Care 198 mg/dl (70-99)
[2025-06-10] MEDS: NOVOLOG FLEXPEN-LOW RESISTANCE 1 UNITS SC (09:40)
[2025-06-10] MEDS: VIBRAMYCIN 100 MG PO ×2 (09:42→19:44)
[2025-06-10] MEDS: FARXIGA 10 MG PO (09:42)
[2025-06-10] MEDS: CARDIZEM CD 180 MG PO ×2 (09:42→19:43)
[2025-06-10] MEDS: PACERONE 400 MG PO ×3 (09:42→22:10)
[2025-06-10] MEDS: FEMARA 2.5 MG PO (09:43)
[2025-06-10] MEDS: PROZAC 40 MG PO ×2 (09:43→19:44)
[2025-06-10] MEDS: ELIQUIS 5 MG PO ×2 (09:43→19:44)
--- NOTE | 2025-06-10 11:57 | CM ---
Chart reviewed. Patient is independent of ADLS, lives with her friend in a [address], [address], ambulates with a rollator. Plan is for the patient to return home. ZAK younger
[2025-06-10] MEDS: LASIX PO (12:07)
[2025-06-10 12:14] LABS: Glucose - Point of Care 302 mg/dl (70-99)
[2025-06-10] MEDS: NOVOLOG FLEXPEN-LOW RESISTANCE 4 UNITS SC (12:20)
[2025-06-10] MEDS: NSS 250 IV (12:24)
--- NOTE | 2025-06-10 12:48 | W.PN.HOSP.TC ---
Today's Communication/Plan
-
Cardizem drip stopped yesterday
Saline bolus
Dispo planning
Assessment / Plan
Assessment / Plan
Patient is a 69y F with PMH significant for A-Fib / Flutter s/p multiple prior cardioversions and ablations (most recent 03/16/25) who presents to ED complaining of SOB. Patient states that she woke around midnight last night with SOB and some
mild R-sided chest discomfort. Her symptoms persisted until presentation to the ED on 06/05. She checked her pulse at home and noted that it was elevated around 140-150 bpm. EMS crew, given patient's appearance, started BiPAP and brought to the
ED. Here in the ED EKG showed atrial tachycardia versus flutter with 2-1 block, patient was placed on 2 lpm of NC O2 with adequate saturations. She was given Cardizem bolus and drip with but Cardizem drip had to be stopped due to low blood pressure.
Patient was given IV Lopressor x 1 and amiodarone infusion was started and she was transferred to the IVU. Her heart rate limited and elevated to the low 140s and cardiology was consulted. In the ED patient got CT chest showing mosaic attenuation
of the lungs concerning for infectious/inflammatory process and patient was started on ceftriaxone and doxycycline. In the hospital cardiology took patient for CARMELO with cardioversion and patient was converted back to sinus. Given lack of systemic
symptoms cough antibiotics were stopped. The day following cardioversion patient's heart rate got elevated and went back into A-fib with RVR in the 140s, cardiology started Cardizem drip again and antibiotics were restarted. Patient's heart rate
improved to the 100s and diltiazem drip was stopped.
#Atrial Fibrillation / Flutter with Rapid Ventricular Response, resolving
#Elevated troponin, downtrending
On anticoagulation
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
S/p amiodarone drip
Elevated troponin likely due to A-fib, suspect nonischemic
Elevated lipid profile with LDL 84 goal less than 70
Patient still in A-fib, HR improved to 120s
Cardizem drip 15 mg/hr started on 06/07 PM stopped 06/09 p.m
- statin to 40 mg
- Continue current med regimen for now including amiodarone.
- Update Echo (last done in January was normal).
- Cardiology consult, appreciate recs
- S/p CARMELO/cardioversion
- Continue Eliquis
- amiodarone increased to 400 3 times daily
- oral Cardizem
- TSH 1.5
- Patient may need outpatient sleep apnea evaluation
- Consider outpatient Lexiscan
#RLL Pneumonia
CT chest with mosaic attenuation of lungs possible for infectious/ inflammatory
Patient has no symptoms suggestive of pneumonia. Afebrile, no cough, etc.
Influenza negative
COVID-negative
- Follow temperature curve / monitor for any new symptoms.
-Patient heart rate elevated after DC antibiotics, possibly inflammatory pulmonary process contributing, restart antibiotics
- Chest x-ray with no acute cardiopulmonary process
- Pulmonology suggesting outpatient follow-up
#Chronic HFpEF
Echo with LVEF 50%, no valvular disease, no thrombus in LAP
Stable. Does not appear grossly volume overloaded.
proBNP 4200
-Start SGLTi2 after case management evaluation of cost
- Hold Lasix
- Chest x-ray with no acute cardiopulmonary process 06/08
#CKD 3B�4A
History of persistently elevated creatinine baseline around 1.3�1.9
Creatinine steadily rising
CR 2.0
-Continue to monitor
- 250 cc bolus NSS
#DM-II
Patient started Mounjaro last week
On CGM Dexcom G7
- Continue basal insulin 6 units and cover with SSI as needed.
- A1c 7.4%
#Anxiety / Depression
#ADHD
-Continue fluoxetine.
- hold amphetamines acutely
#Hyperlipidemia
total cholesterol 162, LDL 84, HDL 55, triglycerides 119
Increase atorvastatin to 40 mg daily
#Hypothyroidism
-TSH 1.53
- Continue T4 replacement.
#History of breast cancer
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
Continue letrozole
#Morbid Obesity due to excess calories
- Affects all aspects of care.
- Encourage healthy diet and increased activity with goal of weight reduction.
- Just started on Mounjaro (1 dose so far) - hold acutely
DVT Prophylaxis: On Eliquis.
Code Status: Full
Anticipated Discharge: Within 24 hours
Subjective/Interval History
-
Patient was seen at bedside this morning, she reports feeling well mild shortness of breath when she walks to the bathroom otherwise no shortness of breath at rest. Patient reports no chest pain palpitations nausea vomiting abdominal pain. No
fevers no chills. Date of Service: June 10, 2025
Objective Data
-
Labs:
Laboratory Results
06/10/25
02:54
WBC 10.6
Hgb 13.8
Hct 41.7
Plt Count 384
Sodium 131 L
Potassium 3.5
Chloride 97 L
Carbon Dioxide 28
BUN 40 H
Creatinine 2.0 H
Glucose 180 H
Calcium 9.3
Vital Signs:
Vital Signs
Temp Pulse Resp BP Pulse Ox
98.2 F 96 20 141/68 92
06/10/25 12:09 06/10/25 07:45 06/10/25 12:09 06/10/25 07:34 06/10/25 12:09
I&O
06/09/25 06/10/25 06/11/25
06:59 06:59 06:59
Intake Total 430 / 430 1000 / 1000 420 / 420
Output Total 700 / 700 450 / 450 200 / 200
Balance -270 / -270 550 / 550 220 / 220
Review of Systems
-
History Source: Patient
Constitutional: Denies Fever or Chills
EENT: Denies Runny Nose
Respiratory: Denies Cough, Trouble Breathing or Wheezing
Cardiac: Denies Chest Pain or Palpitations
Abdomen/GI: Denies Abdominal Pain, Nausea, Vomiting, Diarrhea or Constipated
Genitourinary: Denies Dysuria
Neuro: Denies Dizzy, Headache or Weakness
Physical Exam
-
General: Well Developed, Well Nourished, No Apparent Distress, Comfortable and Obese; Negative Fever
HEENT: Normocephalic and Atraumatic
Respiratory: Clear to Auscultation and Non Labored Respirations; Negative Wheezes or Crackles
Cardiac: S1/S2 and Irregular Rhythm; Negative Murmur
GI: Soft, Nontender, Nondistended and Normal Bowel Sounds
Musculoskeletal: No Clubbing and No Edema
Skin: Warm and Dry
Neuro: Awake and Alert
--- NOTE | 2025-06-10 13:04 | W.PN.CARDCBS ---
Addendum entered and electronically signed by Joey Zavala MD 06/10/25 14:19:
I saw and examined the patient.
The Taper Machine's note was reviewed and I agree with the note.
Comment: Briefly, 69-year-old woman past medical history of persistent atrial fibrillation with prior PVI who presents in atrial fibrillation with rapid ventricular response.
Underwent direct-current cardioversion 06/06/2025 which was successful but unfortunately atrial fibrillation recurred
Continue currently in rate controlled atrial fibrillation
Would continue oral Cardizem and amiodarone
If she remains in atrial fibrillation at outpatient follow-up can consider repeat direct-current cardioversion +/- EP study and repeat ablation
Eliquis for risk reduction of cardioembolic stroke
Weight has come down with IV diuresis but diuretics are currently on hold given rising creatinine
Would resume oral Lasix 80 mg daily once creatinine starts to improve
Rest per Beti Colunga
Original Note:
Today's Communication / Plan
-
Heart rates much improved. Continue Amio load, cardizem cd
continue eliquis
lasix on hold. follow Cr
Impression / Plan
-
Primary Ballet Teacher: Dr. Zavala
Primary EP: Dr. Garcia
Impression:
Paroxysmal atypical atrial flutter with rapid heart rate
History of PVI 2022, 03/16/2025
s/p CV in ER 01/26/25
Chronic OAC with eliquis, missed 1 dose 06/05/2025
On amiodarone 200 mg daily, diltiazem 120 mg twice daily in outpatient setting
Mild troponin elevation
Shortness of breath
Chronic heart failure with preserved EF
Hypertension
Hyperlipidemia
Type 2 diabetes
Stage IIIa CKD
ECHO 06/28/2024: EF 55 to 60%, mild concentric LVH, no regional wall motion abnormalities noted, mild MR, mild AR
Echo 01/2025:Normal LV size, LV EF 50%, normal RV size and function, mild MR/PI
Cardiac cath 09/19/2021: No significant CAD, PCWP (A-V-M) , PA 44/25
Plan:
-Patient presented to ED with shortness of breath and was found to be in rapid atrial fibrillation. Started on Cardizem drip with no improvement in heart rates and development of hypotension. Cardizem drip stopped and received 1 dose of metoprolol
with brief improvement in heart rates. Subsequently started on amiodarone gtt, HRs remain elevated in 140s, EKG atrial flutter with 2-1 block versus atrial tachycardia. s/p CV 06/06 however overnight went back into rapid aflutter.
-Remains in atrial flutter, however heart rate trends are overall much improved on review of telemetry.
-Currently remains on Amio 400 mg 3 times daily, was on 200 mg daily in outpatient setting. Plan will be for discharge on 200 mg 3 times daily when felt to be ready.
-weaned off IV cardizem gtt. continue po cardizem cd 180mg BID
-she has had 3 prior ablations - most recent 03/2025 w/ repeat PVI as well as ablation of posterior wall plus roof and floor lines for posterior box lesion set. Also ablation of mitral flutter and atrial flutter. will discuss with EP. consider for
ablate and pace strategy if remains refractory to medical therapy.
-Continue Eliquis
-she has diuresed this admission if weights accurate. Cr up from 1.3 to 2.0 today, although has been this high in past. po lasix 80mg daily on hold for now. appears stable from volume standpoint
-she was treated for PNA with course of abx. suspect arrhythmia exacerbated by acute lung process. would consider pulm evaluation of chest CT as on chronic amiodarone therapy, d/w hospitalist 06/08
-started Mounjaro 1 week ago and took 1 dose so far, hold for now
-d/w nursing
Progress Note - Ballet Teacher
Subjective
Date of Service: June 10, 2025
Denies palpitations, chest pain. Reports breathing is good.
Objective
Labs:
06/10/25 02:54
06/10/25 02:54
Labs
Hgb 13.8 g/dL (12.0-16.0) 06/10/25 02:54
Hct 41.7 % (37.0-47.0) 06/10/25 02:54
Plt Count 384 10^3/uL (130-400) 06/10/25 02:54
PT 13.7 Sec (11.4-14.6) 06/05/25 17:21
INR 1.02 06/05/25 17:21
APTT 26.3 Sec (23.4-35.0) 06/05/25 17:21
Sodium 131 mmol/L (135-145) L 06/10/25 02:54
Potassium 3.5 mmol/L (3.5-5.1) 06/10/25 02:54
BUN 40 mg/dl (7-17) H 06/10/25 02:54
Creatinine 2.0 mg/dL (0.6-1.0) H 06/10/25 02:54
Glucose 180 mg/dl (70-99) H 06/10/25 02:54
Vital Signs and I&O:
Vital Signs
Temp Pulse Resp BP Pulse Ox
98.2 F 96 20 141/68 92
06/10/25 12:09 06/10/25 07:45 06/10/25 12:09 06/10/25 07:34 06/10/25 12:09
Vital Signs
Temp Pulse Resp BP Pulse Ox
98.2 F 96 20 141/68 92
06/10/25 12:09 06/10/25 07:45 06/10/25 12:09 06/10/25 07:34 06/10/25 12:09
Intake & Output
06/08/25 06/09/25 06/10/25 06/11/25
07:59 07:59 07:59 07:59
Intake Total 430 / 430 1000 / 1000 420 / 420
Output Total 500 / 500 700 / 700 450 / 450 200 / 200
Balance -500 / -500 -270 / -270 550 / 550 220 / 220
Physical Exam
Physical Exam
GEN: No distress, awake, alert, oriented x3
HEENT: supple, anicteric, mmm, eomi
LUNGS: CTA B/L, no wheezes/rales
CV: irreg, S1/S2, no murmur
ABD: soft, BS+, NT/ND
EXT: No cyanosis, clubbing, edema
NEURO: Gross non-focal
SKIN: Warm, pink, dry. No rash
[2025-06-10] MEDS: ROCEPHIN 1000 MG IV (14:55)
[2025-06-10] MEDS: STERILE WATER FOR INJECTION 10 ML IV (14:55)
[2025-06-10 17:16] LABS: Glucose - Point of Care 213 mg/dl (70-99)
[2025-06-10] MEDS: NOVOLOG FLEXPEN-LOW RESISTANCE 2 UNITS SC (18:00)
--- NOTE | 2025-06-10 18:36 | PTCARENOTE ---
Pt denies any nausea . Pt resting in bed for much of the day. Telemetry shows atrial fib at a rate @70 with one 4beat run NSVT. Lasix held for Cr.2.0, IV fluid bolus given.
[2025-06-10 22:07] LABS: Glucose - Point of Care 213 mg/dl (70-99)
[2025-06-10] MEDS: COMPAZINE 5 MG IV (22:09)
[2025-06-10] MEDS: LIPITOR 40 MG PO (22:11)
[2025-06-10] MEDS: LANTUS 0.06 UNITS SC (22:11)
--- NOTE | 2025-06-10 23:27 | PTCARENOTE ---
Rec'd pt at change of shift. Pt AAO*3, VSS, and Afib on tele monitor with HR in the 90's. Pt denies any chest pain at this time and updated on plan of care. Pt did report nausea and PRN Compazine given as ordered. Pt now resting with call newby
in reach. See MAR and flowchart for full pt care and assessment.
[2025-06-11] VITALS (9 sets, daily range): BP systolic 108–152; BP diastolic 51–83; BMI 38.3
[2025-06-11 02:37] LABS: Hematocrit 40.0 % (37.0-47.0); Hemoglobin 13.3 g/dL (12.0-16.0); Mean Corp Hgb Conc. 33.3 g/dL (33.0-37.0); Mean Corpuscular Volume 83.2 fL (81.0-99.0); Platelet Count 384 10^3/uL (130-400); Red Cell Dist. Width 12.8 % (11.5-14.5)
[2025-06-11 02:59] LABS: Blood Urea Nitrogen 37 mg/dl (7-17); Calcium 9.4 mg/dl (8.4-10.2); Carbon Dioxide 25 mmol/L (22-30); Chloride 100 mmol/L (98-107); Estimated Creatinine Clearance 36 ml/min; Glucose 173 mg/dl (70-99); Potassium 3.8 mmol/L (3.5-5.1); Sodium 135 mmol/L (135-145); eGFR 32.06
--- NOTE | 2025-06-11 05:45 | PTCARENOTE ---
Pt used call newby to report nausea and lightheadedness that developed after turning to bed from bathroom. Pt with small amount of clear emesis. BP 152/82 and Compazine offered. Pt initially accepted but then declined as symptoms resolved. Pt
instructed to call for staff assistance before ambulating with pt agreeing. Pt now resting with call newby in reach.
[2025-06-11] MEDS: SYNTHROID 150 MCG PO (08:21)
--- NOTE | 2025-06-11 08:23 | W.PN.CARDCBS ---
Today's Communication / Plan
-
HR continue to improve, rate controlled atrial flutter.
Continue Cardizem CD 180 mg twice a day. She remains off IV Cardizem.
Likely one more day of amiodarone 400 mg TID then likely 200 mg TID as per EP at time of d/c.
Cont Eliquis
As you know, she has had 3 prior PVI's:
most recent 03/2025 w/ repeat PVI as well as ablation of posterior wall plus roof and floor lines for posterior box lesion set. Also ablation of mitral flutter and atrial flutter.
Outpt EP follow up after amiodarone load.
Likely reduce amiodarone after outpt follow up visit.
Consider resume oral lasix next 24 hrs if cr continues to improve
po lasix 80mg daily on hold for now.
Remains stable from volume standpoint
Appreciate primary service discussions with pulmonology.
Pulmonary 'recommends outpatient follow-up for abnormal CT chest findings considering chronic amiodarone use, however these findings are likely infectious/inflammatory and being treated with antibiotics.'
She was treated for PNA with course of abx.
Possible d/c from cardiac standpoint next 24 hrs if continues to improve
Outpt follow up scheduled already for later this coming week.
Impression / Plan
-
.
Primary Beam Machine Operator: Dr. Zavala
Primary EP: Dr. Garcia
Impression:
Paroxysmal atypical atrial flutter with rapid heart rate
History of PVI 2022, 03/16/2025
s/p CV in ER 01/26/25
Chronic OAC with eliquis, missed 1 dose 06/05/2025
On amiodarone 200 mg daily, diltiazem 120 mg twice daily in outpatient setting
Mild troponin elevation
Shortness of breath multifactorial
RLL PNA
Chronic heart failure with preserved EF
Hypertension
Hyperlipidemia
Type 2 diabetes
Stage IIIa CKD
ECHO 06/28/2024: EF 55 to 60%, mild concentric LVH, no regional wall motion abnormalities noted, mild MR, mild AR
Echo 01/2025:Normal LV size, LV EF 50%, normal RV size and function, mild MR/PI
Cardiac cath 09/19/2021: No significant CAD, PCWP (A-V-M) 27/28/22, PA 44/25
Plan:
-Patient presented to ED with shortness of breath and was found to be in rapid atrial fibrillation. Started on Cardizem drip with no improvement in heart rates and development of hypotension. Cardizem drip stopped and received 1 dose of metoprolol
with brief improvement in heart rates. Subsequently started on amiodarone gtt, HRs remain elevated in 140s, EKG atrial flutter with 2-1 block versus atrial tachycardia. s/p CV 11/ however overnight went back into rapid aflutter.
HR continue to improve, rate controlled atrial flutter.
Continue Cardizem CD 180 mg twice a day. She remains off IV Cardizem.
Likely one more day of amiodarone 400 mg TID then likely 200 mg TID as per EP at time of d/c.
Cont Eliquis
As you know, she has had 3 prior PVI's:
most recent 03/2025 w/ repeat PVI as well as ablation of posterior wall plus roof and floor lines for posterior box lesion set. Also ablation of mitral flutter and atrial flutter.
Outpt EP follow up after amiodarone load.
Likely reduce amiodarone after outpt follow up visit.
Consider resume oral lasix next 24 hrs if cr continues to improve
po lasix 80mg daily on hold for now.
Remains stable from volume standpoint
Appreciate primary service discussions with pulmonology.
Pulmonary 'recommends outpatient follow-up for abnormal CT chest findings considering chronic amiodarone use, however these findings are likely infectious/inflammatory and being treated with antibiotics.'
She was treated for PNA with course of abx.
Possible d/c from cardiac standpoint next 24 hrs if continues to improve
Outpt follow up scheduled already for later this coming week.
Progress Note - Beam Machine Operator
Subjective
Date of Service: June 11, 2025
Patient seen and examined. Breathing better. No chest pain
Objective
Labs:
06/11/25 02:19
06/11/25 02:19
Labs
Hgb 13.3 g/dL (12.0-16.0) 06/11/25 02:19
Hct 40.0 % (37.0-47.0) 06/11/25 02:19
Plt Count 384 10^3/uL (130-400) 06/11/25 02:19
PT 13.7 Sec (11.4-14.6) 06/05/25 17:21
INR 1.02 06/05/25 17:21
APTT 26.3 Sec (23.4-35.0) 06/05/25 17:21
Sodium 135 mmol/L (135-145) 06/11/25 02:19
Potassium 3.8 mmol/L (3.5-5.1) 06/11/25 02:19
BUN 37 mg/dl (7-17) H 06/11/25 02:19
Creatinine 1.7 mg/dL (0.6-1.0) H 06/11/25 02:19
Glucose 173 mg/dl (70-99) H 06/11/25 02:19
Vital Signs and I&O:
Vital Signs
Temp Pulse Resp BP Pulse Ox
98.4 F 82 18 152/83 91
06/11/25 08:20 06/11/25 07:00 06/11/25 08:20 06/11/25 05:13 06/11/25 08:20
Vital Signs
Temp Pulse Resp BP Pulse Ox
98.4 F 82 18 152/83 91
06/11/25 08:20 06/11/25 07:00 06/11/25 08:20 06/11/25 05:13 06/11/25 08:20
Intake & Output
06/09/25 06/10/25 06/11/25 06/12/25
06:59 06:59 06:59 06:59
Intake Total 430 / 430 1000 / 1000 1150 / 1150
Output Total 700 / 700 450 / 450 800 / 800
Balance -270 / -270 550 / 550 350 / 350
Physical Exam
Physical Exam
General: No acute distress, AAOX3
Neck: Negative JVD
Heart: Irregularly irregular, Negative S3 positive S1/S2, Negative S4, No murmur
Lungs: CTA b/l, negative wheezes/rales/rhonchi
Abd: Morbid obesity, positive BS, NT/ND, neg rebound/rigidity/guarding
Ext: Negative cyanosis/clubbing/edema
Neuro: nonfocal
[2025-06-11 08:33] LABS: Glucose - Point of Care 195 mg/dl (70-99)
[2025-06-11] MEDS: NOVOLOG FLEXPEN-LOW RESISTANCE 1 UNITS SC (09:49)
[2025-06-11] MEDS: PACERONE 400 MG PO ×3 (09:50→22:18)
[2025-06-11] MEDS: ELIQUIS 5 MG PO ×2 (09:50→20:40)
[2025-06-11] MEDS: VIBRAMYCIN 100 MG PO (09:50)
[2025-06-11] MEDS: FEMARA 2.5 MG PO (09:50)
[2025-06-11] MEDS: CARDIZEM CD 180 MG PO ×2 (09:51→20:40)
[2025-06-11] MEDS: PROZAC 40 MG PO ×2 (09:51→20:40)
[2025-06-11] MEDS: FARXIGA 10 MG PO (09:51)
[2025-06-11 13:15] LABS: Glucose - Point of Care 272 mg/dl (70-99)
[2025-06-11] MEDS: NOVOLOG FLEXPEN-LOW RESISTANCE 3 UNITS SC (13:47)
--- NOTE | 2025-06-11 14:27 | W.PN.HOSP.TC ---
Today's Communication/Plan
-
Course of antibiotics complete
Amiodarone loading
Dispo planning
Assessment / Plan
Assessment / Plan
Patient is a 69y F with PMH significant for A-Fib / Flutter s/p multiple prior cardioversions and ablations (most recent 03/16/25) who presents to ED complaining of SOB. Patient states that she woke around midnight last night with SOB and some
mild R-sided chest discomfort. Her symptoms persisted until presentation to the ED on 06/05. She checked her pulse at home and noted that it was elevated around 140-150 bpm. EMS crew, given patient's appearance, started BiPAP and brought to the
ED. Here in the ED EKG showed atrial tachycardia versus flutter with 2-1 block, patient was placed on 2 lpm of NC O2 with adequate saturations. She was given Cardizem bolus and drip with but Cardizem drip had to be stopped due to low blood pressure.
Patient was given IV Lopressor x 1 and amiodarone infusion was started and she was transferred to the IVU. Her heart rate limited and elevated to the low 140s and cardiology was consulted. In the ED patient got CT chest showing mosaic attenuation
of the lungs concerning for infectious/inflammatory process and patient was started on ceftriaxone and doxycycline. In the hospital cardiology took patient for CARMELO with cardioversion and patient was converted back to sinus. Given lack of systemic
symptoms cough antibiotics were stopped. The day following cardioversion patient's heart rate got elevated and went back into A-fib with RVR in the 140s, cardiology started Cardizem drip again and antibiotics were restarted. Patient's heart rate
improved to the 100s and diltiazem drip was stopped.
#Atrial Fibrillation / Flutter with Rapid Ventricular Response, resolving
#Elevated troponin, downtrending
On anticoagulation
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
S/p amiodarone drip
Elevated troponin likely due to A-fib, suspect nonischemic
Elevated lipid profile with LDL 84 goal less than 70
Patient still in A-fib, HR improved to 120s
Cardizem drip 15 mg/hr started on 06/07 PM stopped 06/09 p.m
- statin to 40 mg
- Continue current med regimen for now including amiodarone.
- Update Echo (last done in January was normal).
- Cardiology consult, appreciate recs
- S/p CARMELO/cardioversion
- Continue Eliquis
- amiodarone increased to 400 3 times daily
- oral Cardizem
- TSH 1.5
- Patient may need outpatient sleep apnea evaluation
- Consider outpatient Lexiscan
#RLL Pneumonia
CT chest with mosaic attenuation of lungs possible for infectious/ inflammatory
Patient has no symptoms suggestive of pneumonia. Afebrile, no cough, etc.
Influenza negative
COVID-negative
- Follow temperature curve / monitor for any new symptoms.
- Course of antibiotics complete
- Chest x-ray with no acute cardiopulmonary process
- Pulmonology suggesting outpatient follow-up
#Chronic HFpEF
Echo with LVEF 50%, no valvular disease, no thrombus in LAP
Stable. Does not appear grossly volume overloaded.
proBNP 4200
-Start SGLTi2 after case management evaluation of cost
- Hold Lasix
- Chest x-ray with no acute cardiopulmonary process 06/08
#CKD 3B�4A
History of persistently elevated creatinine baseline around 1.3�1.9
Creatinine steadily rising
CR 2.0
-Continue to monitor
- 250 cc bolus NSS
#DM-II
Patient started Mounjaro last week
On CGM Dexcom G7
- Continue basal insulin 6 units and cover with SSI as needed.
- A1c 7.4%
#Anxiety / Depression
#ADHD
-Continue fluoxetine.
- hold amphetamines acutely
#Hyperlipidemia
total cholesterol 162, LDL 84, HDL 55, triglycerides 119
Increase atorvastatin to 40 mg daily
#Hypothyroidism
-TSH 1.53
- Continue T4 replacement.
#History of breast cancer
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
Continue letrozole
#Morbid Obesity due to excess calories
- Affects all aspects of care.
- Encourage healthy diet and increased activity with goal of weight reduction.
- Just started on Mounjaro (1 dose so far) - hold acutely
DVT Prophylaxis: On Eliquis.
Code Status: Full
Anticipated Discharge: Within 24 hours
Subjective/Interval History
-
Patient doing well at bedside. Reports that she had episode of nausea and diarrhea overnight that resolved on its own without medication. Currently not nauseous date of Service: June 11, 2025
Objective Data
-
Labs:
Laboratory Results
06/11/25
02:19
WBC 13.8 H
Hgb 13.3
Hct 40.0
Plt Count 384
Sodium 135
Potassium 3.8
Chloride 100
Carbon Dioxide 25
BUN 37 H
Creatinine 1.7 H
Glucose 173 H
Calcium 9.4
Vital Signs:
Vital Signs
Temp Pulse Resp BP Pulse Ox
98.6 F 74 18 108/60 92
06/11/25 12:33 06/11/25 12:00 06/11/25 12:33 06/11/25 12:35 06/11/25 12:33
I&O
06/10/25 06/11/25 06/12/25
06:59 06:59 06:59
Intake Total 1000 / 1000 1150 / 1150 600 / 600
Output Total 450 / 450 800 / 800 400 / 400
Balance 550 / 550 350 / 350 200 / 200
Review of Systems
-
History Source: Patient
Constitutional: Denies Fever or Chills
EENT: Denies Sore Throat or Mouth Pain
Respiratory: Denies Cough or Trouble Breathing
Cardiac: Denies Chest Pain, Diaphoresis, Palpitations or Syncope
Abdomen/GI: Reports Nausea and Diarrhea; Denies Abdominal Pain, Vomiting or Constipated
Genitourinary: Denies Dysuria
Neuro: Denies Dizzy, Headache or Weakness
Physical Exam
-
General: Well Developed, Well Nourished, No Apparent Distress, Comfortable and Obese; Negative Fever
HEENT: Normocephalic and Atraumatic
Respiratory: Clear to Auscultation and Non Labored Respirations; Negative Wheezes or Crackles
Cardiac: S1/S2 and Irregular Rhythm; Negative Murmur
GI: Soft, Nontender, Nondistended and Normal Bowel Sounds
Musculoskeletal: No Clubbing and No Edema
Skin: Warm and Dry
Neuro: Awake and Alert
[2025-06-11 17:45] LABS: Glucose - Point of Care 215 mg/dl (70-99)
[2025-06-11] MEDS: NOVOLOG FLEXPEN-HIGH RESISTANCE 4 UNITS SC (18:03)
--- NOTE | 2025-06-11 18:34 | PTCARENOTE ---
Pt denied any nausea today. Pt encouraged to be a little more active. Blood sugars consistently elevated over 200, sliding scale insulin coverage increased to high dose . Telemetry continues to be controlled atrial fib at a rate @70-80's.
[2025-06-11 20:40] LABS: Glucose - Point of Care 205 mg/dl (70-99)
--- NOTE | 2025-06-11 21:37 | PTCARENOTE ---
Rec'd pt at change of shift. Pt AAO*3, VSS, and Afib on tele monitor. Pt denies any pain, nausea, or discomfort. Pt resting with call newby in reach and updated on discharge planning. See MAR and flowchart for full pt care and assessment.
[2025-06-11 22:17] LABS: Glucose - Point of Care 188 mg/dl (70-99)
[2025-06-11] MEDS: LIPITOR 40 MG PO (22:17)
[2025-06-11] MEDS: LANTUS 0.06 UNITS SC (22:18)
[2025-06-12 02:29] VITALS: BP 137/69
[2025-06-12 02:30] VITALS: BMI 38.5
[2025-06-12 03:46] LABS: Hematocrit 40.3 % (37.0-47.0); Hemoglobin 13.3 g/dL (12.0-16.0); Mean Corp Hgb Conc. 33.0 g/dL (33.0-37.0); Mean Corpuscular Volume 84.1 fL (81.0-99.0); Platelet Count 384 10^3/uL (130-400); Red Cell Dist. Width 12.9 % (11.5-14.5)
[2025-06-12 04:08] LABS: Blood Urea Nitrogen 33 mg/dl (7-17); Calcium 9.5 mg/dl (8.4-10.2); Carbon Dioxide 25 mmol/L (22-30); Chloride 98 mmol/L (98-107); Estimated Creatinine Clearance 38 ml/min; Glucose 165 mg/dl (70-99); Potassium 3.8 mmol/L (3.5-5.1); Sodium 131 mmol/L (135-145); eGFR 34.48
[2025-06-12 07:32] VITALS: BP 119/68
--- NOTE | 2025-06-12 07:32 | W.PN.CARDCBS ---
Today's Communication / Plan
-
Amiodarone 200 mg 3 times daily until next outpatient cardiac visit later this week.
Resume Lasix at lower dose 60 mg daily.
Stable from cardiac standpoint for discharge
Impression / Plan
-
.
Primary Freight Router: Dr. Zavala
Primary EP: Dr. Garcia
Impression:
Paroxysmal atypical atrial flutter with rapid heart rate
History of PVI 2022, 03/16/2025
s/p CV in ER 01/26/25
Chronic OAC with eliquis, missed 1 dose 06/05/2025
On amiodarone 200 mg daily, diltiazem 120 mg twice daily in outpatient setting
Mild troponin elevation
Shortness of breath multifactorial
RLL PNA
Chronic heart failure with preserved EF
Hypertension
Hyperlipidemia
Type 2 diabetes
Stage IIIa CKD
ECHO 06/28/2024: EF 55 to 60%, mild concentric LVH, no regional wall motion abnormalities noted, mild MR, mild AR
Echo 01/2025:Normal LV size, LV EF 50%, normal RV size and function, mild MR/PI
Cardiac cath 09/19/2021: No significant CAD, PCWP (A-V-M) 27/28/22, PA 44/25
Plan:
-Patient presented to ED with shortness of breath and was found to be in rapid atrial fibrillation. Started on Cardizem drip with no improvement in heart rates and development of hypotension. Cardizem drip stopped and received 1 dose of metoprolol
with brief improvement in heart rates. Subsequently started on amiodarone gtt, HRs remain elevated in 140s, EKG atrial flutter with 2-1 block versus atrial tachycardia. s/p CV 06/06 however overnight went back into rapid aflutter.
HR continue to improve, rate controlled atrial flutter.
Continue Cardizem CD 180 mg twice a day.
Transition from amiodarone 400 mg TID to 200 mg TID as per EP at time of d/c. Likely reduce amiodarone after outpt follow up visit as she got an inpt amiodarone load.
Cont Eliquis
As you know, she has had 3 prior PVI's:
most recent 03/2025 w/ repeat PVI as well as ablation of posterior wall plus roof and floor lines for posterior box lesion set. Also ablation of mitral flutter and atrial flutter.
Outpt EP follow up after amiodarone load.
Consider resume oral lasix as cr stable. She takes lasix 80 mg daily as outpt, would reduce to 60 mg daily and check BMP one week.
Remains stable from volume standpoint
Appreciate primary service discussions with pulmonology.
Pulmonary 'recommends outpatient follow-up for abnormal CT chest findings considering chronic amiodarone use, however these findings are likely infectious/inflammatory and being treated with antibiotics.'
She was treated for PNA with course of abx.
Stable for d/c from cardiac standpoint
Outpt follow up scheduled already for later this coming week.
Discussed with nursing and primary service
Progress Note - Freight Router
Subjective
Date of Service: June 12, 2025
Pt seen and examined. No complaints. No chest pain or shortness of breath.
Objective
Labs:
06/12/25 02:48
06/12/25 02:48
Labs
Hgb 13.3 g/dL (12.0-16.0) 06/12/25 02:48
Hct 40.3 % (37.0-47.0) 06/12/25 02:48
Plt Count 384 10^3/uL (130-400) 06/12/25 02:48
PT 13.7 Sec (11.4-14.6) 06/05/25 17:21
INR 1.02 06/05/25 17:21
APTT 26.3 Sec (23.4-35.0) 06/05/25 17:21
Sodium 131 mmol/L (135-145) L 06/12/25 02:48
Potassium 3.8 mmol/L (3.5-5.1) 06/12/25 02:48
BUN 33 mg/dl (7-17) H 06/12/25 02:48
Creatinine 1.6 mg/dL (0.6-1.0) H 06/12/25 02:48
Glucose 165 mg/dl (70-99) H 06/12/25 02:48
Vital Signs and I&O:
Vital Signs
Temp Pulse Resp BP Pulse Ox
98.1 F 75 20 137/69 93
06/12/25 07:31 06/12/25 04:00 06/12/25 07:31 06/12/25 02:29 06/12/25 07:31
Vital Signs
Temp Pulse Resp BP Pulse Ox
98.1 F 75 20 137/69 93
06/12/25 07:31 06/12/25 04:00 06/12/25 07:31 06/12/25 02:29 06/12/25 07:31
Intake & Output
06/10/25 06/11/25 06/12/25 06/13/25
06:59 06:59 06:59 06:59
Intake Total 1000 / 1000 1150 / 1150 1320 / 1320
Output Total 450 / 450 800 / 800 800 / 800
Balance 550 / 550 350 / 350 520 / 520
Physical Exam
Physical Exam
General: No acute distress, AAOX3
Neck: Negative JVD
Heart: Irregular irregular, Negative S3 positive S1/S2, Negative S4, No murmur
Lungs: CTA b/l, negative wheezes/rales/rhonchi
Abd: Obesity, positive BS, NT/ND, neg rebound/rigidity/guarding
Ext: Negative cyanosis/clubbing/edema
Neuro: nonfocal
[2025-06-12 08:47] LABS: Glucose - Point of Care 164 mg/dl (70-99)
[2025-06-12] MEDS: CARDIZEM CD 180 MG PO (09:26)
[2025-06-12] MEDS: SYNTHROID 150 MCG PO (09:26)
[2025-06-12] MEDS: FARXIGA 10 MG PO (09:27)
[2025-06-12] MEDS: PACERONE 400 MG PO (09:27)
[2025-06-12] MEDS: PROZAC 40 MG PO (09:27)
[2025-06-12] MEDS: FEMARA 2.5 MG PO (09:29)
[2025-06-12] MEDS: ELIQUIS 5 MG PO (09:29)
[2025-06-12] MEDS: NOVOLOG FLEXPEN-HIGH RESISTANCE 2 UNITS SC (09:30)
--- NOTE | 2025-06-12 09:46 | PTCARENOTE ---
assumed care of pt. pt continues to be afib on the monitor, hr in the 90s, vss. pt offers no complaints at this time. pt sitting on the side of the bed and tolerating well. pt ambulating in room and tolerating well. pt educated on plan of care and
verbalized understanding. call newby within reach.
--- NOTE | 2025-06-12 10:46 | W.PN.HOSP.TC ---
Today's Communication/Plan
-
Dispo planning
Assessment / Plan
Assessment / Plan
Patient is a 69y F with PMH significant for A-Fib / Flutter s/p multiple prior cardioversions and ablations (most recent 03/16/25) who presents to ED complaining of SOB. Patient states that she woke around midnight last night with SOB and some
mild R-sided chest discomfort. Her symptoms persisted until presentation to the ED on 06/05. She checked her pulse at home and noted that it was elevated around 140-150 bpm. EMS crew, given patient's appearance, started BiPAP and brought to the
ED. Here in the ED EKG showed atrial tachycardia versus flutter with 2-1 block, patient was placed on 2 lpm of NC O2 with adequate saturations. She was given Cardizem bolus and drip with but Cardizem drip had to be stopped due to low blood pressure.
Patient was given IV Lopressor x 1 and amiodarone infusion was started and she was transferred to the IVU. Her heart rate limited and elevated to the low 140s and cardiology was consulted. In the ED patient got CT chest showing mosaic attenuation
of the lungs concerning for infectious/inflammatory process and patient was started on ceftriaxone and doxycycline. In the hospital cardiology took patient for CARMELO with cardioversion and patient was converted back to sinus. Given lack of systemic
symptoms cough antibiotics were stopped. The day following cardioversion patient's heart rate got elevated and went back into A-fib with RVR in the 140s, cardiology started Cardizem drip again and antibiotics were restarted. Patient's heart rate
improved to the 100s and diltiazem drip was stopped.
#Atrial Fibrillation / Flutter with Rapid Ventricular Response, resolving
#Elevated troponin, downtrending
On anticoagulation
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
S/p amiodarone drip
Elevated troponin likely due to A-fib, suspect nonischemic
Elevated lipid profile with LDL 84 goal less than 70
Patient still in A-fib, HR improved to 120s
Cardizem drip 15 mg/hr started on 06/07 PM stopped 11 p.m
- statin to 40 mg
- Continue current med regimen for now including amiodarone.
- Update Echo (last done in January was normal).
- Cardiology consult, appreciate recs
- S/p CARMELO/cardioversion
- Continue Eliquis
- amiodarone 200 3 times daily at discharge
- oral Cardizem 180 twice daily
- TSH 1.5
- Patient may need outpatient sleep apnea evaluation
- Consider outpatient Lexiscan
#RLL Pneumonia
CT chest with mosaic attenuation of lungs possible for infectious/ inflammatory
Patient has no symptoms suggestive of pneumonia. Afebrile, no cough, etc.
Influenza negative
COVID-negative
- Follow temperature curve / monitor for any new symptoms.
- Course of antibiotics complete
- Chest x-ray with no acute cardiopulmonary process
- Pulmonology suggesting outpatient follow-up
#Chronic HFpEF
Echo with LVEF 50%, no valvular disease, no thrombus in LAP
Stable. Does not appear grossly volume overloaded.
proBNP 4200
-Start SGLTi2 after case management evaluation of cost
- Restart Lasix 60 mg p.o. daily, check BMP in 1 week
- Chest x-ray with no acute cardiopulmonary process 06/08
#CKD 3B�4A
History of persistently elevated creatinine baseline around 1.3�1.9
Creatinine steadily rising
CR 2.0
-Continue to monitor
- 250 cc bolus NSS
#DM-II
Patient started Mounjaro last week
On CGM Dexcom G7
- Continue basal insulin 6 units and cover with SSI as needed.
- A1c 7.4%
#Anxiety / Depression
#ADHD
-Continue fluoxetine.
- hold amphetamines acutely
#Hyperlipidemia
total cholesterol 162, LDL 84, HDL 55, triglycerides 119
Increase atorvastatin to 40 mg daily
#Hypothyroidism
-TSH 1.53
- Continue T4 replacement.
#History of breast cancer
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
Continue letrozole
#Morbid Obesity due to excess calories
- Affects all aspects of care.
- Encourage healthy diet and increased activity with goal of weight reduction.
- Just started on Mounjaro (1 dose so far) - hold acutely
DVT Prophylaxis: On Eliquis.
Code Status: Full
Anticipated Discharge: Today
Subjective/Interval History
-
Patient was at bedside doing well. Reported no nausea or diarrhea, noticed shortness of breath no chest pain or palpitations no fevers or chills. Date of Service: June 12, 2025
Objective Data
-
Labs:
Laboratory Results
06/12/25
02:48
WBC 13.9 H
Hgb 13.3
Hct 40.3
Plt Count 384
Sodium 131 L
Potassium 3.8
Chloride 98
Carbon Dioxide 25
BUN 33 H
Creatinine 1.6 H
Glucose 165 H
Calcium 9.5
Vital Signs:
Vital Signs
Temp Pulse Resp BP Pulse Ox
98.1 F 107 20 119/68 93
06/12/25 07:31 06/12/25 09:26 06/12/25 07:31 06/12/25 09:26 06/12/25 07:36
I&O
06/11/25 06/12/25 06/13/25
06:59 06:59 06:59
Intake Total 1150 / 1150 1320 / 1320 480 / 480
Output Total 800 / 800 800 / 800
Balance 350 / 350 520 / 520 480 / 480
Review of Systems
-
History Source: Patient
Constitutional: Denies Fever
EENT: Denies Runny Nose
Respiratory: Denies Cough or Trouble Breathing
Cardiac: Denies Chest Pain or Palpitations
Abdomen/GI: Denies Abdominal Pain, Nausea, Vomiting, Diarrhea or Constipated
Genitourinary: Denies Dysuria
Neuro: Denies Dizzy or Headache
Physical Exam
-
General: Well Developed, Well Nourished, No Apparent Distress, Comfortable and Obese
HEENT: Normocephalic and Atraumatic
Respiratory: Clear to Auscultation and Non Labored Respirations; Negative Wheezes or Crackles
Cardiac: S1/S2 and Irregular Rhythm; Negative Murmur
GI: Soft, Nontender, Nondistended and Normal Bowel Sounds
Musculoskeletal: No Clubbing and No Edema
Skin: Warm and Dry
Neuro: Awake and Alert
[2025-06-12 10:54] VITALS: BP 120/59
--- NOTE | 2025-06-12 11:51 | W.DCSUMMARY ---
Addendum entered and electronically signed by Andrea Castañeda MD, Resident 06/14/25 11:51:
#Acute on chronic heart failure with preserved ejection fraction
proBNP 4200
Patient treated with IV Lasix
Oxygen therapy
Original Note:
Discharge Summary
Discharge Data
Date of Admission: 06/05/25
Date of Discharge: 06/12/25
-
Pending Results: No
Hospital Course
Discharging Physician :
Dr. Castelan
Dr. Castañeda
Disposition :
Home
Primary care physician :
Kailyn Petty
Principal Discharge diagnosis :
Atrial fibrillation with rapid ventricular response
Chronic Discharge diagnosis :
Atrial Fibrillation / Flutter
HFpEF
DM-II
Breast Cancer s/p Surgery, Chemo, XRT
Hypothyroidism
Asthma
Morbid Obesity
ADHD
Anxiety / Depression
Hospital Course :
Ms. Martin is a 69y F with PMH significant for A-Fib / Flutter s/p multiple prior cardioversions and ablations (most recent 03/16/25) who presents to ED complaining of SOB. Patient states that she woke around midnight last night with SOB and
some mild R-sided chest discomfort. Her symptoms persisted until presentation to the ED on 06/05. She checked her pulse at home and noted that it was elevated around 140-150 bpm. EMS crew, given patient's appearance, started BiPAP and brought to
the ED. In the ED EKG showed atrial tachycardia versus flutter with 2-1 block, patient was placed on 2 lpm of NC O2 with adequate saturations, CT chest showed mosaic attenuation of the lungs concerning for infectious/inflammatory process and patient
was started on ceftriaxone and doxycycline but given lack of systemic symptoms cough antibiotics were stopped the following day. In the hospital she was given Cardizem bolus and drip but drip had to be stopped due to low blood pressure. Patient
was given IV Lopressor x 1 and amiodarone infusion was started and she was transferred to the IVU cardiology was consulted. In the hospital cardiology took patient for CARMELO with cardioversion and patient was converted back to sinus. The day following
cardioversion patient's heart rate got elevated and went back into A-fib with RVR in the 140s, cardiology started Cardizem drip again and antibiotics were restarted as cardiology thought inflammatory process may be contributing to RVR and patient
completed course of antibiotics for pneumonia. Patient's heart rate improved to the 80s-100s and Cardizem drip was stopped and oral diltiazem was increased. Cardiology started patient on Farxiga for heart failure and titrated antiarrhythmics.
Patient tolerated titration and was stable for discharge. At discharge patient's heart rate was 80-70s and was AFVSS.
Important imaging findings :
06/05/[address]:
IMPRESSION:
1. No evidence of pulmonary embolism.
2. Mosaic attenuation of the lungs with new tree-in-bud opacities in the posterior right lower lobe which may be infectious/inflammatory.
06/08/2025 chest x-ray:
IMPRESSION:
No acute cardiopulmonary process.
Procedure findings :
06/10/2025 EKG:
Test Reason : QTC
Blood Pressure : */* mmHG
Vent. Rate : 93 BPM Atrial Rate : * BPM
P-R Int : * ms QRS Dur : 110 ms
QT Int : 364 ms P-R-T Axes : * -46 79 degrees
QTcB Int : 452 ms
ATRIAL FIBRILLATION
LEFT ANTERIOR FASCICULAR BLOCK
MINIMAL VOLTAGE CRITERIA FOR LVH, MAY BE NORMAL VARIANT ( Mario product )
ABNORMAL ECG
WHEN COMPARED WITH ECG OF 07-Jun-2025 21:18,
ATRIAL FIBRILLATION HAS REPLACED ATRIAL FLUTTER
VENT. RATE HAS DECREASED by 49 bpm
ST NO LONGER DEPRESSED IN LATERAL LEADS
Discharge Plan
-
Patient Disposition: Home (Routine Discharge)
Discharge Diagnosis/Procedures: Atrial fibrillation with rapid ventricular response
Condition: Good
Diet: 2 Gram Sodium
Activity: As tolerated
Driving Restrictions: As prior to admission
Bathing Restrictions: None
Specialty Instructions: Weigh Daily- Call MD for wt gain/loss 3 lbs overnight/5 lbs in 1 week
Referrals:
Kailyn Petty MD [Family Provider, Family Practice]
Jean-Claude Bagley MD [Active, Pulmonary Medicine] - in two weeks
Marychuy Avalos CRNP [Specified Professional Personl, Cardiology] - 06/17/25 9:40 am
Referral Note: You have a cardiology follow-up appointment at the [place] office with Dr. Garcia's nurse practitioner, Marychuy. Please call with questions
Additional Discharge Medication Instructions: - Increase your amiodarone to 200 mg 3 times daily, and updated Rx was sent to your local pharmacy, repeat labs in 1 week
Prescriptions:
New
amiodarone 200 mg tablet
200 mg PO TID Qty: 90 1RF
empagliflozin 10 mg tablet
10 mg PO DAILY Qty: 30 0RF
diltiazem HCl 180 mg Capsule,Extended Release 24hr
180 mg PO BID Qty: 60 0RF
Continued
fluoxetine 40 MG capsule
40 mg PO BID
nitroglycerin 0.4 MG tablet, sublingual
0.4 mg sublingual [id number] PRN (Reason: chest pain)
vitamin B complex 1 TAB tablet
1 tab PO NOON
cyanocobalamin (vitamin B-12) 1,000 MCG tablet
1,000 mcg PO NOON
ferrous sulfate [iron] 325 MG tablet
325 mg PO NOON
albuterol sulfate 90 mcg/actuation Hfa Aerosol Inhaler
2 puff INHALATION R Q4HPRN PRN (Reason: sob)
albuterol sulfate 2.5 mg /3 mL (0.083 %) Solution For Nebulization
2.5 mg INHALATION R Q4HPRN PRN (Reason: sob)
Eliquis 5 mg tablet
5 mg PO BID
insulin glargine [Basaglar KwikPen U-100 Insulin] 100 unit/mL (3 mL) Insulin Pen
6 unit SC HS
levothyroxine [Synthroid] 150 mcg Tablet
150 mcg PO DAILY
letrozole 2.5 mg Tablet
2.5 mg PO DAILY
pantoprazole 40 mg tablet,delayed release (DR/EC)
40 mg PO DAILY PRN (Reason: Gastrointestinal Issue)
naproxen sodium [Aleve] 220 mg Tablet
440 mg PO DAILYPRN PRN (Reason: mild pain)
fluticasone furoate [Arnuity Ellipta] 200 mcg/actuation Blister With Device
1 inh INHALATION HS
dextroamphetamine-amphetamine 20 mg Capsule,Extended Release 24hr
10 mg PO TID
Patient Comments:
last fill 05/12/25 #45
insulin aspart U-100 [Novolog FlexPen U-100 Insulin] 100 unit/mL (3 mL) Insulin Pen
1 sliding scale dose SC DIRECTED
atorvastatin 20 mg Tablet
20 mg PO HS
turmeric 400 mg Capsule
400 mg PO NOON
therapeutic multivitamin Tablet
1 tab PO DAILY
cholecalciferol (vitamin D3) 25 mcg (1,000 unit) Tablet
25 mcg PO NOON
Mounjaro 2.5 mg/0.5 mL pen injector
2.5 mg SC HUTCHISON
Changed
furosemide 80 mg Tablet
60 mg PO DAILY Qty: 30 0RF
insulin aspart U-100 [Novolog FlexPen U-100 Insulin] 100 unit/mL (3 mL) insulin pen
15 unit SC MEALS Qty: 0 0RF
Held
ondansetron 4 mg tablet,disintegrating
4 mg PO Q8HPRN PRN (Reason: nausea and vomiting)
Hold Instructions: Resume on 06/20/25. Hold until seen by cardiology
Discontinued
diltiazem HCl 120 mg Capsule,Extended Release 24hr
120 mg PO BID Qty: 60 0RF
amiodarone 200 mg tablet
200 mg PO HS
Discharge Orders:
Discharge Patient (As Directed); Ordered 06/12/25
Ordered By: Andrea Castañeda
Care Plan Goals
Care Plan Goals:
Problem: Readiness for enhanced knowledge related to diagnosis and treatment plan
Goal: Understand your diagnosis and treatment plan needs, including medications if applicable.
Instructions: Know your diagnosis, underlying causes and treatment plan options, including medications if applicable. Consult with your health care team to learn about your diagnosis and treatment plan, including medications if applicable.
Discharge Date and Time
Print Language: GEORGIAN
[2025-06-12] MEDS: NOVOLOG FLEXPEN-HIGH RESISTANCE SC (13:10)
--- NOTE | 2025-06-12 13:10 | PTCARENOTE ---
d/c instructions read to pt and pt verbalized understanding. iv and tele removed. pt left in wheelchair w/ staff member and belongings. call newby within reach.
--- NOTE | 2025-06-14 10:50 | PN.CDI ---
CDI
- -
CDI:
Physician Documentation Request
Admit Date: 06/05/25 22:04
Dear Doctor Flip and Dr. Castañeda ,
Please review the following and provide your response in the progress notes.
The purpose of this query is to ensure the accuracy of the conditions reported for your patient.
Diagnosis:
The diagnosis, Acute on Chronic Heart Failure with Preserved Ejection Fraction, is documented in the record on 06/06 cardiology consult.
Clinical indicators:
Cardiology Consult, 06/06
#Acute on chronic heart failure with preserved ejection fraction
#...-proBNP 4200
#-Will transition her to IV Lasix for the next 24 hours.
#...Start IV Lasix 40 mg IV twice daily with initial dose tonight following cardioversion.
#...Patient received Lasix 80 mg orally this morning.
Laboratory Tests
06/05/25
17:22
Mpu-[id number] Pept 4200
#IV lasix 40 mg BID
06/06 15:51
06/07 08:49
06/07 15:48
Selected Entries
06/05/25
17:14 06/05/25
22:37 06/07/25
03:37
Body Mass Index (BMI) 40.8 39.9 38.7
06/08/25
03:26 06/09/25
06:00 06/10/25
06:00
Body Mass Index (BMI) 37.8 37.9 38.1
06/11/25
02:12 06/12/25
02:30
Body Mass Index (BMI) 38.3 38.5
The request is for one of the following:
Acute on Chronic HFpEF Diagnosis (specify) remains a known or suspected condition for this patient and is further supported by (include additional documentation in the medical record)
Chronic HFpEF only.
Other (please specify)
Use of terms such as suspected, likely, concern for, or probable (associated with a specific diagnosis that is being evaluated, monitored, or treated as if it exists) are acceptable and can be coded in the inpatient setting, when documented at the
time of discharge.
Thank you,
Christy Mathis RN BSN CCDS
CDI Specialist
Please contact via tiger text
Please use your independent medical judgment in providing your response.
== END 2025-06-12 13:11 | disposition home or self-care (01) | DRG 291 ==
LOC: IVU 22:04
PROVIDERS: Internal Medicine; Student in an Organized Health Care Education/Training Program; ADMITTING PHYSICIAN Hospitalist; ATTENDING PHYSICIAN Internal Medicine; EMERGENCY PHYSICIAN Student in an Organized Health Care Education/Training Program; FAMILY PHYSICIAN Family Medicine; OTHER PHYSICIAN Internal Medicine Cardiovascular Disease
PROC: 5A2204Z Restoration of Cardiac Rhythm, Single (ICD-10-PCS; 2025-06-06)
DX: I13.0 Hypertensive heart and chronic kidney disease with heart failure and stage 1 through stage 4 chronic kidney disease, or unspecified chronic kidney disease (principal); I50.33 Acute on chronic diastolic (congestive) heart failure; J18.9 Pneumonia, unspecified organism; I48.4 Atypical atrial flutter; I47.19 Other supraventricular tachycardia; I48.0 Paroxysmal atrial fibrillation; N18.32 Chronic kidney disease, stage 3b; E11.22 Type 2 diabetes mellitus with diabetic chronic kidney disease; J45.909 Unspecified asthma, uncomplicated; I25.10 Atherosclerotic heart disease of native coronary artery without angina pectoris; E78.00 Pure hypercholesterolemia, unspecified; R09.02 Hypoxemia; E03.9 Hypothyroidism, unspecified; E66.01 Morbid (severe) obesity due to excess calories; F90.9 Attention-deficit hyperactivity disorder, unspecified type; F32.A Depression, unspecified; F41.9 Anxiety disorder, unspecified; E11.36 Type 2 diabetes mellitus with diabetic cataract; Z96.653 Presence of artificial knee joint, bilateral; Z90.49 Acquired absence of other specified parts of digestive tract; Z83.3 Family history of diabetes mellitus; Z79.890 Hormone replacement therapy; Z79.51 Long term (current) use of inhaled steroids; Z79.4 Long term (current) use of insulin; Z79.01 Long term (current) use of anticoagulants; Z87.891 Personal history of nicotine dependence; Z92.21 Personal history of antineoplastic chemotherapy; Z92.3 Personal history of irradiation; Z85.3 Personal history of malignant neoplasm of breast; Z68.38 Body mass index [BMI] 38.0-38.9, adult; Z11.52 Encounter for screening for COVID-19; Z88.1 Allergy status to other antibiotic agents; Z88.8 Allergy status to other drugs, medicaments and biological substances; Z17.22 Progesterone receptor negative status; Z17.32 Human epidermal growth factor receptor 2 negative status; Z79.899 Other long term (current) drug therapy; Z79.85 Long-term (current) use of injectable non-insulin antidiabetic drugs
CPT/HCPCS: 71045; 71275; 80048; 80053; 80061; 82962; 83036; 83735; 83880; 84443; 84484; 85025; 85027; 85610; 85730; 87502; 87811; 92960; 93005; 93312; 93320; 93325; 96374; 96375; 96376; 99291; J0282; Q9967

== ENCOUNTER → 2025-06-16 13:33 | Outpatient (REF) | payer MEDICARE, OTHER, SELFPAY ==
[2025-06-16 16:13] LABS: Blood Urea Nitrogen 26 mg/dl (7-17); Calcium 9.4 mg/dl (8.4-10.2); Carbon Dioxide 31 mmol/L (22-30); Chloride 100 mmol/L (98-107); Glucose 155 mg/dl (70-99); Potassium 4.0 mmol/L (3.5-5.1); Sodium 133 mmol/L (135-145); eGFR 44.24
== END ==
LOC: HWLAB 13:33
PROVIDERS: ATTENDING PHYSICIAN Student in an Organized Health Care Education/Training Program; FAMILY PHYSICIAN Family Medicine; REFERRING PHYSICIAN Internal Medicine Cardiovascular Disease
DX: I50.30 Unspecified diastolic (congestive) heart failure (principal)
CPT/HCPCS: 36415; 80048

== ENCOUNTER 2025-07-26 23:12 | Inpatient (IN) | payer MEDICARE, OTHER, SELFPAY ==
[2025-07-26] VITALS (8 sets, daily range): BP systolic 110–133; BP diastolic 74–117; PULSE 2
--- NOTE | 2025-07-26 21:12 | ED.GENMED ---
History of Present Illness
<Millicent Odom PA-C - Last Filed: 07/27/25 01:08>
General
Chief Complaint: Breathing Problem
Source: patient, records and ambulance crew
Exam Limitations: none
Time Seen by Provider: 07/26/25 21:02
History of Present Illness
History of Present Illness:
69yoF with history of atrial fibrillation on Eliquis, CHF, hypertension, hyperlipidemia, insulin-dependent diabetes, COPD presenting via EMS for respiratory distress. Patient has been short of breath for the past 2 weeks. She went to urgent care
last week due to cough and chills and was diagnosed with a viral illness. Her symptoms acutely worsened about 2 hours ago prompting EMS call. She was hypoxic to 87 to 88% on EMS arrival. She was placed on 6 L nasal cannula and improved to 92% but
was ultimately placed on BiPAP due to ongoing increased WOB. Patient now feeling improved. She is in A-fib with RVR on arrival. She had chest pain earlier but denies this currently.
Past History
<Millicent Odom PA-C - Last Filed: 07/27/25 01:08>
Past History
ED Past Medical History: Arrthythmia (Atrial fibrillation), Asthma, CHF, HTN, IDDM and Renal failure
ED Past Surgical History: Cardiac (Ablation), Cholecystectomy and Orthopedic
Social History
Tobacco: Former smoker
Alcohol: Occasional
Drug: None
Personal: Single
Living: with family
Employment: Retired
Family History
Family History: Diabetes
Phy Exam
<Millicent Odom PA-C - Last Filed: 07/27/25 01:08>
General Physical Exam
General Presentation: moderate distress
General Skin: warm and dry
General Habitus: elderly
General Mental: alert
ENT Exam
ENT Exam: normocephalic
Cardiovascular Exam
Cardiovascular Exam: irregularly irregular, tachycardia and other (1+ pitting edema in bilateral lower extremities)
Pulmonary Exam
Pulmonary Exam: other (Moderate respiratory distress. Decreased breath sounds with faint crackles at R lung base.)
Neurological Exam
Neurological Exam: alert
[place] Coma Scale
Eye Opening: Spontaneous
Verbal Response: Oriented
Motor Response: Obeys Commands
GCS Total Score: 15
Skin Exam
Skin Exam: normal color and warm/dry
Psychiatric Exam
Psychiatric Exam: anxious
Scores
<Millicent Odom PA-C - Last Filed: 07/27/25 01:08>
Heart Failure Risk
Heart Failure Risk Score: Not Applicable
Course
<Millicent Odom PA-C - Last Filed: 07/27/25 01:08>
Orders/Labs/Results
Orders:
Orders
07/26/25 21:09
Cardiac Monitoring- Treatment ONCE
CXR Port [CR Chest Portable - 1 View] Stat
Comment:
Reason For Exam: SOB
Reason Study Needs to be Portable: Unable to Transport
07/26/25 21:11
Diltiazem HCl [Cardizem] 20 mg IV NOW STA
07/26/25 21:12
COVID-19 Antigen Urgent
Source: Nasal Swab
Complete Blood Count/With Diff Urgent
Comprehensive Metabolic Panel Urgent
Magnesium Urgent
NT-proBNP Urgent
Troponin I Urgent
Influenza A+B Rapid Molecular Urgent
KUSUM Source: Nasal Swab
Specimen Description:
07/26/25 21:15
Diltiazem 125 mg/125 ml Nss [Cardizem] 125 mg in 125 ml IV PER PROTOCOL
Initial dose in mg/hr, then titrate:: 5
Titrate to keep:: Heart rate 80-100 bpm
Titrate by mg/hr:: 5 mg/hr
Frequency of titrations (minutes):: 15
Maximum dose in mg/hr:: 15
07/26/25 21:55
Furosemide [Lasix] 60 mg IV NOW STA
07/26/25 22:26
EKG [Electrocardiogram (*1)] Stat
Reason for Study: Atrial Fibrillation
07/26/25 22:51
Admit/Transfer Patient As Directed
Co-Sign Provider:
Level of Care: Inpatient admission
Assign to:: IVU
Physician / Group: Eric Huang
Diagnosis: acute on chronic HFpEf, a-fib RVR
Reason for Hospitalization: acute on chronic HFpEf, a-fib RVR
Expected length of stay greater than two midnights?: Yes
ELOS- Estimated Length of Stay in days: 3
I certify the patient meets the requirements for IP care: Yes
PRN Pain Medication Management As Directed
May give lesser potent ordered pain med per pt: Yes
preference::
Protocol:: Medication orders for pain may be administered in a
manner that supports deferring to patient preference
when the pt is:
- Requesting an ordered lesser potent pain medication.
Least to most potent pain medications are defined
as: acetaminophen < NSAID < tramadol < opioids
(morphine, oxycodone, hydromorphone).
- Requesting a lesser dose of the same medication IF
ORDERED.
- Requesting a less intrusive route of administration
if both routes are prescribed by the provider (PO <
IV).
07/26/25 22:54
Code Status As Directed
Resuscitation Status: Full Code
Abnormal Lab Results
07/26/25
21:12
WBC 10.9 H 10^3/uL
(4.8-10.8)
MCH 26.9 L pg
(27.0-31.0)
MCHC 31.0 L g/dL
(33.0-37.0)
Plt Count 432 H 10^3/uL
(130-400)
Abs Immat Gran (auto) 0.1 H 10^3/uL
(0-0.05)
Absolute Neuts (auto) 8.9 H 10^3/uL
(1.4-6.5)
Absolute Lymphs (auto) 0.8 L 10^3/uL
(1.2-3.4)
Absolute Monos (auto) 1.1 H 10^3/uL
(0.1-0.6)
Immature Gran % 0.6 H %
(0-0.5)
Neutrophils % 81.7 H %
(42.2-75.2)
Lymphocytes % 7.1 L %
(20.5-51.1)
Monocytes % 9.6 H %
(1.7-9.3)
BUN 21 H mg/dl
(7-17)
Creatinine 1.3 H mg/dL
(0.6-1.0)
Glucose 202 H mg/dl
(70-99)
Troponin I 0.038 H* ng/ml
07/26/25 21:12
07/26/25 21:12
Vital Signs
Initial and Last Documented VS:
Initial Vital Signs
Temp Pulse Resp BP Pulse Ox
98.1 F 137 24 133/117 96
07/26/25 21:05 07/26/25 21:05 07/26/25 21:05 07/26/25 21:05 07/26/25 21:05
Last Documented Vital Signs
Temp Pulse Resp BP Pulse Ox
98.1 F 117 22 114/76 94
07/26/25 21:05 07/27/25 00:30 07/27/25 00:20 07/27/25 00:30 07/27/25 00:40
<Wes Becker MD - Last Filed: 07/26/25 21:21>
Orders/Labs/Results
Orders:
Orders
07/26/25 21:09
Cardiac Monitoring- Treatment ONCE
CXR Port [CR Chest Portable - 1 View] Stat
Comment:
Reason For Exam: SOB
Reason Study Needs to be Portable: Unable to Transport
07/26/25 21:11
Diltiazem HCl [Cardizem] 20 mg IV NOW STA
07/26/25 21:12
COVID-19 Antigen Urgent
Source: Nasal Swab
Complete Blood Count/With Diff Urgent
Comprehensive Metabolic Panel Urgent
Magnesium Urgent
NT-proBNP Urgent
Troponin I Urgent
Influenza A+B Rapid Molecular Urgent
KUSUM Source: Nasal Swab
Specimen Description:
07/26/25 21:15
Diltiazem 125 mg/125 ml Nss [Cardizem] 125 mg in 125 ml IV PER PROTOCOL
Initial dose in mg/hr, then titrate:: 5
Titrate to keep:: Heart rate 80-100 bpm
Titrate by mg/hr:: 5 mg/hr
Frequency of titrations (minutes):: 15
Maximum dose in mg/hr:: 15
07/26/25 21:55
Furosemide [Lasix] 60 mg IV NOW STA
07/26/25 22:26
EKG [Electrocardiogram (*1)] Stat
Reason for Study: Atrial Fibrillation
07/26/25 22:51
Admit/Transfer Patient As Directed
Co-Sign Provider:
Level of Care: Inpatient admission
Assign to:: IVU
Physician / Group: Eric Huang
Diagnosis: acute on chronic HFpEf, a-fib RVR
Reason for Hospitalization: acute on chronic HFpEf, a-fib RVR
Expected length of stay greater than two midnights?: Yes
ELOS- Estimated Length of Stay in days: 3
I certify the patient meets the requirements for IP care: Yes
PRN Pain Medication Management As Directed
May give lesser potent ordered pain med per pt: Yes
preference::
Protocol:: Medication orders for pain may be administered in a
manner that supports deferring to patient preference
when the pt is:
- Requesting an ordered lesser potent pain medication.
Least to most potent pain medications are defined
as: acetaminophen < NSAID < tramadol < opioids
(morphine, oxycodone, hydromorphone).
- Requesting a lesser dose of the same medication IF
ORDERED.
- Requesting a less intrusive route of administration
if both routes are prescribed by the provider (PO <
IV).
07/26/25 22:54
Code Status As Directed
Resuscitation Status: Full Code
Abnormal Lab Results
07/26/25
21:12
WBC 10.9 H 10^3/uL
(4.8-10.8)
MCH 26.9 L pg
(27.0-31.0)
MCHC 31.0 L g/dL
(33.0-37.0)
Plt Count 432 H 10^3/uL
(130-400)
Abs Immat Gran (auto) 0.1 H 10^3/uL
(0-0.05)
Absolute Neuts (auto) 8.9 H 10^3/uL
(1.4-6.5)
Absolute Lymphs (auto) 0.8 L 10^3/uL
(1.2-3.4)
Absolute Monos (auto) 1.1 H 10^3/uL
(0.1-0.6)
Immature Gran % 0.6 H %
(0-0.5)
Neutrophils % 81.7 H %
(42.2-75.2)
Lymphocytes % 7.1 L %
(20.5-51.1)
Monocytes % 9.6 H %
(1.7-9.3)
BUN 21 H mg/dl
(7-17)
Creatinine 1.3 H mg/dL
(0.6-1.0)
Glucose 202 H mg/dl
(70-99)
Troponin I 0.038 H* ng/ml
07/26/25 21:12
07/26/25 21:12
Vital Signs
Initial and Last Documented VS:
Initial Vital Signs
Temp Pulse Resp BP Pulse Ox
98.1 F 137 24 133/117 96
07/26/25 21:05 07/26/25 21:05 07/26/25 21:05 07/26/25 21:05 07/26/25 21:05
Last Documented Vital Signs
Temp Pulse Resp BP Pulse Ox
98.1 F 117 22 114/76 94
07/26/25 21:05 07/27/25 00:30 07/27/25 00:20 07/27/25 00:30 07/27/25 00:40
<Millicent Odom PA-C - Last Filed: 07/27/25 01:08>
MDM/Problems Addressed
Differential Diagnosis Includes:
69yoF here with SOB. Arrives on BiPAP from EMS. Patient feeling improved but still with increased WOB. Patient also tachycardic to 140s and afib noted on monitor. Peripheral edema noted. Hx of CHF and COPD. Differential diagnosis includes: CHF
exacerbation, COPD exacerbation, atrial fibrillation with RVR, pneumonia
Initial ED plan: Check cardiac labs, EKG, COVID/flu swab, and portable chest x-ray. Respiratory at bedside on patient arrival and patient placed on BiPAP 07/08. IV Cardizem bolus and gtt for afib.
<Millicent Odom PA-C - Last Filed: 07/27/25 01:08>
*Pulse Oximetry
SaO2: 96
Oxygen Mode of Delivery: BiPAP
Patient hypoxic: yes
*EKG
Interpreted by ED Provider?: Yes
EKG Intrepretation Date: 07/26/25
Heart Rate: 137
Rate: tachycardiac
Rhythm: a-fib
[place]: left axis deviation
QRS Pattern: normal QRS
Ischemia: no ischemia
*Critical Care Note
Total Time (30-74mins, 75-104mins- exclusive of procedures): 35
<Millicent Odom PA-C - Last Filed: 07/27/25 01:08>
Update Note
Update Note:
Chest x-ray with pulmonary edema and BNP greater than 12,000. Troponin mildly elevated at 0.038 which is similar to prior values. 60 mg IV Lasix ordered and patient admitted for further management. Patient feeling improved on reassessment and
heart rates down to the 110s on a Cardizem drip.
ED Attending Note
<Millicent Odom PA-C - Last Filed: 07/27/25 01:08>
-
Portions of this chart may have been created with voice recognition software.� Occasional wrong word or��sound alike� substitutions may have occurred due to the inherent limitations of voice recognition software.
<Wes Becker MD - Last Filed: 07/26/25 21:21>
ED Attending Note
Patient seen and examined by attending physician: Yes
ED Attending Note:
I have seen and evaluated the patient with a qpzz-si-axef encounter. I have spoken to the advance practicer provider and involved in the medical history, the physical exam, medical decision making.
Evaluation and management service: agree unless noted differently below.
Results interpretation: agree unless noted differently below.
Focused HPI: 69-year-old female with a past medical history of hypertension, hyperlipidemia, CHF, atrial fibrillation on Eliquis, insulin-dependent diabetes who presents to the emergency room from home via EMS for evaluation of shortness of breath
that she presents in respiratory distress. She reports that she has had increased shortness of breath over the past week or so but significantly worse over the past few hours. She reports that she has been having palpitations and increased heart
rate. She has noticed some increased welling in the legs. She has not noticed weight gain. She denies any chest pain. She has not had a fever or chills. She was admitted in June for A-fib with RVR. She sees Dr. Loaiza for cardiology. She
is currently on Lasix 60 mg daily and reports compliance.
Physical exam: Awake and alert, moderate respiratory distress with tachypnea, hypoxia, tripod position, speaking in short sentences. Respiratory status stabilized with BiPAP. She is mildly hypertensive, tachycardic with irregularly irregular
rhythm. She has diminished breath sounds at the lung bases faint rales right lung base. No focal wheezing appreciated. She does have edema in the legs left slightly greater than right. No calf tenderness or skin changes.
Medical Decision Makin-year-old female presents to the ER in respiratory distress. Vitals and exam are as above. EKG shows A-fib with RVR. Overall exam and picture concerning for CHF likely exacerbated by rapid atrial fibrillation. Will
plan to rate control with IV diltiazem. She is hypertensive but will monitor blood pressure on diltiazem�if not improving can add nitroglycerin. Stat chest x-ray. Usual labs, proBNP. Monitor on BiPAP, de-escalate as able. Plan for admission.
Discharge Plan
Departure
Patient Disposition: Admit
Date of Disposition: 07/26/25
Time of Disposition: 21:57
Presentation/result/management discussed w/ accepting MD/DO: Hospitalist
Discharge Problem:
Acute exacerbation of CHF (congestive heart failure), Atrial fibrillation with RVR, Acute hypoxic respiratory failure
Interventions
Interventions:
*General Assessment Last Done: 07/26/25 21:08
*Neglect/Abuse Screening Last Done: 07/26/25 21:08
*ED COVID-19 Vaccine History Last Done: 07/26/25 21:08
*ED Influenza Vaccine History Last Done: 07/26/25 21:08
[facility] Fall Risk Assessment Tool Last Done: 07/26/25 21:10
*Risk Screen - Suicide (C-SSRS) Last Done: 07/26/25 21:08
ED- Cardiac Assessment Last Done: 07/26/25 21:35
ED- Pulmonary Assessment Last Done: 07/26/25 21:35
[2025-07-26 21:21] LABS: Hematocrit 42.0 % (37.0-47.0); Hemoglobin 13.0 g/dL (12.0-16.0); Mean Corp Hgb Conc. 31.0 g/dL (33.0-37.0); Mean Corpuscular Volume 87.0 fL (81.0-99.0); Nucleated Red Blood Cells % 0 %; Platelet Count 432 10^3/uL (130-400); Red Cell Dist. Width 14.3 % (11.5-14.5)
[2025-07-26] MEDS: CARDIZEM 125 IV (21:23)
[2025-07-26] MEDS: CARDIZEM 20 MG IV (21:23)
[2025-07-26 21:37] LABS: COVID-19 Antigen Negative (Negative)
[2025-07-26 21:40] LABS: ALT (SGPT) 17 U/L (0-35); AST (SGOT) 17 U/L (14-36); Albumin 3.6 g/dl (3.5-5.0); Alkaline Phosphatase 114 U/L (38-126); Blood Urea Nitrogen 21 mg/dl (7-17); Calcium 9.2 mg/dl (8.4-10.2); Carbon Dioxide 25 mmol/L (22-30); Chloride 101 mmol/L (98-107); Estimated Creatinine Clearance 48 ml/min; Glucose 202 mg/dl (70-99); Magnesium 1.9 mg/dl (1.6-2.3); Potassium 5.1 mmol/L (3.5-5.1); Sodium 135 mmol/L (135-145); Total Protein 6.4 g/dl (6.3-8.2); eGFR 44.24
[2025-07-26 21:54] LABS: Troponin I 0.038 ng/ml
[2025-07-26] MEDS: LASIX 60 MG IV (21:58)
--- NOTE | 2025-07-26 22:07 | W.PN.UPDATE ---
Update Note
Progress Note Update
This note serves as an addendum to the H&P by crossbar switch adjuster Yash Delta
HPI
69F Morbid Obesity
PMH significant for DM, A Chr HFpEF, A-Fib / Flutter s/p multiple prior cardioversions and ablations (most recent 03/16/25)
- BiB EMS for respiratory distress.
- short of breath for the past 2 weeks.
- she went to see urgent care last week due to cough and chills and was diagnosed with a viral illness.
- symptoms acutely worsened about 2 hours ago prompting EMS call
- hypoxic to 87 to 88% on EMS arrival - placed on 6 L NC O2 and improved to 92%
- ultimately placed on BiPAP due to ongoing increased WOB - now feeling improved.
Relevant VS
Temp Pulse Resp BP Pulse Ox
98.1 F 134 22 129/104 94
07/26/25 21:05 07/26/25 21:58 07/26/25 21:40 07/26/25 21:58 07/26/25 22:04
PE
Gen:Awake and alert, Respiratory status stabilized with BiPAP.
Neck: large
Lungs: moderate respiratory distress with tachypnea, hypoxia, tripod position, speaking in short sentences Wheeze at bases
Cor: tachycardic and irregular
Abdomen:�soft NT NG
BLACKSMITH APPRENTICE: AAO3
MS: edema LLEX > RLEx
Relevant Data
06/16/25 07/26/25
13:44 21:12
WBC 10.9 H
Hgb 13.0
Plt Count 432 H
Potassium 5.1
BUN 26 H 21 H
Creatinine 1.3 H 1.3 H
eGFR 44.24 44.24
Troponin I 0.038 H*
Kdo-F-Tunicxdfkja Pept 91914
CXR
Interstitial pulmonary edema. Probable trace bilateral pleural fluid. No focal consolidation or pneumothorax. Stable enlargement of the cardiac silhouette. Chronic degenerative changes of the spine.
EKG ordered by hospitalist AP : pending
06/06/25 CARMELO
1. Low normal LVEF 50%.
2. No significant valve disease.
3. No thrombus in the left atrial appendage.
4. Compared to 01/27/25: no significant change.
Last hospitalist admission: 06/05/25 - 06/12/25
PDX: A Fib w RVR
Atrial Fibrillation / Flutter
HFpEF
DM-II
Breast Cancer s/p Surgery, Chemo, XRT
Hypothyroidism
Asthma
Morbid Obesity
ADHD
Anxiety / Depression
ASSESSMENT & PLAN
Acute on Chronic HFpEF
- LVEF 50 % on 06/06/25
- c/w BiPAP - wean as able
- IV Lasix 40 daily
- Follow I/Os, daily weights
Fast Atrial Fibrillation / Flutter with Rapid Ventricular Response
- Suspect that recurrent A-Fib / Flutter is patient's primary issue here.
- Diltiazem gtt
- on GUIDE TOUR Eliquis
- Continue c amiodarone.
- DCA Card consult
DMT2
- Stable.
- Continue basal insulin and cover with SSI as needed.
- Update A1C
Anxiety / Depression
ADHD
- Stable
- Continue fluoxetine.
- Hoold amphetamines acutely -
Hypothyroidism
- Stable.
- Continue LT4 replacement.
Morbid Obesity due to excess calories
- Just started on Mounjaro (1 dose so far) - hold acutely.
DVT Px: on Eliquis
Full code
IVU
--- NOTE | 2025-07-26 22:11 | HPS.HSE ---
Family Physician
-
Family Physician:
Chief Complaint
-
shortness of breath
History of Present Illness
Patient is a 69-year-old female with past medical history significant for atrial fibrillation, HFpEF, COPD, type 2 diabetes, hypothyroidism and anxiety/depression who presented to [facility] ED for evaluation of shortness of breath. Patient arrived to ED
via EMS on 6L O2 via NC with SpO2 92% and continued with respiratory distress. SpO2 87-88% on room air. Patient reports that she has had worsening exertional dyspnea for approximately 2 weeks but became acutely worse this evening prompting a call to
[phone]. Patient notes she was seen in Urgent Care last week and diagnosed wtih viral illness. Denies fever, chills, chest pain, nausea, vomiting, constipation or diarrhea.
Medical History
Past Medical History
Past Medical History: Reports Other
Additional Past Medical History:
Atrial Fibrillation / Flutter
HFpEF
DM-II
COPD
Breast Cancer s/p Surgery, Chemo, XRT
Hypothyroidism
Asthma
Morbid Obesity
ADHD
Anxiety / Depression
Past Surgical History: Reports Other
Additional Past Surgical History:
Ablation x 3 (or 4?) - Last was PFA on 03/16/25.
Left Lumpectomy / Axillary Lymph Node Dissection
Bilateral TKA
Cholecystectomy
Cataracts
Social History
Tobacco: Former Smoker (Quit smoking 40 years ago.)
Alcohol: Occasional
Drug: None
Family History
Family History: Not pertinent
Allergies / Home Medications
Allergies reflects when Allergies were last updated in [facility].
Home Medications with original date entered in [facility]
Allergy/Medication List:
Allergies
Allergy/AdvReac Type Severity Reaction Status Date / Time
azithromycin Allergy Nausea / Verified 07/26/25 21:09
Vomiting
theophylline Allergy tongue Verified 07/26/25 21:09
swelling,
rash
Home Medications
fluoxetine 40 mg capsule 40 mg PO BID depression/anxiety 04/05/20
nitroglycerin 0.4 mg sublingual tablet 0.4 mg sublingual [id number] PRN chest pain 04/05/20
cyanocobalamin (vitamin B-12) 1,000 mcg tablet 1,000 mcg PO NOON Supplement 09/19/21
ferrous sulfate 325 mg (65 mg iron) tablet (iron) 325 mg PO NOON Supplement 09/19/21
vitamin B complex 1 tab PO NOON Supplement 09/19/21
albuterol sulfate 90 mcg/actuation aerosol inhaler 2 puff inhalation R Q4HPRN PRN sob 06/16/22
albuterol sulfate 2.5 mg/3 mL (0.083 %) solution for nebulization 2.5 mg inhalation R Q4HPRN PRN sob 12/17/22
apixaban 5 mg tablet (Eliquis) 5 mg PO BID Blood clot prevention/tx 12/17/22
insulin glargine 100 unit/mL (3 mL) subcutaneous pen (Basaglar KwikPen U-100 Insulin) 6 unit SC HS Diabetes 10/21/23
letrozole 2.5 mg tablet 2.5 mg PO DAILY Cancer 06/25/24
levothyroxine 150 mcg tablet (Synthroid) 150 mcg PO DAILY Thyroid 06/25/24
ondansetron 4 mg disintegrating tablet 4 mg PO Q8HPRN PRN nausea and vomiting 01/26/25
Held on 06/12/25. Instructions: Resume on 06/20/25. Hold until seen by cardiology
pantoprazole 40 mg tablet,delayed release 40 mg PO DAILY PRN Gastrointestinal Issue 01/26/25
turmeric 400 mg capsule 47.5 mg PO NOON Supplement 02/16/25
dextroamphetamine-amphetamine ER 20 mg 24hr capsule,extend release 10 mg PO TID ADHD 03/01/25
fluticasone furoate 200 mcg/actuation blister powder for inhalation (Arnuity Ellipta) 1 inh inhalation HS asthma 03/01/25
insulin aspart U-100 100 unit/mL (3 mL) subcutaneous pen (Novolog FlexPen U-100 Insulin aspart) 1 sliding scale dose SC DIRECTED Diabetes 03/01/25
naproxen sodium 220 mg tablet (Aleve) 220 mg PO Q12 PRN mild pain 03/01/25
atorvastatin 20 mg tablet 20 mg PO HS High Cholesterol 03/16/25
therapeutic multivitamin 1 tab PO DAILY Supplement 06/05/25
tirzepatide 2.5 mg/0.5 mL subcutaneous pen injector (Mounjaro) 2.5 mg SC HUTCHISON weight management 06/05/25
diltiazem HCl 180 mg capsule,extended release 24 hr 180 mg PO BID #60 caps 06/12/25
empagliflozin 10 mg tablet 10 mg PO DAILY Heart disease/condition #30 tabs 06/12/25
furosemide 80 mg tablet 60 mg (0.75 x 80 mg) PO DAILY Heart Disease/Condition #30 tabs 06/12/25
insulin aspart U-100 100 unit/mL (3 mL) subcutaneous pen (Novolog FlexPen U-100 Insulin aspart) 15 unit (0.15 mL) SC MEALS Diabetes #0 mL 06/12/25
blood-glucose sensor ([employer] G7 Sensor device) 07/26/25
cholecalciferol (vitamin D3) 125 mcg (5,000 unit) tablet (Vitamin D3) 125 mcg PO DAILY 07/26/25
nystatin 100,000 unit/gram topical ointment 1 applic topical BID 07/26/25
Review of Systems
-
History Source: Patient
Constitutional: Denies Fever or Chills
EENT: Denies Sore Throat
Respiratory: Reports Trouble Breathing; Denies Cough or Hemoptysis
Cardiac: Denies Chest Pain, Diaphoresis, Palpitations or Syncope
Abdomen/GI: Denies Abdominal Pain, Nausea, Vomiting or Diarrhea
: Denies Dysuria, Frequency or Urgency
Musculoskeletal: Denies Joint Pain
Skin: Denies Rash
Neurological: Denies Dizzy, Headache, Weakness or Numbness
Physical Exam
Vital Signs
Vital Signs
Temp Pulse Resp BP Pulse Ox
98.1 F 134 22 129/104 94
07/26/25 21:05 07/26/25 21:58 07/26/25 21:40 07/26/25 21:58 07/26/25 22:04
Physical Exam
General: Well Developed, Well Nourished, Appears in Distress and Morbidly Obese
HEENT: NormoCephalic, Moist mucous membranes, PERRLA, Nose Appears Normal and Ears Appear Normal
Respiratory: Wheezes; No Non Labored Respirations
Cardiac: S1/S2, Irregular Rhythm, Tachycardia and Peripheral Edema; No Murmur
GI: Soft, Non Tender, Non Distended and Normal Bowel Sounds
Musculoskeletal: No Clubbing, No Cyanosis and No Edema
Skin: IV/Catheter Site
Neuro: Awake and AO x 3
Psych: Calm and Intact Judgment/Insight
Laboratory Results
-
07/26/25 21:12
07/26/25 21:12
Laboratory Results
Total Bilirubin 0.8 mg/dl (0.2-1.3) 07/26/25 21:12
AST 17 U/L (14-36) 07/26/25 21:12
ALT 17 U/L (0-35) 07/26/25 21:12
Alkaline Phosphatase 114 U/L (38-126) 07/26/25 21:12
Troponin I 0.038 ng/ml H* 07/26/25 21:12
Data Reviewed
-
Diagnostic Radiology: Report Reviewed by me (CXR; Interstitial pulmonary edema. Probable trace bilateral pleural fluid. No focal consolidation or pneumothorax. Stable enlargement of the cardiac silhouette. Chronic degenerative changes of the spine.)
Lab Data: Labs Reviewed by me (WBC 10.9, neut 81.7, BUN 21, creat 1.3, est CrCl 48, eGFR 44.24, trop 0.038, pBNP 55423)
Impression/Plan
-
IMPRESSION/PLAN:
#acute hypoxic respiratory insufficiency likely 2/2 acute on chronic HFpEf
#HFpEF
worsening exertional dyspnea with acute onset hypoxic respiratory distress at home with SpO2 87-88% on room air
WBC 10.9, neut 81.7, trop 0.038, pBNP 57217
Influenza: negative
Covid: negative
EKG: pending
CXR: Interstitial pulmonary edema. Probable trace bilateral pleural fluid. No focal consolidation or pneumothorax. Stable enlargement of the cardiac silhouette. Chronic degenerative changes of the spine.
- Admit to IVU
- Consult Cardiology
- daily weights
- I & Os
- BiPap 07/08
- IV Lasix 40mg daily
- continue empagliflozin
#Atrial Fibrillation / Flutter
- Consult Cardiology
- diltiazem gtt
- continue diltiazem
- continue Eliquis
#COPD
#Asthma
- continue Albuterol
#chronic kidney disease
BUN 21, creat 1.3, est CrCl 48, eGFR 44.24
appears stable
- monitor BMP
#DM-II
- AccuCheck AC & HS
- SSI
- continue insulin glargine
- continue Mounjaro out patient
#Breast Cancer
s/p Surgery, Chemo, XRT
- continue letrozole
#Hypothyroidism
- continue levothyroxine
#ADHD
- hold Adderall while inpatient
#Anxiety / Depression
- continue fluoxetine
Code status: full code
DVT prophylaxis: Eliquis
[2025-07-27] VITALS (16 sets, daily range): BP systolic 98–133; BP diastolic 64–100; PULSE 2–106; O2SAT 91; BMI 39.4; BMI 38.8
--- NOTE | 2025-07-27 01:29 | PTCARENOTE ---
Patient transported to IMU via stretcher with RT, pt received on BiPAP. 93% on BiPAP. Pt AAOx3, pleasant. LS with expiratory and inspiratory wheeze. Purewick replaced. Pt having frequency s/p IV Lasix, urine clear yellow. Pt denies chest pain. A-fib
on the monitor, HR anywhere from 90-130s, Cardizem gtt at 15/hr. BP stable 114/76. A-febrile. Oriented to the unit, call newby within reach.
[2025-07-27 03:50] LABS: Hematocrit 41.0 % (37.0-47.0); Hemoglobin 13.1 g/dL (12.0-16.0); Mean Corp Hgb Conc. 32.0 g/dL (33.0-37.0); Mean Corpuscular Volume 86.7 fL (81.0-99.0); Platelet Count 400 10^3/uL (130-400); Red Cell Dist. Width 14.2 % (11.5-14.5)
[2025-07-27 04:17] LABS: Blood Urea Nitrogen 22 mg/dl (7-17); Calcium 9.2 mg/dl (8.4-10.2); Carbon Dioxide 27 mmol/L (22-30); Chloride 104 mmol/L (98-107); Estimated Creatinine Clearance 51 ml/min; Glucose 147 mg/dl (70-99); Potassium 4.5 mmol/L (3.5-5.1); Sodium 136 mmol/L (135-145); eGFR 48.70
[2025-07-27 04:36] LABS: Troponin I 0.040 ng/ml
[2025-07-27] MEDS: CARDIZEM 125 IV ×2 (05:42→14:44)
--- NOTE | 2025-07-27 07:37 | W.PN.HOSP.TC ---
Today's Communication/Plan
-
TSH
Echo
Continue IV diuresis
Assessment / Plan
Assessment / Plan
69yoF PMH persistent afib, HFpEF, COPD, IDDM, hypothyroidism presenting with SOB in setting of acute on chronic HFpEF.
Pt was diagnosed with viral illness 2 weeks ago with subacute SOB with acute worsening last night.
Today, AFVSS continuing in afib. While I was in the room, afib w/o RVR given HR under 100. Last recorded HR 118. Continues to have peripheral edema and minimal basilar crackles concerning for more fluid retention. Nursing reports voiding 3L. Weight
down 5kg from yesterday. Continue diuresis. Troponin 0.038 to 0.040 down to 0.028 likely in setting of demand ischemia, trend.
#acute on chronic HFpEF
#demand ischemia
- Continue IV diuresis
- Cardiology recs appreciated
- Continue farxiga
- monitor BNP if symptoms worsen
- Wean oxygen as tolerated
- elevated troponin in setting of stress
- Echo pending
#afib w/ RVR
- continue home diltiazem and eliquis
- Diltiazem gtt as needed
- TSH pending
#IDDM
- SSI
- hold mounjaro
#COPD
- continue home inhalers
#hx breast cx
#HLD
#fluoxetine
#hypothyroidism
#GERD
- continue home medications
Diet: diabetic
Code: full
DVT prophylaxis: eliquis
Anticipated Discharge: 24 - 48 hours
Subjective/Interval History
-
Date of Service: July 27, 2025
Pt reports coming yesterday with SOB but feeling significantly better today with continued, but improved SOB. She denies palpitations, lightheadedness, dizziness, abdominal pain. She describes swollen legs on presentation but not as bad as she has
had before, reporting they have mildly improved today to what she considers baseline. She reports L ankle is always larger than R due to ankle injury.
Objective Data
-
Labs:
Laboratory Results
07/26/25 07/27/25
21:12 03:32
WBC 10.9 H 8.6
Hgb 13.0 13.1
Hct 42.0 41.0
Plt Count 432 H 400
Sodium 135 136
Potassium 5.1 4.5
Chloride 101 104
Carbon Dioxide 25 27
BUN 21 H 22 H
Creatinine 1.3 H 1.2 H
Glucose 202 H 147 H
Calcium 9.2 9.2
Total Bilirubin 0.8
AST 17
ALT 17
Alkaline Phosphatase 114
Vital Signs:
Vital Signs
Temp Pulse Resp BP Pulse Ox
97.8 F 130 21 117/73 92
07/27/25 03:20 07/27/25 06:10 07/27/25 06:10 07/27/25 06:00 07/27/25 06:10
I&O
07/26/25 07/27/25 07/28/25
06:59 06:59 06:59
Intake Total 100 / 100
Output Total 2900 / 2900
Balance -2800 / -2800
Review of Systems
-
History Source: Patient
All other systems: Reviewed and negative
Physical Exam
-
General: Well Developed, Well Nourished, No Apparent Distress and Comfortable (home CPAP machine on)
HEENT: Normocephalic, Atraumatic and Moist Mucous Membranes
Respiratory: Crackles (pt laying on L side with L sided basilar crackles ) and Non Labored Respirations
Cardiac: S1/S2 and Irregular Rhythm
GI: Soft, Nontender and Nondistended
Musculoskeletal: Other (1+ pitting edema, harder to elicit due to baseline LLE nonpitting edema)
Skin: Warm and Dry
Neuro: AO x 3 and Nonfocal/Grossly Intact
Psych: Calm
[2025-07-27] MEDS: FLOVENT 110 MCG INHALER 2 PUFF INH ×2 (07:51→19:37)
--- NOTE | 2025-07-27 08:14 | CON.CAR ---
Addendum entered and electronically signed by Laila Alvarez MD 07/27/25 11:28:
I saw and examined the patient.
The Geriatric Aide's note was reviewed and I agree with the note.
Comment: She was admitted with heart failure after recent upper respiratory infection. She has history of heart failure with preserved ejection fraction. In addition she has had recurrent atrial fibrillation. Most recently in our office she had
been in sinus rhythm after successful CARMELO/cardioversion 06/06/2025. She is unsure when she went back into atrial fibrillation but upper respiratory infection and atrial fibrillation likely have exacerbated it heart failure. She was in an extremis
initially requiring BiPAP. Currently on 4 L and more comfortable.
Plan at this time:
Heart failure with preserved ejection fraction
Received Lasix in the ER. We have started diuretic with Lasix 40 mg IV twice daily
Follow input/output and daily weights
Follow creatinine and electrolytes
Sodium fluid restricted diet
Recurrent atrial fibrillation now persistent
Multiple PVI's prior
Recently increased dose of amiodarone. Continue.
Continue oral anticoagulation
If patient remains in atrial fibrillation once oxygenation status is stable likely 07/29/2025 she will undergo cardioversion. She has been compliant with oral anticoagulation.
Minimally elevated troponin nonischemic troponin elevation secondary to heart failure and A-fib
Stable. No chest pain
Breast cancer on letrozole
Chronic kidney disease noted
Coronary artery disease
Minimally increased troponin likely non-ischemic troponin elevated
Chronic kidney disease
Original Note:
Consultation
Consultation Request
Date/Time Consultation Requested: 07/27/2025 at 0113
Date/Time Consultation Performed: 07/27/2025 at 0910
Requesting Provider: Dr. Miner
Performing Provider: Dr. Laila Alvarez
Reason for Consultation: Chest I think A-fib and CHF
Medical History
-
History of Present Illness:
Patient came to the ER yesterday with SOB and was found to be in recurrent A-fib and acute HF prompting admission and cardiology consultation. Patient was recently admitted to the hospital from until 06/12/2025 with A-fib and acute HF.
During that admission patient had a successful CARMELO/CV on 06/06/2025, but recurred with A-fib/atypical atrial flutter the following day prompting initiation of amiodarone and the plans for rate control and to follow-up as an outpatient. Patient has a
history of atrial arrhythmia with previous PVI in 2022 and then most recently a PVI 03/16/2025. When patient was seen in the office for follow-up on 06/16/2025 she was in SR and amiodarone 200 mg BID was continued and the plan was to then decrease
to 200 mg once daily on 09/28/2025. Patient says that about a week ago she started with BURCIAGA and then started with a sore throat that was evaluated in urgent care and patient tested negative for COVID and influenza at that time. Patient then noticed
weight gain up to 233 lbs at home and increased LE edema, she described her toes as looking like sausages. Patient says that things then got much worse in the last 24 hours with resting SOB and she came to the ER hypoxic and initially required
BiPAP. Patient was diuresed with Lasix 60 mg IV x 1 in the ER and then started on Lasix 40 mg PO daily starting today, but has not yet received a dose. Patient was taking Lasix 80 mg PO daily prior to admission. Patient also appears to be in
recurrent A-fib, she is asymptomatic with her atrial arrhythmias and so duration of recurrent atrial arrhythmias unknown. Patient denies missing any doses of Eliquis.
PMH:
Recent admission for acute HF and rapid A-fib 06/05/25 until 06/12/2025
Chronic HFpEF
Paroxysmal A-fib and atypical atrial flutter
h/o PVI 2022
s/p PVI 03/16/2025
s/p successful CARMELO/CV 06/06/2025
Chronic amiodarone therapy
Chronic Eliquis OAC
Nonobstructive CAD by cardiac cath 09/19/2021
Hypertension
Hyperlipidemia
Type 2 diabetes
Stage IIIa CKD
Past Medical History
Past Medical History: Arrhythmias (Paroxysmal atrial fibrillation status post ablation 2022), CAD (History of breast cancer), CHF (Chronic heart failure with preserved ejection fraction), HTN, Hypercholesterolemia, IDDM, Renal Failure (CKD 3) and
Psychiatric (ADHD)
Past Surgical History: Other (Left breast lumpectomy 2023, bilateral knee replacement, cholecystectomy, cataracts)
Social History
Tobacco: Non-Smoker
Alcohol: None
Drug: None
Personal: Single
Living: With Roomate
Employment: Retired
Family History
Family History: Hypertension
Allergies / Home Medications
Allergy/AdvReac Type Severity Reaction Status Date / Time
azithromycin Allergy Nausea / Verified 07/26/25 21:09
Vomiting
theophylline Allergy tongue Verified 07/26/25 21:09
swelling,
rash
�Medication �Instructions �Recorded �Confirmed �Type
fluoxetine 40 mg capsule 40 mg PO BID depression/anxiety 04/05/20 07/26/25 History
nitroglycerin 0.4 mg sublingual 0.4 mg sublingual [id number] PRN 04/05/20 07/26/25 History
tablet chest pain
cyanocobalamin (vitamin B-12) 1,000 mcg PO NOON Supplement 09/19/21 07/26/25 History
1,000 mcg tablet
ferrous sulfate 325 mg (65 mg 325 mg PO NOON Supplement 09/19/21 07/26/25 History
iron) tablet (iron)
vitamin B complex 1 tab PO NOON Supplement 09/19/21 07/26/25 History
albuterol sulfate 90 mcg/actuation 2 puff inhalation R Q4HPRN PRN sob 06/16/22 07/26/25 History
aerosol inhaler
albuterol sulfate 2.5 mg/3 mL 2.5 mg inhalation R Q4HPRN PRN sob 12/17/22 07/26/25 History
(0.083 %) solution for nebulization
apixaban 5 mg tablet (Eliquis) 5 mg PO BID Blood clot 12/17/22 07/26/25 History
prevention/tx
insulin glargine 100 unit/mL (3 6 unit SC HS Diabetes 10/21/23 07/26/25 History
mL) subcutaneous pen (Basaglar
KwikPen U-100 Insulin)
letrozole 2.5 mg tablet 2.5 mg PO DAILY Cancer 06/25/24 07/26/25 History
levothyroxine 150 mcg tablet 150 mcg PO DAILY Thyroid 06/25/24 07/26/25 History
(Synthroid)
ondansetron 4 mg disintegrating 4 mg PO Q8HPRN PRN nausea and 01/26/25 07/26/25 History
tablet vomiting
Held on 06/12/25.
Instructions: Resume on
06/20/25. Hold until seen by
cardiology
pantoprazole 40 mg tablet,delayed 40 mg PO DAILY PRN 01/26/25 07/26/25 History
release Gastrointestinal Issue
turmeric 400 mg capsule 47.5 mg PO NOON Supplement 02/16/25 07/26/25 History
dextroamphetamine-amphetamine ER 10 mg PO TID ADHD 03/01/25 06/05/25 History
20 mg 24hr capsule,extend release
fluticasone furoate 200 1 inh inhalation HS asthma 03/01/25 07/26/25 History
mcg/actuation blister powder for
inhalation (Arnuity Ellipta)
insulin aspart U-100 100 unit/mL 1 sliding scale dose SC 03/01/25 07/26/25 History
(3 mL) subcutaneous pen (Novolog DIRECTED Diabetes
FlexPen U-100 Insulin aspart)
naproxen sodium 220 mg tablet 220 mg PO Q12 PRN mild pain 03/01/25 07/26/25 History
(Aleve)
atorvastatin 20 mg tablet 20 mg PO HS High Cholesterol 03/16/25 07/26/25 History
therapeutic multivitamin 1 tab PO DAILY Supplement 06/05/25 07/26/25 History
tirzepatide 2.5 mg/0.5 mL 2.5 mg SC HUTCHISON weight management 06/05/25 07/26/25 History
subcutaneous pen injector
(Huberunumerro)
diltiazem HCl 180 mg 180 mg PO BID #60 caps 06/12/25 07/26/25 Rx
capsule,extended release 24 hr
empagliflozin 10 mg tablet 10 mg PO DAILY Heart 06/12/25 07/26/25 Rx
disease/condition #30 tabs
furosemide 80 mg tablet 60 mg (0.75 x 80 mg) PO DAILY 06/12/25 06/05/25 Rx
Heart Disease/Condition #30 tabs
insulin aspart U-100 100 unit/mL 15 unit (0.15 mL) SC MEALS 06/12/25 06/05/25 Rx
(3 mL) subcutaneous pen (Novolog Diabetes #0 mL
FlexPen U-100 Insulin aspart)
blood-glucose sensor (Dexcom G7 07/26/25 07/26/25 History
Sensor device)
cholecalciferol (vitamin D3) 125 125 mcg PO DAILY 07/26/25 07/26/25 History
mcg (5,000 unit) tablet (Vitamin
D3)
nystatin 100,000 unit/gram topical 1 applic topical BID 07/26/25 07/26/25 History
ointment
Review of Systems
-
History Source: Patient
All other systems: Negative unless noted
Physical Exam
Vital Signs
Temp Pulse Resp BP Pulse Ox
97.7 F 118 15 117/73 92
07/27/25 07:44 07/27/25 07:56 07/27/25 07:56 07/27/25 06:00 07/27/25 07:56
General: NAD, AAO x 3
Skin: Warm dry pink no rash
HEENT: EOMI
Heart: A-fib on telemetry. Irregular irregular, no murmur
Lungs: 4 L NC. Few bibasilar rales, no wheeze
Abd: Obesity, ND
Ext: Trace B/L LE nonpitting edema
Neuro: nonfocal
Lab Results
07/27/25 03:32
07/27/25 03:32
Troponin I 0.040 ng/ml H* 07/27/25 03:32
Xib-I-Fzitgdsmoeo Pept 43717 pg/ml 07/26/25 21:12
Impression / Plan
-
PCP: Dr. Petty
Primary Vacuum Cleaner Repairer: Dr. Zavala
Primary EP: Dr. Garcia
Impression:
Admitted with acute HF and recurrent A-fib 07/26/2025
Recent admission for acute HF and rapid A-fib 06/05/25 until 06/12/2025
Acute hypoxic respiratory insufficiency, initially required BiPAP 07/26/2025
Acute on chronic HFpEF
Elevated troponin
Recurrent A-fib with RVR seen on ECG 07/26/2025
Paroxysmal A-fib and atypical atrial flutter
h/o PVI 2022
s/p PVI 03/16/2025
s/p successful CARMELO/CV 06/06/2025
Chronic amiodarone therapy
Chronic Eliquis OAC
Nonobstructive CAD by cardiac cath 09/19/2021
Hypertension
Hyperlipidemia
Type 2 diabetes
Stage IIIa CKD
ECHO 06/28/2024: EF 55 to 60%, mild concentric LVH, no regional wall motion abnormalities noted, mild MR, mild AR
Echo 01/2025:Normal LV size, LV EF 50%, normal RV size and function, mild MR/PI
CARMELO 06/06/2025: EF 50%, no significant valve disease, no GLO thrombus
Cardiac cath 09/19/2021: No significant CAD, PCWP (A-V-M) , PA 44/
Plan:
-Patient came to the ER yesterday with SOB and was found to be in recurrent A-fib and acute HF prompting admission and cardiology consultation. Patient was recently admitted to the hospital from until 06/12/2025 with A-fib and acute HF.
During that admission patient had a successful CARMELO/CV on 06/06/2025, but recurred with A-fib/atypical atrial flutter the following day prompting initiation of amiodarone and the plans for rate control and to follow-up as an outpatient. Patient has a
history of atrial arrhythmia with previous PVI in 2022 and then most recently a PVI 03/16/2025. When patient was seen in the office for follow-up on 06/16/2025 she was in SR and amiodarone 200 mg BID was continued and the plan was to then decrease
to 200 mg once daily on 09/28/2025. Patient says that about a week ago she started with BURCIAGA and then started with a sore throat that was evaluated in urgent care and patient tested negative for COVID and influenza at that time. Patient then noticed
weight gain up to 233 lbs at home and increased LE edema, she described her toes as looking like sausages. Patient says that things then got much worse in the last 24 hours with resting SOB and she came to the ER hypoxic and initially required
BiPAP. Patient was diuresed with Lasix 60 mg IV x 1 in the ER and then started on Lasix 40 mg PO daily starting today, but has not yet received a dose. Patient was taking Lasix 80 mg PO daily prior to admission. Patient also appears to be in
recurrent A-fib, she is asymptomatic with her atrial arrhythmias and so duration of recurrent atrial arrhythmias unknown. Patient denies missing any doses of Eliquis.
-ECG reviewed by me looks like A-fib with RVR on admission. Telemetry now looks like atrial fibrillation that is rate controlled
-Patient has recurrent A-fib and currently HR is controlled with Cardizem gtt at 15 mg/hr.
-Outpatient dose of Cardizem CD 180 mg BID has been continued
-Outpatient dose of amiodarone is not ordered and when I review the medication reconciliation performed in the ER amiodarone is not listed as a prehospital medication. Patient reports she is taking amiodarone 200 mg BID at home and so we will
restart that now. Check ECG 07/27/2025 afternoon now that HR is better controlled and to assess QTc, orders placed by me.
-Outpatient dose of Eliquis 5 mg BID (age 69, Cre 1.2, wt 102.5 kg) has been continued and patient denies missing any doses of Eliquis in the last 4 weeks
-Pending response to medication changes and diuresis the patient will be scheduled tentatively for CV on 07/29/2025, orders placed by me.
-Oxygenation is improving with initial attempts at diuresis, patient was given Lasix 60 mg IV x 1 in the ER last night and then ordered Lasix 40 mg PO daily that was going to start today, but patient takes Lasix 80 mg PO daily at home. Lasix orders
changed by cardiology and patient started on Lasix 40 mg IV BID 07/27/2025 AM.
-EF was preserved at 50% by CARMELO 06/06/2025
-Outpatient dose of Jardiance 10 mg daily has transition to Farxiga 10 mg daily due to hospital formulary changes, the patient should resume her usual dose of Jardiance upon discharge to home.
-Patient is not chronically on BB for unclear reasons
-Patient is not chronically on RAFI/ARB/ARNI/aldosterone antagonist due to CKD 3a
-Initial troponin was 0.03, then 0.040 and then 0.028. No complaints of chest pain. No acute ischemic changes on ECG. Suspect this is a nonischemic myocardial injury troponin elevation in the setting of rapid A-fib, acute HF and acute hypoxic
respiratory insufficiency. Patient had nonobstructive CAD by cardiac cath in 2021
[2025-07-27 08:15] LABS: Glucose - Point of Care 122 mg/dl (70-99)
[2025-07-27] MEDS: ELIQUIS 5 MG PO ×2 (08:25→19:18)
[2025-07-27] MEDS: FEMARA 2.5 MG PO (08:25)
[2025-07-27] MEDS: SYNTHROID 150 MCG PO (08:26)
[2025-07-27] MEDS: PROZAC 40 MG PO ×2 (08:26→19:17)
[2025-07-27] MEDS: FARXIGA 10 MG PO (08:26)
[2025-07-27] MEDS: CARDIZEM CD 180 MG PO ×2 (08:26→19:17)
[2025-07-27] MEDS: NOVOLOG FLEXPEN-LOW RESISTANCE SC (08:27)
[2025-07-27 10:21] LABS: Troponin I 0.028 ng/ml
[2025-07-27] MEDS: LASIX 40 MG IV ×2 (10:37→17:10)
[2025-07-27 10:54] LABS: Glycohemoglobin (HgbA1c) 7.6 % (4.0-5.9)
[2025-07-27] MEDS: PACERONE 200 MG PO ×2 (12:10→19:18)
[2025-07-27] MEDS: FEOSOL 325 MG PO (12:10)
--- NOTE | 2025-07-27 12:17 | CM ---
I.A: By ZAK Mueller.
I.A: Patient lives with roommate in a [address] with 0 [address]I. No DME, No VN/PT No Outpatient PT, No STR.
PCP: Dr. Keira Petty
Pharm: [address] in [place]
Patient has transport home. PLAN: Anticipate Home No Needs.
[2025-07-27 12:30] LABS: Glucose - Point of Care 219 mg/dl (70-99)
[2025-07-27] MEDS: NOVOLOG FLEXPEN-LOW RESISTANCE 2 UNITS SC ×2 (12:43→18:01)
--- NOTE | 2025-07-27 12:52 | PTCARENOTE ---
Pt's assessment as documented. Afib on tele monitor. Cardizem gtt infusing as ordered, see worklist. OOB to chair. Ringing appropriately, call newby within reach.
--- NOTE | 2025-07-27 14:47 | PTCARENOTE ---
Pt noted to be in NSR. Cardiology notified.
--- NOTE | 2025-07-27 16:46 | PTCARENOTE ---
Cardizem gtt d/c per orders.
[2025-07-27 18:11] LABS: Glucose - Point of Care 212 mg/dl (70-99)
[2025-07-27 21:04] LABS: Glucose - Point of Care 276 mg/dl (70-99)
[2025-07-27] MEDS: LANTUS 0.06 UNITS SC (21:43)
[2025-07-27] MEDS: LIPITOR 20 MG PO (21:43)
[2025-07-28] VITALS (11 sets, daily range): BP systolic 113–146; BP diastolic 67–96; BMI 37.7
[2025-07-28] MEDS: CARDIZEM 5 MG IV (03:17)
[2025-07-28] MEDS: FLUSH (NSS) 2 FLUSH IV (03:18)
[2025-07-28 04:15] LABS: Hematocrit 39.9 % (37.0-47.0); Hemoglobin 12.9 g/dL (12.0-16.0); Mean Corp Hgb Conc. 32.3 g/dL (33.0-37.0); Mean Corpuscular Volume 85.1 fL (81.0-99.0); Platelet Count 411 10^3/uL (130-400); Red Cell Dist. Width 14.2 % (11.5-14.5)
[2025-07-28 04:32] LABS: Blood Urea Nitrogen 28 mg/dl (7-17); Calcium 9.1 mg/dl (8.4-10.2); Carbon Dioxide 31 mmol/L (22-30); Chloride 98 mmol/L (98-107); Estimated Creatinine Clearance 35 ml/min; Glucose 169 mg/dl (70-99); Magnesium 1.8 mg/dl (1.6-2.3); Potassium 4.0 mmol/L (3.5-5.1); Sodium 136 mmol/L (135-145); eGFR 32.06
--- NOTE | 2025-07-28 05:09 | PTCARENOTE ---
Pt in Afib t.o shift rate 70's-130's. At times sustained int the 130's. Pt asymptomatic. aMgda SELF TT'd and made aware. Order entered for Cardizem 5mg IV x 1. Med given as ordered. If pt continues in Afib with rate in 130's at 0600 will given 0800
dose of Cardizem PO. Will continue to monitor.
[2025-07-28] MEDS: CARDIZEM CD 180 MG PO (06:14)
[2025-07-28] MEDS: SYNTHROID 150 MCG PO (06:14)
[2025-07-28] MEDS: PACERONE 200 MG PO ×2 (06:15→20:56)
[2025-07-28 07:40] LABS: Glucose - Point of Care 164 mg/dl (70-99)
[2025-07-28] MEDS: FLOVENT 110 MCG INHALER 2 PUFF INH ×2 (08:28→20:44)
[2025-07-28] MEDS: ELIQUIS 5 MG PO ×2 (08:32→20:56)
[2025-07-28] MEDS: FEMARA 2.5 MG PO (08:32)
[2025-07-28] MEDS: PROZAC 40 MG PO ×2 (08:32→20:56)
[2025-07-28] MEDS: NOVOLOG FLEXPEN-LOW RESISTANCE 1 UNITS SC (08:33)
[2025-07-28] MEDS: FARXIGA 10 MG PO (08:33)
--- NOTE | 2025-07-28 08:54 | W.PN.HOSP.TC ---
Today's Communication/Plan
-
Continue IV diuresis
Likely cardioversion tomorrow
Assessment / Plan
Assessment / Plan
69yoF PMH persistent afib, HFpEF, COPD, IDDM, hypothyroidism presenting with SOB in setting of acute on chronic HFpEF.
Pt was diagnosed with viral illness 2 weeks ago with subacute SOB with acute worsening last night.
AFVSS continuing in afib. While I was in the room, afib w/o RVR given HR under 100. Last recorded HR 118. Continues to have peripheral edema and minimal basilar crackles concerning for more fluid retention. Nursing reports voiding 3L. Weight down
5kg from yesterday. Continue diuresis. Troponin 0.038 to 0.040 down to 0.028 likely in setting of demand ischemia, trend.
Today, pt afebrile, continues afib RVR on 6L oxygen, up from yesterday 4L. Cr bumped 1.7 from 1.1, likely very dry. Weight down 99.6kg from 107.6 on presentation. Peripheral and pulmonary edema improved. HfmrEF 45-50%, previously 50%. Likely
cardioversion tomorrow. Continue IV diuresis per cardiology.
#acute on chronic HFpEF
#demand ischemia
- Continue IV diuresis
- Cardiology recs appreciated
- Continue farxiga
- monitor BNP if symptoms worsen
- Wean oxygen as tolerated
- elevated troponin in setting of stress
- Echo mildly reduced HFmrEF 45-50%
- Continue IV diuresis cautiously given growing FRANCISCO
#afib w/ RVR
- continue home diltiazem and eliquis
- Diltiazem gtt as needed
- TSH pending
- Cardioversion planned for tomorrow
#IDDM
- SSI
- hold mounjaro
#COPD
- continue home inhalers
#hx breast cx
#HLD
#fluoxetine
#hypothyroidism
#GERD
- continue home medications
Diet: diabetic
Code: full
DVT prophylaxis: eliquis
Anticipated Discharge: 24 - 48 hours
Subjective/Interval History
-
Date of Service: July 28, 2025
Pt reports feeling well this morning with mild increased SOB this morning compared to overnight. She reports feeling a little oxygen hungry otherwise better than when she came in and yesterday.
Objective Data
-
Labs:
Laboratory Results
07/28/25
03:31
WBC 7.6
Hgb 12.9
Hct 39.9
Plt Count 411 H
Sodium 136
Potassium 4.0
Chloride 98
Carbon Dioxide 31 H
BUN 28 H
Creatinine 1.7 H
Glucose 169 H
Calcium 9.1
Vital Signs:
Vital Signs
Temp Pulse Resp BP Pulse Ox
98.3 F 136 18 113/67 86
07/28/25 07:36 07/28/25 08:34 07/28/25 08:34 07/28/25 06:15 07/28/25 08:34
I&O
07/27/25 07/28/25 07/29/25
06:59 06:59 06:59
Intake Total 100 / 100 240 / 240
Output Total 2900 / 2900 500 / 500
Balance -2800 / -2800 -260 / -260
Physical Exam
-
General: Well Nourished, No Apparent Distress and Comfortable
HEENT: Normocephalic, Atraumatic and Other (appears dry)
Respiratory: Clear to Auscultation and Non Labored Respirations (on 6L)
Cardiac: S1/S2 and Irregular Rhythm
GI: Soft, Nontender and Nondistended
Musculoskeletal: No Edema
Skin: Warm and Dry
Neuro: AO x 3, Nonfocal/Grossly Intact and Central Nerve's Intact
Psych: Calm
[2025-07-28] MEDS: CARDIZEM 125 IV (09:25)
--- NOTE | 2025-07-28 10:35 | W.PN.CARDCBS ---
Today's Communication / Plan
-
Rate control atrial fibrillation IV diltiazem added (hold oral diltiazem for now). Continue amiodarone.
N.p.o. for cardioversion tomorrow
Continue oral anticoagulation
Lasix held this a.m. given increased creatinine. Give 1 dose today and reassess
Continue treatment of hypoxia
Impression / Plan
-
PCP: Dr. Petty
Primary Surgical Dressing Maker: Dr. Zavala
Primary EP: Dr. Garcia
Impression:
Admitted with acute HF and recurrent A-fib 07/26/2025
Recent admission for acute HF and rapid A-fib 06/05/25 until 06/12/2025
Acute hypoxic respiratory insufficiency, initially required BiPAP 07/26/2025
Acute on chronic HFpEF
Elevated troponin
Recurrent A-fib with RVR seen on ECG 07/26/2025
Paroxysmal A-fib and atypical atrial flutter
h/o PVI 2022
s/p PVI 03/16/2025
s/p successful CARMELO/CV 06/06/2025
Chronic amiodarone therapy
Chronic Eliquis OAC
Nonobstructive CAD by cardiac cath 09/19/2021
Hypertension
Hyperlipidemia
Type 2 diabetes
Stage IIIa CKD
ECHO 06/28/2024: EF 55 to 60%, mild concentric LVH, no regional wall motion abnormalities noted, mild MR, mild AR
Echo 01/2025:Normal LV size, LV EF 50%, normal RV size and function, mild MR/PI
CARMELO 06/06/2025: EF 50%, no significant valve disease, no GLO thrombus
Cardiac cath 09/19/2021: No significant CAD, PCWP (A-V-M) 27/28/22, PA 44/25
Plan:
Heart failure with preserved ejection fraction acute on chronic with volume overload and hypoxemia/extremis. Overnight patient more short of breath. Patient now with once again increased heart rates and atrial fibrillation on oral diltiazem
(switched from IV) and oral amiodarone. Increased creatinine also noted today (1.2 to now 1.7)
I initially held a.m. IV dose of Lasix in the setting of increased renal function.
Will give 40 mg ofIV Lasix later today and continue to reassess volume status. She remains volume overloaded
She is currently on SGLT2 inhibitor, if creatinine increases may need to hold transiently.
Follow input/output and daily weights
Check chest x-ray
Treat underlying causes
Hypoxemia
Multifactorial continue heart failure treatment and treatment of arrhythmia
Recent upper respiratory infection
Reassess chest x-ray
Prior CT scan which changes may be consistent with infection/inflammation 06/2025.
If continues despite diuresis and pentecostal of sinus rhythm consider pulmonary assessment
Rapid atrial fibrillation recurrent with multiple PVI's
Continue oral Amio which is an increased dose
IV diltiazem for rate control while inpatient
Hold oral diltiazem
She has not missed dose of oral anticoagulation. Continue oral anticoagulation.
Plan for cardioversion 07/29 discussed with patient
Follow-up with electrophysiology as Outpt given continued recurrences of rapid atrial fibrillation.
CKD 3a
Increased creatinine continue to follow
Nonischemic myocardial injury troponin elevation. Initial troponin was 0.03, then 0.040 and then 0.028. No complaints of chest pain. No acute ischemic changes on ECG. Suspect this is a nonischemic myocardial injury troponin elevation in the
setting of rapid A-fib, acute HF and acute hypoxic respiratory insufficiency.
Patient had nonobstructive CAD by cardiac cath in 2021
Discussed with nursing staff. Discussed with primary service.
-Patient presented to the ER with SOB and was found to be in recurrent A-fib and acute HF prompting admission and cardiology consultation. Patient was recently admitted to the hospital from until 06/12/2025 with A-fib and acute HF. During
that admission patient had a successful CARMELO/CV on 06/06/2025, but recurred with A-fib/atypical atrial flutter the following day prompting initiation of amiodarone and the plans for rate control and to follow-up as an outpatient. Patient has a
history of atrial arrhythmia with previous PVI in 2022 and then most recently a PVI 03/16/2025. When patient was seen in the office for follow-up on 06/16/2025 she was in SR and amiodarone 200 mg BID was continued and the plan was to then decrease
to 200 mg once daily on 09/28/2025. Patient says that about a week ago she started with BURCIAGA and then started with a sore throat that was evaluated in urgent care and patient tested negative for COVID and influenza at that time. Patient then noticed
weight gain up to 233 lbs at home and increased LE edema. Patient says that things then got much worse in the last 24 hours with resting SOB and she came to the ER hypoxic and initially required BiPAP. Patient was diuresed with Lasix 60 mg IV x 1
in the ER and then started on Lasix 40 mg PO daily starting today, but has not yet received a dose. Patient was taking Lasix 80 mg PO daily prior to admission. Patient also appears to be in recurrent A-fib, she is asymptomatic with her atrial
arrhythmias and so duration of recurrent atrial arrhythmias unknown. Patient denies missing any doses of Eliquis.
Progress Note - Surgical Dressing Maker
Subjective
Date of Service: July 28, 2025
She feels short of breath.
Objective
Labs:
07/28/25 03:31
07/28/25 03:31
Labs
Hgb 12.9 g/dL (12.0-16.0) 07/28/25 03:31
Hct 39.9 % (37.0-47.0) 07/28/25 03:31
Plt Count 411 10^3/uL (130-400) H 07/28/25 03:31
Sodium 136 mmol/L (135-145) 07/28/25 03:31
Potassium 4.0 mmol/L (3.5-5.1) 07/28/25 03:31
BUN 28 mg/dl (7-17) H 07/28/25 03:31
Creatinine 1.7 mg/dL (0.6-1.0) H 07/28/25 03:31
Glucose 169 mg/dl (70-99) H 07/28/25 03:31
Troponins
07/26/25 07/27/25 07/27/25
21:12 03:32 09:45
Troponin I 0.038 H* 0.040 H* 0.028 D
Vital Signs and I&O:
Vital Signs
Temp Pulse Resp BP Pulse Ox
98.3 F 136 18 113/67 86
07/28/25 07:36 07/28/25 08:34 07/28/25 08:34 07/28/25 06:15 07/28/25 08:34
Vital Signs
Temp Pulse Resp BP Pulse Ox
98.3 F 136 18 113/67 86
07/28/25 07:36 07/28/25 08:34 07/28/25 08:34 07/28/25 06:15 07/28/25 08:34
Intake & Output
07/26/25 07/27/25 07/28/25 07/29/25
06:59 06:59 06:59 06:59
Intake Total 100 / 100 240 / 240
Output Total 2900 / 2900 500 / 500
Balance -2800 / -2800 -260 / -260
Physical Exam
Physical Exam
Short of breath in chair
Heart: Irregularly irregular and tacky
Lungs: Coarse breath sounds decreased at the bases
Extremities: No clubbing, cyanosis +1 edema bilaterally.
Neuro: Grossly nonfocal, awake, alert
[2025-07-28 11:42] LABS: Glucose - Point of Care 297 mg/dl (70-99)
[2025-07-28] MEDS: NOVOLOG FLEXPEN-LOW RESISTANCE 3 UNITS SC (12:33)
[2025-07-28] MEDS: LASIX 40 MG IV (13:07)
[2025-07-28] MEDS: FEOSOL 325 MG PO (13:07)
[2025-07-28 16:57] LABS: Glucose - Point of Care 300 mg/dl (70-99)
[2025-07-28] MEDS: NOVOLOG FLEXPEN-LOW RESISTANCE 4 UNITS SC (17:02)
--- NOTE | 2025-07-28 18:32 | PTCARENOTE ---
Patient heart rate this am A-FIB in 120-130s with minimal activity, pt had complained of feeling SOB and pulse ox dropping to 88%. Pt placed on 2L NC. Dr. Laila Alvarez here and order received for Cardizem gtt @5mg/hr which was started and pt's
heart rate lowered to 80-90s. One episode this afternoon of 120-130 rate but was not sustained, Cardizem gtt remains at 5mg/hr. Oxygen remains at 2L NC and pt pulse ox >90%. Pt OOB to chair for hours throughout the day. Pt education provided
regarding Cardioversion in the am. Pt with good understanding and reports that she has had previous cardioversions. Pt blood sugars are greater than 200 this afternoon, pt concerned because has not had any snacks or outside snacks. Discussed
potential causes and the importance of awareness
--- NOTE | 2025-07-28 21:25 | PTCARENOTE ---
Assumed care of pt from dayshift RM after change of shift report. pt is aaox3. wearing 4L 02, sats 95%-98%. afib on monitor rates controlled between 80-110 bpm. currently on 5mg/hr of Cardizem. assessment as documented. call light in reach.
[2025-07-28 21:57] LABS: Glucose - Point of Care 256 mg/dl (70-99)
[2025-07-28] MEDS: LANTUS 0.06 UNITS SC (22:50)
[2025-07-28] MEDS: LIPITOR 20 MG PO (22:51)
[2025-07-29] VITALS (10 sets, daily range): BP systolic 105–137; BP diastolic 55–83; BMI 37.5
[2025-07-29] MEDS: CARDIZEM 125 IV (03:37)
[2025-07-29] MEDS: SYNTHROID 150 MCG PO (05:16)
[2025-07-29 05:40] LABS: Hematocrit 39.4 % (37.0-47.0); Hemoglobin 12.7 g/dL (12.0-16.0); Mean Corp Hgb Conc. 32.2 g/dL (33.0-37.0); Mean Corpuscular Volume 84.2 fL (81.0-99.0); Platelet Count 402 10^3/uL (130-400); Red Cell Dist. Width 14.3 % (11.5-14.5)
[2025-07-29 06:05] LABS: Blood Urea Nitrogen 29 mg/dl (7-17); Calcium 8.9 mg/dl (8.4-10.2); Carbon Dioxide 31 mmol/L (22-30); Chloride 97 mmol/L (98-107); Estimated Creatinine Clearance 38 ml/min; Glucose 194 mg/dl (70-99); Potassium 3.9 mmol/L (3.5-5.1); Sodium 134 mmol/L (135-145); eGFR 34.48
[2025-07-29] MEDS: FLOVENT 110 MCG INHALER 2 PUFF INH ×2 (08:00→21:10)
[2025-07-29] MEDS: PACERONE 200 MG PO ×2 (08:28→19:49)
[2025-07-29] MEDS: NOVOLOG FLEXPEN-LOW RESISTANCE SC (08:28)
[2025-07-29] MEDS: PROZAC 40 MG PO ×2 (08:29→19:50)
[2025-07-29] MEDS: FEMARA 2.5 MG PO (08:29)
[2025-07-29] MEDS: FARXIGA 10 MG PO (08:29)
[2025-07-29] MEDS: ELIQUIS 5 MG PO ×2 (08:29→19:49)
[2025-07-29] MEDS: PROTONIX 40 MG PO (08:29)
--- NOTE | 2025-07-29 09:06 | W.PN.HOSP.TC ---
Today's Communication/Plan
-
Cardioversion today
Continue cautious iv diuresis
Assessment / Plan
Assessment / Plan
69yoF PMH persistent afib, HFpEF, COPD, IDDM, hypothyroidism presenting with SOB in setting of acute on chronic HFpEF.
Pt was diagnosed with viral illness 2 weeks ago with subacute SOB with acute worsening last night.
07/27 AFVSS continuing in afib. While I was in the room, afib w/o RVR given HR under 100. Last recorded HR 118. Continues to have peripheral edema and minimal basilar crackles concerning for more fluid retention. Nursing reports voiding 3L. Weight
down 5kg from yesterday. Continue diuresis. Troponin 0.038 to 0.040 down to 0.028 likely in setting of demand ischemia, trend.
07/28 Pt afebrile, continues afib RVR on 6L oxygen, up from yesterday 4L. Cr bumped 1.7 from 1.1, likely very dry. Weight down 99.6kg from 107.6 on presentation. Peripheral and pulmonary edema improved. HfmrEF 45-50%, previously 50%. Likely
cardioversion tomorrow. Continue IV diuresis per cardiology.
07/29 AFVSS on 5L oxygen. Pt reports feeling well with resolving pulmonary and peripheral edema, weight down to 99.1. Plan for cardioversion today, still in afib on diltiazem drip. 1 dose IV lasix 40mg yesterday, Cr improved 1.6 from 1.7. CXR
yesterday demonstrated small bilateral pleural effusions improved from admission. Cardiology plans on continuing IV diuresis. Successful cardioversion this morning.
#acute on chronic HFpEF
#demand ischemia
- Continue IV diuresis
- Cardiology recs appreciated
- Continue farxiga
- monitor BNP if symptoms worsen
- Wean oxygen as tolerated
- elevated troponin in setting of stress
- Echo mildly reduced HFmrEF 45-50%
- Continue IV diuresis cautiously given growing FRANCISCO
#afib w/ RVR
- continue home diltiazem and eliquis
- Diltiazem gtt as needed
- TSH pending
- Cardioversion today
#IDDM
- SSI
- hold mounjaro
#COPD
- continue home inhalers
#hx breast cx
#HLD
#fluoxetine
#hypothyroidism
#GERD
- continue home medications
Diet: diabetic
Code: full
DVT prophylaxis: eliquis
Anticipated Discharge: Within 24 hours
Subjective/Interval History
-
Date of Service: July 29, 2025
Pt reports feeling well today. She describes mild air hunger sensation this morning with prompt resolution, comfortable now on 5L NC. She reports just having her daily inhaler before I came in for her COPD but not requiring home oxygen.
Objective Data
-
Labs:
Laboratory Results
07/29/25
05:25
WBC 8.9
Hgb 12.7
Hct 39.4
Plt Count 402 H
Sodium 134 L
Potassium 3.9
Chloride 97 L
Carbon Dioxide 31 H
BUN 29 H
Creatinine 1.6 H
Glucose 194 H
Calcium 8.9
Vital Signs:
Vital Signs
Temp Pulse Resp BP Pulse Ox
97.9 F 120 17 133/76 91
07/29/25 07:54 07/29/25 08:28 07/29/25 08:02 07/29/25 08:28 07/29/25 08:02
I&O
07/28/25 07/29/25 07/30/25
06:59 06:59 06:59
Intake Total 240 / 240
Output Total 500 / 500 1575 / 1575
Balance -260 / -260 -1575 / -1575
Physical Exam
-
General: Well Developed, Well Nourished, No Apparent Distress and Comfortable
HEENT: Normocephalic, Atraumatic and Moist Mucous Membranes
Respiratory: Clear to Auscultation and Non Labored Respirations
Cardiac: S1/S2 and Irregular Rhythm
GI: Soft, Nontender and Nondistended
Musculoskeletal: No Edema
Skin: Warm and Dry
Neuro: AO x 3 and Nonfocal/Grossly Intact
Psych: Calm
--- NOTE | 2025-07-29 09:38 | W.PN.CARDCBS ---
Today's Communication / Plan
-
Heart failure with preserved ejection fraction acute on chronic with volume overload and hypoxemia/extremis.
Received lasix 40 mg IV X 1 Jul 28. Cr was rising from 1.2 to 1.7 now improved to 1.6.
Will given lasix again Jul 29 40 mg IV X 1 and monitor cr.
Monitor cr and Is and Os closely with diuresis
Wt coming down.
Hold SGLT2 inhibitor with elevated cr and likely resume prior to d/c
Cont pulm toilet.
Recent upper respiratory infection
Reassess chest x-ray
Prior CT scan which changes may be consistent with infection/inflammation 06/2025.
If continues despite diuresis and zoroastrianism of sinus rhythm consider pulmonary assessment
Rapid atrial fibrillation recurrent with multiple PVI's
Continue oral Amio at 200 mg BID
Resume oral Diltiazem and stop IV Diltiazem
Cont Eliquis, she has not missed any doses
Successful cardioverson 07/29
Follow-up with electrophysiology as Outpt given continued recurrences of rapid atrial fibrillation.
CKD 3a
Increased creatinine slightly improved continue to follow
Nonischemic myocardial injury troponin elevation. Initial troponin was 0.03, then 0.040 and then 0.028.
Cont medical therapy of nonMI troponin.
Patient had nonobstructive CAD by cardiac cath in 2021
Impression / Plan
-
.
PCP: Dr. Petty
Primary Batch Heat Treat Operator: Dr. Zavala
Primary EP: Dr. Garcia
Impression:
Admitted with acute on chronic HF and recurrent A-fib 07/26/2025
Recent admission for acute HF and rapid A-fib 06/05/25 until 06/12/2025
Acute hypoxic respiratory insufficiency, initially required BiPAP 07/26/2025
Elevated troponin
Recurrent A-fib with RVR
Paroxysmal A-fib and atypical atrial flutter
h/o PVI 2022
s/p PVI 03/16/2025
s/p successful CARMELO/CV 06/06/2025
Chronic amiodarone therapy
Chronic Eliquis OAC
Nonobstructive CAD by cardiac cath 09/19/2021
Hypertension
Hyperlipidemia
Type 2 diabetes
Stage IIIa CKD
ECHO 06/28/2024: EF 55 to 60%, mild concentric LVH, no regional wall motion abnormalities noted, mild MR, mild AR
Echo 01/2025:Normal LV size, LV EF 50%, normal RV size and function, mild MR/PI
CARMELO 06/06/2025: EF 50%, no significant valve disease, no GLO thrombus
Cardiac cath 09/19/2021: No significant CAD, PCWP (A-V-M) 27/28/, PA 44/25
Plan:
Heart failure with preserved ejection fraction acute on chronic with volume overload and hypoxemia/extremis.
Received lasix 40 mg IV X 1 Jul 28. Cr was rising from 1.2 to 1.7 now improved to 1.6.
Will given lasix again Jul 29 40 mg IV X 1 and monitor cr.
Monitor cr and Is and Os closely with diuresis
Wt coming down.
Hold SGLT2 inhibitor with elevated cr and likely resume prior to d/c
Cont pulm toilet.
Recent upper respiratory infection
Reassess chest x-ray
Prior CT scan which changes may be consistent with infection/inflammation 06/2025.
If continues despite diuresis and zoroastrianism of sinus rhythm consider pulmonary assessment
Rapid atrial fibrillation recurrent with multiple PVI's
Continue oral Amio at 200 mg BID
Resume oral Diltiazem and stop IV Diltiazem
Cont Eliquis, she has not missed any doses
Successful cardioverson 07/29
Follow-up with electrophysiology as Outpt given continued recurrences of rapid atrial fibrillation.
CKD 3a
Increased creatinine slightly improved continue to follow
Nonischemic myocardial injury troponin elevation. Initial troponin was 0.03, then 0.040 and then 0.028.
Cont medical therapy of nonMI troponin.
Patient had nonobstructive CAD by cardiac cath in 2021
-Patient presented to the ER with SOB and was found to be in recurrent A-fib and acute HF prompting admission and cardiology consultation. Patient was recently admitted to the hospital from until 06/12/2025 with A-fib and acute HF. During
that admission patient had a successful CARMELO/CV on 06/06/2025, but recurred with A-fib/atypical atrial flutter the following day prompting initiation of amiodarone and the plans for rate control and to follow-up as an outpatient. Patient has a
history of atrial arrhythmia with previous PVI in 2022 and then most recently a PVI 03/16/2025. When patient was seen in the office for follow-up on 06/16/2025 she was in SR and amiodarone 200 mg BID was continued and the plan was to then decrease
to 200 mg once daily on 09/28/2025. Patient says that about a week ago she started with BURCIAGA and then started with a sore throat that was evaluated in urgent care and patient tested negative for COVID and influenza at that time. Patient then noticed
weight gain up to 233 lbs at home and increased LE edema. Patient says that things then got much worse in the last 24 hours with resting SOB and she came to the ER hypoxic and initially required BiPAP. Patient was diuresed with Lasix 60 mg IV x 1
in the ER and then started on Lasix 40 mg PO daily starting today, but has not yet received a dose. Patient was taking Lasix 80 mg PO daily prior to admission. Patient also appears to be in recurrent A-fib, she is asymptomatic with her atrial
arrhythmias and so duration of recurrent atrial arrhythmias unknown. Patient denies missing any doses of Eliquis.
Progress Note - Batch Heat Treat Operator
Subjective
Date of Service: July 29, 2025
Pt seen and examined. No cp or dyspnea.
Objective
Labs:
07/29/25 05:25
07/29/25 05:25
Labs
Hgb 12.7 g/dL (12.0-16.0) 07/29/25 05:25
Hct 39.4 % (37.0-47.0) 07/29/25 05:25
Plt Count 402 10^3/uL (130-400) H 07/29/25 05:25
Sodium 134 mmol/L (135-145) L 07/29/25 05:25
Potassium 3.9 mmol/L (3.5-5.1) 07/29/25 05:25
BUN 29 mg/dl (7-17) H 07/29/25 05:25
Creatinine 1.6 mg/dL (0.6-1.0) H 07/29/25 05:25
Glucose 194 mg/dl (70-99) H 07/29/25 05:25
Troponins
07/26/25 07/27/25 07/27/25
21:12 03:32 09:45
Troponin I 0.038 H* 0.040 H* 0.028 D
Vital Signs and I&O:
Vital Signs
Temp Pulse Resp BP Pulse Ox
97.9 F 120 17 133/76 91
07/29/25 07:54 07/29/25 08:28 07/29/25 08:02 07/29/25 08:28 07/29/25 08:02
Vital Signs
Temp Pulse Resp BP Pulse Ox
97.9 F 120 17 133/76 91
07/29/25 07:54 07/29/25 08:28 07/29/25 08:02 07/29/25 08:28 07/29/25 08:02
Intake & Output
07/27/25 07/28/25 07/29/25 07/30/25
06:59 06:59 06:59 06:59
Intake Total 100 / 100 240 / 240
Output Total 2900 / 2900 500 / 500 1575 / 1575
Balance -2800 / -2800 -260 / -260 -1575 / -1575
Physical Exam
Physical Exam
General: No acute distress, AAOX3
Neck: Negative JVD
Heart: Tachycardic, Negative S3 positive S1/S2, Negative S4, No murmur
Lungs: CTA b/l, negative wheezes/rales/rhonchi
Abd: Morbid obesity. Positive BS, NT/ND, neg rebound/rigidity/guarding
Ext: Negative cyanosis/clubbing/edema
Neuro: nonfocal
--- NOTE | 2025-07-29 09:48 | ITS.CL.CARDI ---
[employer] - Cardioversion
Cardioversion
Procedure Report:
Date of Procedure: Jul 29 2025
Procedure: Cardioversion
Indication: Symptomatic atrial fibrillation
Performing Physician: Alessandro Marina DO. [facility]
Technique: The patient was brought to the holding area. Signed informed consent was obtained. A time out was called and performed. The patient was anesthetized by the anesthesia service. Anticoagulation status was reviewed and appropriate. R2 pads
were placed anteriorly and posteriorly. A 250 J synchronized biphasic shock restored normal sinus rhythm without significant bradycardia. There were no complications.
Conclusion: Uncomplicated cardioversion from atrial fibrillation to sinus rhythm.
Recommendation: Routine post cardioversion care. Continue manager long term care anticoagulation.
[2025-07-29] MEDS: NOVOLOG FLEXPEN-LOW RESISTANCE 2 UNITS SC (10:56)
[2025-07-29] MEDS: LASIX 40 MG IV (10:56)
[2025-07-29 11:05] LABS: Glucose - Point of Care 219 mg/dl (70-99)
--- NOTE | 2025-07-29 11:42 | CM ---
F/U: Patient getting Cardioversion today and to Continue cautious iv diuresis. PLAN: Anticipate Home No Needs.
[2025-07-29] MEDS: FEOSOL 325 MG PO (13:04)
[2025-07-29 13:15] LABS: Glucose - Point of Care 307 mg/dl (70-99)
--- NOTE | 2025-07-29 13:33 | PTCARENOTE ---
Patient AAOx3, now in NSR post cardioversion, VSS. Patient up in chair eating. Patient making needs known with no complaints. 5L NC, sats 95%. Downgraded to telemetry, awaiting bed. Will continue to closely monitor.
[2025-07-29 17:19] LABS: Glucose - Point of Care 405 mg/dl (70-99)
[2025-07-29 17:59] LABS: Glucose 390 mg/dl (70-99)
[2025-07-29] MEDS: NOVOLOG FLEXPEN-LOW RESISTANCE 5 UNITS SC (18:30)
--- NOTE | 2025-07-29 18:30 | PTCARENOTE ---
pt is sr on the monitor, hr in the 80s, vss. pt offers no complaints at this time. pt bg rr hi, stat glucose drawn, notified provider sliding scale coverage. pt educated on plan of care and pt verbalized understanding. call newby within reach.
[2025-07-29] MEDS: CARDIZEM CD 180 MG PO (19:49)
[2025-07-29 20:30] LABS: Glucose - Point of Care 272 mg/dl (70-99)
[2025-07-29] MEDS: LIPITOR 20 MG PO (22:24)
[2025-07-29] MEDS: LANTUS 0.1 UNITS SC (22:36)
--- NOTE | 2025-07-29 22:45 | PTCARENOTE ---
accu check down to 184 at HS
--- NOTE | 2025-07-29 22:54 | PTCARENOTE ---
Pt rec'd at beginning of shift in bed with no complaints. Sinus with pac's on telemetry. Lungs diminished on 5 lit n/c. no cough
[2025-07-30 05:20] VITALS: BMI 37.2
[2025-07-30 05:31] VITALS: BP 110/71
[2025-07-30] MEDS: SYNTHROID 150 MCG PO (05:36)
[2025-07-30 05:43] LABS: Hematocrit 40.3 % (37.0-47.0); Hemoglobin 12.9 g/dL (12.0-16.0); Mean Corp Hgb Conc. 32.0 g/dL (33.0-37.0); Mean Corpuscular Volume 83.8 fL (81.0-99.0); Platelet Count 421 10^3/uL (130-400); Red Cell Dist. Width 14.3 % (11.5-14.5)
[2025-07-30 06:15] LABS: Blood Urea Nitrogen 29 mg/dl (7-17); Calcium 9.2 mg/dl (8.4-10.2); Carbon Dioxide 32 mmol/L (22-30); Chloride 96 mmol/L (98-107); Estimated Creatinine Clearance 37 ml/min; Glucose 184 mg/dl (70-99); Potassium 3.9 mmol/L (3.5-5.1); Sodium 136 mmol/L (135-145); eGFR 34.48
--- NOTE | 2025-07-30 06:15 | PTCARENOTE ---
Pt reports having slept well. No c/o sob at thia time. O2 weaned from 5 to 4 and eventually to 3 lit after sat 94-95%.
--- NOTE | 2025-07-30 07:06 | W.PN.HOSP.TC ---
Today's Communication/Plan
-
Wean off oxygen
Restart home meds pending discharge
Assessment / Plan
Assessment / Plan
69yoF PMH persistent afib, HFpEF, COPD, IDDM, hypothyroidism presenting with SOB in setting of acute on chronic HFpEF.
Pt was diagnosed with viral illness 2 weeks ago with subacute SOB with acute worsening last night.
07/27 AFVSS continuing in afib. While I was in the room, afib w/o RVR given HR under 100. Last recorded HR 118. Continues to have peripheral edema and minimal basilar crackles concerning for more fluid retention. Nursing reports voiding 3L. Weight
down 5kg from yesterday. Continue diuresis. Troponin 0.038 to 0.040 down to 0.028 likely in setting of demand ischemia, trend.
07/28 Pt afebrile, continues afib RVR on 6L oxygen, up from yesterday 4L. Cr bumped 1.7 from 1.1, likely very dry. Weight down 99.6kg from 107.6 on presentation. Peripheral and pulmonary edema improved. HfmrEF 45-50%, previously 50%. Likely
cardioversion tomorrow. Continue IV diuresis per cardiology.
07/29 AFVSS on 5L oxygen. Pt reports feeling well with resolving pulmonary and peripheral edema, weight down to 99.1. Plan for cardioversion today, still in afib on diltiazem drip. 1 dose IV lasix 40mg yesterday, Cr improved 1.6 from 1.7. CXR
yesterday demonstrated small bilateral pleural effusions improved from admission. Cardiology plans on continuing IV diuresis. Successful cardioversion this morning.
07/30 AFVSS, weaning down on oxygen 3L this morning. Respiratory symptoms resolving with no peripheral edema. Pt weight down 98.1kg. Successful cardioversion, still in sinus. Transition to PO home lasix. Goal to wean off oxygen today for dispo.
Restart home lasix and farxiga
#acute on chronic HFpEF
#demand ischemia
- Continue IV diuresis
- Cardiology recs appreciated
- Continue farxiga
- monitor BNP if symptoms worsen
- Wean oxygen as tolerated
- elevated troponin in setting of stress
- Echo mildly reduced HFmrEF 45-50%
- transition to PO lasix
#afib w/ RVR
- continue home diltiazem and eliquis
- Diltiazem gtt as needed
- TSH pending
- Cardioversion yesterday. Still in sinus
#IDDM
- SSI
- hold mounjaro
#COPD
- continue home inhalers
#hx breast cx
#HLD
#fluoxetine
#hypothyroidism
#GERD
- continue home medications
Diet: diabetic
Code: full
DVT prophylaxis: eliquis
Anticipated Discharge: Today
Subjective/Interval History
-
Date of Service: July 30, 2025
Pt reports feeling well today, ambulating well without BURCIAGA. She is going down on oxygen needs with continued diuresis.
Objective Data
-
Labs:
Laboratory Results
07/30/25
05:28
WBC 9.8
Hgb 12.9
Hct 40.3
Plt Count 421 H
Sodium 136
Potassium 3.9
Chloride 96 L
Carbon Dioxide 32 H
BUN 29 H
Creatinine 1.6 H
Glucose 184 H
Calcium 9.2
Vital Signs:
Vital Signs
Temp Pulse Resp BP Pulse Ox
97.6 F 74 24 110/71 94
07/30/25 05:31 07/30/25 05:31 07/30/25 05:31 07/30/25 05:31 07/30/25 05:31
I&O
07/29/25 07/30/25 07/31/25
06:59 06:59 06:59
Intake Total 240 / 240
Output Total 1575 / 1575 450 / 450
Balance -1575 / -1575 -210 / -210
Review of Systems
-
History Source: Patient
All other systems: Reviewed and negative
Physical Exam
-
General: Well Developed, Well Nourished, No Apparent Distress and Comfortable
HEENT: Normocephalic, Atraumatic and Moist Mucous Membranes
Respiratory: Clear to Auscultation and Non Labored Respirations
Cardiac: Regular Rhythm and S1/S2
GI: Soft, Nontender and Nondistended
Musculoskeletal: No Edema
Skin: Warm and Dry
Neuro: AO x 3 and Nonfocal/Grossly Intact
Psych: Calm
[2025-07-30] MEDS: FLOVENT 110 MCG INHALER 2 PUFF INH (07:19)
[2025-07-30 07:36] VITALS: BP 130/88
[2025-07-30 07:56] LABS: Glucose - Point of Care 189 mg/dl (70-99)
[2025-07-30] MEDS: ELIQUIS 5 MG PO (08:29)
[2025-07-30] MEDS: PACERONE 200 MG PO (08:29)
[2025-07-30] MEDS: CARDIZEM CD 180 MG PO (08:29)
[2025-07-30] MEDS: PROZAC 40 MG PO (08:29)
[2025-07-30] MEDS: NOVOLOG FLEXPEN-LOW RESISTANCE 1 UNITS SC (08:31)
[2025-07-30] MEDS: FEMARA 2.5 MG PO (09:59)
[2025-07-30 11:47] LABS: Glucose - Point of Care 250 mg/dl (70-99)
[2025-07-30] MEDS: FEOSOL 325 MG PO (11:51)
[2025-07-30] MEDS: NOVOLOG FLEXPEN-LOW RESISTANCE 3 UNITS SC (11:51)
--- NOTE | 2025-07-30 13:07 | W.PN.CARDCBS ---
Today's Communication / Plan
-
Remains in sinus rhythm following cardioversion. Continue amiodarone and Eliquis.
Appears euvolemic on exam. Would resume home Lasix and SGLT2.
Stable for discharge from my perspective
Impression / Plan
-
PCP: Dr. Petty
Primary Rail Detector Car Operator: Dr. Zavala
Primary EP: Dr. Garcia
Impression:
Admitted with acute on chronic HF and recurrent A-fib 07/26/2025
Recent admission for acute HF and rapid A-fib 06/05/25 until 06/12/2025
Acute hypoxic respiratory insufficiency, initially required BiPAP 07/26/2025
Elevated troponin
Recurrent A-fib with RVR
Paroxysmal A-fib and atypical atrial flutter
h/o PVI 2022
s/p PVI 03/16/2025
s/p successful CARMELO/CV 06/06/2025
Chronic amiodarone therapy
Chronic Eliquis OAC
Nonobstructive CAD by cardiac cath 09/19/2021
Hypertension
Hyperlipidemia
Type 2 diabetes
Stage IIIa CKD
ECHO 06/28/2024: EF 55 to 60%, mild concentric LVH, no regional wall motion abnormalities noted, mild MR, mild AR
Echo 01/2025:Normal LV size, LV EF 50%, normal RV size and function, mild MR/PI
CARMELO 06/06/2025: EF 50%, no significant valve disease, no LGO thrombus
Cardiac cath 09/19/2021: No significant CAD, PCWP (A-V-M) 27/28/22, PA 44/25
Plan:
Heart failure with preserved ejection fraction acute on chronic with volume overload and hypoxemia/extremis.
Appears euvolemic on exam
Would resume home Lasix and Jardiance doses
Rapid atrial fibrillation recurrent with multiple PVI's
Successful cardioverson 07/29
Continue oral Amio at 200 mg BID and oral Diltiazem
Cont Eliquis, she has not missed any doses
Follow-up with electrophysiology as outpt given continued recurrences of rapid atrial fibrillation.
CKD 3a
Increased creatinine slightly improved continue to follow
Nonischemic myocardial injury troponin elevation. Initial troponin was 0.03, then 0.040 and then 0.028.
Cont medical therapy of nonMI troponin.
Patient had nonobstructive CAD by cardiac cath in 2021
Stable for discharge from my standpoint
-Patient presented to the ER with SOB and was found to be in recurrent A-fib and acute HF prompting admission and cardiology consultation. Patient was recently admitted to the hospital from until 06/12/2025 with A-fib and acute HF. During
that admission patient had a successful CARMELO/CV on 06/06/2025, but recurred with A-fib/atypical atrial flutter the following day prompting initiation of amiodarone and the plans for rate control and to follow-up as an outpatient. Patient has a
history of atrial arrhythmia with previous PVI in 2022 and then most recently a PVI 03/16/2025. When patient was seen in the office for follow-up on 06/16/2025 she was in SR and amiodarone 200 mg BID was continued and the plan was to then decrease
to 200 mg once daily on 09/28/2025. Patient says that about a week ago she started with BURCIAGA and then started with a sore throat that was evaluated in urgent care and patient tested negative for COVID and influenza at that time. Patient then noticed
weight gain up to 233 lbs at home and increased LE edema. Patient says that things then got much worse in the last 24 hours with resting SOB and she came to the ER hypoxic and initially required BiPAP. Patient was diuresed with Lasix 60 mg IV x 1
in the ER and then started on Lasix 40 mg PO daily starting today, but has not yet received a dose. Patient was taking Lasix 80 mg PO daily prior to admission. Patient also appears to be in recurrent A-fib, she is asymptomatic with her atrial
arrhythmias and so duration of recurrent atrial arrhythmias unknown. Patient denies missing any doses of Eliquis.
Progress Note - Rail Detector Car Operator
Subjective
Date of Service: July 30, 2025
No acute overnight events. Patient's resting comfortably in bed in the IVU this morning. Tells me that her breathing is comfortable. Feels that her peripheral edema has significantly improved.
Objective
Labs:
07/30/25 05:28
07/30/25 05:28
Labs
Hgb 12.9 g/dL (12.0-16.0) 07/30/25 05:28
Hct 40.3 % (37.0-47.0) 07/30/25 05:28
Plt Count 421 10^3/uL (130-400) H 07/30/25 05:28
Sodium 136 mmol/L (135-145) 07/30/25 05:28
Potassium 3.9 mmol/L (3.5-5.1) 07/30/25 05:28
BUN 29 mg/dl (7-17) H 07/30/25 05:28
Creatinine 1.6 mg/dL (0.6-1.0) H 07/30/25 05:28
Glucose 184 mg/dl (70-99) H 07/30/25 05:28
Vital Signs and I&O:
Vital Signs
Temp Pulse Resp BP Pulse Ox
97.4 F 71 16 130/88 90
07/30/25 11:34 07/30/25 08:00 07/30/25 11:34 07/30/25 07:36 07/30/25 11:34
Vital Signs
Temp Pulse Resp BP Pulse Ox
97.4 F 71 16 130/88 90
07/30/25 11:34 07/30/25 08:00 07/30/25 11:34 07/30/25 07:36 07/30/25 11:34
Intake & Output
07/28/25 07/29/25 07/30/25 07/31/25
06:59 06:59 06:59 06:59
Intake Total 240 / 240 240 / 240
Output Total 500 / 500 1575 / 1575 450 / 450
Balance -260 / -260 -1575 / -1575 -210 / -210
Physical Exam
Physical Exam
Gen: NAD, AAOx3
HEENT: NC/AT, sclera anicteric
Neck: No JVD
CV: RRR, NL s1/s2
Lungs: CTAB on 1 L supplemental O2
Abd: S/ND
Ext: No LE edema
Skin: Warm, dry
Neuro: Non-focal
--- NOTE | 2025-07-30 13:58 | PTCARENOTE ---
Pt was discharged to home. Instructions were given including medication next dose and call for follow up appointments with Cardiology. Pt verbalized understanding. Pt was escorted out by PCT via wheelchair. pvc monitor and PIV removed prior to
discharge.
[2025-07-30 17:14] LABS: Glucose - Point of Care 184 mg/dl (70-99)
--- NOTE | 2025-07-30 18:41 | W.DCSUMMARY ---
Documented by User: Kayleen Brennan MD, Resident 07/30/25 18:44
Discharge Summary
Discharge Data
Date of Admission: 07/26/25
Date of Discharge: 07/30/25
-
Pending Results: No
Hospital Course
69yoF PMH persistent afib, HFpEF, COPD, IDDM, hypothyroidism presenting with SOB in setting of acute on chronic HFpEF.
Pt was diagnosed with viral illness 2 weeks ago with subacute SOB with acute worsening overnight, prompting her presentation.
07/27 AFVSS continuing in afib with peripheral edema and minimal basilar crackles concerning for more fluid retention. Voided 3L overnight. Weight down 5kg. Continued diuresis. Troponin 0.038 to 0.040 down to 0.028 likely in setting of demand
ischemia, trend.
07/28 Pt afebrile, continued afib RVR on 6L oxygen, up from yesterday 4L. Cr bumped 1.7 from 1.1, likely very dry. Weight down 99.6kg from 107.6 on presentation. Peripheral and pulmonary edema improved. HfmrEF 45-50%, previously 50%. Continue IV
diuresis per cardiology.
07/29 AFVSS on 5L oxygen. Pt reports feeling well with resolving pulmonary and peripheral edema, weight down to 99.1. Plan for cardioversion today, still in afib on diltiazem drip. 1 dose IV lasix 40mg yesterday, Cr improved 1.6 from 1.7. CXR
yesterday demonstrated small bilateral pleural effusions improved from admission. Cardiology plans on continuing IV diuresis. Successful cardioversion this morning. Downgraded from IMU to tele.
07/30 AFVSS, wean off oxygen. Respiratory symptoms resolving with no peripheral edema. Pt weight down 98.1kg. Successful cardioversion, still in sinus. Transition to PO home lasix. Restart home lasix and farxiga
Discharge Plan
-
Patient Disposition: Home (Routine Discharge)
Discharge Diagnosis/Procedures: acute on chronic HFmrEF
persistent afib
COPD
CKD3a
Diet: Low Cholesterol, Low Sodium and Diabetic, Carb Controlled
Activity: As tolerated
Driving Restrictions: As prior to admission
Bathing Restrictions: None
Instructions: *DCA Heart Failure Instructions
Referrals:
Kailyn Petty MD [Family Provider, [facility]]
Doc Garica MD [Active, Cardiology]
Joey Zavala MD [Active, Cardiology]
Additional Discharge Medication Instructions: Discuss with outpatient arnp consideration for cardioMEMs device. Folow up with outpt arnp upon discharge both Dr Bo and Dr Garcia given repeat afib.
Prescriptions:
New
amiodarone [Pacerone] 200 mg Tablet
200 mg PO BID 30 Days Qty: 60 0RF
Continued
fluoxetine 40 MG capsule
40 mg PO BID
nitroglycerin 0.4 MG tablet, sublingual
0.4 mg sublingual [id number] PRN (Reason: chest pain)
vitamin B complex 1 TAB tablet
1 tab PO NOON
cyanocobalamin (vitamin B-12) 1,000 MCG tablet
1,000 mcg PO NOON
ferrous sulfate [iron] 325 MG tablet
325 mg PO NOON
albuterol sulfate 90 mcg/actuation Hfa Aerosol Inhaler
2 puff INHALATION R Q4HPRN PRN (Reason: sob)
albuterol sulfate 2.5 mg /3 mL (0.083 %) Solution For Nebulization
2.5 mg INHALATION R Q4HPRN PRN (Reason: sob)
Eliquis 5 mg tablet
5 mg PO BID
insulin glargine [Basaglar KwikPen U-100 Insulin] 100 unit/mL (3 mL) Insulin Pen
6 unit SC HS
levothyroxine [Synthroid] 150 mcg Tablet
150 mcg PO DAILY
letrozole 2.5 mg Tablet
2.5 mg PO DAILY
ondansetron 4 mg tablet,disintegrating
4 mg PO Q8HPRN PRN (Reason: nausea and vomiting)
pantoprazole 40 mg tablet,delayed release (DR/EC)
40 mg PO DAILY PRN (Reason: Gastrointestinal Issue)
naproxen sodium [Aleve] 220 mg Tablet
220 mg PO Q12 PRN (Reason: mild pain )
fluticasone furoate [Arnuity Ellipta] 200 mcg/actuation Blister With Device
1 inh INHALATION HS
dextroamphetamine-amphetamine 20 mg Capsule,Extended Release 24hr
20 mg PO DAILY
insulin aspart U-100 [Novolog FlexPen U-100 Insulin] 100 unit/mL (3 mL) Insulin Pen
1 sliding scale dose SC DIRECTED
atorvastatin 20 mg Tablet
20 mg PO HS
turmeric 400 mg Capsule
47.5 mg PO NOON
therapeutic multivitamin Tablet
1 tab PO DAILY
Mounjaro 2.5 mg/0.5 mL pen injector
2.5 mg SC HUTCHISON
empagliflozin 10 mg tablet
10 mg PO DAILY Qty: 30 0RF
diltiazem HCl 180 mg Capsule,Extended Release 24hr
180 mg PO BID Qty: 60 0RF
cholecalciferol (vitamin D3) [Vitamin D3] 125 mcg (5,000 unit) Tablet
125 mcg PO DAILY
nystatin 100,000 unit/gram Ointment
1 applic TOPICAL BID
(DME) Dexcom G7 Sensor Device
MISCELLANEOUS
dextroamphetamine-amphetamine [Adderall XR] 20 mg Capsule,Extended Release 24hr
10 mg PO BID@12,16
furosemide 80 mg Tablet
80 mg PO DAILY
Discharge Orders:
Discharge Patient (As Directed); Ordered 07/30/25
Ordered By: Kayleen Brennan
Discharge Date and Time
Discharge Date/Time: 07/30/25 14:09
Print Language: TURKISH

Documented by User: Bc StacieFrannie Miner DO 07/31/25 09:24
Discharge Summary
Discharge Data
Date of Admission: 07/26/25
Date of Discharge: 07/30/25
Total time spent discharging patient (in min): 35
Discharge Plan
-
Patient Disposition: Home (Routine Discharge)
Discharge Diagnosis/Procedures: acute on chronic HFmrEF
persistent afib
COPD
CKD3a
Diet: Low Cholesterol, Low Sodium and Diabetic, Carb Controlled
Activity: As tolerated
Driving Restrictions: As prior to admission
Bathing Restrictions: None
Instructions: *DCA Heart Failure Instructions
Referrals:
Kailyn Petty MD [Family Provider, Family Practice]
Doc Garcia MD [Active, Cardiology]
Joey Zavala MD [Active, Cardiology]
Additional Discharge Medication Instructions: Discuss with outpatient arnp consideration for cardioMEMs device. Folow up with outpt arnp upon discharge both Dr Bo and Dr Garcia given repeat afib.
Prescriptions:
New
amiodarone [Pacerone] 200 mg Tablet
200 mg PO BID 30 Days Qty: 60 0RF
Continued
fluoxetine 40 MG capsule
40 mg PO BID
nitroglycerin 0.4 MG tablet, sublingual
0.4 mg sublingual [id number] PRN (Reason: chest pain)
vitamin B complex 1 TAB tablet
1 tab PO NOON
cyanocobalamin (vitamin B-12) 1,000 MCG tablet
1,000 mcg PO NOON
ferrous sulfate [iron] 325 MG tablet
325 mg PO NOON
albuterol sulfate 90 mcg/actuation Hfa Aerosol Inhaler
2 puff INHALATION R Q4HPRN PRN (Reason: sob)
albuterol sulfate 2.5 mg /3 mL (0.083 %) Solution For Nebulization
2.5 mg INHALATION R Q4HPRN PRN (Reason: sob)
Eliquis 5 mg tablet
5 mg PO BID
insulin glargine [Basaglar KwikPen U-100 Insulin] 100 unit/mL (3 mL) Insulin Pen
6 unit SC HS
levothyroxine [Synthroid] 150 mcg Tablet
150 mcg PO DAILY
letrozole 2.5 mg Tablet
2.5 mg PO DAILY
ondansetron 4 mg tablet,disintegrating
4 mg PO Q8HPRN PRN (Reason: nausea and vomiting)
pantoprazole 40 mg tablet,delayed release (DR/EC)
40 mg PO DAILY PRN (Reason: Gastrointestinal Issue)
naproxen sodium [Aleve] 220 mg Tablet
220 mg PO Q12 PRN (Reason: mild pain )
fluticasone furoate [Arnuity Ellipta] 200 mcg/actuation Blister With Device
1 inh INHALATION HS
dextroamphetamine-amphetamine 20 mg Capsule,Extended Release 24hr
20 mg PO DAILY
insulin aspart U-100 [Novolog FlexPen U-100 Insulin] 100 unit/mL (3 mL) Insulin Pen
1 sliding scale dose SC DIRECTED
atorvastatin 20 mg Tablet
20 mg PO HS
turmeric 400 mg Capsule
47.5 mg PO NOON
therapeutic multivitamin Tablet
1 tab PO DAILY
Mounjaro 2.5 mg/0.5 mL pen injector
2.5 mg SC HUTCHISON
empagliflozin 10 mg tablet
10 mg PO DAILY Qty: 30 0RF
diltiazem HCl 180 mg Capsule,Extended Release 24hr
180 mg PO BID Qty: 60 0RF
cholecalciferol (vitamin D3) [Vitamin D3] 125 mcg (5,000 unit) Tablet
125 mcg PO DAILY
nystatin 100,000 unit/gram Ointment
1 applic TOPICAL BID
(DME) Dexcom G7 Sensor Device
MISCELLANEOUS
dextroamphetamine-amphetamine [Adderall XR] 20 mg Capsule,Extended Release 24hr
10 mg PO BID@12,16
furosemide 80 mg Tablet
80 mg PO DAILY
Discharge Orders:
Discharge Patient (As Directed); Ordered 07/30/25
Ordered By: Kayleen Brennan
Discharge Date and Time
Discharge Date/Time: 07/30/25 14:09
Print Language: TURKISH
--- NOTE | 2025-08-01 14:47 | W.HF.CON ---
Heart Failure
- LV Function
Left ventricular function study result: LV Ejection fraction 41-49%
Ejection Fraction Percentage: 45-50
- ARNI
Patient already on ARNI: No
Heart Failure ARNI Not Indicated: LV Ejection Fraction >/= 40%
- ACEI/ARB
Patient already on ACEI/ARB: No
Heart Failure ACEI/ARB Not Indicated: LV Ejection Fraction > 40%
- Beta Thalia
Patient already on Evidence Based Beta Thalia: No
Heart Failure Evidence Based Beta Thalia Not Indicated: LV Ejection Fraction > 40%
- Mineralocorticord Receptor Antagonist
Patient already on MRA: No
Heart Failure MRA Not Indicated: LV Ejection Fraction > 40%
- SGLT-2 Inhibitor
Patient already on SGLT-2 Inhibitor: Yes
- Afib Anticoagulation
Patient already on Anticoagulation for Afib: Yes
- NYHA CHF Classification
NYHA CHF Classification Level: Class III - Symptoms w/ min exertion, interferes w/ nml daily activity
- ACC/AHA Stage
ACC/AHA Stage: Stage C: Symptomatic Heart Failure
== END 2025-07-30 14:09 | disposition home or self-care (01) | DRG 291 ==
LOC: IVU 23:12
PROVIDERS: Nuclear Medicine Nuclear Cardiology; Nurse Practitioner Family; Physician Assistant; Physician Assistant Medical; ADMITTING PHYSICIAN Internal Medicine; ATTENDING PHYSICIAN Internal Medicine; EMERGENCY PHYSICIAN Emergency Medicine; FAMILY PHYSICIAN Family Medicine; OTHER PHYSICIAN Internal Medicine Cardiovascular Disease
PROC: 5A09357 Assistance with Respiratory Ventilation, Less than 24 Consecutive Hours, Continuous Positive Airway Pressure (ICD-10-PCS; 2025-07-26)
PROC: 5A2204Z Restoration of Cardiac Rhythm, Single (ICD-10-PCS; 2025-07-29)
DX: I13.0 Hypertensive heart and chronic kidney disease with heart failure and stage 1 through stage 4 chronic kidney disease, or unspecified chronic kidney disease (principal); I50.43 Acute on chronic combined systolic (congestive) and diastolic (congestive) heart failure; J96.01 Acute respiratory failure with hypoxia; I48.19 Other persistent atrial fibrillation; I24.89 Other forms of acute ischemic heart disease; I48.4 Atypical atrial flutter; J44.89 Other specified chronic obstructive pulmonary disease; E11.22 Type 2 diabetes mellitus with diabetic chronic kidney disease; N18.31 Chronic kidney disease, stage 3a; E03.9 Hypothyroidism, unspecified; F41.9 Anxiety disorder, unspecified; F32.A Depression, unspecified; Z92.21 Personal history of antineoplastic chemotherapy; Z92.3 Personal history of irradiation; Z85.3 Personal history of malignant neoplasm of breast; E66.01 Morbid (severe) obesity due to excess calories; F90.9 Attention-deficit hyperactivity disorder, unspecified type; Z68.37 Body mass index [BMI] 37.0-37.9, adult; Z87.891 Personal history of nicotine dependence; Z96.653 Presence of artificial knee joint, bilateral; Z88.1 Allergy status to other antibiotic agents; Z79.01 Long term (current) use of anticoagulants; E78.00 Pure hypercholesterolemia, unspecified; I25.10 Atherosclerotic heart disease of native coronary artery without angina pectoris; I42.8 Other cardiomyopathies; Z79.4 Long term (current) use of insulin; Z79.811 Long term (current) use of aromatase inhibitors; Z79.84 Long term (current) use of oral hypoglycemic drugs; Z79.85 Long-term (current) use of injectable non-insulin antidiabetic drugs; Z79.899 Other long term (current) drug therapy; I5A Non-ischemic myocardial injury (non-traumatic); Z11.52 Encounter for screening for COVID-19
CPT/HCPCS: 71045; 80048; 80053; 82947; 82962; 83036; 83735; 83880; 84443; 84484; 85025; 85027; 87502; 87811; 92960; 93005; 93306; 94640; 94660; 96365; 96366; 96375; 97162; 99291